=== PATIENT | female | born 1955 | race Caucasian/White ===

== ENCOUNTER → 2020-11-10 08:01 | Outpatient (BNVA) | payer BC, SELFPAY | PROVIDERS: Visit Provider Obstetrics & Gynecology | DX: Z76.89 Persons encountering health services in other specified circumstances (principal) ==

== ENCOUNTER 2021-01-04 10:41 | Outpatient (REF) | payer MEDICARE, SELFPAY ==
--- NOTE | ~2021-01-04 | MM_ITS ---
EXAMINATION: MM SCREENING DIGITAL BREAST TOMOSYNTHESIS, BILATERAL CLINICAL INFORMATION: Screening. Asymptomatic. The lifetime risk of breast cancer based on the Tyrer-Cuzick Model is 7%. COMPARISON: Mammography: 10/08/2020, 12/24/2018, 10/16/2017 TECHNIQUE: Digital breast tomosynthesis is performed in both the craniocaudal and mediolateral oblique views along with computer-aided detection (CAD). Synthesized 2D images are generated from the tomosynthesis. Additional left MLO view is provided. FINDINGS: There are scattered areas of fibroglandular density (ACR BI-RADS breast composition Category b). There are no significant masses, abnormal calcifications, or other abnormalities. Parenchymal pattern is similar to prior exams. There is no developing density. No significant changes. MM/MM tomosynthesis screening BI IMPRESSION: No mammographic evidence of malignancy. ASSESSMENT: BI-RADS 1: Negative RECOMMENDATION: Routine annual mammography screening. This patient's information was entered into a reminder system with a target due date for their next mammogram.
== END 2021-01-04 10:42 | disposition home or self-care (01) ==
LOC: HO.MAMMO 10:41
PROVIDERS: PCP Internal Medicine; Visit Provider Internal Medicine
DX: Z12.31 Encounter for screening mammogram for malignant neoplasm of breast (principal)
CPT/HCPCS: 77063; 77067

== ENCOUNTER 2021-01-18 10:39 | Outpatient (REF) | payer MEDICARE, SELFPAY ==
[2021-01-18 10:44] LABS: MANUAL DIFF FLAG NO
[2021-01-18 10:50] LABS: Basophils Absolute Auto 0.1 X10*3/uL (0.0-0.2); Basophils Percent Auto 0.8 % (0-2); Eosinophils Absolute Auto 0.3 X10*3/uL (0.0-0.4); Eosinophils Percent Auto 4.2 % (0-4); Hematocrit 43.5 % (37-47); Hemoglobin 14.1 g/dl (12.0-16.0); Imm Gran Abs Auto 0.01 X10*3/uL (0.00-0.03); Imm Gran Pct Auto 0.2 % (0.0-0.4); Lymphocytes Absolute Auto 2.2 X10*3/uL (1.2-4.9); Lymphocytes Percent Auto 33.1 % (20-40); Mean Corpuscular HGB Conc 32.4 g/dl (31.0-35.0); Mean Corpuscular Hemoglobin 29.8 pg (27.0-33.0); Mean Platelet Volume 11.2 fL (9.4-12.3); Monocytes Absolute Auto 0.5 X10*3/uL (0.1-1.2); Monocytes Percent Auto 7.7 % (2-11); Neutrophils Absolute Auto 3.6 X10*3/uL (2.0-8.3); Platelet Count 243 X10*3/uL (160-400); Red Blood Count 4.73 X10*6/uL (4.20-5.50); White Blood Count 6.6 X10*3/uL (4.8-10.8)
[2021-01-18 10:54] LABS: Glucose Urine UA NEG (NEG); Leukocyte Esterase Urine TRACE (NEG); Nitrite Urine NEG (NEG); PH 5.5 (5.0-8.0); Specific Gravity - Urine >= 1.030 (1.005-1.025); Urine Blood TRACE (NEG); Urine Ketones NEG (NEG); Urine Protein NEG (NEG-TRACE)
[2021-01-18 10:58] LABS: Appearance Urine CLOUDY; Color Urine YELLOW
[2021-01-18 11:02] LABS: Estimated Average Glucose 120 mg/dL; Hemoglobin A1C 143.9282 umol/L; Hemoglobin A1c % 5.8 %
[2021-01-18 11:07] LABS: Bacteria Urine 4+ /LPF; RBC Urine 0-2 /HPF (0); Squamous Epithelial Cell Urine 4+ /LPF
[2021-01-18 11:29] LABS: Alanine Aminotransferase 21 U/L (0-31); Alkaline Phosphatase 73 U/L (39-117); Anion Gap 13 (12-20); Aspartate Amino Transferase 15 U/L (5-31); Bilirubin Total 0.8 mg/dL (0.0-1.0); Blood Urea Nitrogen 19 mg/dL (9-16); Calcium 8.8 mg/dL (8.4-10.2); Carbon Dioxide 27 mmol/L (22-29); Chloride 106 mmol/L (96-108); Cholesterol 183 mg/dL; Estimated Glomerular Filt Rate 54; Glucose Fasting 109 mg/dL (60-99); HDL Cholesterol 42 mg/dL; LDL Cholesterol Calculated 111 mg/dl; Potassium 4.1 mmol/L (3.3-5.1); Sodium 142 mmol/L (135-145); Total Protein 6.6 g/dL (6.5-8.0); Triglycerides 154 mg/dL
[2021-01-18 11:50] LABS: TSH reflex Free T4 2.51 uIU/mL (0.32-4.0); Vitamin D 25-OH Total 40.1 ng/mL (>30)
[2021-01-18 12:43] LABS: Reflex LDLD? No
== END 2021-01-18 10:40 | disposition home or self-care (01) ==
LOC: HO.LNP 10:39
PROVIDERS: PCP Internal Medicine; Visit Provider Internal Medicine
DX: D72.820 Lymphocytosis (symptomatic) (principal); E03.9 Hypothyroidism, unspecified; E55.9 Vitamin D deficiency, unspecified; R73.03 Prediabetes; E78.00 Pure hypercholesterolemia, unspecified
CPT/HCPCS: 80053; 80061; 81001; 82306; 83036; 84443; 85025

== ENCOUNTER 2021-05-09 10:35 | Outpatient (REF) | payer MEDICARE, SELFPAY ==
[2021-05-09 10:50] LABS: Estimated Average Glucose 114 mg/dL; Hemoglobin A1c % 5.6 %
[2021-05-09 11:59] LABS: Alanine Aminotransferase 18 U/L (0-31); Alkaline Phosphatase 65 U/L (39-117); Aspartate Amino Transferase 14 U/L (5-31); Bilirubin Direct 0.2 mg/dL (0.0-0.5); Bilirubin Total 0.5 mg/dL (0.0-1.0); Cholesterol 128 mg/dL; Glucose Fasting 113 mg/dL (60-99); HDL Cholesterol 40 mg/dL; LDL Cholesterol Calculated 68 mg/dl; Total Protein 6.2 g/dL (6.5-8.0); Triglycerides 102 mg/dL
[2021-05-09 12:07] LABS: Reflex LDLD? No
== END 2021-05-09 10:36 | disposition home or self-care (01) ==
LOC: HO.LNP 10:35
PROVIDERS: Visit Provider Internal Medicine
DX: R73.03 Prediabetes (principal); E78.00 Pure hypercholesterolemia, unspecified
CPT/HCPCS: 80061; 80076; 82947; 83036

== ENCOUNTER 2021-05-17 12:27 | Outpatient (REF) | payer MEDICARE, SELFPAY ==
[2021-05-17 14:02] LABS: Glucose Urine UA NEG (NEG); Leukocyte Esterase Urine 3+ (NEG); Nitrite Urine NEG (NEG); PH 6.5 (5.0-8.0); Urine Blood 3+ (NEG); Urine Ketones NEG (NEG); Urine Protein NEG (NEG-TRACE)
[2021-05-17 14:07] LABS: Appearance Urine HAZY; Color Urine YELLOW
[2021-05-17 14:22] LABS: Bacteria Urine 2+ /LPF; RBC Urine TNTC /HPF (0); Squamous Epithelial Cell Urine 2+ /LPF; WBC Urine TNTC /HPF (0-4)
== END 2021-05-17 12:28 | disposition home or self-care (01) ==
LOC: HO.LNP 12:27
PROVIDERS: Visit Provider Internal Medicine
DX: E78.00 Pure hypercholesterolemia, unspecified (principal); N30.00 Acute cystitis without hematuria
CPT/HCPCS: 81001; 81003; 87086; 87088; 87186

== ENCOUNTER 2021-05-30 09:26 | Outpatient (REF) | payer MEDICARE, SELFPAY ==
--- NOTE | ~2021-05-30 | US_ITS ---
EXAMINATION: US THYROID CLINICAL INFORMATION: Nontoxic single nodule. COMPARISON: Ultrasound thyroid soft tissue neck 06/14/2020. TECHNIQUE: Linear transducer mcclain-scale and color Doppler examination with attention to the region of the thyroid. FINDINGS: SIZE: Measurements of the thyroid lobes and nodules are given in sagittal, anteroposterior and transverse dimensions respectively. Right Thyroid Lobe: 4.1 x 2.2 x 2.0 cm, volume 9.7 mL. Previously 4.4 x 2.4 x 2.2 cm, volume 12.3 mL. Parenchyma: The gland echotexture is homogeneous. Thyroid vascularity is normal. Left Thyroid Lobe: 4.6 x 1.5 x 1.8 cm, volume 6.3 mL. Previously 5.0 x 1.7 x 1.7 cm, volume 7.7 mL. Parenchyma: The gland echotexture is homogeneous. Thyroid vascularity is increased. Isthmus: 0.5 cm in maximum AP dimension. Previously 0.4 cm. Estimated total number of nodules greater than or equal to 1 cm: 1. Reconciliation Coordinator nodules are described as follows: 1. Location: Right upper. Size: 0.6 x 0.6 x 0.4 cm, volume 0.09 mL. Previously: Nodule characteristics: Composition: Solid (2). Echogenicity: Hypoechoic (2). Shape: Not taller than wide (0). Margins: Smooth (0). Echogenic Foci: None (0). ACR TI-RADS total points: 4 Previous: Not applicable. ACR TI-RADS category: 4 Previous: Not applicable. 2. Location: Right mid. Size: 0.5 x 0.5 x 0.4 cm, volume 0.06 mL. Previously: 0.6 x 0.5 x 0.6 cm, volume 0.09 mL. Nodule characteristics: Composition: Solid (2). Echogenicity: Hypoechoic (2). Shape: Not taller than wide (0). Margins: Smooth (0). Echogenic Foci: None (0). ACR TI-RADS total points: 4 Previous: Not applicable. ACR TI-RADS category: 4 Previous: Not applicable. Significant change in size (>/= 20% in 2 dimensions and minimal increase of 2 mm or 50% or greater increase in volume): Change in features: Change in ACR TI-RADS risk category: 3. Location: Left mid. Size: 1.3 x 1.0 x 1.0 cm, volume 0.70 mL. Previously: 1.3 x 0.9 x 0.9 cm, volume 0.53 mL. Nodule characteristics: Composition: Solid/almost completely solid (2). Echogenicity: Hyperechoic (1). Shape: Not taller than wide (0). Margins: Smooth (0). Echogenic Foci: None (0). ACR TI-RADS total points: 3 Previous: Not applicable. ACR TI-RADS category: 3 Previous: Not applicable. Significant change in size (>/= 20% in 2 dimensions and minimal increase of 2 mm or 50% or greater increase in volume): Change in features: Change in ACR TI-RADS risk category: 4. Location: Left lower. Size: 0.4 x 0.3 x 0.2 cm, volume 0.02 mL. Previously: Nodule characteristics: Composition: Solid (2). Echogenicity: Hypoechoic (2). Shape: Not taller than wide (0). Margins: Smooth (0). Echogenic Foci: None (0). ACR TI-RADS total points: 4 Previous: Not applicable. ACR TI-RADS category: 4 Previous: Not applicable. NODES: No lymphadenopathy is seen in the tissue surrounding the thyroid gland. US/US thyroid IMPRESSION: Newly appreciated nodules in the superior right lobe and inferior left lobe. ACR TI-RADS RECOMMENDATION REFERENCE: Ultrasound-guided fine-needle aspiration, followup ultrasound, no further follow up. * TR1 (0 point) and TR 2 (2 points): No FNA or follow up * TR3 (3 points): FNA if more than or equal to 2.5 cm in maximum dimension, followup ultrasound in 1, 3 and 5 years if 1.5 to 2.4 cm in maximum dimension. * TR4 (4-6 points): FNA if more than or equal to 1.5 cm in maximum dimension, followup ultrasound in 1, 2, 3 and 5 years if 1 to 1.4 cm in maximum dimension. * TR5 (more than or equal to 7 points): FNA if more than or equal to 1 cm in maximum dimension, followup ultrasound every year for 5 years if 0.5 to 0.9 cm in maximum dimension. * TR3, TR4 or TR5 nodules that are below the size threshold for follow up receive no follow up.
== END 2021-05-30 09:27 | disposition home or self-care (01) ==
LOC: HO.US 09:26
PROVIDERS: Visit Provider Internal Medicine
DX: E04.1 Nontoxic single thyroid nodule (principal)
CPT/HCPCS: 76536

== ENCOUNTER 2021-06-02 16:02 | Outpatient (REF) | payer MEDICARE, SELFPAY ==
[2021-06-02 16:54] LABS: Glucose Urine UA NEG (NEG); Leukocyte Esterase Urine NEG (NEG); Nitrite Urine NEG (NEG); Urine Blood NEG (NEG); Urine Ketones NEG (NEG); Urine Protein NEG (NEG-TRACE)
[2021-06-02 17:19] LABS: Appearance Urine CLEAR; Bacteria Urine 2+ /LPF; Color Urine YELLOW; RBC Urine 0 /HPF (0); Squamous Epithelial Cell Urine 3+ /LPF; WBC Urine 0 /HPF (0-4)
== END 2021-06-02 16:03 | disposition home or self-care (01) ==
LOC: HO.LNP 16:02
PROVIDERS: Visit Provider Internal Medicine
DX: N39.0 Urinary tract infection, site not specified (principal)
CPT/HCPCS: 81001; 87086

== ENCOUNTER 2021-10-25 13:25 | Outpatient (REF) | payer MEDICARE, SELFPAY ==
--- NOTE | ~2021-10-25 | XR_ITS ---
EXAMINATION: XR CHEST CLINICAL INFORMATION: Bronchitis COMPARISON: 01/17/2018 TECHNIQUE: 2 views of the chest were obtained. FINDINGS: The lungs are well expanded. There is no focal consolidation, edema, or effusion. Mild bronchial wall thickening. No pneumothorax. The cardiomediastinal silhouette is within normal limits. No acute osseous abnormality. Degenerative changes of the spine are noted. XR/XR chest 2V IMPRESSION: No consolidation. Bronchial wall thickening can be seen with a small airways process such as asthma or atypical/viral infection.
== END 2021-10-25 13:26 | disposition home or self-care (01) ==
LOC: HO.XRAY 13:25
PROVIDERS: PCP Internal Medicine; Visit Provider Internal Medicine
DX: J40 Bronchitis, not specified as acute or chronic (principal)
CPT/HCPCS: 71046

== ENCOUNTER 2021-11-28 13:49 | Outpatient (REF) | payer MEDICARE, SELFPAY ==
--- NOTE | ~2021-11-28 | XR_ITS ---
EXAMINATION: XR ANKLE, LEFT CLINICAL INFORMATION: Trauma, lateral pain COMPARISON: None TECHNIQUE: AP, lateral, and mortise views of the left ankle. FINDINGS: There is no fracture or dislocation. There is questionable tiny corticated ossicle adjacent to tip lateral malleolus. No acute fracture appreciated. The ankle mortise is symmetric. There is no joint narrowing or erosive change or osteochondral lesion. Subtalar joint is unremarkable. There is posterior and borderline plantar calcaneal spur. Base fifth metatarsal appears intact. XR/XR ankle LT min 3V IMPRESSION: No visible fracture or dislocation. Ankle mortise is symmetric.
== END 2021-11-28 13:50 | disposition home or self-care (01) ==
LOC: HO.XRAY 13:49
PROVIDERS: PCP Internal Medicine; Visit Provider Internal Medicine
DX: S99.912A Unspecified injury of left ankle, initial encounter (principal); X58.XXXA Exposure to other specified factors, initial encounter; Y93.9 Activity, unspecified; Y92.9 Unspecified place or not applicable; Y99.8 Other external cause status
CPT/HCPCS: 73610

== ENCOUNTER → 2021-12-14 11:06 | Outpatient (BNVA) | payer MEDICARE, SELFPAY | PROVIDERS: PCP Internal Medicine; Visit Provider Obstetrics & Gynecology ==

== ENCOUNTER 2022-01-05 08:57 | Outpatient (REF) | payer MEDICARE, SELFPAY ==
--- NOTE | ~2022-01-05 | MM_ITS ---
EXAMINATION: MM SCREENING DIGITAL BREAST TOMOSYNTHESIS, BILATERAL CLINICAL INFORMATION: Screening. Asymptomatic. The lifetime risk of breast cancer based on the Tyrer-Cuzick Model is 10%. COMPARISON: Mammography: 01/04/2021, 12/30/2019, 12/24/2018 TECHNIQUE: Digital breast tomosynthesis is performed in both the craniocaudal and mediolateral oblique views along with computer-aided detection (CAD). Synthesized 2D images are generated from the tomosynthesis. Additional left MLO view is provided. FINDINGS: There are scattered areas of fibroglandular density (ACR BI-RADS breast composition Category b). There are no significant masses, abnormal calcifications, or other abnormalities. There are scattered bilateral minor asymmetries stable from prior studies. There is no developing density or interval mass or architectural abnormality. No significant changes. MM/MM tomosynthesis screening BI IMPRESSION: No mammographic evidence of malignancy. ASSESSMENT: BI-RADS 2: Benign RECOMMENDATION: Routine annual mammography screening. This patient's information was entered into a reminder system with a target due date for their next mammogram.
== END 2022-01-05 08:58 | disposition home or self-care (01) ==
LOC: HO.MAMMO 08:57
PROVIDERS: PCP Internal Medicine; Visit Provider Internal Medicine
DX: Z12.31 Encounter for screening mammogram for malignant neoplasm of breast (principal)
CPT/HCPCS: 77063; 77067

== ENCOUNTER 2022-01-31 08:10 | Outpatient (REF) | payer MEDICARE, SELFPAY ==
--- NOTE | ~2022-01-31 | MM_ITS ---
EXAMINATION: BONE DENSITOMETRY CLINICAL INDICATION: Menopause. COMPARISON: Previous BD dated 01/27/2020 and baseline BD dated 05/20/2013. TECHNIQUE: Using a [employer] DXA System (software version: 13.1) manufactured by [employer], dual-energy x-ray absorptiometry was performed of the lumbar spine and left hip. The images are of good technical quality. Summary results are attached. FINDINGS: AP SPINE L1-L4 (excluding L3): The data of L1-L4 has been changed to exclude the L3 vertebral body, because degenerative changes at this level may cause overestimation of lumbar spine density. Current: BMD 1.681 g/cm2, Z-score 5.0, T-score 4.3, normal, 1.4% increase from previous, 1.3% decrease from baseline (<5% change is not significant). Prior: BMD 1.658 g/cm2. Baseline: BMD 1.704 g/cm2. LEFT FEMUR, NECK: Current: BMD 0.975 g/cm2, Z-score 0.6, T-score -0.5, normal. Prior: BMD 0.934 g/cm2. Baseline: BMD 1.033 g/cm2. LEFT FEMUR, TOTAL: Current: BMD 1.193 g/cm2, Z-score 2.2, T-score 1.5, normal, 3.2% increase from previous, 3.6% increase from baseline (<5% change is not significant). Prior: BMD 1.156 g/cm2. Baseline: BMD 1.151 g/cm2. IDENTIFIED RISK FACTORS: Menopause, history of fracture (adult). HISTORY OF FRACTURE: Coccyx. MEDICATIONS: Vitamin D. MM/XR DEXA axial skeleton IMPRESSION: 1. DIAGNOSIS: Normal bone density based on the lowest T-score value of -0.5 in the femoral neck applying World Health Organization criteria. 2. 10-YEAR FRACTURE RISK PREDICTION, FRAX: Major osteoporotic fracture (clinical spine, forearm, hip or shoulder) 11.6%. Hip fracture 0.6%. 3. Treatment Recommendations: NOF guidelines recommend consideration for treatment in postmenopausal women and men age 50 and older presenting with the following: -A hip or vertebral (clinical or morphometric) fracture. -T-score less than or equal to -2.5 at the femoral neck or spine after appropriate evaluation to exclude secondary causes. -Low bone mass at the hip or spine and a 10-year fracture probability by FRAX of greater than or equal to 3% for hip fracture or greater than or equal to 20% for major osteoporotic fracture based on the [place] adapted WHO algorithm. 4. Other Recommendations: All treatment decisions require clinical judgment and consideration of individual patient factors, including patient preferences, comorbidities, previous drug use, risk factors not captured in the FRAX model (e.g. frailty, falls, vitamin D deficiency, increased bone turnover, interval significant decline in bone density) and possible under or overestimation of fracture risk by FRAX. FUTURE SCAN RECOMMENDATION: People with diagnosed cases of osteoporosis or at high risk for fracture should have regular bone mineral density tests. For patients eligible for Medicare, routine testing is allowed once every 2 years. The testing frequency can be increased to one year for patients who have rapidly progressing disease, those who are receiving or discontinuing medical therapy to restore bone mass, or have additional risk factors.
== END 2022-01-31 08:11 | disposition home or self-care (01) ==
LOC: HO.MAMMO 08:10
PROVIDERS: PCP Internal Medicine; Visit Provider Obstetrics & Gynecology
DX: Z13.820 Encounter for screening for osteoporosis (principal); Z78.0 Asymptomatic menopausal state; Z79.899 Other long term (current) drug therapy
CPT/HCPCS: 77080

== ENCOUNTER 2022-02-07 11:17 | Outpatient (REF) | payer MEDICARE, SELFPAY ==
[2022-02-07 11:24] LABS: MANUAL DIFF FLAG NO
[2022-02-07 11:30] LABS: Appearance Urine HAZY; Color Urine YELLOW; Glucose Urine UA NEG (NEG); Leukocyte Esterase Urine NEG (NEG); Nitrite Urine NEG (NEG); PH 5.5 (5.0-8.0); Specific Gravity - Urine 1.025 (1.005-1.025); Urine Blood NEG (NEG); Urine Ketones NEG (NEG); Urine Protein NEG (NEG-TRACE)
[2022-02-07 11:33] LABS: Basophils Absolute Auto 0.1 X10*3/uL (0.0-0.2); Basophils Percent Auto 0.7 % (0-2); Eosinophils Absolute Auto 0.2 X10*3/uL (0.0-0.4); Eosinophils Percent Auto 2.7 % (0-4); Hematocrit 42.8 % (37.0-47.0); Hemoglobin 13.9 g/dl (12.0-16.0); Imm Gran Abs Auto 0.01 X10*3/uL (0.00-0.03); Imm Gran Pct Auto 0.1 % (0.0-0.4); Lymphocytes Absolute Auto 2.2 X10*3/uL (1.2-4.9); Lymphocytes Percent Auto 32.5 % (20-40); Mean Corpuscular HGB Conc 32.5 g/dl (31.0-35.0); Mean Corpuscular Hemoglobin 30.2 pg (27.0-33.0); Mean Platelet Volume 11.6 fL (9.4-12.3); Monocytes Absolute Auto 0.5 X10*3/uL (0.1-1.2); Monocytes Percent Auto 7.8 % (2-11); Neutrophils Absolute Auto 3.8 x10*3/uL (2.0-8.3); Neutrophils Percent Auto 56.2 % (45-73); Platelet Count 218 X10*3/uL (160-400); Red Cell Distribution Width 13.1 % (11.0-16.0); White Blood Count 6.7 X10*3/uL (4.8-10.8)
[2022-02-07 11:51] LABS: Estimated Average Glucose 117 mg/dL; Hemoglobin A1c % 5.7 %
[2022-02-07 12:18] LABS: Alanine Aminotransferase 22 U/L (0-31); Albumin Level 4.1 g/dL (3.5-5.0); Alkaline Phosphatase 67 U/L (39-117); Anion Gap 13 (12-20); Aspartate Amino Transferase 16 U/L (5-31); Bilirubin Total 0.6 mg/dL (0.0-1.0); Blood Urea Nitrogen 22 mg/dL (9-16); Calcium 9.4 mg/dL (8.4-10.2); Carbon Dioxide 26 mmol/L (22-29); Chloride 107 mmol/L (96-108); Cholesterol 163 mg/dL; Estimated Glomerular Filt Rate > 60; Glucose Random 114 mg/dL (60-115); HDL Cholesterol 41 mg/dL; LDL Cholesterol Calculated 98 mg/dl; Potassium 4.1 mmol/L (3.3-5.1); Sodium 142 mmol/L (135-145); Total Protein 6.5 g/dL (6.5-8.0); Triglycerides 120 mg/dL
[2022-02-07 12:22] LABS: TSH reflex Free T4 1.32 uIU/mL (0.32-4.0)
[2022-02-07 12:34] LABS: Creatinine Urine 178.38 mg/dL
== END 2022-02-07 11:18 | disposition home or self-care (01) ==
LOC: HO.LNP 11:17
PROVIDERS: Visit Provider Internal Medicine
DX: Z00.00 Encounter for general adult medical examination without abnormal findings (principal); E03.9 Hypothyroidism, unspecified; D72.820 Lymphocytosis (symptomatic); E55.9 Vitamin D deficiency, unspecified; R73.09 Other abnormal glucose; E04.1 Nontoxic single thyroid nodule; E78.00 Pure hypercholesterolemia, unspecified
CPT/HCPCS: 80053; 80061; 81003; 82043; 82306; 83036; 84443; 85025

== ENCOUNTER → 2022-02-21 11:41 | Outpatient (BNVA) | payer MEDICARE, SELFPAY | PROVIDERS: PCP Internal Medicine; Visit Provider Obstetrics & Gynecology | DX: M85.80 Other specified disorders of bone density and structure, unspecified site (principal) | CPT/HCPCS: Q3014 ==

== ENCOUNTER 2022-03-09 11:03 | Outpatient (REF) | payer MEDICARE, SELFPAY ==
--- NOTE | ~2022-03-09 | XR_ITS ---
EXAMINATION: XR foot RT min 3V CLINICAL INFORMATION: Foot pain COMPARISON: None TECHNIQUE: 3 views of the foot XR/XR foot RT min 3V FINDINGS/IMPRESSION: No fracture or dislocation. Mild degenerative changes of the foot with mild degenerative changes of the first metatarsophalangeal joint with degenerative spurring and plantar calcaneal spurring and Achilles tendon enthesopathy. No joint effusion. Soft tissues are unremarkable.
== END 2022-03-09 11:04 | disposition home or self-care (01) ==
LOC: HO.XRAY 11:03
PROVIDERS: PCP Internal Medicine; Visit Provider Internal Medicine
DX: M79.671 Pain in right foot (principal)
CPT/HCPCS: 73630

== ENCOUNTER 2022-07-11 09:25 | Outpatient (REF) | payer MEDICARE, SELFPAY ==
--- NOTE | ~2022-07-11 | US_ITS ---
EXAMINATION: US THYROID CLINICAL INFORMATION: Thyroid nodule. COMPARISON: US thyroid 05/30/2021 and 06/14/2020. TECHNIQUE: Linear transducer mcclain-scale and color Doppler examination with attention to the region of the thyroid. FINDINGS: SIZE: Measurements of the thyroid lobes and nodules are given in sagittal, anteroposterior and transverse dimensions respectively. Right Thyroid Lobe: 4.5 x 1.8 x 2.0 cm, volume 8.5 mL. Previously 4.1 x 2.2 x 2.0 cm, volume 9.7 mL. Parenchyma: The gland echotexture is heterogeneous. Thyroid vascularity is normal. Left Thyroid Lobe: 4.4 x 1.6 x 1.6 cm, volume 5.9 mL. Previously 4.6 x 1.5 x 1.8 cm, volume 6.3 mL. Parenchyma: The gland echotexture is heterogeneous. Thyroid vascularity is normal. Isthmus: 0.8 cm in maximum AP dimension. Previously 0.5 cm. Estimated total number of nodules greater than or equal to 1 cm: 1. Brushing Machine Operator nodules are described as follows: 1. Location: Right superior. Size: 0.9 x 0.5 x 0.8 cm, volume 0.2 mL. Previously: 0.6 x 0.6 x 0.4 cm, volume 0.09 mL. Nodule characteristics: Composition: Solid (2). Echogenicity: Isoechoic (1). Shape: Not taller than wide (0). Margins: Smooth (0). Echogenic Foci: None (0). ACR TI-RADS total points: 3 Previous: 4 ACR TI-RADS category: 3 Previous: 4 Significant change in size (>/= 20% in 2 dimensions and minimal increase of 2 mm or 50% or greater increase in volume): None. Change in features: None. Change in ACR TI-RADS risk category: Minimal. 2. Location: Right mid. Size: 0.6 x 0.5 x 0.6 cm, volume 0.1 mL. Previously: 0.5 x 0.5 x 0.4 cm, volume 0.06 mL. Nodule characteristics: Composition: Solid (2). Echogenicity: Hypoechoic (2). Shape: Not taller than wide (0). Margins: Smooth (0). Echogenic Foci: None (0). ACR TI-RADS total points: 4 Previous: 4 ACR TI-RADS category: 4 Previous: 4 Significant change in size (>/= 20% in 2 dimensions and minimal increase of 2 mm or 50% or greater increase in volume): None. Change in features: None. Change in ACR TI-RADS risk category: No change. 3. Location: Left mid. Size: 1.5 x 1.4 x 1.3 cm, volume 1.4 mL. Previously: 1.3 x 1.0 x 1.0 cm, volume 0.70 mL. Nodule characteristics: Composition: Solid (2). Echogenicity: Hyperechoic (1). Shape: Taller than wide (3). Margins: Smooth (0). Echogenic Foci: None (0). ACR TI-RADS total points: 6 Previous: 3 ACR TI-RADS category: 4 Previous: 3 Significant change in size (>/= 20% in 2 dimensions and minimal increase of 2 mm or 50% or greater increase in volume): None. Change in features: None. Change in ACR TI-RADS risk category: Increased. 4. Location: Left inferior. Size: 0.5 x 0.3 x 0.5 cm, volume 0.04 mL. Previously: 0.4 x 0.3 x 0.2 cm, volume 0.02 mL. Nodule characteristics: Composition: Solid (2). Echogenicity: Isoechoic (1). Shape: Not taller than wide (0). Margins: Smooth (0). Echogenic Foci: None (0). ACR TI-RADS total points: 3 Previous: 4 ACR TI-RADS category: 3 Previous: 4 Significant change in size (>/= 20% in 2 dimensions and minimal increase of 2 mm or 50% or greater increase in volume): None. Change in features: None. Change in ACR TI-RADS risk category: Minimal. 5. Location: Left inferior. Size: 0.4 x 0.3 x 0.3 cm, volume 0.02 mL. Previously: Not seen on the previous study. Nodule characteristics: Composition: Solid (2). Echogenicity: Isoechoic (1). Shape: Not taller than wide (0). Margins: Smooth (0). Echogenic Foci: None (0). ACR TI-RADS total points: 3 ACR TI-RADS category: 3 NODES: No lymphadenopathy is seen in the tissue surrounding the thyroid gland. US/US thyroid IMPRESSION: Bilateral heterogeneous enlarged thyroid gland, right greater than the left. There are multiple bilateral nodules stable in size. The left midpole nodule has slightly increased in TI-RADS category and measures 1.5 cm. It is at the threshold for fine-needle aspiration biopsy. ACR TI-RADS RECOMMENDATION REFERENCE: Ultrasound-guided fine-needle aspiration, followup ultrasound, no further follow up. * TR1 (0 point) and TR 2 (2 points): No FNA or follow up * TR3 (3 points): FNA if more than or equal to 2.5 cm in maximum dimension, followup ultrasound in 1, 3 and 5 years if 1.5 to 2.4 cm in maximum dimension. * TR4 (4-6 points): FNA if more than or equal to 1.5 cm in maximum dimension, followup ultrasound in 1, 2, 3 and 5 years if 1 to 1.4 cm in maximum dimension. * TR5 (more than or equal to 7 points): FNA if more than or equal to 1 cm in maximum dimension, followup ultrasound every year for 5 years if 0.5 to 0.9 cm in maximum dimension. * TR3, TR4 or TR5 nodules that are below the size threshold for follow up receive no follow up.
== END 2022-07-11 09:26 | disposition home or self-care (01) ==
LOC: HO.US 09:25
PROVIDERS: Visit Provider Internal Medicine
DX: E04.1 Nontoxic single thyroid nodule (principal)
CPT/HCPCS: 76536

== ENCOUNTER 2022-09-01 10:44 | Outpatient (REF) | payer MEDICARE, SELFPAY ==
[2022-09-01 11:32] LABS: Alanine Aminotransferase 20 U/L (0-31); Albumin Level 4.1 g/dL (3.5-5.0); Alkaline Phosphatase 69 U/L (39-117); Aspartate Amino Transferase 14 U/L (5-31); Bilirubin Direct 0.2 mg/dL (0.0-0.5); Bilirubin Total 0.5 mg/dL (0.0-1.0); Cholesterol 158 mg/dL; HDL Cholesterol 45 mg/dL; LDL Cholesterol Calculated 86 mg/dl; Total Protein 6.6 g/dL (6.5-8.0); Triglycerides 137 mg/dL
[2022-09-01 12:03] LABS: Reflex LDLD? No
== END 2022-09-01 10:45 | disposition home or self-care (01) ==
LOC: HO.LNP 10:44
PROVIDERS: Visit Provider Internal Medicine
DX: E78.00 Pure hypercholesterolemia, unspecified (principal)
CPT/HCPCS: 80061; 80076

== ENCOUNTER 2022-09-07 10:34 | Outpatient (REF) | payer MEDICARE, SELFPAY ==
--- NOTE | ~2022-09-07 | XR_ITS ---
EXAMINATION: XR lumbar spine 2-3V CLINICAL INFORMATION: Reason for Exam LUMBAR DISC DISEASE COMPARISON: Lumbar spine radiographs 03/02/2011 TECHNIQUE: 3 views of the lumbar spine FINDINGS: 5 nonrib-bearing lumbar-type vertebral bodies. Vertebral body heights are maintained. Alignment is maintained. Mild multilevel degenerative disc disease with loss of disc space height, facet arthropathy and disc osteophyte complexes. Paravertebral soft tissues are unremarkable. XR/XR lumbar spine 2-3V IMPRESSION: Mild spondylosis of the lumbar spine, as above detailed. No significant spondylolisthesis.
== END 2022-09-07 10:35 | disposition home or self-care (01) ==
LOC: HO.XRAY 10:34
PROVIDERS: PCP Internal Medicine; Visit Provider Internal Medicine
DX: M51.9 Unspecified thoracic, thoracolumbar and lumbosacral intervertebral disc disorder (principal)
CPT/HCPCS: 72100

== ENCOUNTER → 2022-10-02 11:43 | Outpatient (BNVA) | payer MEDICARE, SELFPAY | PROVIDERS: PCP Internal Medicine; Visit Provider Obstetrics & Gynecology | DX: N95.0 Postmenopausal bleeding (principal) | CPT/HCPCS: 99212 ==

== ENCOUNTER 2022-11-03 12:23 | Outpatient (REF) | payer MEDICARE, SELFPAY ==
--- NOTE | ~2022-11-03 | US_ITS ---
EXAMINATION: US PELVIS CLINICAL INFORMATION: Postmenopausal bleeding COMPARISON: None TECHNIQUE: Ultrasound of the pelvis is performed using both transabdominal and transvaginal transducers along with Doppler. Transvaginal imaging is performed due to inadequate visualization transabdominally. FINDINGS: UTERUS: The uterus is anteverted and measures 7.4 x 5.2 x 5.8 cm. The double wall endometrial is heterogeneous, thick and measures 1.0 cm. There is hyperechoic endometrial lesion, likely a polyp, seen measuring 0.5 x 0.6 x 0.5 cm. This could be a pedunculated fibroid as well. The uterus is smooth in contour and has normal myometrial echogenicity. There are several hypoechoic lesions in the uterus corresponding to fibroids. 1. A fibroid in upper posterior body of uterus measures 2.3 x 2.7 x 3.2 cm. 2. Lesion in the anterior body of uterus measures 0.4 x 0.5 x 0.6 cm. 3. Lesion in the central midline fundus measures 0.6 x 0.6 x 1.0 cm. 4. Exophytic lesion on top of the fundus measures 2.2 x 2.1 x 2.0 cm. 5. Lesion in the lower uterine body anteriorly measures 2.0 x 1.1 x 1.9 cm. There are several anechoic nabothian cysts in the cervix. ADNEXA: Both ovaries are visualized. There is normal color flow to the adnexa. There is no ovarian torsion. There is no pelvic ascites or fluid collection. Right ovary measures 2.4 x 2.1 x 1.7 cm and volume 4.5 mL. Left ovary is not visualized. 1. Multiple uterine fibroids as described above. 2. Thickened heterogeneous endometrium with a polyp versus pedunculated fibroid. 3. Several nabothian cysts in the cervix. 4. The right ovary is unremarkable. The left ovary is not seen. 5. There is no free fluid in the cul-de-sac. 6. There is no fluid in the cul-de-sac. US/US pelvic and transvaginal IMPRESSION: 1. Heterogeneous endometrium with likely polyp in the fundal region. Differential diagnoses may include a pedunculated fibroid. 2. Multiple uterine fibroids as described above. 3. Unremarkable right ovary. The left ovary is not seen. 4. Small nabothian cysts in the cervix.
== END 2022-11-03 12:24 | disposition home or self-care (01) ==
LOC: HO.US 12:23
PROVIDERS: Visit Provider Obstetrics & Gynecology
DX: N95.0 Postmenopausal bleeding (principal)
CPT/HCPCS: 76830; 76856

== ENCOUNTER → 2022-11-22 09:31 | Outpatient (BNVA) | payer MEDICARE, SELFPAY | PROVIDERS: PCP Internal Medicine; Visit Provider Obstetrics & Gynecology | DX: N95.0 Postmenopausal bleeding (principal); D25.9 Leiomyoma of uterus, unspecified | CPT/HCPCS: 99212 ==

== ENCOUNTER 2022-12-15 06:57 | Day surgery (SDC) | payer MEDICARE, SELFPAY ==
[2022-12-08 10:50] VITALS: BMI 34.3
--- NOTE | 2022-12-14 09:25 | P.CONAN_ITS ---
Documented by User: Madiha Mitchell NP 12/14/22 09:26 HPI - Anesthesia Eval Consult details Narrative: 67yo F for D&C Hysteroscopy, Possible polypectomy,possible myomectomy PMFSH Active Problems Active Problems: All Active Problems (Updated 12/08/22 @ 10:48 by Abby Mcmahan RN) Well woman exam (Acute) Osteoporosis screening (Acute) Osteopenia (Acute) Postmenopausal bleeding (Acute) Uterine myoma (Acute) Past Medical History Medical History (Updated 12/08/22 @ 10:48 by Abby Mcmahan RN) Degeneration of spine Deviated septum Elevated cholesterol GERD (gastroesophageal reflux disease) Hypothyroid Osteoarthritis PVC (premature ventricular contraction) Thyroid nodule Family History Family History Paternal Aunt Breast CA Surgical History Surgical History (Updated 12/08/22 @ 10:48 by Abby Mcmahan RN) H/O colonoscopy H/O shoulder surgery History of arthroscopy of both knees History of History of surgery Tubal ligation status Social History Social History Are you a primary clinical manager home care to a significant other at home: No Do you presently have visiting nurse or other home services: No Alcohol intake: current Alcohol intake frequency: holidays/special occasions only Patient Tobacco Use Status: Former Tobacco user Quit Date: age 20 Tobacco use type: Cigarette Years Smoked: 7 Use of substances other than those prescribed or required for medical reasons: No Have you been hit, kicked, punched, or otherwise hurt by someone within the past year? If so, by whom?: No Are you DNR?: No Advance Directives: Yes Advance Directives Information Provided: Yes (as above noted-to bring copy DOS) Advance Directives on File: Yes Advance Directives Date on File: 12/15/22 Recently lost weight without trying: No Eating poorly because of decreased appetite: No Nutrition Risks: No Nutritional Risk Poor oral hygiene: No Gender identity: Female Meds Allergies Allergy/AdvReac Type Severity Reaction Status Date / Time No Known Allergies Allergy Verified 10/02/22 11:53 Home Medications Medication Instructions Recorded Confirmed Last Taken Type atorvastatin 20 mg tablet 20 mg PO QAM 11/10/20 12/08/22 12/14/22 History betamethasone valerate 0.1 % 1 appl topical BID 11/10/20 12/08/22 Unknown History topical cream levothyroxine 100 mcg tablet 100 mcg PO QAM 11/10/20 12/08/22 12/15/22 History diclofenac sodium 75 mg 75 mg PO BID 10/02/22 12/08/22 10/18/22 History tablet,delayed release cholecalciferol (vitamin D3) 25 25 mcg PO DAILY 12/08/22 12/08/22 12/14/22 History mcg (1,000 unit) capsule (Vitamin D3) Exam Exam Date and Time: December 14, 2022 0925 Height,Weight and Vital Signs: Height 5 ft 4 in Weight 90.718 kg Assessment and Plan Assessment Anesthesia Assessment: Chart Reviewed Documented by User: Aquiles Moore MD 12/15/22 09:16 [facility] Past Medical History Medical History (Updated 12/08/22 @ 10:48 by Abby Mcmahan RN) Degeneration of spine Deviated septum Elevated cholesterol GERD (gastroesophageal reflux disease) Hypothyroid Osteoarthritis PVC (premature ventricular contraction) Thyroid nodule Family History Family History Paternal Aunt Breast CA Family history of problems with anesthesia: No Surgical History Surgical History (Updated 12/08/22 @ 10:48 by Abby Mcmahan RN) H/O colonoscopy H/O shoulder surgery History of arthroscopy of both knees History of History of surgery Tubal ligation status History of Problems with Anesthesia: No Social History Social History Are you a primary clinical manager home care to a significant other at home: No Do you presently have visiting nurse or other home services: No Alcohol intake: current Alcohol intake frequency: holidays/special occasions only Patient Tobacco Use Status: Former Tobacco user Quit Date: age 20 Tobacco use type: Cigarette Years Smoked: 7 Use of substances other than those prescribed or required for medical reasons: No Have you been hit, kicked, punched, or otherwise hurt by someone within the past year? If so, by whom?: No Are you DNR?: No Advance Directives: Yes Advance Directives Information Provided: Yes (as above noted-to bring copy DOS) Advance Directives on File: Yes Advance Directives Date on File: 12/15/22 Recently lost weight without trying: No Eating poorly because of decreased appetite: No Nutrition Risks: No Nutritional Risk Poor oral hygiene: No Gender identity: Female Meds Allergies Allergy/AdvReac Type Severity Reaction Status Date / Time No Known Allergies Allergy Verified 10/02/22 11:53 Home Medications Medication Instructions Recorded Confirmed Last Taken Type atorvastatin 20 mg tablet 20 mg PO QAM 11/10/20 12/08/22 12/14/22 History betamethasone valerate 0.1 % 1 appl topical BID 11/10/20 12/08/22 Unknown History topical cream levothyroxine 100 mcg tablet 100 mcg PO QAM 11/10/20 12/08/22 12/15/22 History diclofenac sodium 75 mg 75 mg PO BID 10/02/22 12/08/22 10/18/22 History tablet,delayed release cholecalciferol (vitamin D3) 25 25 mcg PO DAILY 12/08/22 12/08/22 12/14/22 History mcg (1,000 unit) capsule (Vitamin D3) Exam Airway Mallampati Class: I TM Dist: >3cm Neck ROM: Full Heart: ok Lungs: ok Assessment and Plan Final Anesthetic Review Family History of Problems with Anesthesia: No History of Problems with Anesthesia: No NPO: Yes ASA Class: II Final Preanesthetic Review: No Changes in Pt Med Stat, Meds/Allgs Chart Reviewed, Consent Obtained/Reviewed and Anes Risks/Benef Reviewed Patient Risk: Low Procedure Risk: Low Anesthetic Plan Anesthetic Plan: GA and Agree w/ Assess. and Plan Disposition: Standard PACU
[2022-12-15] VITALS (8 sets, daily range): BP systolic 129–167; BP diastolic 63–83; PULSE 50–62; RESP 12–18; TEMP 36.1–37.2; O2SAT 94–98
[2022-12-15] MEDS: Lactated Ringers 1,000 ML 100 ML IVCONT (07:22)
--- NOTE | 2022-12-15 07:39 | MHC.SHP ---
Pre-Procedural Eval Section A Date of Service: 12/15/22 The patient is an INPATIENT: No Changes since office visit: No Cold of Flu in the past 2 weeks, No New Medical Problems, No Changes in Medication and No Patient answered all questions The History & Physical has been completed within 30 days and I have reviewed it.: Yes Section B Chief Complaint: Postmenopausal bleeding Allergies: Allergies Allergy/AdvReac Type Severity Reaction Status Date / Time No Known Allergies Allergy Verified 10/02/22 11:53 Plan Diagnosis/Plan: Unchanged I have reviewed the history and physical and performed a pertinent physical examination on my patient. No changes have occurred unless specified. Time Spent With Patient Time: Total time managing care of this patient today ____ minutes.
--- NOTE | 2022-12-15 09:28 | PM.OP ---
Brief Operative Note Date of Service: 12/15/22 Pre-op diagnosis: Postmenopausal bleeding Post-op diagnosis: same (Same with 2 endometrial polyps) Procedure: Hysteroscopy D&C, Polypectomyx2 Surgeon: Lalo Mao MD Anesthesia: GLMA Was an Car Installations Supervisor used for this Procedure?: No Estimated blood loss (mL): 0 Pathology: other (Endometrial Scrapping. Polyps) Condition: stable Disposition: PACU
--- NOTE | 2022-12-15 09:29 | W.PM.OPN ---
Operative Note Operative Note Date of Service: 12/15/22 Narrative: Preop Diagnosis: Postmenopausal bleeding, Endometrial polyp by US Operation: Diagnostic Hysteroscopy, Dilataion & Curettage and polypectomyx2 Post Op Diagnosis: 2 Endometrial Polyps QBL: Minimal Anesthesia: GLMA Surgeon: Lalo Mao MD Production Controller: None Complication: None Pathology: Endometrial Scrapings, 2 Endometrial polyps Procedure: The patient was put in the dorsal lithotomy position, scrubbed, and draped in the usual manner. A sterile speculum was inserted in the patient's vagina. The anterior lip of the cervix was grasped with a single tooth tenaculum. The cervix was dilated up to 5 mm, then the scope was inserted in the patient's uterus. Inspection revealed 2 endometrial polyps The Myosure Reach device was used; it was introduced through the operative channel and 2 polypectomies done with no complications. The scope was then taken out from the uterine cavity, sharp curettings was carried on with minimal amount of tissues retrieved. At the end of the procedure, all instruments were taken out of the patient uterine and vaginal cavity. The single tooth tenaculum was removed and homeostasis was assured using pressure,. The patient tolerated the procedure well and was transferred to the PACU in a stable condition.
[2022-12-15] MEDS: oxyCODONE HCl Immed Release 5 MG TABLET PO (09:51)
[2022-12-15] MEDS: Acetaminophen 325 MG TABLET 650 MG PO (09:51)
[2022-12-15] MEDS: fentaNYL citrate/PF 100 MCG/2 ML VIAL 25 MCG IVPUSH ×2 (09:54→10:01)
== END 2022-12-15 10:54 | disposition home or self-care (01) ==
PROVIDERS: PCP Internal Medicine; Visit Provider Obstetrics & Gynecology
PROC: 0UDB8ZZ Extraction of Endometrium, Via Natural or Artificial Opening Endoscopic (ICD-10-PCS; CPT 58558; principal; 2022-12-15 09:10)
DX: N95.0 Postmenopausal bleeding (principal); D25.9 Leiomyoma of uterus, unspecified; N84.0 Polyp of corpus uteri; N88.8 Other specified noninflammatory disorders of cervix uteri; E03.9 Hypothyroidism, unspecified; Z79.899 Other long term (current) drug therapy; Z98.51 Tubal ligation status; Z87.891 Personal history of nicotine dependence
CPT/HCPCS: 58558; 88305; J1885; J2405; J3010

== ENCOUNTER → 2022-12-28 08:03 | Outpatient (BNVA) | payer MEDICARE, SELFPAY | PROVIDERS: PCP Internal Medicine; Visit Provider Obstetrics & Gynecology | DX: N95.0 Postmenopausal bleeding (principal) | CPT/HCPCS: 99212 ==

== ENCOUNTER 2023-01-11 09:24 | Outpatient (REF) | payer MEDICARE, SELFPAY ==
--- NOTE | ~2023-01-11 | MM_ITS ---
EXAMINATION: MM SCREENING DIGITAL BREAST TOMOSYNTHESIS, BILATERAL CLINICAL INFORMATION: Screening. Asymptomatic. The lifetime risk of breast cancer based on the Tyrer-Cuzick Model is 6%. COMPARISON: Mammography: 01/05/2022, 01/04/2021, 12/30/2019 TECHNIQUE: Digital breast tomosynthesis is performed in both the craniocaudal and mediolateral oblique views along with computer-aided detection (CAD). Synthesized 2D images are generated from the tomosynthesis. FINDINGS: There are scattered areas of fibroglandular density (ACR BI-RADS breast composition Category b). There are no significant masses, abnormal calcifications, or other abnormalities. Parenchymal pattern is similar to prior studies. There is no developing density or architectural abnormality. The axilla and skin contours are unremarkable. No significant changes. MM/MM tomosynthesis screening BI IMPRESSION: No mammographic evidence of malignancy. ASSESSMENT: BI-RADS 1: Negative RECOMMENDATION: Routine annual mammography screening. This patient's information was entered into a reminder system with a target due date for their next mammogram.
== END 2023-01-11 09:25 | disposition home or self-care (01) ==
LOC: HO.MAMMO 09:24
PROVIDERS: PCP Internal Medicine; Visit Provider Internal Medicine
DX: Z12.31 Encounter for screening mammogram for malignant neoplasm of breast (principal)
CPT/HCPCS: 77063; 77067

== ENCOUNTER 2023-02-19 10:40 | Outpatient (REF) | payer MEDICARE, SELFPAY ==
[2023-02-19 10:44] LABS: MANUAL DIFF FLAG NO
[2023-02-19 11:26] LABS: Appearance Urine Cloudy; Color Urine Yellow; Glucose Urine UA Negative (Negative); Leukocyte Esterase Urine Small (1+) (Negative); Nitrite Urine Negative (Negative); UMIC TRIGGER UACC YES; Urine Blood Negative (Negative); Urine Ketones Negative (Negative); Urine Protein Negative (Neg-Trace)
[2023-02-19 11:29] LABS: Bacteria Urine 1+ (None Seen); Hyaline Casts Urine 0-2 /LPF (0-2); UACC Culture Trigger YES
[2023-02-19 11:30] LABS: Basophils Percent Auto 0.6 % (0-2); Eosinophils Absolute Auto 0.3 X10*3/uL (0.0-0.4); Eosinophils Percent Auto 3.8 % (0-4); Hematocrit 43.7 % (37.0-47.0); Hemoglobin 14.4 g/dl (12.0-16.0); Imm Gran Abs Auto 0.02 X10*3/uL (0.00-0.03); Imm Gran Pct Auto 0.3 % (0.0-0.4); Lymphocytes Absolute Auto 1.9 X10*3/uL (1.2-4.9); Lymphocytes Percent Auto 27.3 % (20-40); Mean Corpuscular Hemoglobin 30.3 pg (27.0-33.0); Mean Corpuscular Volume 91.8 fL (80.0-98.0); Mean Platelet Volume 11.8 fL (9.4-12.3); Monocytes Absolute Auto 0.7 X10*3/uL (0.1-1.2); Monocytes Percent Auto 9.6 % (2-11); Neutrophils Percent Auto 58.4 % (45-73); Platelet Count 211 X10*3/uL (160-400); Red Blood Count 4.76 X10*6/uL (4.20-5.50); White Blood Count 6.9 X10*3/uL (4.8-10.8)
[2023-02-19 11:39] LABS: Estimated Average Glucose 117 mg/dL; Hemoglobin A1C 150.7109 umol/L; Hemoglobin A1c % 5.7 %
[2023-02-19 12:10] LABS: Alanine Aminotransferase 36 U/L (0-31); Albumin Level 3.9 g/dL (3.5-5.0); Alkaline Phosphatase 64 U/L (39-117); Anion Gap 10 (12-20); Aspartate Amino Transferase 20 U/L (5-31); Bilirubin Total 0.7 mg/dL (0.0-1.0); Blood Urea Nitrogen 17 mg/dL (9-16); Carbon Dioxide 29 mmol/L (22-29); Chloride 107 mmol/L (96-108); Cholesterol 161 mg/dL; Estimated Glomerular Filt Rate 59; Glucose Fasting 118 mg/dL (60-99); HDL Cholesterol 44 mg/dL; LDL Cholesterol Calculated 89 mg/dl; Potassium 4.2 mmol/L (3.3-5.1); Sodium 142 mmol/L (135-145); Total Protein 6.2 g/dL (6.5-8.0); Triglycerides 143 mg/dL
[2023-02-19 12:17] LABS: TSH reflex Free T4 2.56 uIU/mL (0.32-4.0); Vitamin D 25-OH Total 44.4 ng/mL (>30)
[2023-02-19 12:39] LABS: Creatinine Urine 204.31 mg/dL; Microalbum/Creatinine Ratio Ur 11.7 ug/mg cr
== END 2023-02-19 10:41 | disposition home or self-care (01) ==
LOC: HO.LNP 10:40
PROVIDERS: Visit Provider Internal Medicine
DX: Z00.00 Encounter for general adult medical examination without abnormal findings (principal); D72.820 Lymphocytosis (symptomatic); E03.9 Hypothyroidism, unspecified; E55.9 Vitamin D deficiency, unspecified; E78.00 Pure hypercholesterolemia, unspecified; I10 Essential (primary) hypertension; R73.03 Prediabetes
CPT/HCPCS: 80053; 80061; 81001; 82043; 82306; 83036; 84443; 85025; 87086; 87088; 87186

== ENCOUNTER 2023-03-20 11:41 | Outpatient (REF) | payer MEDICARE, SELFPAY ==
[2023-03-20 12:25] LABS: Appearance Urine Clear; Color Urine Yellow; Glucose Urine UA Negative (Negative); Leukocyte Esterase Urine Trace (Negative); Nitrite Urine Negative (Negative); Specific Gravity - Urine 1.015 (1.005-1.025); UMIC TRIGGER UACC YES; Urine Blood Negative (Negative); Urine Ketones Negative (Negative); Urine Protein Negative (Neg-Trace)
[2023-03-20 12:30] LABS: Bacteria Urine None Seen (None Seen); Hyaline Casts Urine 0-2 /LPF (0-2); WBC Urine 0-5 /HPF (0-5)
== END 2023-03-20 11:42 | disposition home or self-care (01) ==
LOC: HO.LNP 11:41
PROVIDERS: Visit Provider Internal Medicine
DX: R31.9 Hematuria, unspecified (principal)
CPT/HCPCS: 81001

== ENCOUNTER 2023-05-01 14:49 | Outpatient (REF) | payer MEDICARE, SELFPAY ==
[2023-05-01 15:12] LABS: Appearance Urine Clear; Color Urine Yellow; Glucose Urine UA Negative (Negative); Leukocyte Esterase Urine Negative (Negative); Nitrite Urine Negative (Negative); PH 5.5 (5.0-9.0); Urine Blood Negative (Negative); Urine Ketones Negative (Negative); Urine Protein Negative (Neg-Trace)
[2023-05-01 15:17] LABS: Bacteria Urine None Seen (None Seen); Hyaline Casts Urine 0-2 /LPF (0-2); WBC Urine 0-5 /HPF (0-5)
== END 2023-05-01 14:50 | disposition home or self-care (01) ==
LOC: HO.LNP 14:49
PROVIDERS: Visit Provider Internal Medicine
DX: R31.9 Hematuria, unspecified (principal)
CPT/HCPCS: 81001

== ENCOUNTER 2023-06-04 10:43 | Outpatient (REF) | payer MEDICARE, SELFPAY ==
--- NOTE | ~2023-06-04 | US_ITS ---
EXAMINATION: US PELVIS CLINICAL INFORMATION: Leiomyoma of uterus. COMPARISON: Portions of a previous study 11/03/22 TECHNIQUE: Ultrasound of the pelvis is performed using both transabdominal and transvaginal transducers along with Doppler. Transvaginal imaging is performed due to inadequate visualization transabdominally. FINDINGS: Uterus: The uterus is anteverted and measures 10.0 x 4.0 x 6.2 cm. The estimated cervical length is 3.4 cm. The double wall endometrial thickness is 1 mm. The uterus is lobular in contour. There are multiple rounded areas of altered echotexture within the myometrium. Care Mgr rounded areas of altered echotexture in the myometrium as follows; Lower uterine segment, right-2.0 cm. On 11/03/22 this measured 2.0 cm Posterior uterine body-3.6 cm. On 11/03/22 this measured 3.2 cm. Right side uterine fundus-3.3 cm. On 11/03/22 this measured 2.2 cm Anterior uterine body (echogenic with surrounding decreased echogenicity)-0.5 cm. On 11/03/22 this measured 0.6 cm Adnexa: Both ovaries are visualized. There is no abnormal color flow to the adnexa. There is no evidence of ovarian torsion. There is no pelvic ascites or fluid collection. Right ovary measures 2.0 x 1.8 x 1.8 cm. The estimated right ovarian volume is approximately 3 mL. On 11/03/22 the estimated right ovarian volume was 5 mL. There is a small echogenic focus within the right ovary without shadowing. This could reflect sequelae from previous cyst rupture. Left ovary measures 1.9 x 1.7 x 1.7 cm. US/US pelvic and transvaginal IMPRESSION: There are multiple rounded areas of altered echotexture some of which alter the contour of the uterus. The largest measures 3.6 cm. Statistically these are most consistent with fibroids. There is no longer any suspicious finding in the endometrium.
== END 2023-06-04 10:44 | disposition home or self-care (01) ==
LOC: HO.US 10:43
PROVIDERS: PCP Internal Medicine; Visit Provider Obstetrics & Gynecology
DX: D25.9 Leiomyoma of uterus, unspecified (principal)
CPT/HCPCS: 76830; 76856

== ENCOUNTER 2023-06-11 10:56 | Outpatient (REF) | payer MEDICARE, SELFPAY ==
[2023-06-11 11:52] LABS: Appearance Urine Clear; Color Urine Yellow; Glucose Urine UA Negative (Negative); Leukocyte Esterase Urine Negative (Negative); Nitrite Urine Negative (Negative); PH 5.5 (5.0-9.0); Specific Gravity - Urine 1.015 (1.005-1.025); Urine Blood Negative (Negative); Urine Ketones Negative (Negative); Urine Protein Negative (Neg-Trace)
[2023-06-11 12:06] LABS: Bacteria Urine None Seen (None Seen); Hyaline Casts Urine 0-2 /LPF (0-2); RBC Urine 0-2 /HPF (0-2); WBC Urine 0-5 /HPF (0-5)
== END 2023-06-11 10:57 | disposition home or self-care (01) ==
LOC: HO.LNP 10:56
PROVIDERS: Visit Provider Internal Medicine
DX: R31.9 Hematuria, unspecified (principal)
CPT/HCPCS: 81001

== ENCOUNTER 2023-06-18 10:37 | Outpatient (AMB) | payer MEDICARE, SELFPAY ==
--- NOTE | 2023-06-18 10:44 | MHC.OFFVIS ---
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 No complaints. Last Pap/HPV 08/06 was negative Last Mammogram was BI-RADS in 01/11 Last Colonoscopy was 4 years ago, the patient is due next year for another screening colonoscopy Last DEXA scan was in 02/07 Ultrasound done recently showed the following: Uterus: The uterus is anteverted and measures 10.0 x 4.0 x 6.2 cm. The estimated cervical length is 3.4 cm. The double wall endometrial thickness is 1 mm. The uterus is lobular in contour. There are multiple rounded areas of altered echotexture within the myometrium. Studio Camera Operator rounded areas of altered echotexture in the myometrium as follows; Lower uterine segment, right-2.0 cm. On 11/03/22 this measured 2.0 cm Posterior uterine body-3.6 cm. On 11/03/22 this measured 3.2 cm. Right side uterine fundus-3.3 cm. On 11/03/22 this measured 2.2 cm Anterior uterine body (echogenic with surrounding decreased echogenicity)-0.5 cm. On 11/03/22 this measured 0.6 cm Adnexa: Both ovaries are visualized. There is no abnormal color flow to the adnexa. There is no evidence of ovarian torsion. There is no pelvic ascites or fluid collection. Right ovary measures 2.0 x 1.8 x 1.8 cm. The estimated right ovarian volume is approximately 3 mL. On 11/03/22 the estimated right ovarian volume was 5 mL. There is a small echogenic focus within the right ovary without shadowing. This could reflect sequelae from previous cyst rupture. Left ovary measures 1.9 x 1.7 x 1.7 cm. [facility] Medical History Degeneration of spine Deviated septum Elevated cholesterol GERD (gastroesophageal reflux disease) Hypothyroid Osteoarthritis PVC (premature ventricular contraction) Thyroid nodule Surgical History H/O colonoscopy H/O shoulder surgery History of arthroscopy of both knees History of History of surgery Tubal ligation status Family History Paternal Aunt Breast CA Father Colon cancer Social History Are you a primary customer care voice consultant to a significant other at home: No Do you presently have visiting nurse or other home services: No Alcohol intake: current Alcohol intake frequency: holidays/special occasions only Patient Tobacco Use Status: Former Tobacco user Quit Date: age 20 Tobacco use type: Cigarette Years Smoked: 7 Advance Directives Date on File: 12/15/22 Gender identity: Female Female Reproductive History Menstrual Age of Menarche: 12 Total pregnancies: 2 Full term: 2 Number of Living Children: 2 Review of Systems Const All systems reviewed & are unremarkable except as noted in HPI and below Card Reports as per HPI Resp Reports as per HPI GI Reports as per HPI and Reports no additional complaints Reports as per HPI Physical Exam Const General: cooperative, healthy appearing and comfortable Chest Chest palpation & inspection: normal inspection of the chest and normal palpation of entire chest wall Breast/axilla inspection: normal inspection of the breasts and normal inspection of the axillae Breast/axilla palpation: normal palpation of the breasts, normal palpation of the axillae and no axillary lymphadenopathy Resp Effort & Inspection: normal respiratory effort Auscultation: clear to auscultation bilaterally Percussion: percussion normal Cardio Palpation: normal PMI Rate: regular rate Rhythm: regular rhythm Heart sounds: no murmurs and no rubs Peripheral pulses: Peripheral pulses 2+ throughout GI Inspection: Yes normal to inspection Palpation (GI): Soft to palpation, nontender, no guarding, not rigid and No hepatosplenomegaly present Percussion: Yes normal to percussion Auscultation: normal bowel sounds Rectal Exam - Female: deferred General: Yes bladder normal to palpation External Female Exam: No lesion Speculum Exam - Vagina: normal appearance of the vagina, normal palpation, normal vaginal discharge and not erythematous Speculum Exam - Cervix: normal appearance of the cervix and normal palpation Bimanual exam- vagina & uterus: normal bimanual exam, normal palpation, uterine size normal, bladder normal to palpation, consistency normal and normal palpation Bimanual Exam- Adnexa, other: normal adnexae, no masses and no tenderness Assessment & Plan Assessment & Plan (1) Well woman exam: Code(s): Z01.419 - Encounter for gynecological examination (general) (routine) without abnormal findings Plan: Co testing not indicated since the patient 's age is above 65 with no history of abnormal Pap smears last 25 years and has been adequately screened for 10 years prior to the age of 64. Counseled the patient about the recommended dietary allowance of 1200 mg of Calcium & 800 IU of vitamin D. Instructions given to patient schedule her next screening Mammogram in 01/12, the patient is up-to-date with her screening colonoscopy done. Will order DEXA scan next year . The patient was instructed to perform monthly self-breast exams and to schedule an annual exam in a year; all questions answered and the patient verbalized understanding. (2) Uterine myoma: Code(s): D25.9 - Leiomyoma of uterus, unspecified Plan: Discussed with the patient the findings on pelvic ultrasound & the risk of myosarcoma; discussed with the patient the options of treatment including expectant management versus hysterectomy; the pros and cons, risks benefits of each approach were discussed with the patient including the fact that in cases of myosarcoma, surgical treatment can lead to early diagnosis and positively affects the prognosis; after further discussion, the patient decided to proceed with expectant management. Will repeat pelvic ultrasound periodically. Instructions given to patient to call in case any of the following occurs: pressure symptoms, vaginal bleeding, pelvic pain; and to schedule 6 month repeat ultrasound and a office follow-up appointment for reassessment. All questions answered, the patient verbalized understanding and agreed with the plan . Orders: Orders US pelvic and transvaginal 6 Months D25.9 - Leiomyoma of uterus, unspecified Coding Level of Care Code Est Pt Prev Care >65y(00242) Diagnoses Well woman exam Z01.419 Uterine myoma D25.9
[2023-06-18 10:46] VITALS: BP 122/80; BMI 35.9
== END 2023-06-18 11:09 | disposition home or self-care (01) ==
PROVIDERS: PCP Internal Medicine; Visit Provider Obstetrics & Gynecology
DX: Z01.419 Encounter for gynecological examination (general) (routine) without abnormal findings (principal); D25.9 Leiomyoma of uterus, unspecified
CPT/HCPCS: 99213; 99397; G0101

== ENCOUNTER → 2023-06-18 10:37 | Outpatient (BNVA) | payer MEDICARE, SELFPAY | PROVIDERS: PCP Internal Medicine; Visit Provider Obstetrics & Gynecology | DX: Z01.419 Encounter for gynecological examination (general) (routine) without abnormal findings (principal); D25.9 Leiomyoma of uterus, unspecified | CPT/HCPCS: 99212 ==

== ENCOUNTER 2023-07-31 08:24 | Outpatient (REF) | payer MEDICARE, SELFPAY ==
--- NOTE | ~2023-07-31 | US_ITS ---
EXAMINATION: US THYROID CLINICAL INFORMATION: Thyroid nodule. COMPARISON: Thyroid ultrasound 07/11/2022 and 05/30/2021. TECHNIQUE: Linear transducer grayscale and color Doppler examination with attention to the region of the thyroid. FINDINGS: SIZE: Measurements of the thyroid lobes and nodules are given in sagittal, anteroposterior and transverse dimensions respectively. Right Thyroid Lobe: 4.4 x 2.3 x 1.8 cm, volume 9.5 mL. Previously 4.5 x 1.8 x 2.0 cm, volume 8.5 mL. Parenchyma: The gland echotexture is heterogeneous. Thyroid vascularity is increased. Left Thyroid Lobe: 4.9 x 1.6 x 1.7 cm, volume 7.1 mL. Previously 4.4 x 1.6 x 1.6 cm, volume 5.9 mL. Parenchyma: The gland echotexture is heterogeneous. Thyroid vascularity is increased. Isthmus: 0.4 cm in maximum AP dimension. Previously 0.8 cm. Estimated total number of nodules greater than or equal to 1 cm: 1. Head Of Physics nodules are described as follows: 1. Location: Right upper pole. Size: 0.7 x 0.5 x 0.8 cm, volume 0.14 mL. Previously: 0.9 x 0.5 x 0.8 cm, volume 0.17 mL. Nodule characteristics: Composition: Spongiform (0). ACR TI-RADS total points: 0. Previous: 3. ACR TI-RADS category: 1. Previous: 3. Significant change in size (>/= 20% in 2 dimensions and minimal increase of 2 mm or 50% or greater increase in volume): No. Change in features: No. Change in ACR TI-RADS risk category: No. 2. Location: Right midpole. Size: 0.8 x 0.5 x 0.6 cm, volume 0.14 mL. Previously: Not previously seen, new. Nodule characteristics: Composition: Spongiform (0). ACR TI-RADS total points: 0. ACR TI-RADS category: 1. 3. Location: Right mid pole. Size: 0.7 x 0.6 x 0.6 cm, volume 0.12 mL. Previously: 0.6 x 0.5 x 0.6 cm, volume 0.10 mL. Nodule characteristics: Composition: Spongiform (0). ACR TI-RADS total points: 0. Previous: 4. ACR TI-RADS category: 1. Previous: 4. Significant change in size (>/= 20% in 2 dimensions and minimal increase of 2 mm or 50% or greater increase in volume): No. Change in features: No. Change in ACR TI-RADS risk category: No. 4. Location: Left midpole. Size: 1.6 x 1.7 x 1.3 cm, volume 1.7 mL. Previously: 1.5 x 1.4 x 1.3 cm, volume 1.4 mL. Nodule characteristics: Composition: Solid/almost completely solid (2). Echogenicity: Hypoechoic (2). Shape: Taller than wide (3). Margins: Smooth (0). Echogenic Foci: None (0). ACR TI-RADS total points: 7. Previous: 6. ACR TI-RADS category: 5. Previous: 4. Significant change in size (>/= 20% in 2 dimensions and minimal increase of 2 mm or 50% or greater increase in volume): No. Change in features: No. Change in ACR TI-RADS risk category: Yes. 5. Location: Left lower pole. Size: 0.6 x 0.5 x 0.4 cm, volume 0.06 mL. Previously: 0.5 x 0.3 x 0.5 cm, volume 0.04 mL. Nodule characteristics: Composition: Spongiform (0). ACR TI-RADS total points: 0. Previous: 3. ACR TI-RADS category: 1. Previous: 3. Significant change in size (>/= 20% in 2 dimensions and minimal increase of 2 mm or 50% or greater increase in volume): No. Change in features: No. Change in ACR TI-RADS risk category: No. NODES: No lymphadenopathy is seen in the tissue surrounding the thyroid gland. US/US thyroid IMPRESSION: There is a single nodule that is over 1 cm in size and has increased in size from 1.5 to 1.7 cm. ACR TR Category has changed from 4 to 5 and percutaneous biopsy is recommended. ACR TI-RADS RECOMMENDATION REFERENCE: Ultrasound-guided fine-needle aspiration, followup ultrasound, no further followup. * TR1 (0 point) and TR2 (2 points): No FNA or followup * TR3 (3 points): FNA if more than or equal to 2.5 cm in maximum dimension, followup ultrasound in 1, 3 and 5 years if 1.5 to 2.4 cm in maximum dimension. * TR4 (4-6 points): FNA if more than or equal to 1.5 cm in maximum dimension, followup ultrasound in 1, 2, 3 and 5 years if 1 to 1.4 cm in maximum dimension. * TR5 (more than or equal to 7 points): FNA if more than or equal to 1 cm in maximum dimension, followup ultrasound every year for 5 years if 0.5 to 0.9 cm in maximum dimension. * TR3, TR4 or TR5 nodules that are below the size threshold for followup receive no followup.
== END 2023-07-31 08:25 | disposition home or self-care (01) ==
LOC: HO.US 08:24
PROVIDERS: PCP Internal Medicine; Visit Provider Internal Medicine
DX: E04.1 Nontoxic single thyroid nodule (principal)
CPT/HCPCS: 76536

== ENCOUNTER 2023-08-17 13:08 | Outpatient (REF) | payer MEDICARE, SELFPAY ==
--- NOTE | ~2023-08-17 | US_ITS ---
EXAMINATION: Ultrasound-guided thyroid fine-needle aspiration CLINICAL INFORMATION: Left thyroid nodule COMPARISON: Previous thyroid ultrasounds most recent 07/31/2023 TECHNIQUE: Procedure and risks and benefits including bleeding and infection were discussed with the patient and informed consent was obtained. The left neck was prepped and draped in the usual sterile fashion. The skin and soft tissues were anesthetized with 1% lidocaine plain. Using ultrasound guidance and a 25-gauge needle, 4 separate 25-gauge FNA aspirates from the nodule in the mid left lobe were obtained. 3 were placed in CytoLyt solution and one for Affirma testing. FINDINGS: There is a 1.3 x 1.6 x 1.5 cm nodule in the mid left lobe that was targeted for fine-needle aspiration. This has a hypoechoic periphery and hypoechoic center. The nodule is very vascular. US/US guided fine needle asp IMPRESSION: Left thyroid fine-needle aspiration.
[2023-08-17] MEDS: Lidocaine HCl 1 % MPF 5 ML VIAL SUBCUT (14:53)
== END 2023-08-17 13:09 | disposition home or self-care (01) ==
LOC: HO.US 13:08
PROVIDERS: PCP Internal Medicine; Visit Provider Internal Medicine
DX: E04.1 Nontoxic single thyroid nodule (principal)
CPT/HCPCS: 10005; 88173; 88305

== ENCOUNTER → 2023-08-17 13:14 | Outpatient (BNV) | payer MEDICARE, SELFPAY | PROVIDERS: PCP Internal Medicine; Visit Provider Radiology Diagnostic Radiology | DX: E04.1 Nontoxic single thyroid nodule (principal) | CPT/HCPCS: 10005 ==

== ENCOUNTER 2023-09-12 10:10 | Outpatient (REF) | payer MEDICARE, SELFPAY ==
--- NOTE | ~2023-09-12 | US_ITS ---
Ultrasound-guided thyroid nodule fine needle aspiration Indication: Left mid lobe thyroid nodule. Previous FNA nondiagnostic. Procedure: Informed consent was obtained from the patient prior to the procedure. During this process, the procedure and potential alternatives were explained, along with the intended outcome and benefits. The risks of the procedure, as well as the risks of not doing the procedure, were discussed. The patient was given the opportunity to ask questions regarding the procedure and appeared competent to make medical decisions. A signed consent form which documents this discussion was placed in the medical record. A timeout was performed in the room. The patient was placed in a supine position with the neck extended. The left side of the neck and chest was prepped and draped in routine sterile fashion. 1% lidocaine was used as anesthetic. Under real-time ultrasound guidance, a 25-gauge needle was placed into the nodule and aspiration was performed. A total of 4 aspirations were performed. The specimens were placed in CytoLyt and and the Affirma bottle. Postprocedure images showed no hematoma. A Band-Aid was applied to the access site. The patient tolerated the procedure well with no immediate complications. Permanent ultrasound images were archived to the procedure. US/US guided fine needle asp Impression: Left thyroid nodule fine-needle aspiration This procedure was performed by Calderon Campo PA-C, and supervised by Dr. Mayberry
[2023-09-12] MEDS: Lidocaine HCl 1 % MPF 5 ML VIAL SUBCUT (11:41)
== END 2023-09-12 10:11 | disposition home or self-care (01) ==
LOC: HO.US 10:10
PROVIDERS: PCP Internal Medicine; Visit Provider Internal Medicine
DX: E04.1 Nontoxic single thyroid nodule (principal)
CPT/HCPCS: 10005; 88173; 88305

== ENCOUNTER → 2023-09-12 10:30 | Outpatient (BNV) | payer MEDICARE, SELFPAY | PROVIDERS: PCP Internal Medicine; Visit Provider Radiology Vascular & Interventional Radiology | DX: E04.1 Nontoxic single thyroid nodule (principal) | CPT/HCPCS: 10005 ==

== ENCOUNTER 2023-09-20 11:12 | Outpatient (REF) | payer MEDICARE, SELFPAY ==
[2023-09-20 11:38] LABS: Estimated Average Glucose 117 mg/dL; Hemoglobin A1c % 5.7 % (<6.0)
[2023-09-20 11:44] LABS: Cholesterol 165 mg/dL (<200); HDL Cholesterol 40 mg/dL (>40); LDL Cholesterol Calculated 101 mg/dL (<100); Triglycerides 121 mg/dL (<150)
[2023-09-20 11:45] LABS: Alanine Aminotransferase 21 U/L (0-31); Albumin Level 3.9 g/dL (3.5-5.0); Alkaline Phosphatase 66 U/L (39-117); Aspartate Amino Transferase 16 U/L (5-31); Bilirubin Direct 0.2 mg/dL (0.0-0.5); Bilirubin Total 0.6 mg/dL (0.0-1.0); Glucose Fasting 108 mg/dL (60-99); Total Protein 6.5 g/dL (6.5-8.0)
[2023-09-20 11:56] LABS: Reflex LDLD? No
== END 2023-09-20 11:13 | disposition home or self-care (01) ==
LOC: HO.LNP 11:12
PROVIDERS: Visit Provider Internal Medicine
DX: R73.09 Other abnormal glucose (principal); E78.00 Pure hypercholesterolemia, unspecified
CPT/HCPCS: 80061; 80076; 82947; 83036

== ENCOUNTER 2023-10-23 11:12 | Outpatient (REF) | payer MEDICARE, SELFPAY ==
--- NOTE | ~2023-10-23 | US_ITS ---
EXAMINATION: US PELVIS CLINICAL INFORMATION: Uterine leiomyoma. COMPARISON: None available. TECHNIQUE: Ultrasound of the pelvis is performed using both transabdominal and transvaginal transducers along with Doppler. Transvaginal imaging is performed due to inadequate visualization transabdominally. FINDINGS: Uterus: The uterus is anteverted and measures 12.3 x 3.1 x 5.2 cm for a volume of 104 mL. The double wall endometrial thickness is 7 mm. Four (4) uterine fibroids are noted as follows: Measurements in parentheses are from the 06/04/2023 study: Lower uterine segment on the right 1.7 x 1.2 x 2.1 (1.8 x 1.1 x 2.0) Ventral surface mid body 2.8 x 2.5 x 2.7 (3.6 x 2.3 x 3.5) Right fundus 2.7 x 2.4 x 1.9 (2.6 x 2.6 x 3.3) Mid body dorsal: 0.9 x 0.6 x 1.1 (0.5 x 0.4 x 0.4) Nabothian cysts are present in the cervix. Adnexa: Both ovaries are visualized. There is normal color flow to the adnexa. There is no ovarian torsion. There is no pelvic ascites or fluid collection. Right ovary measures 1.7 x 1.7 x 1.9 cm for a volume of 2.9 mL. The right ovary contains multiple calcifications around its periphery. cm. Left ovary measures 1.8 x 2.0 x 1.2 cm for a volume of 2.3 mL and appears unremarkable. US/US pelvic and transvaginal IMPRESSION: Uterine fibroids as described above.
== END 2023-10-23 11:13 | disposition home or self-care (01) ==
LOC: HO.US 11:12
PROVIDERS: PCP Internal Medicine; Visit Provider Obstetrics & Gynecology
DX: D25.9 Leiomyoma of uterus, unspecified (principal)
CPT/HCPCS: 76830; 76856

== ENCOUNTER 2023-11-08 08:08 | Outpatient (AMB) | payer MEDICARE, SELFPAY ==
--- NOTE | 2023-11-08 08:12 | A.OFFVIS_ITS ---
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 No complaints, no pelvic pain pressure or vaginal bleeding. Pelvic ultrasound done in 11/10 showed the following: Uterus: The uterus is anteverted and measures 12.3 x 3.1 x 5.2 cm for a volume of 104 mL. The double wall endometrial thickness is 7 mm. Four (4) uterine fibroids are noted as follows: Measurements in parentheses are from the 06/04/2023 study: Lower uterine segment on the right 1.7 x 1.2 x 2.1 (1.8 x 1.1 x 2.0) Ventral surface mid body 2.8 x 2.5 x 2.7 (3.6 x 2.3 x 3.5) Right fundus 2.7 x 2.4 x 1.9 (2.6 x 2.6 x 3.3) Mid body dorsal: 0.9 x 0.6 x 1.1 (0.5 x 0.4 x 0.4) Nabothian cysts are present in the cervix. Adnexa: Both ovaries are visualized. There is normal color flow to the adnexa. There is no ovarian torsion. There is no pelvic ascites or fluid collection. Right ovary measures 1.7 x 1.7 x 1.9 cm for a volume of 2.9 mL. The right ovary contains multiple calcifications around its periphery. cm. Left ovary measures 1.8 x 2.0 x 1.2 cm for a volume of 2.3 mL and appears unremarkable. [facility] Medical History Hypothyroid GERD (gastroesophageal reflux disease) PVC (premature ventricular contraction) Elevated cholesterol Deviated septum Degeneration of spine Thyroid nodule Osteoarthritis Surgical History History of surgery H/O colonoscopy Tubal ligation status History of H/O shoulder surgery History of arthroscopy of both knees Family History Paternal Aunt Breast CA Father Colon cancer Social History Are you a primary foster care case manager to a significant other at home: No Do you presently have visiting nurse or other home services: No Alcohol intake: current Alcohol intake frequency: holidays/special occasions only Patient Tobacco Use Status: Former Tobacco user Quit Date: age 20 Tobacco use type: Cigarette Years Smoked: 7 Advance Directives Date on File: 12/15/22 Gender identity: Female Female Reproductive History Menstrual Age of Menarche: 12 control method: permanent sterilization Review of Systems Const All systems reviewed & are unremarkable except as noted in HPI and below Reports as per HPI and Reports no additional complaints GI Reports no additional complaints Reports no additional complaints Assessment & Plan Assessment & Plan (1) Uterine myoma: Code(s): D25.9 - Leiomyoma of uterus, unspecified Plan: Discussed with the patient the findings on pelvic ultrasound & the risk of myosarcoma; discussed with the patient the options of treatment including expectant management versus hysterectomy; the pros and cons, risks benefits of each approach were discussed with the patient including the fact that in cases of myosarcoma, surgical treatment can lead to early diagnosis and positively affects the prognosis; after further discussion, the patient decided to proceed with expectant management. Will repeat pelvic ultrasound in 8 month. Instructions given to patient to call in case any of the following occurs: pressure symptoms, abnormal uterine bleeding, pelvic pain; and to schedule 8 month ultrasound follow-up appointment. All questions answered, the patient verbalized understanding and agreed with the plan . Orders: Orders US pelvic and transvaginal 06/17/24 D25.9 - Leiomyoma of uterus, unspecified Coding Level of Care Code Est Pt Level 3 (03472) Diagnoses Uterine myoma D25.9
[2023-11-08 08:15] VITALS: BP 166/80; BMI 36.0
== END 2023-11-08 08:30 | disposition home or self-care (01) ==
LOC: HO.HWS 08:08
PROVIDERS: PCP Internal Medicine; Visit Provider Obstetrics & Gynecology
DX: D25.9 Leiomyoma of uterus, unspecified (principal)
CPT/HCPCS: 99213

== ENCOUNTER → 2023-11-08 08:08 | Outpatient (BNVA) | payer MEDICARE, SELFPAY | PROVIDERS: PCP Internal Medicine; Visit Provider Obstetrics & Gynecology | DX: D25.9 Leiomyoma of uterus, unspecified (principal) | CPT/HCPCS: 99212 ==

== ENCOUNTER 2024-01-17 09:18 | Outpatient (REF) | payer MEDICARE, SELFPAY | END 2024-01-17 09:19 | disposition home or self-care (01) | LOC: HO.MAMMO 09:18 | PROVIDERS: PCP Internal Medicine; Visit Provider Internal Medicine | DX: Z12.31 Encounter for screening mammogram for malignant neoplasm of breast (principal) | CPT/HCPCS: 77063; 77067 ==

== ENCOUNTER → 2024-01-17 09:45 | Outpatient (BNV) | payer MEDICARE, SELFPAY | PROVIDERS: PCP Internal Medicine; Visit Provider Radiology Diagnostic Radiology | DX: Z12.31 Encounter for screening mammogram for malignant neoplasm of breast (principal) | CPT/HCPCS: 77063; 77067 ==

== ENCOUNTER 2024-01-17 11:53 | Outpatient (REF) | payer MEDICARE, SELFPAY ==
[2024-01-17 13:16] LABS: Blood Urea Nitrogen 15 mg/dL (9-16); Estimated Glomerular Filt Rate 56
== END 2024-01-17 11:54 | disposition home or self-care (01) ==
LOC: HO.LNP 11:53
PROVIDERS: Visit Provider Internal Medicine
DX: Z01.812 Encounter for preprocedural laboratory examination (principal)
CPT/HCPCS: 82565; 84520

== ENCOUNTER 2024-02-22 11:38 | Outpatient (AMB) | payer MEDICARE, SELFPAY ==
--- NOTE | 2024-02-22 12:08 | MHC.OFFVIS ---
Intake Vital Signs 02/22/24 12:10 Height 5 ft 4 in Weight 202 lb BMI 34.7 BP 188/76 H Blood Pressure Location Lt brachial Position Sitting Pulse 56 Intake Visit Reasons: acute diverticulitis Intake Note: Patient new consult for acute Diverticulitis. Patient cc: acid reflex with burning sensation on her throat on and off, denies any other GI iussues. Manager Food Beverage Required: No Accompanied by: Self / Same As Patient Allergies No Known Allergies Allergy (Verified 02/22/24 12:07) HPI HPI Comments History of Present Illness Details This is a 68-year-old female with past medical history of PVC, asthma, who was referred to our office by her PCP for question of diverticulitis. History was obtained from the patient, who states that at the end of Dec developed LLQ cramping and pain assoc with painful defecation and decreased appetite. No fevers or chils. This has happened at least 2 times before in the past year but was never this severe so never had to get medical attention. PCP Rxed Augmentin x 10 days. SHe also had a CT scan 01/24 but resutls not available. Pt reports being told about diverticulosis. From documentation in the PCP note, last colonoscopy was in 2019 (Dr. Prasad) and repeat was recommended in 5 years. Fam hx: Father: CRC in his 60s. Pt also reports intermittent heartburn 3 days/week at an average, goes away with tums. No difficulty swallowing, no N,V, regurgitation. No fam hx of esophageal or stomach ca. PFSH Medical History Hypothyroid GERD (gastroesophageal reflux disease) PVC (premature ventricular contraction) Elevated cholesterol Deviated septum Degeneration of spine Thyroid nodule Osteoarthritis Surgical History History of surgery H/O colonoscopy Tubal ligation status History of H/O shoulder surgery History of arthroscopy of both knees Family History Paternal Aunt Breast CA Father Colon cancer Social History Are you a primary physician primary care sports medicine to a significant other at home: No Do you presently have visiting nurse or other home services: No Alcohol intake: current Alcohol intake frequency: holidays/special occasions only Patient Tobacco Use Status: Former Tobacco user Quit Date: age 20 Tobacco use type: Cigarette Years Smoked: 7 Advance Directives Date on File: 12/15/22 Gender identity: Female Female Reproductive History Menstrual Age of Menarche: 12 Review of Systems Const All systems reviewed & are unremarkable except as noted in HPI and below Physical Exam Vital Signs: Last Vital Signs Pulse 56 02/22/24 12:10 BP 188/76 H 02/22/24 12:10 BMI result Body Mass Index 34.7 NAD Nonicteric ABd nondistended No overt resp distress No NAYA Assessment & Plan Assessment & Plan (1) Diverticulitis: Code(s): K57.92 - Diverticulitis of intestine, part unspecified, without perforation or abscess without bleeding (2) Family history of colon cancer: Code(s): Z80.0 - Family history of malignant neoplasm of digestive organs (3) Personal history of colonic polyps: Code(s): Z86.010 - Personal history of colonic polyps (4) Chronic heartburn: Code(s): R12 - Heartburn Plan 1. Hx of diverticulitis: Needs a repeat colo for interval colo after diverticulitis. Was due anyway due to family history of colon cancer. Plan: -colonoscopy in the next few months -split PEG prep instructions reviewed with the patient and a handout provided 2. Intermittent heartburn: No red flags to warrant urgent upper endoscopy at this time. We will prescribe famotidine for 4 weeks to review symptoms. If still persistent despite this, can add an upper endoscopy to the colonoscopy. Plan: -start famotidine 20 mg at bedtime -if symptoms do not resolve after 4 weeks, patient to call office to add upper endoscopy to the colonoscopy being scheduled Follow-up after endoscopy Medications: New peg 3350-electrolytes 236-22.74-6.74 -5.86 gram (Golytely) as per split prep instructions, until fecal effluent is clear 240 mL PO Q10M 4,000 mL 0RF colonoscopy famotidine (Acid Dressmaker Helper (famotidine)) 20 mg PO BEDTIME 90 tabs 0RF Coding Level of Care Code New Pt Level 4 (76475) Diagnoses Diverticulitis K57.92 Family history of colon cancer Z80.0 Personal history of colonic polyps Z86.010 Chronic heartburn R12
[2024-02-22 12:10] VITALS: BP 188/76; PULSE 56; BMI 34.7
== END 2024-02-22 12:41 | disposition home or self-care (01) ==
PROVIDERS: PCP Internal Medicine; Visit Provider Internal Medicine
DX: K57.92 Diverticulitis of intestine, part unspecified, without perforation or abscess without bleeding (principal); Z80.0 Family history of malignant neoplasm of digestive organs; Z86.010 Personal history of colon polyps; R12 Heartburn
CPT/HCPCS: 99204

== ENCOUNTER → 2024-02-22 11:38 | Outpatient (BNVA) | payer MEDICARE, SELFPAY | PROVIDERS: PCP Internal Medicine; Visit Provider Internal Medicine | DX: K57.92 Diverticulitis of intestine, part unspecified, without perforation or abscess without bleeding (principal); R12 Heartburn; Z80.0 Family history of malignant neoplasm of digestive organs; Z86.010 Personal history of colon polyps | CPT/HCPCS: 99202 ==

== ENCOUNTER 2024-04-15 10:38 | Outpatient (REF) | payer MEDICARE, SELFPAY ==
[2024-04-15 10:43] LABS: MANUAL DIFF FLAG NO
[2024-04-15 11:17] LABS: Basophils Percent Auto 0.5 % (0-2); Eosinophils Absolute Auto 0.3 X10*3/uL (0.0-0.4); Eosinophils Percent Auto 4.1 % (0-4); Hematocrit 40.2 % (37.0-47.0); Imm Gran Abs Auto 0.02 X10*3/uL (0.00-0.03); Imm Gran Pct Auto 0.3 % (0.0-0.4); Lymphocytes Absolute Auto 1.9 X10*3/uL (1.2-4.9); Lymphocytes Percent Auto 31.5 % (20-40); Mean Corpuscular HGB Conc 32.3 g/dl (31.0-35.0); Mean Corpuscular Hemoglobin 29.9 pg (27.0-33.0); Mean Corpuscular Volume 92.4 fL (80.0-98.0); Mean Platelet Volume 11.7 fL (9.4-12.3); Monocytes Absolute Auto 0.5 X10*3/uL (0.1-1.2); Monocytes Percent Auto 7.5 % (2-11); Neutrophils Absolute Auto 3.4 x10*3/uL (2.0-8.3); Neutrophils Percent Auto 56.1 % (45-73); Platelet Count 214 X10*3/uL (160-400); Red Blood Count 4.35 X10*6/uL (4.20-5.50); Red Cell Distribution Width 13.5 % (11.0-16.0)
[2024-04-15 11:20] LABS: Appearance Urine Clear; Color Urine Yellow; Glucose Urine UA Negative (Negative); Leukocyte Esterase Urine Negative (Negative); Nitrite Urine Negative (Negative); PH 5.5 (5.0-9.0); Urine Blood Negative (Negative); Urine Ketones Negative (Negative); Urine Protein Negative (Neg-Trace)
[2024-04-15 11:23] LABS: Bacteria Urine None Seen (None Seen); Hyaline Casts Urine 0-2 /LPF (0-2); RBC Urine 0-2 /HPF (0-2); Squamous Epithelial Cell Urine 0-2 /HPF (0-2); WBC Urine 0-5 /HPF (0-5)
[2024-04-15 11:27] LABS: Estimated Average Glucose 120 mg/dL; Hemoglobin A1c % 5.8 % (<6.0)
[2024-04-15 11:34] LABS: Alanine Aminotransferase 20 U/L (0-31); Albumin Level 3.8 g/dL (3.5-5.0); Alkaline Phosphatase 76 U/L (39-117); Anion Gap 10 (12-20); Aspartate Amino Transferase 15 U/L (5-31); Bilirubin Total 0.4 mg/dL (0.0-1.0); Blood Urea Nitrogen 19 mg/dL (9-16); Carbon Dioxide 25 mmol/L (22-29); Chloride 112 mmol/L (96-108); Cholesterol 154 mg/dL (<200); Creatinine Urine 118.07 mg/dL; Estimated Glomerular Filt Rate > 60; Glucose Fasting 107 mg/dL (60-99); HDL Cholesterol 43 mg/dL (>40); LDL Cholesterol Calculated 88 mg/dL (<100); Potassium 4.1 mmol/L (3.3-5.1); Sodium 143 mmol/L (135-145); Total Protein 6.4 g/dL (6.5-8.0); Triglycerides 119 mg/dL (<150)
[2024-04-15 11:49] LABS: TSH reflex Free T4 0.71 uIU/mL (0.32-4.0)
== END 2024-04-15 10:39 | disposition home or self-care (01) ==
LOC: HO.LNP 10:38
PROVIDERS: Visit Provider Internal Medicine
DX: Z00.00 Encounter for general adult medical examination without abnormal findings (principal); D72.820 Lymphocytosis (symptomatic); E55.9 Vitamin D deficiency, unspecified; R73.09 Other abnormal glucose; E03.9 Hypothyroidism, unspecified; E78.00 Pure hypercholesterolemia, unspecified; I10 Essential (primary) hypertension
CPT/HCPCS: 80053; 80061; 81001; 82043; 82306; 82570; 83036; 84443; 85025

== ENCOUNTER 2024-06-17 12:55 | Outpatient (REF) | payer MEDICARE, SELFPAY ==
--- NOTE | ~2024-06-17 | US_ITS ---
EXAMINATION: US PELVIS CLINICAL INFORMATION: Leiomyoma of uterus, last menstrual period 12-13 years ago. COMPARISON: None available. TECHNIQUE: Ultrasound of the pelvis is performed using both transabdominal and transvaginal transducers along with Doppler. Transvaginal imaging is performed due to inadequate visualization transabdominally. FINDINGS: The uterus is anteverted and measures 12.1 x 4.8 x 5.1 cm, volume 154.9 mL. A 1.9 x 1.3 x 2.0 cm hypoechoic structure may possibly represent a fibroid versus bowel and is difficult to characterize with certainty as visualization is limited due to bowel gas. A 0.9 x 0.6 x 0.7 cm fibroid, previously 0.9 x 0.6 x 1.1 cm. A 3.1 x 2.5 x 3.3 cm fibroid, previously 2.8 x 2.5 x 2.7 cm. A 2.2 x 2.0 x 2.1 cm fibroid, previously 2.7 x 2.4 x 1.9 cm. Endometrium poorly visualized. Imaged segment of endometrium with thickness up to 5 mm. Nabothian cysts. No significant free fluid. Right ovary measures 2.6 x 1.9 x 1.6 cm, volume 4.1 mL. A 0.4 cm echogenic periphery of the right ovary, possibly calcification. Multiple echogenic foci within the right ovary characteristic of calcifications. Left ovary seen only on transabdominal ultrasound images, limiting evaluation, and measures 1.6 x 1.8 x 1.6 cm, volume 2.4 mL. A 1.9 x 1.2 x 1.5 cm left adnexal simple cyst may represent an exophytic left ovarian cyst versus extraovarian cyst. Visualization of the bilateral ovaries is limited. US/US pelvic and transvaginal IMPRESSION: 1. Fibroid uterus. 2. Endometrium poorly visualized. Imaged segment of endometrium with thickness up to 5 mm. 3. A 1.9 cm left adnexal simple cyst may represent an exophytic left ovarian cyst versus extraovarian cyst and was not appreciated on the prior exam. 4. A 0.4 cm echogenic periphery of the right ovary, possibly calcification. Multiple echogenic foci within the right ovary characteristic of calcifications.
== END 2024-06-17 12:56 | disposition home or self-care (01) ==
LOC: HO.US 12:55
PROVIDERS: PCP Internal Medicine; Visit Provider Obstetrics & Gynecology
DX: D25.9 Leiomyoma of uterus, unspecified (principal)
CPT/HCPCS: 76830; 76856

== ENCOUNTER 2024-07-01 11:26 | Outpatient (AMB) | payer MEDICARE, SELFPAY ==
[2024-07-01 11:44] VITALS: BP 128/70; BMI 35.0
--- NOTE | 2024-07-01 11:44 | A.OFFVIS_ITS ---
Vital Signs 07/01/24 11:44 Height 5 ft 4 in Weight 204 lb BMI 35.0 BP 128/70 Intake Visit Reasons: annual/Ultra sound follow up Sql Report Developer Required: No Allergies No Known Allergies Allergy (Verified 02/22/24 12:07) Medication List - Last Reconciled 07/01/24 by Ana María Branch LPN atorvastatin 40 mg PO DAILY cholecalciferol (vitamin D3) (Vitamin D3) 25 mcg PO DAILY clobetasol 0.05% 1 appl topical BEDTIME levothyroxine 100 mcg PO QAM peg 3350-electrolytes 236-22.74-6.74 -5.86 gram (Golytely) 240 mL PO Q10M Post menopausal: Yes Do you need a note to return to daycare/school/sports/work: No HPI Comments Details: Presenting for annual exam. No complaints. Last Pap/HPV was in 08/06 was negative Last Mammogram was BI-RADS 1 in 01/12 Last Colonoscopy was in 03/07, the patient is scheduled for another screening colonoscopy in few weeks Last DEXA scan was in 02/07 Last pelvic ultrasound done in 06/11 showed the following: The uterus is anteverted and measures 12.1 x 4.8 x 5.1 cm, volume 154.9 mL. A 1.9 x 1.3 x 2.0 cm hypoechoic structure may possibly represent a fibroid versus bowel and is difficult to characterize with certainty as visualization is limited due to bowel gas. A 0.9 x 0.6 x 0.7 cm fibroid, previously 0.9 x 0.6 x 1.1 cm. A 3.1 x 2.5 x 3.3 cm fibroid, previously 2.8 x 2.5 x 2.7 cm. A 2.2 x 2.0 x 2.1 cm fibroid, previously 2.7 x 2.4 x 1.9 cm. Endometrium poorly visualized. Imaged segment of endometrium with thickness up to 5 mm. Nabothian cysts. No significant free fluid. Right ovary measures 2.6 x 1.9 x 1.6 cm, volume 4.1 mL. A 0.4 cm echogenic periphery of the right ovary, possibly calcification. Multiple echogenic foci within the right ovary characteristic of calcifications. Left ovary seen only on transabdominal ultrasound images, limiting evaluation, and measures 1.6 x 1.8 x 1.6 cm, volume 2.4 mL. A 1.9 x 1.2 x 1.5 cm left adnexal simple cyst may represent an exophytic left ovarian cyst versus extraovarian cyst. Visualization of the bilateral ovaries is limited. [facility] Medical History (Updated 07/01/24 @ 11:57 by Lalo Mao MD) Hypothyroid GERD (gastroesophageal reflux disease) PVC (premature ventricular contraction) Elevated cholesterol Deviated septum Degeneration of spine Thyroid nodule Osteoarthritis Surgical History History of surgery H/O colonoscopy Tubal ligation status History of H/O shoulder surgery History of arthroscopy of both knees Family History Paternal Aunt Breast CA Father Colon cancer Social History Are you a primary furnace caretaker to a significant other at home: No Do you presently have visiting nurse or other home services: No Alcohol intake: current Alcohol intake frequency: holidays/special occasions only Patient Tobacco Use Status: Former Tobacco user Tobacco use type: Cigarette Years Smoked: 7 Advance Directives Date on File: 12/15/22 Gender identity: Female Female Reproductive History Menstrual Age of Menarche: 12 Menopause type: natural History of abnormal pap smear: No Date of Mammogram: 01/17/24 Review of Systems Const All systems reviewed & are unremarkable except as noted in HPI and below Card Reports as per HPI Resp Reports as per HPI GI Reports as per HPI and Reports no additional complaints Reports as per HPI Physical Exam Vital Signs: Last Vital Signs BP 128/70 07/01/24 11:44 BMI result Body Mass Index 35.0 Const General: cooperative, healthy appearing and comfortable Chest Chest palpation & inspection: normal inspection of the chest and normal palpation of entire chest wall Breast/axilla inspection: normal inspection of the breasts and normal inspection of the axillae Breast/axilla palpation: normal palpation of the breasts, normal palpation of the axillae and no axillary lymphadenopathy Resp Effort & Inspection: normal respiratory effort Auscultation: clear to auscultation bilaterally Percussion: percussion normal Cardio Palpation: normal PMI Rate: regular rate Rhythm: regular rhythm Heart sounds: no murmurs and no rubs Peripheral pulses: Peripheral pulses 2+ throughout GI Inspection: Yes normal to inspection Palpation (GI): Soft to palpation, nontender, no guarding, not rigid and No hepatosplenomegaly present Percussion: Yes normal to percussion Auscultation: normal bowel sounds Rectal Exam - Female: deferred General: Yes bladder normal to palpation External Female Exam: No lesion Speculum Exam - Vagina: normal appearance of the vagina, normal palpation, normal vaginal discharge and not erythematous Speculum Exam - Cervix: normal appearance of the cervix and normal palpation Bimanual exam- vagina & uterus: normal bimanual exam, normal palpation, uterine size normal, bladder normal to palpation, consistency normal and normal palpation Bimanual Exam- Adnexa, other: normal adnexae, no masses and no tenderness Assessment & Plan Assessment & Plan (1) Well woman exam: Code(s): Z01.419 - Encounter for gynecological examination (general) (routine) without abnormal findings Category: Medical Plan: Co testing not indicated since the patient 's age is above 65 with no history of abnormal Pap smears last 25 years. Counseled the patient about the recommended dietary allowance of 1200 mg of Calcium & 800 IU of vitamin D. Instructions given the patient to schedule next screening Mammogram in 01/13. Will order DEXA scan . The patient was instructed to perform monthly self-breast exams and to schedule a 2 week DEXA scan follow-up appointment and an annual exam in a year; All questions answered and the patient verbalized understanding. (2) Uterine myoma: Code(s): D25.9 - Leiomyoma of uterus, unspecified Category: Medical Plan: Discussed with the patient the findings on pelvic ultrasound & the risk of myosarcoma and calcification of the right ovary; discussed with the patient the differential diagnosis of calcification of the right ovary and the options of treatment for myomas including expectant management versus hysterectomy with BSO; the pros and cons, risks benefits of each approach were discussed with the patient including the fact that in cases of myosarcoma, surgical treatment can lead to early diagnosis and positively affects the prognosis; after further discussion, the patient decided to proceed with expectant management. Will repeat pelvic ultrasound periodically. Instructions given to patient to call in case any of the following occurs: pressure symptoms, abnormal uterine bleeding, pelvic pain; and to schedule a six-months pelvic ultrasound and a follow-up appointment . All questions answered, the patient verbalized understanding and agreed with the plan . (3) Thickened endometrium: Code(s): R93.89 - Abnormal findings on diagnostic imaging of other specified body structures Category: Medical Plan: Discussed with the patient endometrial thickness above 4 mm in menopause , the differential diagnosis of a thickened endometrium includes but not limited to endometrial polyp, hyperplasia or carcinoma. Explained to the patient that endometrial each thickness is less predictive of endometrial neoplasia in asymptomatic patients, i.e. those without postmenopausal uterine bleeding. The sensitivity and specificity for detecting endometrial carcinoma at an endometrial thickness of >= 5mm was 83 and 72 percent, respectively; this is lower than in patients with bleeding. Studies have shown that postmenopausal patients without uterine bleeding who had an endometrial thickness >11 mm had an endometrial carcinoma risk of 6.7 percent; this risk is similar to postmenopausal patients with bleeding and an endometrial thickness >5 mm. Recommended endometrial sampling to rule endometrial pathology via either office endometrial biopsy or diagnostic hysteroscopy/D&C with possible polypectomy/myomectomy. All pros and cons, risks and benefits of each approach were discussed with the patient, the patient decided to proceed with endometrial biopsy. Instructions given the patient to schedule an EMB appointment within 2 weeks. All questions answered, the patient verbalized Orders: Orders XR DEXA axial skeleton Today Z78.0 - Asymptomatic menopausal state US pelvic and transvaginal Today D25.9 - Leiomyoma of uterus, unspecified Coding Level of Care Code Est Pt Prev Care >65y(51284) Diagnoses Well woman exam Z01.419 Uterine myoma D25.9 Thickened endometrium R93.89
== END 2024-07-01 12:12 | disposition home or self-care (01) ==
LOC: HO.HWS 11:26
PROVIDERS: PCP Internal Medicine; Visit Provider Obstetrics & Gynecology
DX: Z01.419 Encounter for gynecological examination (general) (routine) without abnormal findings (principal); D25.9 Leiomyoma of uterus, unspecified; R93.89 Abnormal findings on diagnostic imaging of other specified body structures
CPT/HCPCS: 99397

== ENCOUNTER → 2024-07-01 11:26 | Outpatient (BNVA) | payer MEDICARE, SELFPAY | PROVIDERS: PCP Internal Medicine; Visit Provider Obstetrics & Gynecology ==

== ENCOUNTER 2024-07-17 07:19 | Day surgery (SDC) | payer MEDICARE, SELFPAY ==
--- NOTE | 2024-07-16 08:34 | P.CONAN_ITS ---
Documented by User: Madiha Mitchell NP 07/16/24 08:35 HPI - Anesthesia Eval Consult details Narrative: 69yo F for Colonoscopy PMFSH Active Problems Active Problems: All Active Problems Ovarian cyst (Acute) Thickened endometrium (Acute) History of back surgery (Acute) Diverticulosis of colon (Acute) Chronic heartburn (Acute) Personal history of colonic polyps (Acute) Family history of colon cancer (Acute) Diverticulitis (Acute) Well woman exam (Acute) Osteoporosis screening (Acute) Osteopenia (Acute) Postmenopausal bleeding (Acute) Uterine myoma (Acute) Past Medical History Medical History Hypothyroid GERD (gastroesophageal reflux disease) PVC (premature ventricular contraction) Elevated cholesterol Deviated septum Degeneration of spine Thyroid nodule Osteoarthritis Family History Family History Paternal Aunt Breast CA Father Colon cancer Family history of problems with anesthesia: No Surgical History Surgical History History of surgery H/O colonoscopy Tubal ligation status History of H/O shoulder surgery History of arthroscopy of both knees History of Problems with Anesthesia: No Social History Social History Are you a primary manager of care to a significant other at home: No Do you presently have visiting nurse or other home services: No Alcohol intake: current Alcohol intake frequency: a few times a month Patient Tobacco Use Status: Former Tobacco user Tobacco use type: Cigarette Years Smoked: 7 Have you been hit, kicked, punched, or otherwise hurt by someone within the past year? If so, by whom?: No Are you DNR?: No Advance Directives: No Advance Directives Information Provided: Yes Advance Directives Date on File: 12/15/22 Recently lost weight without trying: No Nutrition Risks: No Nutritional Risk Gender identity: Female Meds Allergies Allergy/AdvReac Type Severity Reaction Status Date / Time No Known Allergies Allergy Verified 02/22/24 12:07 Home Medications ?Medication ?Instructions ?Recorded ?Confirmed ?Last Taken ?Type levothyroxine 100 mcg tablet 100 mcg PO QAM 11/10/20 07/01/24 12/15/22 History cholecalciferol (vitamin D3) 25 25 mcg PO DAILY 12/08/22 07/01/24 12/14/22 History mcg (1,000 unit) capsule (Vitamin D3) atorvastatin 40 mg tablet 40 mg PO DAILY 11/08/23 07/01/24 Unknown History clobetasol 0.05 % topical cream 1 appl topical BEDTIME 07/01/24 07/01/24 Unknown History Exam Pertinent Lab Results Pertinent Lab Results: Laboratory Tests 04/15/24 07:00 WBC 6.0 Hgb 13.0 Hct 40.2 Plt Count 214 Sodium 143 Potassium 4.1 Chloride 112 H Carbon Dioxide 25 BUN 19 H Creatinine 0.76 Assessment and Plan Assessment Anesthesia Assessment: Chart Reviewed Final Anesthetic Review Family History of Problems with Anesthesia: No History of Problems with Anesthesia: No Documented by User: Aquiles Moore MD 07/17/24 08:30 [facility], [facility] Past Medical History Medical History Hypothyroid GERD (gastroesophageal reflux disease) PVC (premature ventricular contraction) Elevated cholesterol Deviated septum Degeneration of spine Thyroid nodule Osteoarthritis Functional capacity: uses cane/walker Family History Family History Paternal Aunt Breast CA Father Colon cancer Surgical History Surgical History History of surgery H/O colonoscopy Tubal ligation status History of H/O shoulder surgery History of arthroscopy of both knees Social History Social History Are you a primary manager of care to a significant other at home: No Do you presently have visiting nurse or other home services: No Alcohol intake: current Alcohol intake frequency: a few times a month Patient Tobacco Use Status: Former Tobacco user Tobacco use type: Cigarette Years Smoked: 7 Have you been hit, kicked, punched, or otherwise hurt by someone within the past year? If so, by whom?: No Are you DNR?: No Advance Directives: No Advance Directives Information Provided: Yes Advance Directives Date on File: 12/15/22 Recently lost weight without trying: No Nutrition Risks: No Nutritional Risk Gender identity: Female Meds Allergies Allergy/AdvReac Type Severity Reaction Status Date / Time No Known Allergies Allergy Verified 02/22/24 12:07 Home Medications ?Medication ?Instructions ?Recorded ?Confirmed ?Last Taken ?Type levothyroxine 100 mcg tablet 100 mcg PO QAM 11/10/20 07/01/24 12/15/22 History cholecalciferol (vitamin D3) 25 25 mcg PO DAILY 12/08/22 07/01/24 12/14/22 History mcg (1,000 unit) capsule (Vitamin D3) atorvastatin 40 mg tablet 40 mg PO DAILY 11/08/23 07/01/24 Unknown History clobetasol 0.05 % topical cream 1 appl topical BEDTIME 07/01/24 07/01/24 Unknown History Exam Airway Mallampati Class: II TM Dist: <=3cm Neck ROM: Full Loose/Missing/Broken Teeth: No Heart: ok Lungs: ok Assessment and Plan Assessment Anesthesia Assessment: Anesthesia Plan Discussed Final Anesthetic Review NPO: Yes ASA Class: II Final Preanesthetic Review: No Changes in Pt Med Stat, Meds/Allgs Chart Reviewed, Consent Obtained/Reviewed and Anes Risks/Benef Reviewed Patient Risk: Low Procedure Risk: Low Anesthetic Plan Anesthetic Plan: MAC: and Agree w/ Assess. and Plan Disposition: Standard PACU
[2024-07-17 07:39] VITALS: BMI 34.2
[2024-07-17 08:01] VITALS: BP 161/77; PULSE 56; RESP 18; TEMP 36.7; O2SAT 99; BMI 34.2
--- NOTE | 2024-07-17 08:52 | MHC.SHP ---
Pre-Procedural Eval Section A - 24 Hr Update-Section A only Date of Service: 07/17/24 Section B - Complete if H&P > 30 days Chief Complaint: Hx of diverticulitis, fam hx of CRC Details of Present Illness: Hypothyroid GERD (gastroesophageal reflux disease) PVC (premature ventricular contraction) Elevated cholesterol Deviated septum Degeneration of spine Thyroid nodule Osteoarthritis Surgical History History of surgery H/O colonoscopy Tubal ligation status History of H/O shoulder surgery History of arthroscopy of both knees Family History Paternal Aunt Breast CA Father Colon cancer Present Medications: see Short Stay Collaborative assessment Allergies: Allergies Allergy/AdvReac Type Severity Reaction Status Date / Time No Known Allergies Allergy Verified 02/22/24 12:07 Review of Systems Review of Systems Comment: Ten point ROS negative except above Exam Exam Comment: Gen appear: No acute distress HEENT: no icterus Chest: No overt resp distress Abd: soft, nontender, nondistended Psych: Stable affect, answering questions appropriately Neuro: A/Ox3 noted to move all extremities spontaneously Ext: no peripheral edema Plan I have reviewed the history and physical and performed a pertinent physical examination on my patient. No changes have occurred unless specified. Patient with persistent heartburn and occasional difficulty swallowing, and therefore an upper endoscopy is also being added to the colonoscopy. Time Spent With Patient Time: Total time managing care of this patient today ____ minutes.
--- NOTE | 2024-07-17 09:24 | P.OPN-COLO_ITS ---
Colonoscopy Operative Note Operative Note Date of Service: 07/17/24 Narrative: Procedure: Upper endoscopy and colonoscopy Indication: GERD, dysphagia, hx of diverticulitis, fam hx of CRC Endoscopist: Joan Vargas MD Anesthesia Provider: Anesthesia type: MAC Instrument: [id number] and [id number] EGD Procedure:?? The procedure, indications, preparation and potential complications were reviewed with the patient, who indicated understanding and gave written informed consent to proceed. The endoscope was introduced through the mouth, and advanced to the 2nd part of the duodenum. The mucosa was carefully examined on slow withdrawal of the endoscope. The patient tolerated the procedure well. There were no immediate complications.? EGD Findings:? * Esophagus:? Erosions and a single ulcer measuring 6 mm with pigment spot at the GE junction at 35 cm. There was a large hiatal hernia. * Stomach:? Erosions in the stomach body and antrum were noted. Retroflexion was performed in the cardia that showed Hill grade III hiatal hernia. Random cold forceps biopsies were taken from the stomach. * Duodenum:? Erythema in the duodenal bulb was noted. Cold forceps biopsies were taken from the duodenal bulb and 2nd portion of the duodenum to rule out celiac sprue. Colonoscopy Procedure:? The patient was then turned for the colonoscopy. A digital rectal exam was performed which was normal.? A distal attachment cap was affixed to the tip of the scope and the colonoscope was then inserted through the anus and advanced through the colon and advanced to the cecum at 70 cm and terminal ileum.? Appendiceal orifice and ileocecal valve were identified. Mucosa was carefully examined under high definition white light as the instrument was slowly withdrawn in a retrograde panoramic fashion. Retroflexion was performed in rectum. The procedure was not difficult. The quality of the prep was BBPS: 3+2+3 = adequate Withdrawal time 8 minutes Limitations: No limitations Findings: Mucosa: Normal colon mucosa. Cold forceps biopsies were taken to rule out microscopic colitis. Protruding lesions: * Large internal hemorrhoids without stigmata of recent bleeding. Excavated lesions: * Moderate to severe diverticulosis of the left colon. Impression: 1. Esophagitis with GEJ esophageal ulcer 2. Hiatal hernia 3. Gastritis (biopsy) 4. Duodenitis (biopsy) 5. Normal colon and terminal ileum mucosa 6. Diverticulosis 7. Internal hemorrhoids Recommendations:?? * Follow-up path results * Avoid NSAIDs * Start Omeprazole BID x 8 weeks and then once daily * Repeat EGD to ensure healing of the GEJ ulcer with possible dilation at that time * Consider barium esophagogram for further evaluation of hiatal hernia. * Repeat colonoscopy for colorectal cancer screening in 5 years due to fam hx.
[2024-07-17 10:00] VITALS: BP 135/68; PULSE 55; RESP 18; TEMP 36.2; O2SAT 98
[2024-07-17 10:15] VITALS: BP 148/83; PULSE 55; RESP 18; O2SAT 98
[2024-07-17 10:30] VITALS: BP 168/89; PULSE 55; RESP 18; TEMP 36.2; O2SAT 98
== END 2024-07-17 11:07 | disposition home or self-care (01) ==
PROVIDERS: PCP Internal Medicine; Visit Provider Internal Medicine
PROC: (CPT 45380; principal; 2024-07-17 09:10)
DX: Z12.11 Encounter for screening for malignant neoplasm of colon (principal); Z86.010 Personal history of colon polyps; Z80.0 Family history of malignant neoplasm of digestive organs; K57.30 Diverticulosis of large intestine without perforation or abscess without bleeding; K64.8 Other hemorrhoids; Z87.19 Personal history of other diseases of the digestive system; R13.10 Dysphagia, unspecified; K22.10 Ulcer of esophagus without bleeding; K21.9 Gastro-esophageal reflux disease without esophagitis; K29.60 Other gastritis without bleeding; K29.80 Duodenitis without bleeding; K44.9 Diaphragmatic hernia without obstruction or gangrene; E78.00 Pure hypercholesterolemia, unspecified; I49.3 Ventricular premature depolarization; M19.90 Unspecified osteoarthritis, unspecified site; J45.909 Unspecified asthma, uncomplicated; Z79.899 Other long term (current) drug therapy; Z87.891 Personal history of nicotine dependence
CPT/HCPCS: 45380; 43239; 88305; 88313; 88342; J2704

== ENCOUNTER → 2024-07-17 07:19 | Outpatient (BNV) | payer MEDICARE, SELFPAY | PROVIDERS: PCP Internal Medicine; Visit Provider Internal Medicine | DX: K21.00 Gastro-esophageal reflux disease with esophagitis, without bleeding (principal); K29.70 Gastritis, unspecified, without bleeding; K29.80 Duodenitis without bleeding; R13.10 Dysphagia, unspecified; K57.90 Diverticulosis of intestine, part unspecified, without perforation or abscess without bleeding; Z80.0 Family history of malignant neoplasm of digestive organs; K64.8 Other hemorrhoids | CPT/HCPCS: 43239; 45380 ==

== ENCOUNTER 2024-07-18 14:24 | Outpatient (REF) | payer MEDICARE, SELFPAY ==
--- NOTE | ~2024-07-18 | MM_ITS ---
EXAMINATION: BONE DENSITOMETRY CLINICAL INDICATION: Menopause. COMPARISON: Previous BD dated 01/31/2022 and baseline BD dated 05/20/2013. TECHNIQUE: Using a TORIA DXA System (software version: 13.1) manufactured by [employer], dual-energy x-ray absorptiometry was performed of the lumbar spine and left hip. The images are of good technical quality. Summary results are attached. FINDINGS: LEFT FEMUR, NECK: Current: BMD 0.957 g/cm2, Z-score 0.6, T-score -0.6, normal. Prior: BMD 0.975 g/cm2. Baseline: BMD 1.033 g/cm2. LEFT FEMUR, TOTAL: Current: BMD 1.181 g/cm2, Z-score 2.3, T-score 1.4, normal, 1.0% decrease from previous, 2.6% increase from baseline (<5% change is not significant). Prior: BMD 1.193 g/cm2. Baseline: BMD 1.151 g/cm2. AP SPINE L1-L4: Current: BMD 1.647 g/cm2, Z-score 4.7, T-score 3.9, normal, 4.9% decrease from previous, 5.2% decrease from baseline (<5% change is not significant). Prior: BMD 1.732 g/cm2. Baseline: BMD 1.738 g/cm2. IDENTIFIED RISK FACTORS: Menopause, history of fracture (adult), low calcium intake. HISTORY OF FRACTURE: Other fracture. MEDICATIONS: Vitamin D. MM/XR DEXA axial skeleton IMPRESSION: 1. DIAGNOSIS: Normal bone density based on the lowest T-score value of -0.6 in the femoral neck applying World Health Organization criteria. 2. 10-YEAR FRACTURE RISK PREDICTION, FRAX: According to the guidelines, FRAX calculation should only be performed on patients in the osteopenia bone density category. Therefore, FRAX was not performed on this patient. 3. Treatment Recommendations: NOF guidelines recommend consideration for treatment in postmenopausal women and men age 50 and older presenting with the following: -A hip or vertebral (clinical or morphometric) fracture. -T-score less than or equal to -2.5 at the femoral neck or spine after appropriate evaluation to exclude secondary causes. -Low bone mass at the hip or spine and a 10-year fracture probability by FRAX of greater than or equal to 3% for hip fracture or greater than or equal to 20% for major osteoporotic fracture based on the [place] adapted WHO algorithm. 4. Other Recommendations: All treatment decisions require clinical judgment and consideration of individual patient factors, including patient preferences, comorbidities, previous drug use, risk factors not captured in the FRAX model (e.g. frailty, falls, vitamin D deficiency, increased bone turnover, interval significant decline in bone density) and possible under or overestimation of fracture risk by FRAX. FUTURE SCAN RECOMMENDATION: People with diagnosed cases of osteoporosis or at high risk for fracture should have regular bone mineral density tests. For patients eligible for Medicare, routine testing is allowed once every 2 years. The testing frequency can be increased to one year for patients who have rapidly progressing disease, those who are receiving or discontinuing medical therapy to restore bone mass, or have additional risk factors. Electronically signed by: Rui Sultana MD 07/22/2024 11:21 AM EDT
[2024-07-21 10:39] LABS: CA-125 5 U/mL (<35)
== END 2024-07-18 14:25 | disposition home or self-care (01) ==
LOC: HO.MAMMO 14:24
PROVIDERS: PCP Internal Medicine; Visit Provider Obstetrics & Gynecology
DX: Z13.820 Encounter for screening for osteoporosis (principal); Z78.0 Asymptomatic menopausal state; N83.209 Unspecified ovarian cyst, unspecified side
CPT/HCPCS: 36415; 77080; 86304

== ENCOUNTER 2024-07-24 09:05 | Outpatient (REF) | payer MEDICARE, SELFPAY | END 2024-07-24 09:06 | disposition home or self-care (01) | LOC: HO.LAB 09:05 | PROVIDERS: PCP Internal Medicine; Visit Provider Obstetrics & Gynecology | DX: R93.89 Abnormal findings on diagnostic imaging of other specified body structures (principal); N95.0 Postmenopausal bleeding | CPT/HCPCS: 58100; 88305; 99212 ==

== ENCOUNTER 2024-07-24 09:05 | Outpatient (AMB) | payer MEDICARE, SELFPAY ==
--- NOTE | 2024-07-24 09:31 | A.OFFVIS_ITS ---
Vital Signs 07/24/24 09:35 Height 5 ft 4 in Weight 209 lb BMI 35.9 BP 132/80 Intake Visit Reasons: EMB/DEXA follow up Sheepskin Pickler Required: No Information Interpreted: non-clinical & clinical Production Grader: Production Grader Present (Justa LEIVA) Accompanied by: Self / Same As Patient Allergies No Known Allergies Allergy (Verified 07/24/24 09:38) Post menopausal: Yes HPI Comments Details: The patient is presenting for follow up regarding DEXA scan results. T score @ spine and femoral Neck respectively were=-+3.9 /-0.6 and 10 year FRAX risk was not calculated In addition the patient is presenting for endometrial biopsy for 5 mm endometrial stripe on pelvic ultrasound [facility] Medical History Hypothyroid GERD (gastroesophageal reflux disease) PVC (premature ventricular contraction) Elevated cholesterol Deviated septum Degeneration of spine Thyroid nodule Osteoarthritis Surgical History History of surgery H/O colonoscopy Tubal ligation status History of H/O shoulder surgery History of arthroscopy of both knees Family History Paternal Aunt Breast CA Father Colon cancer Social History Are you a primary resident care assistant to a significant other at home: No Do you presently have visiting nurse or other home services: No Alcohol intake: current Alcohol intake frequency: a few times a month Patient Tobacco Use Status: Former Tobacco user Tobacco use type: Cigarette Years Smoked: 7 Advance Directives Date on File: 12/15/22 Gender identity: Female Female Reproductive History Menstrual Age of Menarche: 12 Review of Systems Const All systems reviewed & are unremarkable except as noted in HPI and below Reports as per HPI and Reports no additional complaints GI Reports no additional complaints Reports no additional complaints Physical Exam Vital Signs: Last Vital Signs BP 132/80 07/24/24 09:35 BMI result Body Mass Index 35.9 Office Procedures Endometrial Biopsy Details: The patient was counseled regarding the indication and benefits of endometrial sampling to rule out endometrial pathology including not limited to endometrial hyperplasia or endometrial cancer and others; The alternatives (Either do nothing vs. hysteroscopy D&C) & the risks were discussed with the patient including but not limited: pain, uterine perforation, bleeding, infection, possible injury to bladder, bowel, ureter, possible need for blood transfusion with all its possible risks. The patient verbalized understanding all questions answered and signed consent. The patient was placed into the dorsal lithotomy position; a speculum was inserted in the vagina. Using aseptic technique for the procedure, the cervix was cleansed with Betadine. The anterior lip of the cervix was grasped with a single tooth tenaculum. The uterus was sounded to 7 cm with a 4 mm Pipelle was used. Tissues samples were obtained and placed in formalin, in a patient labeled container and sent to the pathology department. At the end of the procedure, there was minimal bleeding noted The patient tolerated the procedure well and was discharged in good condition with the following instructions: Nothing in the vagina until the bleeding stops. No sex until the bleeding stops, to call if any of the following occurs: fever (>100.4), flu-like symptoms, abdominal pain, heavy bleeding, four smelling vaginal discharge. The patient was instructed to schedule a Follow up appointment in 2 weeks to discuss pathology results of the biopsy and treatment options. This note was generated with a voice recognition program. Some errors may have been overlooked during the review of this note. Sometimes these errors may affect the content or meaning of a given sentence. [id number] Biopsy Assessment & Plan Assessment & Plan (1) Thickened endometrium: Code(s): R93.89 - Abnormal findings on diagnostic imaging of other specified body structures Category: Medical Plan: EMB done, see procedure note (2) Osteopenia: Code(s): M85.80 - Other specified disorders of bone density and structure, unspecified site Category: Medical Plan: Discussed with the patient the DEXA results and FRAX risk. FRAX risk and T score showed no evidence of osteoporosis. Discussed with the patient all the options for osteoporosis prevention including lifestyle modifications including Ca+D supplements 1200 mg po qd/800 MIU, Weight bearing exercises and proteine supplements. The patient verbalized understanding and agreed plan will repeat DEXA in 2 years. Orders: Orders AMB Endometrial Biopsy Today R93.89 - Abnormal findings on diagnostic imaging of other specified body structures Coding Level of Care Code Est Pt Level 3 (35971) Procedure Only Diagnoses Thickened endometrium R93.89 Osteopenia M85.80 CPT Codes Endometrial Biopsy - CPT: 13654-Rlyiptumxjx Biopsy ([id number])
[2024-07-24 09:35] VITALS: BP 132/80; BMI 35.9
== END 2024-07-24 10:01 | disposition home or self-care (01) ==
PROVIDERS: PCP Internal Medicine; Visit Provider Obstetrics & Gynecology
DX: M85.80 Other specified disorders of bone density and structure, unspecified site (principal); R93.89 Abnormal findings on diagnostic imaging of other specified body structures
CPT/HCPCS: 58100; 99213

== ENCOUNTER 2024-07-29 10:17 | Outpatient (AMB) | payer MEDICARE, SELFPAY ==
[2024-07-29 10:22] VITALS: BP 126/82; BMI 35.6
--- NOTE | 2024-07-29 10:22 | MHC.OFFVIS ---
Vital Signs 07/29/24 10:22 Height 5 ft 4 in Weight 207 lb 3.752 oz BMI 35.6 BP 126/82 Blood Pressure Location Lt brachial Position Sitting Intake Visit Reasons: EMB Result Mobile Battery Technician Required: No Information Interpreted: non-clinical & clinical Firmware Engineer: Firmware Engineer Present Accompanied by: Self / Same As Patient Allergies No Known Allergies Allergy (Verified 07/29/24 10:24) Is last menstrual period known: Yes Last menstrual period: 09/16/20 Post menopausal: No Patient : No Do you need a note to return to daycare/school/sports/work: Yes (for surgery on sunday) HPI Comments Details: The patient is presenting after endometrial biopsy. The patient has no complaints, minimal spotting/ vaginal bleeding, no feverishness chills or abdominal pain. The endometrial biopsy pathology report showed the following: Endometrium, biopsy: Predominantly mucus with scant benign atrophic strips of endometrium, and scant benign endocervical glandular epithelium; no atypia or carcinoma (see comment). Comment: The tissue does not explain a thickened endometrium, and may not be electronics parts sales representative of the endometrium [facility] Medical History Hypothyroid GERD (gastroesophageal reflux disease) PVC (premature ventricular contraction) Elevated cholesterol Deviated septum Degeneration of spine Thyroid nodule Osteoarthritis Surgical History History of surgery H/O colonoscopy Tubal ligation status History of H/O shoulder surgery History of arthroscopy of both knees Family History Paternal Aunt Breast CA Father Colon cancer Social History Are you a primary director of managed care to a significant other at home: No Do you presently have visiting nurse or other home services: No Alcohol intake: current Alcohol intake frequency: a few times a month Patient Tobacco Use Status: Former Tobacco user Tobacco use type: Cigarette Years Smoked: 7 Advance Directives Date on File: 12/15/22 Gender identity: Female Female Reproductive History Menstrual Age of Menarche: 12 Date of last menstrual period: 09/16/20 Total pregnancies: 2 Full term: 2 Review of Systems Card Reports as per HPI and Reports no additional complaints Resp Reports as per HPI and Reports no additional complaints GI Reports as per HPI and Reports no additional complaints Reports as per HPI Physical Exam Vital Signs: BMI result Body Mass Index 35.6 Const General: cooperative, healthy appearing and comfortable Resp Effort & Inspection: normal respiratory effort Auscultation: clear to auscultation bilaterally Percussion: percussion normal Cardio Palpation: normal PMI Rate: regular rate Rhythm: regular rhythm Heart sounds: no murmurs and no rubs Peripheral pulses: Peripheral pulses 2+ throughout GI Inspection: Yes normal to inspection Palpation (GI): Soft to palpation, nontender, no guarding, not rigid and No hepatosplenomegaly present Percussion: Yes normal to percussion Auscultation: normal bowel sounds Rectal Exam - Female: deferred Assessment & Plan Assessment & Plan (1) Postmenopausal bleeding: Code(s): N95.0 - Postmenopausal bleeding Category: Medical Plan: Discussed with the patient the results the pathology and the fact that it does not explain thickened endometrium and May not be electronics parts sales representative endometrial cavity, recommended hysteroscopy D&C possible polypectomy/myomectomy. Discussed with the patient the procedure , all benefits and risks including but not limited to inability to complete the procedure , insufficient endometrial tissue for a complete evaluation of the endometrial cavity , bleeding, infection, possible need for blood transfusion with all its risk ( HIV,syphilis, Hepatitis, anaphylaxis shock, others..), injury to bladder, rectum, possible need for laparoscopy/laparotomy or hysterectomy. The patient verbalized understanding and signed the consent. Instructions given the patient to stay NPO after midnight the day prior to the procedure and to take only the specific medication (s) discussed the morning of the surgical procedure and to schedule a 2 week postoperative appointment Coding Level of Care Code Est Pt Level 3 (00464) Diagnoses Postmenopausal bleeding N95.0
== END 2024-07-29 12:34 | disposition home or self-care (01) ==
PROVIDERS: PCP Internal Medicine; Visit Provider Obstetrics & Gynecology
DX: N95.0 Postmenopausal bleeding (principal)
CPT/HCPCS: 99213

== ENCOUNTER → 2024-07-29 10:17 | Outpatient (BNVA) | payer MEDICARE, SELFPAY | PROVIDERS: PCP Internal Medicine; Visit Provider Obstetrics & Gynecology | DX: N95.0 Postmenopausal bleeding (principal) | CPT/HCPCS: 99212 ==

== ENCOUNTER 2024-08-01 09:26 | Day surgery (SDC) | payer MEDICARE, SELFPAY ==
[2024-08-01 09:34] VITALS: BMI 33.8
[2024-08-01 09:40] VITALS: BP 184/90; PULSE 55; RESP 15; TEMP 36.5; O2SAT 99
--- NOTE | 2024-08-01 09:55 | P.CONAN_ITS ---
Documented by User: Madiha Mitchell NP 07/30/24 13:55 HPI - Anesthesia Eval Consult details Narrative: 69yo F for D&C Hysteroscopy,possible myomectomy,possible polypectomy s/p EGD/[place] 06/2024 with TIVA PMFSH Active Problems Active Problems: All Active Problems Esophagitis (Acute) Ovarian cyst (Acute) Thickened endometrium (Acute) History of back surgery (Acute) Diverticulosis of colon (Acute) Chronic heartburn (Acute) Personal history of colonic polyps (Acute) Family history of colon cancer (Acute) Diverticulitis (Acute) Uterine myoma (Acute) Postmenopausal bleeding (Acute) Osteopenia (Acute) Osteoporosis screening (Acute) Well woman exam (Acute) Past Medical History Medical History Hypothyroid GERD (gastroesophageal reflux disease) PVC (premature ventricular contraction) Elevated cholesterol Deviated septum Degeneration of spine Thyroid nodule Osteoarthritis Family History Family History Paternal Aunt Breast CA Father Colon cancer Family history of problems with anesthesia: No Surgical History Surgical History (Updated 08/01/24 @ 09:33 by Argelia Virgen RN) History of nasal surgery Hx of tonsillectomy History of surgery H/O colonoscopy Tubal ligation status History of H/O shoulder surgery History of arthroscopy of both knees History of Problems with Anesthesia: No Social History Social History Are you a primary school child care attendant to a significant other at home: No Do you presently have visiting nurse or other home services: No Alcohol intake: current Alcohol intake frequency: holidays/special occasions only Patient Tobacco Use Status: Former Tobacco user Tobacco use type: Cigarette Years Smoked: 7 Use of substances other than those prescribed or required for medical reasons: No Are you DNR?: No Advance Directives: No Advance Directives Information Provided: Yes Advance Directives Date on File: 12/15/22 Gender identity: Female Meds Allergies Allergy/AdvReac Type Severity Reaction Status Date / Time No Known Allergies Allergy Verified 07/29/24 10:24 Home Medications ?Medication ?Instructions ?Recorded ?Confirmed ?Last Taken ?Type levothyroxine 100 mcg tablet 100 mcg PO QAM 11/10/20 08/01/24 12/15/22 History cholecalciferol (vitamin D3) 25 25 mcg PO DAILY 12/08/22 08/01/24 12/14/22 History mcg (1,000 unit) capsule (Vitamin D3) atorvastatin 40 mg tablet 40 mg PO DAILY 11/08/23 08/01/24 Unknown History clobetasol 0.05 % topical cream 1 appl topical BEDTIME 07/01/24 08/01/24 Unknown History Exam Pertinent Lab Results Pertinent Lab Results: Laboratory Tests 04/15/24 07:00 WBC 6.0 Hgb 13.0 Hct 40.2 Plt Count 214 Sodium 143 Potassium 4.1 Chloride 112 H Carbon Dioxide 25 BUN 19 H Creatinine 0.76 Assessment and Plan Assessment Anesthesia Assessment: Chart Reviewed Final Anesthetic Review Family History of Problems with Anesthesia: No History of Problems with Anesthesia: No Documented by User: Argelia Coleman DO 08/01/24 09:59 [facility] Past Medical History Medical History Hypothyroid GERD (gastroesophageal reflux disease) PVC (premature ventricular contraction) Elevated cholesterol Deviated septum Degeneration of spine Thyroid nodule Osteoarthritis Family History Family History Paternal Aunt Breast CA Father Colon cancer Family history of problems with anesthesia: No Surgical History Surgical History (Updated 08/01/24 @ 09:33 by Argelia Virgen RN) History of nasal surgery Hx of tonsillectomy History of surgery H/O colonoscopy Tubal ligation status History of H/O shoulder surgery History of arthroscopy of both knees History of Problems with Anesthesia: No Social History Social History Are you a primary school child care attendant to a significant other at home: No Do you presently have visiting nurse or other home services: No Alcohol intake: current Alcohol intake frequency: holidays/special occasions only Patient Tobacco Use Status: Former Tobacco user Tobacco use type: Cigarette Years Smoked: 7 Use of substances other than those prescribed or required for medical reasons: No Are you DNR?: No Advance Directives: No Advance Directives Information Provided: Yes Advance Directives Date on File: 12/15/22 Gender identity: Female Meds Allergies Allergy/AdvReac Type Severity Reaction Status Date / Time No Known Allergies Allergy Verified 07/29/24 10:24 Home Medications ?Medication ?Instructions ?Recorded ?Confirmed ?Last Taken ?Type levothyroxine 100 mcg tablet 100 mcg PO QAM 11/10/20 08/01/24 12/15/22 History cholecalciferol (vitamin D3) 25 25 mcg PO DAILY 12/08/22 08/01/24 12/14/22 History mcg (1,000 unit) capsule (Vitamin D3) atorvastatin 40 mg tablet 40 mg PO DAILY 11/08/23 08/01/24 Unknown History clobetasol 0.05 % topical cream 1 appl topical BEDTIME 07/01/24 08/01/24 Unknown History Exam Exam Date and Time: 08/01/24 0955 Height,Weight and Vital Signs: Height 5 ft 4 in Weight 89.358 kg Pertinent Lab Results Pertinent Lab Results: Laboratory Tests 04/15/24 07:00 WBC 6.0 Hgb 13.0 Hct 40.2 Plt Count 214 Sodium 143 Potassium 4.1 Chloride 112 H Carbon Dioxide 25 BUN 19 H Creatinine 0.76 Airway Mallampati Class: II TM Dist: >3cm Neck ROM: Full Loose/Missing/Broken Teeth: No (patient denies any loose or broken teeth) Heart: S1S2 Lungs: CTAB Assessment and Plan Assessment Anesthesia Assessment: Anesthesia Plan Discussed and Chart Reviewed Final Anesthetic Review Family History of Problems with Anesthesia: No History of Problems with Anesthesia: No NPO: Yes ASA Class: II Final Preanesthetic Review: No Changes in Pt Med Stat, Meds/Allgs Chart Reviewed, Consent Obtained/Reviewed and Anes Risks/Benef Reviewed Patient Risk: Low Procedure Risk: Low Anesthetic Plan Anesthetic Plan: GA and Agree w/ Assess. and Plan Disposition: Standard PACU
--- NOTE | 2024-08-01 09:55 | MHC.SHP ---
Pre-Procedural Eval Section A - 24 Hr Update-Section A only Date of Service: 08/01/24 The patient is an INPATIENT: No Changes since office visit: No Cold of Flu in the past 2 weeks, No New Medical Problems, No Changes in Medication and No Patient answered all questions The patient has been examined within 24 hours of the surgical procedure. The History & Physical has been completed within 30 days and I have reviewed it.: Yes Section B - Complete if H&P > 30 days Chief Complaint: Postmenopausal bleeding Allergies: Allergies Allergy/AdvReac Type Severity Reaction Status Date / Time No Known Allergies Allergy Verified 07/29/24 10:24 Plan Diagnosis/Plan: Unchanged I have reviewed the history and physical and performed a pertinent physical examination on my patient. No changes have occurred unless specified. Time Spent With Patient Time: Total time managing care of this patient today ____ minutes.
[2024-08-01] MEDS: Lactated Ringers 1,000 ML 100 ML IVCONT (10:01)
--- NOTE | 2024-08-01 10:50 | PM.OP ---
Brief Operative Note Date of Service: 08/01/24 Pre-op diagnosis: Postmenopausal bleeding, thickened endometrium by ultrasound Post-op diagnosis: same (Normal endometrial cavity) Procedure: Hysteroscopy D&C Surgeon: Lalo Mao MD Anesthesia: GLMA Was an Oil Processing Technician used for this Procedure?: No Estimated blood loss (mL): 0 Pathology: other (Endometrial Scrapping.) Condition: stable Disposition: PACU
--- NOTE | 2024-08-01 10:51 | W.PM.OPN ---
Operative Note Operative Note Date of Service: 08/01/24 Narrative: Preop Diagnosis: Post Menopausal bleeding, thickened endometrium by ultrasound Operation: Diagnostic Hysteroscopy, Dilataion & Curettage Post Op Diagnosis: Normal endometrial cavity QBL: Minimal Anesthesia: GLMA Surgeon: Lalo Mao MD Operations Research Analyst: None Complication: None Pathology: Endometrial Scrapings Procedure: The patient was put in the dorsal lithotomy position, scrubbed, and draped in the usual manner. A sterile speculum was inserted in the patient's vagina. The anterior lip of the cervix was grasped with a single tooth tenaculum. The cervix was dilated up to 5 mm, then the scope was inserted in the patient's uterus. Inspection revealed Normal endometrial cavity. The Myosure Reach device was used; the scope was removed from the endometrial cavity , sharp curettings was carried on with minimal to moderate amount of tissues retrieved. At the end of the procedure, all instruments were taken out of the patient uterine and vaginal cavity. The single tooth tenaculum was removed and homeostasis was assured using pressure,. The patient tolerated the procedure well and was transferred to the PACU in a stable condition.
[2024-08-01 10:56] VITALS: BP 112/79; PULSE 46; RESP 16; TEMP 36.5; O2SAT 99
[2024-08-01 11:00] VITALS: BP 145/78; PULSE 46; RESP 16; O2SAT 99
[2024-08-01 11:05] VITALS: BP 156/77; PULSE 45; RESP 16; O2SAT 99
[2024-08-01] MEDS: Acetaminophen 325 MG TABLET 650 MG PO (11:09)
[2024-08-01 11:20] VITALS: BP 159/78; PULSE 45; RESP 16; O2SAT 99
[2024-08-01 11:35] VITALS: BP 152/75; PULSE 47; RESP 16; TEMP 36.3; O2SAT 99
== END 2024-08-01 12:30 | disposition home or self-care (01) ==
PROVIDERS: PCP Internal Medicine; Visit Provider Obstetrics & Gynecology
PROC: 0UDB8ZZ Extraction of Endometrium, Via Natural or Artificial Opening Endoscopic (ICD-10-PCS; CPT 58558; principal; 2024-08-01 10:30)
DX: N95.0 Postmenopausal bleeding (principal); E78.00 Pure hypercholesterolemia, unspecified; I49.3 Ventricular premature depolarization; M19.90 Unspecified osteoarthritis, unspecified site; Z98.890 Other specified postprocedural states; Z87.891 Personal history of nicotine dependence
CPT/HCPCS: 58558; 88305; J1885; J2250; J2405; J2704; J3010

== ENCOUNTER → 2024-08-01 09:26 | Outpatient (BNV) | payer MEDICARE, SELFPAY | PROVIDERS: PCP Internal Medicine; Visit Provider Obstetrics & Gynecology | DX: N95.0 Postmenopausal bleeding (principal) | CPT/HCPCS: 58558 ==

== ENCOUNTER 2024-08-04 11:34 | Outpatient (AMB) | payer MEDICARE, SELFPAY ==
--- NOTE | 2024-08-04 11:38 | MHC.OFFVIS ---
Vital Signs 08/04/24 11:41 Height 5 ft 4 in Weight 200 lb BMI 34.3 BP 144/76 H Blood Pressure Location Lt brachial Position Sitting Pulse 60 Intake Visit Reasons: s/p colon Intake Note: Patient follow up for Colonoscopy results Patient cc: some abdominal cramps, denies any other GI issues. Naprapath Required: No Accompanied by: Self / Same As Patient Allergies No Known Allergies Allergy (Verified 08/04/24 11:37) HPI Comments Details: This is a 68-year-old female with past medical history of PVC, asthma, who was referred to our office by her PCP for question of diverticulitis. History was obtained from the patient, who states that at the end of Dec developed LLQ cramping and pain assoc with painful defecation and decreased appetite. No fevers or chils. This has happened at least 2 times before in the past year but was never this severe so never had to get medical attention. PCP Rxed Augmentin x 10 days. SHe also had a CT scan 01/24 but resutls not available. Pt reports being told about diverticulosis. From documentation in the PCP note, last colonoscopy was in 2019 (Dr. Prasad) and repeat was recommended in 5 years. Fam hx: Father: CRC in his 60s. Pt also reports intermittent heartburn 3 days/week at an average, goes away with tums. No difficulty swallowing, no N,V, regurgitation. No fam hx of esophageal or stomach ca. 07/17/24: 1. Esophagitis with GEJ esophageal ulcer 2. Hiatal hernia 3. Gastritis (biopsy) 4. Duodenitis (biopsy) 5. Normal colon and terminal ileum mucosa 6. Diverticulosis 7. Internal hemorrhoids Path: A. Duodenum, biopsy: Duodenal mucosa within normal limits. B. Stomach, random, biopsy: Antral-type and oxyntic mucosa with mild chronic inactive inflammation; no Helicobacter organisms seen 08/04/24: Results of EGD and colo reviewed with the pt. Pt has been on omeprazole BID since the procedure. No polyps but due to fam hx of CRC, has 5y interval. [facility] Medical History Hypothyroid GERD (gastroesophageal reflux disease) PVC (premature ventricular contraction) Elevated cholesterol Deviated septum Degeneration of spine Thyroid nodule Osteoarthritis Surgical History History of nasal surgery Hx of tonsillectomy History of surgery H/O colonoscopy Tubal ligation status History of H/O shoulder surgery History of arthroscopy of both knees Family History Paternal Aunt Breast CA Father Colon cancer Social History Are you a primary health care consultant to a significant other at home: No Do you presently have visiting nurse or other home services: No Alcohol intake: current Alcohol intake frequency: holidays/special occasions only Patient Tobacco Use Status: Former Tobacco user Tobacco use type: Cigarette Years Smoked: 7 Advance Directives Date on File: 12/15/22 Gender identity: Female Female Reproductive History Menstrual Age of Menarche: 12 Review of Systems Const All systems reviewed & are unremarkable except as noted in HPI and below Physical Exam Vital Signs: Last Vital Signs Pulse 60 08/04/24 11:41 BP 144/76 H 08/04/24 11:41 BMI result Body Mass Index 34.3 No apparent distress Nonicteric Abdomen soft, nondistended Alert and oriented x3, normal gait Assessment & Plan Assessment & Plan (1) Esophagitis: Code(s): K20.90 - Esophagitis, unspecified without bleeding Category: Medical (2) Chronic heartburn: Code(s): R12 - Heartburn Category: Medical (3) Family history of colon cancer: Code(s): Z80.0 - Family history of malignant neoplasm of digestive organs Category: Medical Plan Has endoscopic evidence of esophagitis with a hiatal hernia. Reviewed could be risk factor for persistent GERD and therefore will obtain a barium swallow for further evaluation. She will also be booked for interval EGD to ensure healing of esophagitis and r/o underlying shah's. Next colo due in 2028 due to fam hx. Follow up after EGD (booked for Nov 2024) Orders: Orders FL barium swallow 08/04/24 K20.90 - Esophagitis, unspecified without bleeding Coding Level of Care Code Est Pt Level 4 (10081) Diagnoses Esophagitis K20.90 Chronic heartburn R12 Family history of colon cancer Z80.0
[2024-08-04 11:41] VITALS: BP 144/76; PULSE 60; BMI 34.3
== END 2024-08-04 12:53 | disposition home or self-care (01) ==
PROVIDERS: PCP Internal Medicine; Visit Provider Internal Medicine
DX: K20.90 Esophagitis, unspecified without bleeding (principal); R12 Heartburn; Z80.0 Family history of malignant neoplasm of digestive organs
CPT/HCPCS: 99214

== ENCOUNTER → 2024-08-04 11:34 | Outpatient (BNVA) | payer MEDICARE, SELFPAY | PROVIDERS: PCP Internal Medicine; Visit Provider Internal Medicine | DX: K20.90 Esophagitis, unspecified without bleeding (principal); R12 Heartburn; Z80.0 Family history of malignant neoplasm of digestive organs | CPT/HCPCS: 99212 ==

== ENCOUNTER 2024-08-20 11:10 | Outpatient (AMB) | payer MEDICARE, SELFPAY ==
--- NOTE | 2024-08-20 11:24 | A.OFFVIS_ITS ---
Vital Signs 08/20/24 11:25 Height 5 ft 4 in Weight 198 lb 6.656 oz BMI 34.1 Intake Visit Reasons: post op Allergies No Known Allergies Allergy (Verified 08/04/24 11:37) HPI Comments Details: The patient is presenting post hysteroscopy D&C no complaints minimal vaginal bleeding no feverishness chills or abdominal pain. The pathology showed the following: Endometrium, curettage: Few superficial strips of atrophic endometrium and tubal metaplasia; negative for atypia, hyperplasia or malignancy PFSH Medical History Hypothyroid GERD (gastroesophageal reflux disease) PVC (premature ventricular contraction) Elevated cholesterol Deviated septum Degeneration of spine Thyroid nodule Osteoarthritis Surgical History History of nasal surgery Hx of tonsillectomy History of surgery H/O colonoscopy Tubal ligation status History of H/O shoulder surgery History of arthroscopy of both knees Family History Paternal Aunt Breast CA Father Colon cancer Social History Are you a primary career technical education instructor to a significant other at home: No Do you presently have visiting nurse or other home services: No Alcohol intake: current Alcohol intake frequency: holidays/special occasions only Patient Tobacco Use Status: Former Tobacco user Tobacco use type: Cigarette Years Smoked: 7 Advance Directives Date on File: 12/15/22 Gender identity: Female Female Reproductive History Menstrual Age of Menarche: 12 Review of Systems Const All systems reviewed & are unremarkable except as noted in HPI and below Reports as per HPI and Reports no additional complaints GI Reports no additional complaints Reports no additional complaints Assessment & Plan Assessment & Plan (1) Postmenopausal bleeding: Code(s): N95.0 - Postmenopausal bleeding Category: Medical Plan: Discussed with the patient the intraoperative finding and the results of the pathology of the D and C. Discussed with the patient the sensitivity, specificity, positive and negative predictive value, of endometrial biopsy in detecting endometrial pathology including but not limited to endometrial hyperplasia, cancer and other pathology; instructed the patient to call in case vaginal bleeding bleeding recurs, the next step will be to proceed with further evaluation to rule out endometrial pathology. All questions answered and the patient verbalized understanding and agreed with the plan. Coding Level of Care Code Est Pt Level 3 (81449) Diagnoses Postmenopausal bleeding N95.0
[2024-08-20 11:25] VITALS: BMI 34.1
== END 2024-08-20 11:39 | disposition home or self-care (01) ==
LOC: HO.HWS 11:10
PROVIDERS: PCP Internal Medicine; Visit Provider Obstetrics & Gynecology
DX: N95.0 Postmenopausal bleeding (principal)
CPT/HCPCS: 99213

== ENCOUNTER → 2024-08-20 11:10 | Outpatient (BNVA) | payer MEDICARE, SELFPAY | PROVIDERS: PCP Internal Medicine; Visit Provider Obstetrics & Gynecology | DX: N95.0 Postmenopausal bleeding (principal) | CPT/HCPCS: 99212 ==

== ENCOUNTER 2024-09-23 07:49 | Outpatient (REF) | payer MEDICARE, SELFPAY | END 2024-09-23 07:50 | disposition home or self-care (01) | LOC: HO.US 07:49 | PROVIDERS: PCP Internal Medicine; Visit Provider Internal Medicine | DX: E04.1 Nontoxic single thyroid nodule (principal) | CPT/HCPCS: 76536 ==

== ENCOUNTER → 2024-09-23 08:05 | Outpatient (BNV) | payer MEDICARE, SELFPAY | PROVIDERS: PCP Internal Medicine; Visit Provider Radiology Diagnostic Radiology | DX: E04.1 Nontoxic single thyroid nodule (principal) | CPT/HCPCS: 76536 ==

== ENCOUNTER 2024-10-07 08:40 | Outpatient (REF) | payer MEDICARE, SELFPAY ==
--- NOTE | ~2024-10-07 | FL_ITS ---
EXAMINATION: XR FLUOROSCOPY UPPER GI WITH AIR CLINICAL INFORMATION: Dysphagia COMPARISON: None TECHNIQUE: Fluoroscopic air contrast upper GI examination was performed utilizing standard techniques with thin and thick barium and effervescent granules. Numerous spot images were obtained. FINDINGS: Lateral cine images of the oropharynx and hypopharynx demonstrate normal swallow mechanism with normal epiglottic inversion and soft palate elevation. No tracheal penetration, glottic or subglottic aspiration identified. No nasopharyngeal reflux present. Hypopharyngeal structures appear normal without evidence of mass or diverticulum. There was no significant cricopharyngeal achalasia. There is mild posterior compression of the cervical esophagus due to an anterior bridging osteophyte at C6-C7. Dual and single contrast images of the esophagus demonstrate a normal caliber and contour. There is a mild granular appearance of the esophageal mucosa, suggestive of esophagitis. No masses or ulcerations are seen. Esophageal peristalsis is moderately disorganized. A small type I hiatal hernia is present. A nonobstructing Schatzki's ring is present. No significant gastroesophageal reflux was seen during the course of the examination and on reflux views. Dual contrast and single contrast images of the stomach demonstrated a normal contour. The gastric rugal folds have a thickened appearance, suggestive of gastritis. There are multiple tiny foci of contrast pooling in the body of the stomach that may represent small mucosal ulcerations. Contrast freely passed into the gastric antrum and duodenal bulb without delay. Single and air-contrast images of the duodenal bulb demonstrate no abnormality. The duodenal sweep has a normal appearance, course, and mucosal fold appearance. The imaged proximal jejunum has a normal fold pattern and caliber. FLUOROSCOPY TIME: 4 minutes 28 seconds Number of Spot Images: 8 Number of Cine: 16 DOSE AREA PRODUCT: 2899 uGy-m2 (microgray-meter squared) FL/FL barium swallow with air IMPRESSION: 1. Mild posterior compression of the cervical esophagus due to an anterior bridging osteophyte at C6-C7. 2. Mild granular appearance of the esophageal mucosa, suggestive of esophagitis. 3. Moderately disorganized esophageal peristalsis. 4. Small type I hiatal hernia. 5. Nonobstructing Schatzki's ring. 6. Thickened appearance of the gastric rugal folds. In addition there are multiple tiny foci of contrast pooling in the body of the stomach. These findings are suggestive of erosive gastritis. Recommend correlation with EGD. This procedure was performed by Calderon Campo PA-C, and supervised by Dr. Oconnor Electronically signed by: Chava Oconnor MD 10/08/2024 02:43 PM [facility]
== END 2024-10-07 08:41 | disposition home or self-care (01) ==
LOC: HO.XRAY 08:40
PROVIDERS: PCP Internal Medicine; Visit Provider Internal Medicine
DX: K20.90 Esophagitis, unspecified without bleeding (principal)
CPT/HCPCS: 74221

== ENCOUNTER → 2024-10-07 08:41 | Outpatient (BNV) | payer MEDICARE, SELFPAY | PROVIDERS: PCP Internal Medicine; Visit Provider Physician Assistant Surgical | DX: K22.2 Esophageal obstruction (principal); R13.10 Dysphagia, unspecified; K22.4 Dyskinesia of esophagus | CPT/HCPCS: 74221; 74246 ==

== ENCOUNTER 2024-10-23 12:21 | Outpatient (REF) | payer MEDICARE, SELFPAY ==
[2024-10-23 13:08] LABS: Alanine Aminotransferase 27 U/L (0-31); Alkaline Phosphatase 74 U/L (39-117); Aspartate Amino Transferase 22 U/L (5-31); Bilirubin Direct 0.2 mg/dL (0.0-0.5); Bilirubin Total 0.5 mg/dL (0.0-1.0); Cholesterol 150 mg/dL (<200); HDL Cholesterol 43 mg/dL (>40); LDL Cholesterol Calculated 90 mg/dL (<100); Total Protein 6.5 g/dL (6.5-8.0); Triglycerides 88 mg/dL (<150)
[2024-10-23 13:24] LABS: TSH reflex Free T4 0.83 uIU/mL (0.32-4.0)
--- OUTSIDE RECORDS SUMMARY | 2024-10-29 02:07 | XMS_ITS | Data Portability ---
Author Organization [facility] Office Address [address] [place] [address] Care Team Providers Care Realty Specialist Name Role Phone NICOLASA MOY Primary Care Provider Assessment Encounter Date Assessment Date Assessment LastModified by Organization Details LastModified Time 09/15/2022 09/15/2022 Independent interpretation of the x-rays from 07/12/22 and the MRI of the right knee from 09/12/22 and the clinical examination of the knees bilaterally shows some mild to moderate OA in the knees both sides - most evident on the right knee in the patellofemoral joint view on the MRI. The final report of the MRI scan is not available as it has not been read. We? ve discussed the many forms of conservative care for the treatment of the pain and the disability of knee arthritis. Prescription or over the counter NSAIDs have been discussed. These are offered to patients to be taken as directed only in those patients who can tolerate the medications and have no contraindication. Because she has not really tried an anti-inflammatory medication I recommended diclofenac as an anti-inflammatory . Next, we have discussed injection in the knee and the many types of injection techniques. We have discussed cortisone, hyaluronic or gel injections, plasma rich protein ( PRP) and even stem cell. These can be made available here in the office. Pros and the cons discussed and if these are helpful they can even be repeated. She has not had injections of the knees for some 10 years. I recommended bilateral corticosteroid injections today. After discussion of the risks including, but not limited to infection, localized soreness and swelling, reaction to medications, the patient presented for their bilateral knee cortisone injection. I confirmed that the patient does not have history of prior adverse reactions, active infections, or relevant allergies. There was no erythema, or warmth, and the skin was clear. The skin was sterilized with alcohol & Betadine. 2cc of Kenalog with 5 cc .25% marcaine plain was injected using the superior lateral approach. The injection was completed without complication and a Band-Aid was applied. The patient tolerated the procedure well and was instructed to avoid strenuous activity for the next 24-48 hours and use ice, NSAIDs or Tylenol for pain as needed. The patient will call immediately with any signs of infection or allergic reaction. Moderation of activities and even the use of bracing for the knee was discussed. For more extensive pain and disability possibly cane, crutch or walker. Physical therapy was discussed and can be prescribed in the more disabled patients. Because of some remarkable weakness and because of the patellofemoral irritation I recommended physical therapy for quadricep strengthening using short arc quad exercises to see if we can improve her function through quadricep strengthening. She will revisit on an as-needed basis. All questions answered. lena Not available 09/15/2022 14:56:31 Plan of Treatment Reminders Order Date Submit Date Provider Last Modified By Organization Details Last Modified Time Details Appointments None recorded. Lab None recorded. Referral physical therapist referral - Knee arthritis - patellofemo ral PT 2021 8 Not available 06:53:29 Procedures None recorded. Surgeries None recorded. Imaging None recorded. Medication Orders diclofenac sodium 75 mg tablet,ivy yed release 2021 [facility]acy #[id number], [address], [place], [address], 14:59:57 Patient TargetsNo targets recorded. Patient InstructionsNo instructions recorded. Reason for Referral Physical Therapist Referral for Bilateral osteoarthritis of knees Knee arthritis - patellofemoral PT Referring Physician: Kunal Gross, Orthopedic Surgery, Encounter Date: 09/15/2022 Procedures Surgical History Date Name Laterality Status Provider Name and Address Organization Details Recorded Time 9 Other completed Dannielle Freeman [facility] 09/15/2022 14:30:23 2 Orthopaedic Surgery completed [facility] 09/15/2022 14:30:14 2 Orthopaedic Surgery completed [facility] 09/15/2022 14:30:38 Other completed [facility] 09/15/2022 14:30:47 Other completed [facility] 09/15/2022 14:30:58 Imaging Results None recorded. Procedure Notes None recorded. Medical Equipment None Reported. Allergies No known drug allergies Medications Name Sig Start Date Stop Date Status Note LastModified by Organization Details LastModified Time atorvastatin 40 mg tablet Take 1 tablet every day by oral route. active Not Available Not Available No t Available diclofenac sodium 75 mg tablet,delay ed release Take 1 tablet twice a day by oral route. 2021 active Not Available Not Available Not Avai lable levothyroxin e 09/15 completed Not Available Not Available Not Available calcium active Not Available Not Avail able Not Available prednisone active Not Available Not Av ailable Not Available Vitamin D active Not Available Not Sherrell ilable Not Available levothyroxin e 100 mcg capsule Take 1 capsule every day by oral route. active Not Available Not Available No t Available Vitals Date Recorded Body weight Body mass index (BMI) Body height Provider Name and Address Organization Details Last Updated DateTime 09/15/2022 20717.84 g 35 kg/m2 162.56 cm [facility] 09/15/2022 14:26:11 Social History Question Answer Notes LastModified by Organizat ion Details LastModified Time Tobacco Smoking Status Former Smoker [facility] 09/15/2022 14:28:02 What Is Your Level Of Alcohol Consumption? Occasional Information not available 09/15/2022 What Is Your Level Of Caffeine Consumption? Moderate Information not available 09/15/2022 Do You Or Have You Ever Used E-cigarettes Or Vape? Never Used Electronic Cigarettes Information not available 09/15/2022 What Is Your Occupation? Retired Information not available 09/15/2022 Do You Or Have You Ever Used Smokeless Tobacco? Never Used Smokeless Tobacco Information not available 09/15/2022 How Much Tobacco Do You Smoke? No Information not available 09/15/2022 What Types Of Sporting Activities Do You Participate In? None Information not available 09/15/2022 How Many Years Have You Smoked Tobacco? 7 Information not available 09/15/2022 Sex: Unknown Functional Status Question Answer Note LastModified by Organization D etails LastModified Time What is your exercise level? None Information not available 09/15/2022 Mental Status None recorded. Family History Relationship Description Onset Age of this Age Resolved Age Notes LastModified by Organization Details LastModified Time Father No current problems or disability [email or web address] Not available 09/15 14:29:49 Mother No current problems or disability [email or web address] Not available 09/15 14:29:49 Medical History Condition Response Heart Problems Osteoarthritis / Rheumatoid arthritis / Other Y Thyroid Disorder Y Gynecological HistoryNo gynecological history recorded. Obstetrics History GPAL:G 0 P 0 0 0 0 Past Encounters Encounter ID Performer Location Encounter Start Date Encounter Closed Date Diagnosis/Indication Diagnosis SNOMED-CT Code Diagnosis ICD10 Code [id number] KUNAL WAYNE MD [place] [facility] [address] [place] [phone] 09/15/2022 13:37:19 09/15/2022 15:02:19 Bilateral osteoarthritis of knees 0839087232 45008 M17.0 Health Concerns Section Related Observation LastModified by Organization Detai ls LastModified Time None Recorded Concern Status LastModified by Organization Details LastModified Time None Recorded Advance Directives Directive None Recorded Payers Encounter Date Sequence Insurance Name Policy Number Policy Bland Covered Member ID Bland Member ID Guarantor Name 09/15/2022 1 [place] (MEDICARE REPLACEMENT PPO) [id number] Rosina Stern [id number] Rosina Stern Notes Date Note Type Note Provider Name and Address Organization Details Recorded Time 09/15/2022 text/html Bilateral knee p ain . The patient reports bilateral knee pain for many years. She reports she is had knee arthroscopies on both knees. The most recent was in 2019 on the left knee. She has had anti-inflammatories in the past. She reports has had injections in the knees some 10 years ago that did not give her really much benefit. She presents now being really quite frustrated with pain in the knees both sides. She reports any type of incline or decline is very painful. She has not had any type of physical therapy. She has been told in [place] that she has reasonably good looking knees. She is very frustrated with the knees both sides. She is presently taking no medications for the knees. She has had no recent injections in the knees. She has had no therapy for the knees. KUNAL WAYNE MD [address] [place] [address], [phone], [facility] 09/15/2022 15:00:01 OBGyn Episode No OBEpisode recorded.
== END 2024-10-23 12:22 | disposition home or self-care (01) ==
LOC: HO.LNP 12:21
PROVIDERS: Visit Provider Internal Medicine
DX: E78.00 Pure hypercholesterolemia, unspecified (principal); E03.9 Hypothyroidism, unspecified
CPT/HCPCS: 80061; 80076; 84443

== ENCOUNTER 2024-11-20 10:39 | Outpatient (REF) | payer MEDICARE, SELFPAY ==
--- NOTE | ~2024-11-20 | US_ITS ---
CLINICAL HISTORY: D25.9 - Leiomyoma of uterus, unspecified US pelvis transabdominal and transvaginal Comparison: None Findings: Transabdominal scanning performed for overall anatomy. Transvaginal scanning performed for additional detail. Anteverted uterus is 9.8 cm length. Normal myometrium. Endometrium 2.0 mm thickness. There are multiple subserosal and myometrial uterine leiomyomata, largest measuring 2.6 x 2.6 x 3.1 cm. Right ovary 1.6 x 1.6 x 1.6 cm. Left ovary 1.3 x 1.5 x 1.7 cm. Normal color Doppler of both ovaries. No free fluid. IMPRESSION: 1. Uterine leiomyomata This document has been electronically signed by: Antonio Poole MD on 11/22/2024 08:05:24
--- OUTSIDE RECORDS SUMMARY | 2024-11-20 11:09 | XMS_ITS ---
Author Organization Slim Hammond MD Address [address] [place] [phone] Care Team Providers Care Line Out Man Name Role Phone Slim Hammond Primary Care Provider ALLERGIES Allergen (clinical drug ingredient) Drug/Non Drug Allergy documented on EMR Reaction Allergy Type Onset Date Status azithromycin z pack (uncoded) diarrhea Allergy Active REASON FOR VISIT 6 month/ must see BA swallow results MEDICATIONS Medication SIG (Take, Route, Frequency, Duration) Notes Start Date End Date Status Atorvastatin Calcium 40 MG TAKE 1 TABLET BY MOUTH EVERY DAY Active Levothyroxine Sodium 100 MCG TAKE 1 TABLET BY MOUTH IN THE MORNING ON AN EMPTY STOMACH ONCE A DAY FOR 90 DAYS Active Omeprazole 20 MG 1 capsule 1/2 to 1 h our before morning meal Orally Once a day for 30 day(s) Active Albuterol Sulfate HFA 108 (90 Base) MCG/ACT 1 puff as needed Inhalation every 4 hrs for 30 days 10/07/2021 Active Clobetasol Propionate 0.05 % 1 application Externally Twice a day for 30 days 02/04/2024 Active Vitamin D 1000 UNIT 1 tablet Orally Once a day Active Ondansetron 4 MG 1 tablet on the tong ue and allow to dissolve Orally Once a day for 30 day(s) Not-Taking Calcium 500 MG 1 tablet with meals Orally Twice a day for 30 day(s) Not-Taking ProAir HFA 108 (90 Base) MCG/ACT 2 puffs as needed Inhalation every 6 hrs for 30 days 04/23/2018 Not-Taking VITAL SIGNS BMI 35.36 kg/m2 10/31/2024 Blood pressure systolic 112 mm Hg 10/31/20 24 Blood pressure diastolic 70 mm Hg 024 Height 64 in 10/31/2024 Weight 206 lbs 10/31/2024 weight is up 8 pounds since 06-03-24 Encounters Encounter Location Date Provider Diagnosis Slim Hammond MD [address] [place] [address] Drive [address] [place], [place] [phone] 10/31/2024 Slim Hammond Acquired hypothyroid ism E03.9 ; Pure hypercholesterolemia E78.00 and Abnormal upper gastrointestinal barium series R93.3 ASSESSMENTS Encounter Date Diagnosis Assessment Notes Treatment Notes Treatment Clinical Notes 10/31/2024 Acquired hypothyroid ism (ICD-10 - E03.9) has good tsh, will continue current regiment 10/31/2024 Pure hypercholestero lemia (ICD-10 - E78.00) well controlled on statins. will continue current regiment 10/31/2024 Abnormal upper gastrointestinal barium series (ICD-10 - R93.3) went over the results of the tests is going to have endoscopy next PLAN OF TREATMENT Medication Medication Name Sig Start Date Stop Date Notes Atorvastatin Calcium 40 MG TAKE 1 TABLET BY MOUTH EVERY DAY Levothyroxine Sodium 100 MCG TAKE 1 TABL ET BY MOUTH IN THE MORNING ON AN EMPTY STOMACH ONCE A DAY FOR 90 DAYS Treatment Notes Assessment Notes Acquired hypothyroidism has good tsh, wi ll continue current regiment Pure hypercholesterolemia well controlle d on statins. will continue current regiment Abnormal upper gastrointestinal barium s eries went over the results of the tests is going to have endoscopy next Next Appt Details Provider Name:Slim salter, 04/27/2025 08:00:00 AM, [address] [place] [address], [address], [place], [place], [phone], Provider Name:Slim salter, 05/04/2025 02:30:00 PM, [address], [address], [place], [place], [phone], Progress Notes * Examination Category Sub-Category Detail Notes General Examination GENERAL APPEARANCE: alert, w ell hydrated, in no distress HEAD: normocephalic HEART: regular rate and rhy thm , no murmurs, rubs, gallops LUNGS: no wheezes, rales, r honchi , good air movement , clear to auscultation bilaterally SKIN: good turgor
--- OUTSIDE RECORDS SUMMARY | 2024-11-20 11:09 | XMS_ITS ---
Author Organization Slim Hammond MD Address [address] [place] [phone] Care Team Providers Care Secondary Market Manager Name Role Phone Slim Hammond Primary Care Provider [phone] RESULTS Component Value Reference Range Notes Liver Panel Reviewed date:10/23/2024 03:12:27 PM Interpretation: Performing Lab:[facility], [address] [place] [phone] Notes/Report: Bilirubin Total 0.5 0.0-1.0 mg/dL Bilirubin Direct 0.2 0.0-0.5 mg/dL Aspartate Amino Transferase 22 5-31 U/L Alanine Aminotransferase 27 0-31 U/L Total Protein 6.5 6.5-8.0 g/dL Albumin Level 4.0 3.5-5.0 g/dL Alkaline Phosphatase 74 39-117 U/L Lipid Panel Reviewed date:10/23/2024 03:13:32 PM Interpretation: Performing Lab:[facility], [address] [place] [phone] Notes/Report: Triglycerides 88 <150 mg/dL Desirable Triglyceride: less than 150 mg/dL Borderline High Triglyceride 150-199 mg/dL High Triglyceride: 200-499 mg/dL Very High Triglyceride: greater than or equal to 5OO mg/dL Cholesterol 150 <200 mg/dL Desirable Cholesterol: less than 200 mg/dL Borderline High Cholesterol: 200-239 mg/dL High Cholesterol: greater than 239 mg/dL LDL Cholesterol Calculated 90 <100 mg/dL Desirable LDL: less than 100 mg/dL Near Optimal/Above Optimal LDL: 110-129 mg/dL Borderline High LDL: 130-159 mg/dL High LDL: 160-189 mg/dL Very High LDL: greater than or equal to 190 mg/dL HDL Cholesterol 43 >40 mg/dL Desirable HDL: greater than 40 mg/dL Note: This HDL assay may give artificially low results in patients with liver disease. TSH reflex Free T4 Reviewed date:10/23/2024 03:29:08 PM Interpretation: Performing Lab:[facility], [address] [place] [phone] Notes/Report: TSH reflex Free T4 0.83 0.32-4.0 uIU/mL REASON FOR VISIT fasting lipids, liver and TSH Encounters Encounter Location Date Provider Diagnosis Slim Hammond MD [address] [place] [address] Drive [address] [place], [place] [phone] 10/23/2024 Slim Hammond Pure hypercholestero lemia E78.00 and Acquired hypothyroidism E03.9 ASSESSMENTS Encounter Date Diagnosis Assessment Notes Treatment Notes Treatment Clinical Notes 10/23/2024 Pure hypercholestero lemia (ICD-10 - E78.00) 10/23/2024 Acquired hypothyroid ism (ICD-10 - E03.9) PLAN OF TREATMENT Next Appt Details Provider Name:Slim salter, 04/27/2025 08:00:00 AM, [address] [place] [address], [address], [place], [place], [phone], Provider Name:Slim salter, 05/04/2025 02:30:00 PM, [address] [place] [address], [address], [place], [place], [phone],
--- OUTSIDE RECORDS SUMMARY | 2024-11-20 11:09 | XMS_ITS ---
Author Organization Slim Hammond MD Address [address] [place] [phone] Care Team Providers Care Scullion Chief Name Role Phone Slim Hammond Primary Care Provider [phone] REASON FOR VISIT ? thyroid US Encounters Encounter Location Date Provider Diagnosis Slim Hammond MD [address] [place] [phone] 08/29/2024 Slim Hammond Thyroid nodule E04.1 ASSESSMENTS Encounter Date Diagnosis Assessment Notes Treatment Notes Treatment Clinical Notes 08/29/2024 Thyroid nodule (ICD-10 - E04.1) order faxed to [facility] CS dept PLAN OF TREATMENT Treatment Notes Assessment Notes Thyroid nodule order faxed to [facility] C S dept Pending Test Test Name Order Date US thyroid 08/29/2024 Next Appt Details Provider Name:Slim salter, 04/27/2025 08:00:00 AM, [address], [address], [place], [place], [phone], Provider Name:Slim salter, 05/04/2025 02:30:00 PM, [address] [place] [address], [address], [place], [place], [phone],
--- OUTSIDE RECORDS SUMMARY | 2024-11-20 11:10 | XMS_ITS | Patient Health Record ---
Author Organization Slim Hammond MD Address [address] [place], [place] [id number] Care Team Providers Care Echocardiograph Tech Name Role Phone Slim Hammond Primary Care Provider [phone] ALLERGIES Allergen (clinical drug ingredient) Drug/Non Drug Allergy documented on EMR Reaction Allergy Type Onset Date Status azithromycin z pack (uncoded) diarrhea Allergy Active RESULTS Component Value Reference Range Notes Edmar Bar Reviewed date:01/17/2024 12:31:50 PM Interpretation: Performing Lab:[facility], [address] [place] [phone] Notes/Report: Edmar Bar See Note Specimen held untested for 24 hours; Call to request Chemistry testing. MM tomosynthesis screening B I Reviewed date:02/04/2024 05:26:48 PM Interpretation: Performing Lab: Notes/Report: [address] [place] [address] Mammography Report Signed Patient: Rosina Stern MR#: [id number] : 1955 Acct:[id number] Age/Sex: 68 / F ADM Date: 01/17/24 Loc: HO.MAMMO Attending Dr: Slim Hammond MD Ordering Physician: Slim Hammond MD Results: 1Ne gative Date of Service: 01/17/24 Follow Up: 1 Year From [facility] Mammogram Procedure(s): MM tomosynthesis screening BI Accession Number(s): [id number] cc: Slim Hammond MD EXAMINATION: MM SCREENING DIGITAL BREAST TOMOSYNTHESIS, BILATERAL CLINICAL INFORMATION: Screening. Asymptomatic. COMPARISON: Mammography: This study is compared with prior exams dating back to 2019. TECHNIQUE: Digital breast tomosynthesis is performed in both the craniocaudal and mediolateral oblique views along with computer-aided detection (CAD). Synthesized 2D images are generated from the tomosynthesis. FINDINGS: There are scattered areas of fibroglandular density (ACR BI-RADS breast composition Category b). There are no significant masses, abnormal calcifications, or other abnormalities. MM/MM tomosynthesis screening BI IMPRESSION: No mammographic evidence of malignancy. ASSESSMENT: BI-RADS BI-RADS 1 - Negative RECOMMENDATION: Routine annual mammography screening. 1 year F/U This examination should not preclude the clinical evaluation of a suspicious palpable abnormality. This patient's information was entered into a reminder system with a target due date for their next mammogram. Dictated By: Eliza Subramanian MD Signed By: <Electronically signed by Eliza Subramanian MD in OV> 02/03/24 1739 DD/ 0935 TD/TT: Lye Boiler: Blood Urea Nitrogen Reviewed date:01/17/2024 05:11:46 PM Interpretation: Performing Lab:[facility], [address] [place] [phone] Notes/Report: Blood Urea Nitrogen 15 9-16 mg/dL Creatinine Reviewed date:01/17/2024 05:04:59 PM Interpretation: Performing Lab:[facility], [address] [place] [phone] Notes/Report: Creatinine 0.99 0.5-1.4 mg/dL Estimated Glomerular Filt Rate 56 NOTE: For -Malaysian individuals, multiply the result by 1.210. Chronic Kidney Disease: Estimated GFR < 60 mL/min/1.73m2 Severe Kidney Disease: Estimated GFR < 15 mL/min/1.73m2 Edmar Bar Reviewed date:04/15/2024 12:22:44 PM Interpretation: Performing Lab:[facility], [address] [place] [phone] Notes/Report: Edmar Bar See Note Specimen held untested for 24 hours; Call to request Chemistry testing. Complete Blood Count Auto Di ff Reviewed date:04/15/2024 12:34:44 PM Interpretation: Performing Lab:[facility], [address] [place] [phone] Notes/Report: White Blood Count 6.0 4.8-10.8 X10*3/uL Red Blood Count 4.35 4.20-5.50 X10*6/uL Hemoglobin 13.0 12.0-16.0 g/dl Hematocrit 40.2 37.0-47.0 % Mean Corpuscular Volume 92.4 80.0-98.0 fL Mean Corpuscular Hemoglobin 29.9 27.0-33.0 pg Mean Corpuscular HGB Conc 32.3 31.0-35.0 g/dl Red Cell Distribution Width 13.5 11.0-16.0 % Platelet Count 214 160-400 X10*3/uL Mean Platelet Volume 11.7 9.4-12.3 fL Neutrophils Percent Auto 56.1 45-73 % Imm Gran Pct Auto 0.3 0.0-0.4 % Lymphocytes Percent Auto 31.5 20-40 % Monocytes Percent Auto 7.5 2-11 % Eosinophils Percent Auto 4.1 0-4 % Basophils Percent Auto 0.5 0-2 % NRBC Pct Auto 0.0 0.0-0.2 /100WBC Neutrophils Absolute Auto 3.4 2.0-8.3 x10*3/u L Imm Gran Abs Auto 0.02 0.00-0.03 X10*3/uL Lymphocytes Absolute Auto 1.9 1.2-4.9 X10*3/u L Monocytes Absolute Auto 0.5 0.1-1.2 X10*3/uL Eosinophils Absolute Auto 0.3 0.0-0.4 X10*3/u L Basophils Absolute Auto 0.0 0.0-0.2 X10*3/uL NRBC Abs Auto 0.000 0.0-0.012 X10*3/uL Comprehensive [place]. Panel Fa st Reviewed date:04/15/2024 04:11:17 PM Interpretation: Performing Lab:[facility], [address] [place] [phone] Notes/Report: Sodium 143 135-145 mmol/L Potassium 4.1 3.3-5.1 mmol/L Chloride 112 96-108 mmol/L Carbon Dioxide 25 22-29 mmol/L Anion Gap 10 12-20 Blood Urea Nitrogen 19 9-16 mg/dL Creatinine 0.76 0.5-1.4 mg/dL Estimated Glomerular Filt Rate > 60 NOTE: For -Malaysian individuals, multiply the result by 1.210. Chronic Kidney Disease: Estimated GFR < 60 mL/min/1.73m2 Severe Kidney Disease: Estimated GFR < 15 mL/min/1.73m2 Glucose Fasting 107 60-99 mg/dL A fasting glucose from 100-125 mg/dl is considered impaired (pre-diabetes). Calcium 9.0 8.4-10.2 mg/dL Bilirubin Total 0.4 0.0-1.0 mg/dL Aspartate Amino Transferase 15 5-31 U/L Alanine Aminotransferase 20 0-31 U/L Total Protein 6.4 6.5-8.0 g/dL Albumin Level 3.8 3.5-5.0 g/dL Alkaline Phosphatase 76 39-117 U/L Lipid Panel Reviewed date:04/15/2024 12:22:15 PM Interpretation: Performing Lab:[facility], [address] [place] [phone] Notes/Report: Triglycerides 119 <150 mg/dL Desirable Triglyceride: less than 150 mg/dL Borderline High Triglyceride 150-199 mg/dL High Triglyceride: 200-499 mg/dL Very High Triglyceride: greater than or equal to 5OO mg/dL Cholesterol 154 <200 mg/dL Desirable Cholesterol: less than 200 mg/dL Borderline High Cholesterol: 200-239 mg/dL High Cholesterol: greater than 239 mg/dL LDL Cholesterol Calculated 88 <100 mg/dL Desirable LDL: less than 100 mg/dL Near Optimal/Above Optimal LDL: 110-129 mg/dL Borderline High LDL: 130-159 mg/dL High LDL: 160-189 mg/dL Very High LDL: greater than or equal to 190 mg/dL HDL Cholesterol 43 >40 mg/dL Desirable HDL: greater than 40 mg/dL Note: This HDL assay may give artificially low results in patients with liver disease. Vitamin D 25-OH Total Reviewed date:04/15/2024 12:23:49 PM Interpretation: Performing Lab:[facility], [address] [place] [phone] Notes/Report: Vitamin D 25-OH Total 52.0 >30 ng/mL Health Based Reference Values* < 20 ng/mL Deficient 20-30 ng/mL Insufficient > 30 ng/mL Sufficient *Stephanie OSUNA. N Engl J Med. 2007;357:266-280 Care must be taken in interpreting Vitamin D results from different laboratories and methodologies. Published data demonstrated that results from patients undergoing hemodialysis may show a negative bias when tested with various automated 25-OH vitamin D assays when compared to LC-MS/MS. When testing samples from patients whose predominant form of Vitamin D is Vitamin D2, such as patients receiving Vitamin D2 supplementation, results that are subtherapeutic should be confirmed with another method such as LC-MS/MS. TSH reflex Free T4 Reviewed date:04/15/2024 12:22:59 PM Interpretation: Performing Lab:[facility], [address] [place] [phone] Notes/Report: TSH reflex Free T4 0.71 0.32-4.0 uIU/mL Microalbumin, Random Reviewed date:04/15/2024 12:23:08 PM Interpretation: Performing Lab:[facility], [address] [place] [phone] Notes/Report: Creatinine Urine 118.07 Microalbumin Urine 6.0 Microalbum/Creatinine Ratio Ur 5.0 <30 ug/mg cr Albumin/Creatinine Ratio Reference Ranges: Normal: < 30 ug/mg creatinine Microalbuminuria: 30 - 300 ug/mg creatinine Clinical Albuminuria: > 300 ug/mg creatinine Hemoglobin A1c Reviewed date:04/15/2024 12:21:43 PM Interpretation: Performing Lab:[facility], [address] [place] [phone] Notes/Report: Hemoglobin A1c % 5.8 <6.0 % Hemoglobin A1C Reference Range Adults: 4.8 - 6.0 % Non diabetic: < 6.0 % Goal: < 7.0 % Additional Action Suggested: > 8.0 % Note: Hemoglobin A1c results are invalid for patients with abnormal amounts of HbF. Blood transfusions may impact the HbA1c concentration in the patient sample. Estimated Average Glucose 120 eAG = Estimated average glucose which is %A1C expressed as average glucose, using the formula of the [id number] Average Glucose study (ADAG), Diabetes Care, Vol.31,#8, 2007 UA ClnCatch+Micro w/rflx Cul t Reviewed date:04/15/2024 12:24:08 PM Interpretation: Performing Lab:[facility], [address] [place] [phone] Notes/Report: Urine, Clean Catch Color Urine Yellow Appearance Urine Clear PH 5.5 5.0-9.0 Glucose Urine UA Negative Negative mg/dL Urine Blood Negative Negative Specific Armstrong - Urine 1.020 1.005-1.025 Urine Protein Negative Neg-Trace mg/dL Urine Ketones Negative Negative mg/dL Nitrite Urine Negative Negative Leukocyte Esterase Urine Negative Negative RBC Urine 0-2 0-2 /HPF WBC Urine 0-5 0-5 /HPF Squamous Epithelial Cell Urine 0-2 0-2 /HPF Bacteria Urine None Seen None Seen Hyaline Casts Urine 0-2 0-2 /LPF US pelvic and transvaginal Reviewed date:07/01/2024 12:36:02 PM Interpretation: Performing Lab: Notes/Report: [address] [address] Ultrasound Report Signed Patient: Rosina Stern MR#: [id number] : 1955 Acct:[id number] Age/Sex: 69 / F ADM Date: 06/17/24 Loc: HO.US Attending Dr: Lalo Mao MD Ordering Physician: Lalo Mao MD Date of Service: 06/17/24 Procedure(s): US pelvic and transvaginal Accession Number(s): [id number] cc: Slim Hammond MD; Lalo Mao MD EXAMINATION: US PELVIS CLINICAL INFORMATION: Leiomyoma of uterus, last menstrual period 12-13 years ago. COMPARISON: None available. TECHNIQUE: Ultrasound of the pelvis is performed using both transabdominal and transvaginal transducers along with Doppler. Transvaginal imaging is performed due to inadequate visualization transabdominally. FINDINGS: The uterus is anteverted and measures 12.1 x 4.8 x 5.1 cm, volume 154.9 mL. A 1.9 x 1.3 x 2.0 cm hypoechoic structure may possibly represent a fibroid versus bowel and is difficult to characterize with certainty as visualization is limited due to bowel gas. A 0.9 x 0.6 x 0.7 cm fibroid, previously 0.9 x 0.6 x 1.1 cm. A 3.1 x 2.5 x 3.3 cm fibroid, previously 2.8 x 2.5 x 2.7 cm. A 2.2 x 2.0 x 2.1 cm fibroid, previously 2.7 x 2.4 x 1.9 cm. Endometrium poorly visualized. Imaged segment of endometrium with thickness up to 5 mm. Nabothian cysts. No significant free fluid. Right ovary measures 2.6 x 1.9 x 1.6 cm, volume 4.1 mL. A 0.4 cm echogenic periphery of the right ovary, possibly calcification. Multiple echogenic foci within the right ovary characteristic of calcifications. Left ovary seen only on transabdominal ultrasound images, limiting evaluation, and measures 1.6 x 1.8 x 1.6 cm, volume 2.4 mL. A 1.9 x 1.2 x 1.5 cm left adnexal simple cyst may represent an exophytic left ovarian cyst versus extraovarian cyst. Visualization of the bilateral ovaries is limited. US/US pelvic and transvaginal IMPRESSION: 1. Fibroid uterus. 2. Endometrium poorly visualized. Imaged segment of endometrium with thickness up to 5 mm. 3. A 1.9 cm left adnexal simple cyst may represent an exophytic left ovarian cyst versus extraovarian cyst and was not appreciated on the prior exam. 4. A 0.4 cm echogenic periphery of the right ovary, possibly calcification. Multiple echogenic foci within the right ovary characteristic of calcifications. Dictated By: Eileen Pickett MD Signed By: <Electronically signed by Eileen Pickett MD in OV> 07/01/24 0654 DD/ 1335 TD/TT: Lye Boiler: Pathology Reviewed date:07/22/2024 02:15:18 PM Interpretation: Performing Lab:[facility], [address] [place] [phone] Notes/Report: CA-125 Reviewed date:07/22/2024 01:06:04 PM Interpretation: Performing Lab:[facility], [address] [place] [phone] Notes/Report: CA-125 5 <35 U/mL This test was performed using the Siemens Chemiluminescent method. Values obtained from different assay methods cannot be used interchangeably. CA 125 levels, regardless of value, should not be interpreted as absolute evidence of the presence or absence of disease. THIS TEST WAS PERFORMED AT: [facility] [address] [place] [phone] MARYANN MARINO MD XR DEXA axial skeleton Reviewed date:07/22/2024 05:10:14 PM Interpretation: Performing Lab: Notes/Report: [facility] [address] [place] [address] Mammography Report Signed Patient: Rosina Stern MR#: [id number] : 1955 Acct:[id number] Age/Sex: 69 / F ADM Date: 07/18/24 Loc: HO.MAMMO Attending Dr: Lalo Mao MD Ordering Physician: Lalo Mao MD Results: Date of Service: 07/18/24 Follow Up: Procedure(s): XR DEXA axial skeleton Accession Number(s): [id number] cc: Slim Hammond MD; Lalo Mao MD EXAMINATION: BONE DENSITOMETRY CLINICAL INDICATION: Menopause. COMPARISON: Previous BD dated 01/31/2022 and baseline BD dated 05/20/2013. TECHNIQUE: Using a LiveQoS DXA System (software version: 13.1) manufactured by [employer] [place], dual-energy x-ray absorptiometry was performed of the lumbar spine and left hip. The images are of good technical quality. Summary results are attached. FINDINGS: LEFT FEMUR, NECK: Current: BMD 0.957 g/cm2, Z-score 0.6, T-score -0.6, normal. Prior: BMD 0.975 g/cm2. Baseline: BMD 1.033 g/cm2. LEFT FEMUR, TOTAL: Current: BMD 1.181 g/cm2, Z-score 2.3, T-score 1.4, normal, 1.0% decrease from previous, 2.6% increase from baseline (<5% change is not significant). Prior: BMD 1.193 g/cm2. Baseline: BMD 1.151 g/cm2. AP SPINE L1-L4: Current: BMD 1.647 g/cm2, Z-score 4.7, T-score 3.9, normal, 4.9% decrease from previous, 5.2% decrease from baseline (<5% change is not significant). Prior: BMD 1.732 g/cm2. Baseline: BMD 1.738 g/cm2. IDENTIFIED RISK FACTORS: Menopause, history of fracture (adult), low calcium intake. HISTORY OF FRACTURE: Other fracture. MEDICATIONS: Vitamin D. MM/XR DEXA axial skeleton IMPRESSION: 1. DIAGNOSIS: Normal bone density based on the lowest T-score value of -0.6 in the femoral neck applying World Health Organization criteria. 2. 10-YEAR FRACTURE RISK PREDICTION, FRAX: According to the guidelines, FRAX calculation should only be performed on patients in the osteopenia bone density category. Therefore, FRAX was not performed on this patient. 3. Treatment Recommendations: NOF guidelines recommend consideration for treatment in postmenopausal women and men age 50 and older presenting with the following: -A hip or vertebral (clinical or morphometric) fracture. -T-score less than or equal to -2.5 at the femoral neck or spine after appropriate evaluation to exclude secondary causes. -Low bone mass at the hip or spine and a 10-year fracture probability by FRAX of greater than or equal to 3% for hip fracture or greater than or equal to 20% for major osteoporotic fracture based on the [place] adapted WHO algorithm. 4. Other Recommendations: All treatment decisions require clinical judgment and consideration of individual patient factors, including patient preferences, comorbidities, previous drug use, risk factors not captured in the FRAX model (e.g. frailty, falls, vitamin D deficiency, increased bone turnover, interval significant decline in bone density) and possible under or overestimation of fracture risk by FRAX. FUTURE SCAN RECOMMENDATION: People with diagnosed cases of osteoporosis or at high risk for fracture should have regular bone mineral density tests. For patients eligible for Medicare, routine testing is allowed once every 2 years. The testing frequency can be increased to one year for patients who have rapidly progressing disease, those who are receiving or discontinuing medical therapy to restore bone mass, or have additional risk factors. Electronically signed by: Riu Sultnaa MD 07/22/2024 11:21 AM EDT Dictated By: Rui Sultana MD Signed By: <Electronically signed by Rui Sultana MD in OV> 07/22/24 1121 DD/ 1430 TD/TT: 07/18/24 1450 Lye Boiler: EL Pathology Reviewed date:07/27/2024 12:32:34 PM Interpretation: Performing Lab:[facility], [address] [place] [phone] Notes/Report: Pathology Reviewed date:08/04/2024 05:01:33 PM Interpretation: Performing Lab:[facility], [address] [place] [phone] Notes/Report: US thyroid Reviewed date:11/07/2024 04:49:37 PM Interpretation: Performing Lab: Notes/Report: [address] [place] [address] Ultrasound Report Signed Patient: Rosina Stern MR#: [id number] : 1955 Acct:[id number] Age/Sex: 69 / F ADM Date: 09/23/24 Loc: .US Attending Dr: Slim Hammond MD Ordering Physician: Slim Hammond MD Date of Service: 09/23/24 Procedure(s): US thyroid Accession Number(s): [id number] cc: Slim Hammond MD EXAMINATION: US THYROID CLINICAL INFORMATION: Thyroid nodule. COMPARISON: Ultrasound-guided thyroid biopsy 09/12/2023. Thyroid ultrasound 07/31/2023 and 07/11/2022. TECHNIQUE: Linear transducer grayscale and color Doppler examination with attention to the region of the thyroid. FINDINGS: Submitted for interpretation on November 05, 2024. SIZE: Measurements of the thyroid lobes and nodules are given in sagittal, anteroposterior and transverse dimensions respectively. Right Thyroid Lobe: 4.8 x 1.8 x 1.7 cm, volume 7.4 mL. Previously 4.4 x 2.3 x 1.8 cm, volume 9.5 mL. Parenchyma: The gland echotexture is heterogeneous. Thyroid vascularity is increased. Left Thyroid Lobe: 4.6 x 1.7 x 1.7 cm, volume 6.8 mL. Previously 4.9 x 1.6 x 1.7 cm, volume 7.1 mL. Parenchyma: The gland echotexture is heterogeneous. Thyroid vascularity is increased. Isthmus: 0.5 cm in maximum AP dimension. Previously 0.4 cm. Estimated total number of nodules greater than or equal to 1 cm: 1. Machine Operators nodules are described as follows: 1. Location: Right upper pole. Size: 0.8 x 0.5 x 0.7 cm, volume 0.13 mL. Previously: 0.7 x 0.5 x 0.8 cm, volume 0.14 mL. Nodule characteristics: Composition: Spongiform (0). ACR TI-RADS total points: 0 Previous: 0 ACR TI-RADS category: 1 Previous: 1 Significant change in size (>/= 20% in 2 dimensions and minimal increase of 2 mm or 50% or greater increase in volume): Change in features: Change in ACR TI-RADS risk category: 2. Location: Right mid pole. Size: 0.7 x 0.6 x 0.6 cm, volume 0.14 mL. Previously: 0.7 x 0.6 x 0.6 cm, volume 0.12 mL. Nodule characteristics: Composition: Spongiform (0). ACR TI-RADS total points: 0 Previous: 0 ACR TI-RADS category: 1 Previous: 1 Significant change in size (>/= 20% in 2 dimensions and minimal increase of 2 mm or 50% or greater increase in volume): Change in features: Change in ACR TI-RADS risk category: 3. Location: Left lower pole. Size: 0.6 x 0.4 x 0.5 cm, volume 0.06 mL. Previously: 0.6 x 0.5 x 0.4 cm, volume 0.06 mL. Nodule characteristics: Composition: Spongiform (0). ACR TI-RADS total points: 0 Previous: 0 ACR TI-RADS category: 1 Previous: 1 Significant change in size (>/= 20% in 2 dimensions and minimal increase of 2 mm or 50% or greater increase in volume): Change in features: Change in ACR TI-RADS risk category: 4. Location: Left mid pole. Size: 1.7 x 1.6 x 1.2 cm, volume 1.7 mL. Previously: 1.6 x 1.7 x 1.3 cm, volume 1.7 mL. Nodule characteristics: Composition: Solid/almost completely solid (2). Echogenicity: Hypoechoic (2). Shape: Taller than wide (3). Margins: Smooth (0). Echogenic Foci: None (0). ACR TI-RADS total points: 7 Previous: 7 ACR TI-RADS category: 5 Previous: 5 Significant change in size (>/= 20% in 2 dimensions and minimal increase of 2 mm or 50% or greater increase in volume): Change in features: Change in ACR TI-RADS risk category: NODES: No lymphadenopathy is seen in the tissue surrounding the thyroid gland. US/US thyroid IMPRESSION: 1.7 cm dominant nodule left thyroid lobe, stable since prior exam. ACR TI-RADS RECOMMENDATION REFERENCE: Ultrasound-guided fine-needle aspiration, follow up ultrasound, no further followup. * TR1 (0 point) and TR2 (2 points): No FNA or followup * TR3 (3 points): FNA if more than or equal to 2.5 cm in maximum dimension, follow up ultrasound in 1, 3 and 5 years if 1.5 to 2.4 cm in maximum dimension. * TR4 (4-6 points): FNA if more than or equal to 1.5 cm in maximum dimension, follow up ultrasound in 1, 2, 3 and 5 years if 1 to 1.4 cm in maximum dimension. * TR5 (more than or equal to 7 points): FNA if more than or equal to 1 cm in maximum dimension, follow up ultrasound every year for 5 years if 0.5 to 0.9 cm in maximum dimension. * TR3, TR4 or TR5 nodules that are below the size threshold for follow up receive no followup. Electronically signed by: Italo Galeano MD 11/05/2024 09:10 AM EST Dictated By: Italo Owens MD Signed By: <Electronically signed by Italo Aponte MD in OV> 11/05/24 0910 DD/ 4 TD/TT: 09/23/24 0830 Lye Boiler: FL barium swallow with air Reviewed date:10/31/2024 02:43:29 PM Interpretation:see back 10-31-2024 Performing Lab: Notes/Report: [address] [address] Fluoroscopy Report Signed Patient: Rosina Stern MR#: [id number] : 1955 Acct:[id number] Age/Sex: 69 / F ADM Date: 10/07/24 Loc: HO.XRAY Attending Dr: Joan Vargas MD Ordering Physician: Joan Vargas MD Date of Service: 10/07/24 Procedure(s): FL barium swallow with air Accession Number(s): [id number] cc: Slim Hammond MD; Joan Vargas MD EXAMINATION: XR FLUOROSCOPY UPPER GI WITH AIR CLINICAL INFORMATION: Dysphagia COMPARISON: None TECHNIQUE: Fluoroscopic air contrast upper GI examination was performed utilizing standard techniques with thin and thick barium and effervescent granules. Numerous spot images were obtained. FINDINGS: Lateral cine images of the oropharynx and hypopharynx demonstrate normal swallow mechanism with normal epiglottic inversion and soft palate elevation. No tracheal penetration, glottic or subglottic aspiration identified. No nasopharyngeal reflux present. Hypopharyngeal structures appear normal without evidence of mass or diverticulum. There was no significant cricopharyngeal achalasia. There is mild posterior compression of the cervical esophagus due to an anterior bridging osteophyte at C6-C7. Dual and single contrast images of the esophagus demonstrate a normal caliber and contour. There is a mild granular appearance of the esophageal mucosa, suggestive of esophagitis. No masses or ulcerations are seen. Esophageal peristalsis is moderately disorganized. A small type I hiatal hernia is present. A nonobstructing Schatzki's ring is present. No significant gastroesophageal reflux was seen during the course of the examination and on reflux views. Dual contrast and single contrast images of the stomach demonstrated a normal contour. The gastric rugal folds have a thickened appearance, suggestive of gastritis. There are multiple tiny foci of contrast pooling in the body of the stomach that may represent small mucosal ulcerations. Contrast freely passed into the gastric antrum and duodenal bulb without delay. Single and air-contrast images of the duodenal bulb demonstrate no abnormality. The duodenal sweep has a normal appearance, course, and mucosal fold appearance. The imaged proximal jejunum has a normal fold pattern and caliber. FLUOROSCOPY TIME: 4 minutes 28 seconds Number of Spot Images: 8 Number of Cine: 16 DOSE AREA PRODUCT: 2899 uGy-m2 (microgray-meter squared) FL/FL barium swallow with air IMPRESSION: 1. Mild posterior compression of the cervical esophagus due to an anterior bridging osteophyte at C6-C7. 2. Mild granular appearance of the esophageal mucosa, suggestive of esophagitis. 3. Moderately disorganized esophageal peristalsis. 4. Small type I hiatal hernia. 5. Nonobstructing Schatzki's ring. 6. Thickened appearance of the gastric rugal folds. In addition there are multiple tiny foci of contrast pooling in the body of the stomach. These findings are suggestive of erosive gastritis. Recommend correlation with EGD. This procedure was performed by Calderon Campo PA-C, and supervised by Dr. Oconnor Electronically signed by: Chava Oconnor MD 10/08/2024 02:[address] [facility] Dictated By: Calderon Campo Signed By: <Electronically signed by Calderon Campo in OV> 10/08/24 1443 <Electronically signed by Chava Oconnor MD in OV> 10/08/24 1446 DD/ 0841 TD/TT: 10/07/24 0914 Lye Boiler: Edmar Bar Reviewed date:10/23/2024 12:51:02 PM Interpretation: Performing Lab:[address] [phone] Notes/Report: Edmar Bar See Note Specimen held untested for 24 hours; Call to request Chemistry testing. Liver Panel Reviewed date:10/23/2024 03:12:27 PM Interpretation: Performing Lab:[address] [id number] Notes/Report: Bilirubin Total 0.5 0.0-1.0 mg/dL Bilirubin Direct 0.2 0.0-0.5 mg/dL Aspartate Amino Transferase 22 5-31 U/L Alanine Aminotransferase 27 0-31 U/L Total Protein 6.5 6.5-8.0 g/dL Albumin Level 4.0 3.5-5.0 g/dL Alkaline Phosphatase 74 39-117 U/L Lipid Panel Reviewed date:10/23/2024 03:13:32 PM Interpretation: Performing Lab:[facility], [address] [place] [phone] Notes/Report: Triglycerides 88 <150 mg/dL Desirable Triglyceride: [...] T4 Reviewed date:10/23/2024 03:29:08 PM Interpretation: Performing Lab:[facility], [address] [place] [phone] Notes/Report: TSH reflex Free T4 0.83 0.32-4.0 uIU/mL REASON FOR REFERRAL Reason Acute diverticulitis Diagnosis 1 Acute diverticulitis (K57.92) Referral Organization Slim Hammodn MD Referring Provider First Name Slim Referring Provider Last Name Manish Referring Provider Speciality Internal M edicine Referred Provider HILTON VELASCO Referred Provider Specialty Gastroentero logy General Notes Atser Edmonds 01:34:29 PM EST > send her path and colonoscopy report , Aster Edmonds 01/24/2024 09:43:41 AM EST > info faxed , Aster Edmonds 01/31/2024 11:44:49 AM EDT > info mailed to patient Referral Priority Routine Referral Appointment Date 02/18/2024 MEDICATIONS Medication SIG (Take, Route, Frequency, Duration) Notes Start Date End Date Status Vitamin D 1000 UNIT 1 tablet Orally Once a day Active Ondansetron 4 MG 1 tablet on the tong ue and allow to dissolve Orally Once a day for 30 day(s) Not-Taking Atorvastatin Calcium 40 MG TAKE 1 TABLET BY MOUTH EVERY DAY Active Calcium 500 MG 1 tablet with meals Orally Twice a day for 30 day(s) Not-Taking Levothyroxine Sodium 100 MCG TAKE 1 TABLET BY MOUTH IN THE MORNING ON AN EMPTY STOMACH ONCE A DAY FOR 90 DAYS Active ProAir HFA 108 (90 Base) MCG/ACT 2 puffs as needed Inhalation every 6 hrs for 30 days 04/23/2018 Not-Taking Omeprazole 20 MG 1 capsule 1/2 to 1 h our before morning meal Orally Once a day for 30 day(s) Active Albuterol Sulfate HFA 108 (90 Base) MCG/ACT 1 puff as needed Inhalation every 4 hrs for 30 days 10/07/2021 Active Clobetasol Propionate 0.05 % 1 application Externally Twice a day for 30 days 02/04/2024 Active IMMUNIZATIONS Vaccine Route Administration Date Status Comme nts Flu Vaccine IM Intramuscular 07/17/2011 Administered Flu Vaccine IM Intramuscular 07/15/2012 Administered Flu Vaccine IM Intramuscular 10/21/2013 Administered TDaP IM Intramuscular 06/09/2014 Administered Flu Vaccine IM Intramuscular 11/02/2014 Administered PPSV23 (Pnemovax) IM Intramuscular 03/11/2015 Administered Fluarix Quadrivalent IM Intramuscular 09/13/2015 Administe red Fluarix Quadrivalent IM Intramuscular 07/31/2016 Administe red Shingles IM Intramuscular 08/10/2016 Administered Fluarix Quadrivalent IM Intramuscular 08/21/2017 Administe red Fluarix Quadrivalent IM Intramuscular 10/01/2018 Administe red Prevnar 13 IM Intramuscular 11/18/2018 Administered Fluarix Quadrivalent IM Intramuscular 08/29/2019 Administe red Influenza High Dose IM Intramuscular 07/23/2020 Administer ed SARS-COV-2 Moderna Unknown 01/07/2021 Administered SARS-COV-2 Moderna Unknown 01/31/2021 Administered PPSV23 (Pnemovax) IM Intramuscular 05/26/2021 Administered SARS-COV-2 Pfizer Unknown 08/22/2021 Administered Influenza High Dose IM Intramuscular 11/28/2021 Administer ed SARS-COV-2 Pfizer Unknown 02/24/2022 Administered Influenza High Dose IM Intramuscular 09/01/2022 Administer ed Influenza High Dose IM Intramuscular 08/10/2023 Administer ed Influenza High Dose IM Intramuscular 07/31/2024 Administer ed Tetanus Unknown 06/09/2014 Pending SOCIAL HISTORY Tobacco Use: Social History Observation Description Date Details (start date - stop date) Former Smoker NA - NA Sex Assigned At : Social History Observation Description Sex Assigned At Unknown Tobacco Use/Smoking Question Answer Notes Patient is a former smoker How long has it been since y ou last smoked? > 10 years Additional Findings: Tobacco Non-User Fo rmer smoker, currently using no form of tobacco Alcohol Screen Question Answer Notes Did you have a drink contain ing alcohol in the past year? Yes How often did you have a dri nk containing alcohol in the past year? Monthly or less (1 point) How many drinks did you have on a typical day when you were drinking in the past year? 1 or 2 drinks (0 point) How often did you have 6 or more drinks on one occasion in the past year? Never (0 point) Points 1 Interpretation Negative PROBLEMS Problem Type ICD Code Onset Dates Problem Status W/U Status Risk SNOMED Code Notes Problem Acute diverticulitis (K57.92) Active confirmed 933571736 Problem Thyroid nodule (E04.1) Active confirmed 740855317 Problem Lymphocytosis (D72.820) Active confirmed 48231853 Problem Carpal tunnel syndro me (G56.00) Active confirmed Carpal tunnel syndrome (73529553) Problem Tubular adenoma (D36.9) Active confirmed 774518771 Problem Vitamin D deficiency (E55.9) Active confirmed 93985982 Problem Lumbar disc disease (M51.9) Active confirmed 207543263 Problem Essential hypertensi on (I10) Active confirmed Essential hypertension (01040817) Problem Acquired hypothyroid ism (E03.9) Active confirmed 705743813 Problem Prediabetes (R73.09) Active confirmed 9 642197 Problem Non morbid obesity d ue to 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) Active confirmed 887387367 Problem Menopause (Z78.0) Active confirmed 2899 23651 Problem Degeneration of cervical intervertebral disc (M50.30) Active confirmed 10923392 Problem Pure hypercholesterolemia (E78.00) Active confirmed 902061729 Problem Acute low back pain without sciatica, unspecified back pain laterality (M54.5) Active confirmed 797729570 Problem Bilateral carpal wagner karen syndrome (G56.03) Active confirmed Bilateral carpal tunnel syndrome (2930397079248 9101) Problem BMI 34.0-34.9,adult (Z68.34) Active confirmed 777676385 Problem BMI 35.0-35.9,adult (Z68.35) Active confirmed 999474172 Problem Arthritis of knee (M17.10) Active confirmed 336009458 Problem Meningioma (D32.9) Active confirmed 109 055150 Problem Mild intermittent asthmatic bronchitis with acute exacerbation (J45.21) Active confirmed 552309835 Problem Other and unspecifie d disc disorder of thoracic region (M51.9) Active confirmed 84366718 Problem Other premature beat s (I49.49) Active confirmed 54972829 Problem Osteoarthritis of lumbar spine, unspecified spinal osteoarthritis complication status (M47.816) Active confirmed 225206934 Problem History of thyroid nodule (Z86.39) Active confirmed 180907381 Problem Acute diverticulitis of intestine (K57.92) Active confirmed 292475506 VITAL SIGNS Blood pressure diastolic 70 mm Hg 10/31/2024 melodie ght is up 8 pounds since 06-03-24 Height 64 in 10/31/2024 weight is up 8 pounds since 06-03-24 Blood pressure systolic 112 mm Hg 10/31/2024 weig ht is up 8 pounds since 06-03-24 Weight 206 lbs 10/31/2024 weight is up 8 pounds since 06-03-24 BMI 35.36 kg/m2 10/31/2024 weight is up 8 pounds since 06-03-24 PROCEDURES Procedure Date Ordered Date Performed Result Body Sit e Colonoscopy, Screening 07/17/2024 07/17/2024 repeat 5 y Encounters Encounter Location Date Provider Diagnosis Slim Hammond MD [address] [place], [place] [id number] 05/01/2024 Slim Hammond Vitamin D deficiency E55.9 ; Annual physical exam Z00.00 ; Boil L02.92 ; Acute low back pain without sciatica, unspecified back pain laterality M54.5 ; Pure hypercholesterolemia E78.00 ; Acquired hypothyroidism E03.9 ; Essential hypertension I10 ; Prediabetes R73.09 ; Depression screening Z13.31 ; Lumbar pain M54.50 and Encounter for general adult medical examination with abnormal findings Z00.01 Slim Hammond MD [address] [place] [id number] 10/31/2024 Slim Hammond Acquired hypothyroid ism E03.9 ; Pure hypercholesterolemia E78.00 and Abnormal upper gastrointestinal barium series R93.3 Slim Hammond MD [address] [place] [id number] 01/15/2024 Slim Hammond Acute diverticulitis K57.92 Slim Hammond MD [address] [place] [id number] 04/15/2024 Slim Hammond Annual physical exam Z00.00 ; Lymphocytosis D72.820 ; Vitamin D deficiency E55.9 ; Prediabetes R73.09 ; Acquired hypothyroidism E03.9 ; Pure hypercholesterolemia E78.00 and Essential hypertension I10 Slim Hammond MD [address] [place] [id number] 01/17/2024 Slim Hammond Encounter for preprocedural laboratory examination Z01.812 Slim Hammond MD [address] [place] [id number] 10/23/2024 Slim Hammond Pure hypercholestero lemia E78.00 and Acquired hypothyroidism E03.9 Slim Hammond MD [address] [place] [id number] 07/31/2024 Slim Hammond Encounter for immuni zation Z23 Slim Hammond MD [address] [place] [id number] 01/22/2024 Slim Hammond Acute diverticulitis K57.92 Slim Hammond MD [address] [place] [id number] 02/04/2024 Slim Hammond Chronic eczema L30.9 and Acute diverticulitis K57.92 Slim Hammond MD [address] [place] [id number] 06/03/2024 Slim Hammond Acute diverticulitis of intestine K57.92 and Acute left-sided low back pain without sciatica M54.50 Slim Hammond MD [address] [place] [id number] 06/02/2024 Slim Hammond MD [address] [place], [place] [id number] 06/03/2024 Slim Hammond MD [address] [place] [id number] 08/29/2024 Slim Hammond Thyroid nodule E04.1 ASSESSMENTS Encounter Date Diagnosis Assessment Notes Treatment Notes Treatment Clinical Notes 05/01/2024 Vitamin D deficiency (ICD-10 - E55.9) doing great, will continue current regiment 05/01/2024 Annual physical exam (ICD-10 - Z00.00) labs reviewed and discussed with patient 10/31/2024 Acquired hypothyroid ism (ICD-10 - E03.9) has good tsh, will continue current regiment 10/31/2024 Pure hypercholestero lemia (ICD-10 - E78.00) well controlled on statins. will continue current regiment 01/15/2024 Acute diverticulitis (ICD-10 - K57.92) order faxed to [facility], pending diagnostic testing, patoient verbalized understanding of medication and directions new order faxed to [facility] with contrast only per [facility] 04/15/2024 Lymphocytosis (ICD-1 0 - D72.820) 04/15/2024 Annual physical exam (ICD-10 - Z00.00) 01/17/2024 Encounter for preprocedural laboratory examination (ICD-10 - Z01.812) 10/23/2024 Acquired hypothyroid ism (ICD-10 - E03.9) 10/23/2024 Pure hypercholestero lemia (ICD-10 - E78.00) 07/31/2024 Encounter for immunization (ICD-10 - Z23) 01/22/2024 Acute diverticulitis (ICD-10 - K57.92) patient verbalized understanding of medication and directions for use, need colonoscopy in few months. send to [facility] gastro 02/04/2024 Acute diverticulitis (ICD-10 - K57.92) doing better to see gi next week 02/04/2024 Chronic eczema (ICD- 10 - L30.9) patient verbalized understandiong of medication and directions for use 06/03/2024 Acute diverticulitis of intestine (ICD-10 - K57.92) need the copy of the ct done in er/ have discussed the pro and cons of using antibiotics and i feel that her abdomen is tender enough that she should take them. Patient verbalized understanding of medication and directions for use 06/03/2024 Acute left-sided low back pain without sciatica (ICD-10 - M54.50) is in the si joint and does not appear to be related to her diverticulitis, will conitnue to monitor 05/01/2024 Boil (ICD-10 - L02.92) 10/31/2024 Abnormal upper gastrointestinal barium series (ICD-10 - R93.3) went over the results of the tests is going to have endoscopy next 04/15/2024 Vitamin D deficiency (ICD-10 - E55.9) 08/29/2024 Thyroid nodule (ICD- 10 - E04.1) order faxed to [facility] CS dept 05/01/2024 Acute low back pain without sciatica, unspecified back pain laterality (ICD-10 - M54.5) is doing much better, will continue to monitor 04/15/2024 Prediabetes (ICD-10 - R73.09) 05/01/2024 Pure hypercholestero lemia (ICD-10 - E78.00) stable, will contnue current regiment 04/15/2024 Acquired hypothyroid ism (ICD-10 - E03.9) 05/01/2024 Acquired hypothyroid ism (ICD-10 - E03.9) will recheck in 6 mo, will continue current regiment 04/15/2024 Pure hypercholestero lemia (ICD-10 - E78.00) 05/01/2024 Essential hypertensi on (ICD-10 - I10) stable, will continue current regiment 04/15/2024 Essential hypertensi on (ICD-10 - I10) 05/01/2024 Prediabetes (ICD-10 - R73.09) stable, no need for medication at ths time 05/01/2024 Depression screening (ICD-10 - Z13.31) negative screen 05/01/2024 Lumbar pain (ICD-10 - M54.50) 05/01/2024 Encounter for genera l adult medical examination with abnormal findings (ICD-10 - Z00.01) PLAN OF TREATMENT Pending Test Test Name Order Date Electrocardiogram (EKG) 08/10/2016 Electrocardiogram (EKG) 08/23/2017 SENSE NERVE CONDUCTION TEST 02/20/2022 MRI LUMBAR SPINE NO CONTRAST 03/20/2023 XR CHEST 2 VIEW PA & LAT 10/25/2021 MAMMOGRAM DIGITAL UNILATERAL AALIYAH LT 01/2013 MAMMOGRAM DIGITAL SCREEN RIGHT UNI 04/21 US THYROID BIOPSY FNA GUIDE 08/02/2023 XR HIP RIGHT 4 OR MORE VIEWS 09/30/2021 Urinalysis 05/17/2021 CT abdomen pelvis w con 01/15/2024 CT chest wo con 06/06/2021 US biopsy thyroid 08/28/2023 US thyroid 05/09/2022 US thyroid 08/29/2024 US thyroid 08/18/2022 Future Test Test Name Order Date US THYROID 06/17/2021 Next Appt Details Provider Name:Slim Shepard ier, 04/27/2025 08:00:00 AM, [address] [place] [address], [address], [phone], Provider Name:Slim Shepard ier, 05/04/2025 02:30:00 PM, [address] [place] [address], Suite [facility], [place], [place], [phone], Insurance Providers Payer Name Payer Address Payer Phone Subscriber Number Group Number Insured Name Patient Relationship to Insured Coverage Start Date Coverage End Date [employer] [address] [place], [place] [id number] LeenaLakeishaa Self - patient is the insured [employer] [address] [place] [address] [id number] Rosina Stern Self - patient is the insured MEDICAL (GENERAL) HISTORY Medical History History ICD Code frequent pvc colonoscopy 2008; colonoscop y 01/26/15 repeat 5 yrs (Dr. Prasad); had colonoscopy 02/26/[address] Prasad - repeat 5 yearsColonoscopy 07/17/24 repeat 5y Inclusion cyst
== END 2024-11-20 10:40 | disposition home or self-care (01) ==
LOC: HO.US 10:39
PROVIDERS: PCP Internal Medicine; Visit Provider Obstetrics & Gynecology
DX: N83.209 Unspecified ovarian cyst, unspecified side (principal); D25.9 Leiomyoma of uterus, unspecified
CPT/HCPCS: 76830; 76856

== ENCOUNTER → 2024-11-20 10:43 | Outpatient (BNV) | payer MEDICARE, SELFPAY | PROVIDERS: PCP Internal Medicine; Visit Provider Specialist | DX: D25.9 Leiomyoma of uterus, unspecified (principal) | CPT/HCPCS: 76830; 76856 ==

== ENCOUNTER 2025-01-29 09:12 | Outpatient (REF) | payer MEDICARE, SELFPAY ==
--- OUTSIDE RECORDS SUMMARY | 2025-01-29 10:40 | XMS_ITS | Data Portability ---
Author Organization [place] - [facility] [place], [facility] Address [address] [place] [address] Care Team Providers Care Assistant Track Coach Name Role Phone NICOLASA MOY Primary Care [...] as it has not been read. We? v e discussed the many forms of conservative care [...] Knee arthritis - patellofemo ral PT 2021 [id number] Not available 06:53:29 Procedures None recorded. Surgeries None recorded. Imaging None recorded. Medication Orders diclofenac sodium 75 mg tablet,ivy yed release 2021 [facility][id number], [address] [place], [address], 14:59:57 Patient TargetsNo targets recorded. Patient InstructionsNo instructions recorded. Reason for Referral Physical Therapist Referral for Bilateral osteoarthritis of knees Knee arthritis - patellofemoral PT Referring Physician: Kunal Gross, Orthopedic Surgery, Encounter Date: 09/15/2022 Procedures Surgical History Date Name Laterality Status Provider Name and Address Organization Details Recorded Time 9 Other completed Dannielle Freeman [place] - [facility] [place] 09/15/2022 14:30:23 2 Orthopaedic Surgery completed [facility] [place] 09/15/2022 14:30:14 2 Orthopaedic Surgery completed [facility] [place] 09/15/2022 14:30:38 Other completed [facility] [place] 09/15/2022 14:30:47 Other completed [facility] [place] 09/15/2022 14:30:58 Imaging Results None recorded. Procedure [...] Address Organization Details Last Updated DateTime 09/15/2022 61505.84 g 35 kg/m2 162.56 cm [facility] [place] 09/15/2022 14:26:11 Social History Question Answer Notes LastModified by Organizat ion Details LastModified Time Tobacco Smoking Status Former Smoker [facility] [place] 09/15/2022 14:28:02 What Is Your Level Of [...] available 09/15 14:29:49 Medical History Condition Response Osteoarthritis / Rheumatoid arthritis / Other Y Heart Problems Thyroid Disorder Y Gynecological HistoryNo gynecological history recorded. Obstetrics History GPAL:G 0 P 0 0 0 0 Past Encounters Encounter ID Performer Location Encounter Start Date Encounter Closed Date Diagnosis/Indication Diagnosis SNOMED-CT Code Diagnosis ICD10 Code Diagnosis Note [id number] KUNAL WAYNE MD [facility] Office [address] [place] [phone] 09/15/2022 13:37:19 09/15/2022 15:02:19 Bilateral osteoarthritis of knees [id number] 54416 M17.0 Health Concerns Section Related Observation LastModified by Organization Detai ls LastModified Time None Recorded Concern Status LastModified by Organization Details LastModified Time None Recorded Advance Directives Directive None Recorded Payers Encounter Date Sequence Insurance Name Policy Number Policy Bland Covered Member ID Bland Member ID Guarantor Name 09/15/2022 1 [place] (MEDICARE REPLACEMENT PPO) [id number] Rosina Stern [id number] Rosina Stern Notes Date Note Type [...] physical therapy. She has been told in [facility] that she has reasonably good looking knees. She is very frustrated with the knees both sides. She is presently taking no medications for the knees. She has had no recent injections in the knees. She has had no therapy for the knees. KUNAL WAYNE MD [address] [place] [address], [phone], [facility] [place] 09/15/2022 15:00:01 OBGyn Episode No OBEpisode recorded.
--- OUTSIDE RECORDS SUMMARY | 2025-01-29 10:40 | XMS_ITS ---
Author Organization Slim Hammond MD Address [address] [place] [phone] Care Team Providers Care Election Supervisor Name Role Phone Slim Hammond Primary Care Provider Allergies Allergen (clinical drug ingredient) Drug/Non Drug Allergy documented on EMR Reaction Allergy Type Onset Date Status azithromycin z pack (uncoded) diarrhea Allergy Active REASON FOR VISIT 6 month/ must see BA swallow results Medications Medication SIG (Take, Route, Frequency, Duration) Notes [...] 6 hrs for 30 days 04/23/2018 Not-Taking Vital Signs Blood pressure systolic 112 mm Hg 10/31/20 24 Blood pressure diastolic 70 mm Hg 024 Height 64 in 10/31/2024 Weight 206 lbs 10/31/2024 BMI 35.36 kg/m2 10/31/2024 weight is up 8 pounds since 06-03-24 Encounters Encounter Location Date Provider Diagnosis Slim Hammond MD [address] [place] [address] Drive [address] [place], [place] [phone] 10/31/2024 Slim Hammond Acquired hypothyroid ism E03.9 ; Pure hypercholesterolemia E78.00 and Abnormal upper gastrointestinal barium series R93.3 Assessments Encounter Date Diagnosis (ICD Code) Assessment Notes Treatment Notes Treatment Clinical Notes Section Notes 10/31/2024 Acquired hypothyroid ism (ICD-10 - E03.9) has good tsh, will continue current regiment 10/31/2024 Pure hypercholesterolemia (ICD-10 - E78.00) well controlled on statins. will continue current regiment 10/31/2024 Abnormal upper gastrointestinal barium series (ICD-10 - R93.3) went over the results of the tests is going to have endoscopy next Plan Of Treatment Medication Medication Name Sig Start Date Stop [...] Details Provider Name:Slim salter, 04/27/2025 08:00:00 AM, [address] [place] [address], [address], [place], [place], [phone], Provider Name:Slim salter, 05/04/2025 02:30:00 PM, [address], [address], [place], [place], [phone], Progress Notes * Lakeisha PAZaDOB:1955 (69 yo F)Acc No.[id number]:10/31/2024 Patient:?Shanon Paz Provider:?Slim Hammond MD :1955???Age:69 Y???Sex:Female D ate:10/31/2024 Address:[address] [place], [place] [phone] Subjective: * Chief Complaints: * ???6 month/ must see DAWSON tenorio results * HPI: ???Symptom(s):? anali is a 69 yo female here for 6 month follow up of the us done 6 weeks ago still with no reading. * ROS:?General/Constitutional:?Denies?Chills.?Denies?Fatigue.?Admits?Fever.?ENT:?Patient denies?decreased sense of smell , any loss of taste , sore throat.?Denies?Sore throat.?Respiratory:?Denies?Cough.?Denies?Shortness of breath at rest.?Gastrointestinal:?Denies?Diarrhea.?Denies?Nausea.?Musculoskeletal:?Patient denies?muscle aches.?Peripheral Vascular:?Patient denies?red and blue toes.? * Medical History:? * Surgical History:? * Hospitalization/Major Diagno stic Procedure:? * Medications:?TakingOmeprazol e 20 MG Capsule Delayed Release 1 capsule 1/2 to 1 hour before morning meal Orally Once a dayAlbuterol Sulfate HFA 108 (90 Base) MCG/ACT Aerosol Solution 1 puff as needed Inhalation every 4 hrsClobetasol Propionate 0.05 % Cream 1 application Externally Twice a dayVitamin D 1000 UNIT Tablet 1 tablet Orally Once a dayAtorvastatin Calcium 40 MG Tablet TAKE 1 TABLET BY MOUTH EVERY DAY Levothyroxine Sodium 100 MCG Tablet TAKE 1 TABLET BY MOUTH IN THE MORNING ON AN EMPTY STOMACH ONCE A DAY FOR 90 DAYS Taking Omeprazole 20 MG Capsule Delayed Release 1 capsule 1/2 to 1 hour before morning meal Orally Once a dayTaking Albuterol Sulfate HFA 108 (90 Base) MCG/ACT Aerosol Solution 1 puff as needed Inhalation every 4 hrsTaking Clobetasol Propionate 0.05 % Cream 1 application Externally Twice a dayTaking Vitamin D 1000 UNIT Tablet 1 tablet Orally Once a dayTaking Atorvastatin Calcium 40 MG Tablet TAKE 1 TABLET BY MOUTH EVERY DAY Taking Levothyroxine Sodium 100 MCG Tablet TAKE 1 TABLET BY MOUTH IN THE MORNING ON AN EMPTY STOMACH ONCE A DAY FOR 90 DAYS Not-Taking/PRNOndansetron 4 MG Tablet Disintegrating 1 tablet on the tongue and allow to dissolve Orally Once a dayCalcium 500 MG Tablet 1 tablet with meals Orally Twice a dayProAir HFA 108 (90 Base) MCG/ACT Aerosol Solution 2 puffs as needed Inhalation every 6 hrsNot-Taking/PRN Ondansetron 4 MG Tablet Disintegrating 1 tablet on the tongue and allow to dissolve Orally Once a dayNot-Taking/PRN Calcium 500 MG Tablet 1 tablet with meals Orally Twice a dayNot-Taking/PRN ProAir HFA 108 (90 Base) MCG/ACT Aerosol Solution 2 puffs as needed Inhalation every 6 hrsDiscontinuedAmoxicillin-Pot Clavulanate 875-125 MG Tablet 1 tablet Orally every 12 hrsMedication List reviewed and reconciled with the patientDiscontinued Amoxicillin-Pot Clavulanate 875-125 MG Tablet 1 tablet Orally every 12 hrsMedication List reviewed and reconciled with the patient * Allergies:?z pack: diarrheay es[Allergies Verified] Objective: * Vitals:?Ht: 64, Wt:206, BMI: 35.36, BP:112/70 weight is up 8 pounds since 06-03-24. * ???Past Orders: ???Lab:Liver Panel (Order Da te - 10/23/2024) (Collection Date - 10/23/2024) ? Value Reference Range ?Bilirubin Total 0.5 0.0- 1.0 - mg/dL ?Bilirubin Direct 0.2 0.0 -0.5 - mg/dL ?Aspartate Amino Transferase 22 5-31 - U/L ?Alanine Aminotransferase 27 0-31 - U/L ?Total Protein 6.5 6.5-8. 0 - g/dL ?Albumin Level 4.0 3.5-5. 0 - g/dL ?Alkaline Phosphatase 74 39-117 - U/L ???Lab:Lipid Panel (Order Da te - 10/23/2024) (Collection Date - 10/23/2024) ? Value Reference Range ?Triglycerides 88 <150 - mg/dL ?Cholesterol 150 <200 - m g/dL ?LDL Cholesterol Calculated 90 <100 - mg/dL ?HDL Cholesterol 43 >40 - mg/dL ???Lab:TSH reflex Free T4 (O rder Date - 10/23/2024) (Collection Date - 10/23/2024) ? Value Reference Range ?TSH reflex Free T4 0.83 0 .32-4.0 - uIU/mL * Examination: ???General Examination: ?GENERAL APPEARANCE:?alert, well hydrated, in no distress.?HEAD:?normocephalic.?SKIN:?good turgor.?HEART:?regular rate and rhythm , no murmurs, rubs, gallops.?LUNGS:?no wheezes, rales, rhonchi , good air movement , clear to auscultation bilaterally.? Assessment: * Assessment: 1.?Acquired hypothyroidism - E03.9?2.?Pure hypercholesterolemia - E78.00?3.?Abnormal upper gastrointestinal barium series - R93.3? Plan: * Treatment: 2.?Pure hypercholesterolemia ? Continue Atorvastatin Calcium Tablet, 40 MG, TAKE 1 TABLET BY MOUTH EVERY DAY.?? Notes: well controlled on statins. will continue current regiment?? 3.?Abnormal upper gastrointe stinal barium series? Notes: went over the results of the tests is going to have endoscopy next?? * Procedure Codes:? * * Sign off status: Completed true * Provider:?Slim Hammond MD Date:?1 01/01/2024 Generated for Rigo hayward/Ayala/eTransmitting on:?01/29/2025 10:40 AM EDT History and Physical Notes * HPI (History of Present Illness) Category Sub-Category Detail Notes Category Not es Symptom(s) anali is a 69 yo female here for 6 month follow up of the us done 6 weeks ago still with no reading Examination Category Sub-Category Detail Notes Category Not es General Examination GENERAL APPEARANCE: alert, w ell hydrated, in no distress HEAD: normocephalic HEART: regular rate and rhy thm , no murmurs, rubs, gallops LUNGS: no wheezes, rales, r honchi , good air movement , clear to auscultation bilaterally SKIN: good turgor
--- OUTSIDE RECORDS SUMMARY | 2025-01-29 10:41 | XMS_ITS ---
Author Organization Slim Hammond MD Address [address] [place] [phone] Care Team Providers Care Preanalytics Team Lead Name Role Phone Slim Hammond Primary Care Provider REASON FOR VISIT recall on med Medications Medication SIG (Take, Route, Fr equency, Duration) Notes Start Date End Date Status Synthroid 100 MCG 1 tablet in the morn ing on an empty stomach Orally Once a day for 90 days 12/11/2024 Active Encounters Encounter Location Date Provider Diagnosis Slim Hammond MD [address] [place] [phone] 12/11/2024 Slim Hammond Plan Of Treatment Medication Medication Name Sig Start Date Stop Date Notes Synthroid 100 MCG 1 tablet in the morn ing on an empty stomach Orally Once a day for 90 days 12/11/2024 Next Appt Details Provider Name:Slim salter, 04/27/2025 08:00:00 AM, [address], [address] [place] [address], [phone], Provider Name:Slim Monico Devyn salter, 05/04/2025 02:30:00 PM, [address], [address], [place], [place], [phone], Progress Notes * Isadora PAZB:1955 (69 yo F)Acc No.[id number]:12/11/2024 Patient:?Shanon PAZ :1955???Age:69 Y???Sex:Female Address:[address] [place] [phone] * Refills? Start Synthroid Tablet, 100 MCG, Orally, 90 Tablet, 1 tablet in the morning on an empty stomach, Once a day, 90 days, Refills=3 * true * Date:? Generated for Rigo hayward/Ayala/Shannonsmitting on:?01/29/2025 10:40 AM EDT
--- OUTSIDE RECORDS SUMMARY | 2025-01-29 10:41 | XMS_ITS ---
Author Organization Slim Hammond MD Address [address] [place] [phone] Care Team Providers Care Supervisor Adult Education Name Role Phone Slim Hammond Primary Care Provider [phone] Results Component Value Reference Range Notes Liver Panel Reviewed date:10/23/2024 03:12:27 PM Interpretation: Performing Lab:[facility], [address] [place] [phone] Notes/Report: Bilirubin Total 0.5 0.0-1.0 mg/dL Bilirubin Direct 0.2 0.0-0.5 mg/dL Aspartate Amino Transferase 22 5-31 U/L Alanine Aminotransferase 27 0-31 U/L Total Protein 6.5 6.5-8.0 g/dL Albumin Level 4.0 3.5-5.0 g/dL Alkaline Phosphatase 74 39-117 U/L Lipid Panel Reviewed date:10/23/2024 03:13:32 PM Interpretation: Performing Lab:[facility], [address] [place] [phone] Notes/Report: Triglycerides 88 <150 mg/dL Desirable Triglyceride: [...] T4 Reviewed date:10/23/2024 03:29:08 PM Interpretation: Performing Lab:[facility], [address] [place] [phone] Notes/Report: TSH reflex Free T4 0.83 0.32-4.0 uIU/mL REASON FOR VISIT fasting lipids, liver and TSH Encounters Encounter Location Date Provider Diagnosis Slim Hammond MD [address] [place] [address] Drive [address] [employer], [place] [phone] 10/23/2024 Slim Hammond Pure hypercholestero lemia E78.00 and Acquired hypothyroidism E03.9 Assessments Encounter Date Diagnosis (ICD Code) Assessment Notes Treatment Notes Treatment Clinical Notes Section Notes 10/23/2024 Pure hypercholesterolemia (ICD-10 - E78.00) 10/23/2024 Acquired hypothyroid ism (ICD-10 - E03.9) Plan Of Treatment Next Appt Details Provider Name:Slim salter, 04/27/2025 08:00:00 AM, [address] [place] [address], [address], [employer], [place], [phone], Provider Name:Slim salter, 05/04/2025 02:30:00 PM, [address] [place] [address], [address], [employer], [place], [phone], Progress Notes * Tatum PAZ:1955 (69 yo F)Acc No.[id number]:10/23/2024 Progress Note Patient:Shaonn SILVER Provider:?Slim Hammond MD :1955???Age:69 Y???Sex:Female D ate:10/23/2024 Address:[address] [place], [place] [phone] Subjective: * Chief Complaints: * ???1. fasting lipids, liver and TSH. * Medical History:? Objective: * Vitals:? Assessment: * Assessment: 1.?Pure hypercholesterolemia - E78.00 (Primary)???2.?Acquired hypothyroidism - E03.9??? Plan: * Treatment: 2.?Acquired hypothyroidism?LAB: TSH reflex Free T4 (Collection Date & Time - 10/23/2024 07:30 AM) * Procedure Codes:?36761 VENIP UNCT, ROUTINE* * * The named appointment provid er may or may not be the originator of this progress note, and it is not deemed complete until electronically signed by the appointment provider. Sign off status: Pending * Provider:?Slim Hammond MD Date:?1 12/24/2023 Generated for Rigo hayward/Ayala/Brandiitting on:?01/29/2025 10:40 AM EDT
--- OUTSIDE RECORDS SUMMARY | 2025-01-29 10:41 | XMS_ITS | Clinical Summary ---
Author Organization [facility] ity Address [address] [place] [phone] Care Team Providers Care Transit Planning Manager Name Role Phone Unavailable Primary Care Provider Unavailabl e Social History Tobacco Use Types Packs/Day Years Used Date Smoking Tobacco: Never Assessed Comments Unknown Sex and Gender Information Value Date Recorded Sex Assigned at Not on file Legal Sex Female 11:47 AM EST Gender Identity Not on file Sexual Orientation Not on file Plan of Treatment Health Maintenance Due Date Last Done Comments Breast Cancer Screening 1955 DTaP,Tdap,and Td Vaccines (1 - Tdap) 1973 Pneumococcal Vaccine: 50+ Ye ars (1 of 1 - PCV) 2004 Zoster Vaccines (1 of 2) 2004 COVID-19 Vaccine ( - 2023-2 5 season) 2024 Influenza Vaccine (#1) 2024 RSV Immunization Patients 60 + Years Old (1 - 1-dose 75+ series) 2029 HIB Vaccines Aged Out No longer eligi ble based on patient's age to complete this topic HPV Vaccines Aged Out No longer eligi ble based on patient's age to complete this topic Hepatitis A Vaccines Aged Out No long er eligible based on patient's age to complete this topic Hepatitis B Vaccines Aged Out No long er eligible based on patient's age to complete this topic IPV Vaccines Aged Out No longer eligi ble based on patient's age to complete this topic MMR Vaccines Aged Out No longer eligi ble based on patient's age to complete this topic Meningococcal ACWY Vaccine Aged Out N o longer eligible based on patient's age to complete this topic Meningococcal B Vacine Aged Out No lo nger eligible based on patient's age to complete this topic RSV Immunization Patients Un santosh 20 months Aged Out No longer eligible b ased on patient's age to complete this topic Varicella Vaccines Aged Out No longer eligible based on patient's age to complete this topic
== END 2025-01-29 09:13 | disposition home or self-care (01) ==
LOC: HO.MAMMO 09:12
PROVIDERS: PCP Internal Medicine; Visit Provider Internal Medicine
DX: Z12.31 Encounter for screening mammogram for malignant neoplasm of breast (principal)
CPT/HCPCS: 77063; 77067

== ENCOUNTER → 2025-01-29 09:30 | Outpatient (BNV) | payer MEDICARE, SELFPAY | PROVIDERS: PCP Internal Medicine; Visit Provider Internal Medicine | DX: Z12.31 Encounter for screening mammogram for malignant neoplasm of breast (principal) | CPT/HCPCS: 77063; 77067 ==

== ENCOUNTER 2025-03-03 09:12 | Outpatient (AMB) | payer MEDICARE, SELFPAY ==
--- NOTE | 2025-03-03 09:16 | A.OFFVIS_ITS ---
Intake Visit Reasons: 6 months US follow up/[id number] Clin Application Specialist: Clin Application Specialist Present (Evelyn) Accompanied by: Self / Same As Patient Allergies No Known Allergies Allergy (Verified 03/03/25 09:17) HPI Comments Details: Presenting for follow-up ultrasound regarding myoma with no complaints, no pelvic pressure or pain or vaginal bleeding. Pelvic ultrasound done in 12/13 showed the following: Transabdominal scanning performed for overall anatomy. Transvaginal scanning performed for additional detail. Anteverted uterus is 9.8 cm length. Normal myometrium. Endometrium 2.0 mm thickness. There are multiple subserosal and myometrial uterine leiomyomata, largest measuring 2.6 x 2.6 x 3.1 cm. Right ovary 1.6 x 1.6 x 1.6 cm. Left ovary 1.3 x 1.5 x 1.7 cm. Normal color Doppler of both ovaries. No free fluid. Pelvic ultrasound done in 06/11 showed 3 myomas measuring the following: A 0.9 x 0.6 x 0.7 cm fibroid, previously 0.9 x 0.6 x 1.1 cm. A 3.1 x 2.5 x 3.3 cm fibroid, previously 2.8 x 2.5 x 2.7 cm. A 2.2 x 2.0 x 2.1 cm fibroid, previously 2.7 x 2.4 x 1.9 cm PFSH Medical History Hypothyroid GERD (gastroesophageal reflux disease) PVC (premature ventricular contraction) Elevated cholesterol Deviated septum Degeneration of spine Thyroid nodule Osteoarthritis Surgical History History of nasal surgery Hx of tonsillectomy History of surgery H/O colonoscopy Tubal ligation status History of H/O shoulder surgery History of arthroscopy of both knees Family History Paternal Aunt Breast CA Father Colon cancer Social History Are you a primary anesthesiologist and critical care to a significant other at home: No Do you presently have visiting nurse or other home services: No Alcohol intake: current Alcohol intake frequency: holidays/special occasions only Patient Tobacco Use Status: Former Tobacco user Tobacco use type: Cigarette Years Smoked: 7 Advance Directives Date on File: 12/15/22 Gender identity: Female Female Reproductive History Menstrual Age of Menarche: 12 Review of Systems Const All systems reviewed & are unremarkable except as noted in HPI and below Reports as per HPI and Reports no additional complaints GI Reports no additional complaints Reports no additional complaints Assessment & Plan Assessment & Plan (1) Uterine myoma: Code(s): D25.9 - Leiomyoma of uterus, unspecified Category: Medical Plan: Discussed with the patient the findings on pelvic ultrasound & the risk of myosarcoma; in addition reviewed with the patient that malignancy and pre malignancy cannot be ruled out without hysterectomy for pathological evaluation ; furthermore, explained to the patient the limitation of pelvic ultrasound and endometrial biopsy in the setting. Discussed with the patient the options of treatment including expectant management versus hysterectomy; the pros and cons, risks benefits of each approach were discussed with the patient including the fact that in cases of myosarcoma, surgical treatment can lead to early diagnosis and positively affects the prognosis; after further discussion, the patient decided to proceed with expectant management. Will repeat pelvic ultrasound periodically. Instructions given to patient to call in case any of the following occurs: pressure symptoms, abnormal uterine bleeding, pelvic pain; and to schedule a 12 months pelvic ultrasound (order placed) and a follow-up appointment . All questions answered, the patient verbalized understanding and agreed with the plan . Orders: Orders US pelvic and transvaginal 12 Months D25.9 - Leiomyoma of uterus, unspecified Coding Level of Care Code Est Pt Level 3 (34197) Diagnoses Uterine myoma D25.9
--- OUTSIDE RECORDS SUMMARY | 2025-03-03 09:57 | XMS_ITS | Data Portability ---
Author Organization [place] - [facility], [facility] Address [address] [place] [address] Care Team Providers Care Veterinary Technology Instructor Name Role Phone NICOLASA MOY Primary Care [...] Knee arthritis - patellofemo ral PT 2021 [id number] Not available 06:53:29 Procedures None recorded. Surgeries None recorded. Imaging None recorded. Medication Orders diclofenac sodium 75 mg tablet,ivy yed release [address] [id number], [address] [facility], [place], [address], 14:59:57 Patient TargetsNo targets recorded. Patient InstructionsNo instructions recorded. Reason for Referral Physical Therapist Referral for Bilateral osteoarthritis of knees Knee arthritis - patellofemoral PT Referring Physician: Kunal Gross, Orthopedic Surgery, Encounter Date: 09/15/2022 Procedures Surgical History Date Name Laterality Status Provider Name and Address Organization Details Recorded Time 9 Other completed Dannielle Freeman [place] - [facility] 09/15/2022 14:30:23 2 Orthopaedic Surgery completed [facility] 09/15/2022 14:30:14 2 Orthopaedic Surgery completed Danniellemark Freeman [facility] 09/15/2022 14:30:38 Other completed [facility] 09/15/2022 14:30:47 Other completed [facility] 09/15/2022 14:30:58 Imaging Results None recorded. Procedure [...] Address Organization Details Last Updated DateTime 09/15/2022 95221.84 g 35 kg/m2 162.56 cm Danniellemark Freeman [facility] 09/15/2022 14:26:11 Social History Question Answer Notes LastModified by Organizat ion Details LastModified Time Tobacco Smoking Status Former Smoker [facility] 09/15/2022 14:28:02 What Is Your Level Of [...] SNOMED-CT Code Diagnosis ICD10 Code Diagnosis Note [id number] KUNAL WAYNE MD [address] [phone] 09/15/2022 13:37:19 09/15/2022 15:02:19 Bilateral osteoarthritis of knees [id number] 95080 M17.0 Health Concerns Section Related Observation LastModified by Organization Detai ls LastModified Time None Recorded Concern Status LastModified by Organization Details LastModified Time None Recorded Advance Directives Directive None Recorded Payers Encounter Date Sequence Insurance Name Policy Number Policy Bland Covered Member ID Bland Member ID Guarantor Name 09/15/2022 1 [place] (MEDICARE REPLACEMENT PPO) [id number] Rosina Stern [id number] Rosina Stern Notes Date Note Type [...] physical therapy. She has been told in [place] that she has reasonably good looking knees. She is very frustrated with the knees both sides. She is presently taking no medications for the knees. She has had no recent injections in the knees. She has had no therapy for the knees. KUNAL WAYNE MD [address] [place] [address], [phone], [facility] 09/15/2022 15:00:01 OBGyn Episode No OBEpisode recorded.
--- OUTSIDE RECORDS SUMMARY | 2025-03-03 09:57 | XMS_ITS ---
Author Organization Slim Hammond MD Address [address] [place] [phone] Care Team Providers Care Plant Safety Engineer Name Role Phone Slim Hammond Primary Care Provider [phone] Allergies Allergen (clinical drug ingredient) Drug/Non Drug [...] Location Date Provider Diagnosis Slim Hammond MD [address] [place] [address] Drive [address] [place], [place] [phone] 10/31/2024 Slim Hammond Acquired hypothyroid ism E03.9 [...] Details Provider Name:Slim salter, 04/27/2025 08:00:00 AM, [address] [place] [address], [address], [place], [place], [phone], Provider Name:Slim salter, 05/04/2025 02:30:00 PM, [address], [address], [place], [place], [phone], Progress Notes * Lakeisha PAZaDOB:1955 (69 yo F)Acc No.[id number]:10/31/2024 Patient:?Shanon Paz Provider:?Slim Hammond MD :1955???Age:69 Y???Sex:Female D ate:10/31/2024 Address:[address] [place], [place] [phone] Subjective: * Chief Complaints: * ???6 month/ [...] MD Date:?1 01/01/2024 Generated for Rigo hayward/Ayala/eTransmitting on:?03/03/2025 09:57 AM EDT History and Physical Notes * [...]
--- OUTSIDE RECORDS SUMMARY | 2025-03-03 09:58 | XMS_ITS | Clinical Summary ---
Author Organization [facility] ity Address [address] [place] [phone] Care Team Providers Care Survey Research Manager Name Role Phone Unavailable Primary Care [...] - 2023-2 5 season) 2024 Influenza Vaccine (Season Ended) 2025 RSV Immunization Adult Patie nts (1 - 1-dose 75+ series) 2029 HIB [...] age to complete this topic Meningococcal B Vaccine Aged Out No l onger eligible based on patient's age to complete this topic RSV Immunization Patients Un santosh 20 months Aged Out No longer eligible b ased on patient's age to complete this topic Varicella Vaccines Aged Out No longer eligible based on patient's age to complete this topic
== END 2025-03-03 09:47 | disposition home or self-care (01) ==
LOC: HO.HWS 09:12
PROVIDERS: PCP Internal Medicine; Visit Provider Obstetrics & Gynecology
DX: D25.9 Leiomyoma of uterus, unspecified (principal)
CPT/HCPCS: 99213

== ENCOUNTER → 2025-03-03 09:12 | Outpatient (BNVA) | payer MEDICARE, SELFPAY | PROVIDERS: PCP Internal Medicine; Visit Provider Obstetrics & Gynecology | DX: D25.9 Leiomyoma of uterus, unspecified (principal) | CPT/HCPCS: 99212 ==

== ENCOUNTER 2025-05-14 08:59 | Day surgery (SDC) | payer MEDICARE, SELFPAY ==
--- OUTSIDE RECORDS SUMMARY | 2025-04-08 11:35 | XMS_ITS | Patient Health Record ---
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 Name Role Phone Slim Hammond Primary Care Provider [phone] Allergies Allergen (clinical drug ingredient) Drug/Non Drug Allergy documented on EMR Reaction Allergy Type Onset Date Status azithromycin z pack (uncoded) diarrhea Allergy Active Results Component Value Reference Range Notes Complete Blood Count Auto Di ff Reviewed date:04/15/2024 12:34:44 PM Interpretation: Performing Lab:[facility], [address] [place] [phone] Notes/Report: White Blood Count 6.0 4.8-10.8 X10*3/uL [...] 0.0-0.2 /100WBC Neutrophils Absolute Auto 3.4 2.0-8.3 x10*3/uL Imm Gran Abs Auto 0.02 0.00-0.03 X10*3/uL Lymphocytes Absolute Auto 1.9 1.2-4.9 X10*3/uL Monocytes Absolute Auto 0.5 0.1-1.2 X10*3/uL Eosinophils Absolute Auto 0.3 0.0-0.4 X10*3/uL Basophils Absolute Auto 0.0 0.0-0.2 X10*3/uL NRBC Abs Auto 0.000 0.0-0.012 X10*3/uL Comprehensive [place]. Panel Fa st Reviewed date:04/15/2024 04:11:17 PM Interpretation: Performing Lab:[facility], [address] [place] [phone] Notes/Report: Sodium 143 135-145 mmol/L Potassium 4.1 3.3-5.1 mmol/L Chloride 112 96-108 mmol/L Carbon Dioxide 25 22-29 mmol/L Anion Gap 10 12-20 Blood Urea Nitrogen 19 9-16 mg/dL Creatinine 0.76 0.5-1.4 mg/dL Estimated Glomerular Filt Rate > 60 NOTE: For -Ugand[place] individuals, multiply the result by 1.210. Chronic [...] Panel Reviewed date:04/15/2024 12:22:15 PM Interpretation: Performing Lab:[facility], [address] [place] [phone] Notes/Report: Triglycerides 119 <150 mg/dL Desirable Triglyceride: [...] Total Reviewed date:04/15/2024 12:23:49 PM Interpretation: Performing Lab:[facility], [address] [place] [phone] Notes/Report: Vitamin D 25-OH Total 52.0 >30 [...] T4 Reviewed date:04/15/2024 12:22:59 PM Interpretation: Performing Lab:[facility], [address] [place] [phone] Notes/Report: TSH reflex Free T4 0.71 0.32-4.0 uIU/mL Microalbumin, Random Reviewed date:04/15/2024 12:23:08 PM Interpretation: Performing Lab:[facility], [address] [place] [phone] Notes/Report: Creatinine Urine 118.07 Microalbumin Urine 6.0 Microalbum/Creatinine Ratio Ur 5.0 <30 ug/mg cr Albumin/Creatinine Ratio Reference Ranges: Normal: < 30 ug/mg creatinine Microalbuminuria: 30 - 300 ug/mg creatinine Clinical Albuminuria: > 300 ug/mg creatinine Hemoglobin A1c Reviewed date:04/15/2024 12:21:43 PM Interpretation: Performing Lab:[facility], [address] [place] [phone] Notes/Report: Hemoglobin A1c % 5.8 <6.0 % [...] average glucose, using the formula of the [id number]-[id number] Average Glucose study (ADAG), Diabetes Care, Vol.31,#8, Jun. 2007 UA ClnCatch+Micro w/rflx Cul t Reviewed date:04/15/2024 12:24:08 PM Interpretation: Performing Lab:[facility], [address] [place] [phone] Notes/Report: Urine, Clean Catch Color Urine Yellow Appearance Urine Clear PH 5.5 5.0-9.0 Glucose Urine UA Negative Negative mg/dL Urine Blood Negative Negative Specific [place] - Urine 1.020 1.005-1.025 Urine Protein Negative Neg-Trace mg/dL Urine Ketones Negative Negative mg/dL Nitrite Urine Negative Negative Leukocyte Esterase Urine Negative Negative RBC Urine 0-2 0-2 /HPF WBC Urine 0-5 0-5 /HPF Squamous Epithelial Cell Urine 0-2 0-2 /HPF Bacteria Urine None Seen None Seen Hyaline Casts Urine 0-2 0-2 /LPF Liver Panel Reviewed date:10/23/2024 03:12:27 PM Interpretation: Performing Lab:[facility], [address] [place] [phone] Notes/Report: Bilirubin Total 0.5 0.0-1.0 mg/dL Bilirubin Direct 0.2 0.0-0.5 mg/dL Aspartate Amino Transferase 22 5-31 U/L Alanine Aminotransferase 27 0-31 U/L Total Protein 6.5 6.5-8.0 g/dL Albumin Level 4.0 3.5-5.0 g/dL Alkaline Phosphatase 74 39-117 U/L Lipid Panel Reviewed date:10/23/2024 03:13:32 PM Interpretation: Performing Lab:[facility], [address] [place] [phone] Notes/Report: Triglycerides 88 <150 mg/dL Desirable Triglyceride: [...] T4 Reviewed date:10/23/2024 03:29:08 PM Interpretation: Performing Lab:[address] [phone] Notes/Report: TSH reflex Free T4 0.83 0.32-4.0 uIU/mL Hold Gold Reviewed date:04/15/2024 12:22:44 PM Interpretation: Performing Lab:[facility], [address] [place] [phone] Notes/Report: Hold Gold See Note Specimen held untested for 24 hours; Call to request Chemistry testing. US pelvic and transvaginal Reviewed date:07/01/2024 12:36:02 PM Interpretation: Performing Lab: Notes/Report: [facility] [address] [place] [id number] Ultrasound Report Signed Patient: Rosina Stern MR#: [id number] : 1955 Acct:[id number] Age/Sex: 69 / F ADM Date: 06/17/24 Loc: HO.US Attending Dr: Lalo Mao MD Ordering Physician: Lalo Mao MD Date of Service: 06/17/24 Procedure(s): US pelvic and transvaginal Accession Number(s): [id number] cc: Slim Hammond MD; Lalo Mao MD [...] in OV> 07/01/24 0654 DD/ 1335 TD/TT: Soap Slabber: [place] [address] Ultrasound Report Signed Patient: Lakeisha Stern MR#: [id number] : 1955 Acct:[id number] Age/Sex: 69 / F ADM Date: 06/17/24 Loc: HO.US Attending Dr: Lalo Mao MD Ordering Physician: Lalo Mao MD Date of Service: 06/17/24 Procedure(s): US pel bin and transvaginal Accession Number(s): [id number] cc: Slim Hammond MD; Lalo Mao MD EXAMINATION: US PELVIS CLINICAL INFORMATION: Leiomyoma of uterus, last menstrual period 12-13 years ago. COMPARISON: None available. TECHNIQUE: Ultrasound of the pe lvis is performed using both transabdominal and transvaginal transdu cers along with Doppler. Transvaginal imaging is performed due to inadequate visualization transabdominally. FINDINGS: The uterus is anteve rted and measures 12.1 x 4.8 x 5.1 cm, volume 154.9 mL. A 1.9 x 1.3 x 2.0 cm hypoechoic structure may possibly represent a fibroid versus bowel and is difficult to characterize with certainty as visualization is joyce ited due to bowel gas. A 0.9 x [...] periphery of the right ovary, possibly calcification. Multi ple echogenic foci within the right ovary characteristic of calcifications. Left ovary seen only on transabdominal ultrasound images, limiting evaluation, and gisele ures 1.6 x 1.8 x 1.6 cm, volume 2.4 mL. A 1.9 x 1.2 x 1.5 cm left adnexal simple cyst may represent an exophytic left ovari an cyst versus extraovarian cyst. Visualization of the bilateral ovaries is limited. U S/US pelvic and transvaginal IMPRESSION: 1. Fibroid uterus. 2. Endometrium poorl y visualized. Imaged segment of endometrium with thickness up to 5 mm. 3. A 1.9 cm left adn exal simple cyst may represent an exophytic left ovarian cyst versus extraovarian cyst and was not appreciated on the prior exam. 4. A 0.4 cm echogeni c periphery of the right ovary, possibly calcification. Multi ple echogenic foci within the right ovary characteristic of calcifications. Dictated By: Eileen Pickett MD Signed By: <Electronically signed by Eileen Pickett MD in OV> 07/01/24 0654 DD/ 1335 TD/TT: Soap Slabber: Pathology Reviewed date:07/22/2024 02:15:18 PM Interpretation: Performing Lab:[facility], [address] [place] [phone] Notes/Report: ---- Name: Rosina Stern Age/Sex: 69/F : 1955 Unit#: [id number] Attend Dr: Joan Vargas MD Re07/17/24 Status : [facility] Location: [facility] Disch: ---- SPEC : [id number] RECD : 07/17/24-1044 STATUS: JONELLE GRIMALDO NUM: [id number] DAGMAR: 07/17/[address] [facility] [address]: Joan Vargas MD ENTERED: 07/17/24 56 SP TYPE: Surgical OTHR DR: Slim Hammond MD ORDERED: HE Stain/6, Gross Micro L4/2, IHC, Special st. 2/2, H. pylori, AB/PAS/2 Diagnosis A. Duodenum, biopsy: Duodenal mucosa within normal limits. B. Stomach, random, biopsy: Antral-type and oxyntic mucosa with mild chronic inactive inflammation; no Helicobacter organisms seen. Clinical History Pre-Op Dx: H/O diverticulosis, dysphagia Post-Op Dx: Gastriti s, duodenitis, GE junction ulcer Microscopic Description A, B. Microscopic sections examined. No metaplastic changes are seen, supported by AB/PAS stains (A and B); no Helicobacter organisms are seen, supported by H. pylori immunostain (B). Material Received A. Duodenum bx's B. Random gastric bx's Gross Description Received in 2 parts. Part A: Received in formalin labeled ?duodenum biopsies? are 4 pieces of spangler tissue measuring from 0.1-0 .3 cm, all submitted in cassette labeled A. Part B: Received in formalin labeled ?random gastric biopsies? are 3 pieces of spangler tissue measuring from 0.1-0 .2 cm, all submitted in cassette labeled B. FM Special studies orde red and performed: Immunostain for H. pylori on B; AB/PAS stains on A and B Copies To: Slim Hammond MD [facility] [address] [phone] CONTINUED ON NEXT PAGE ---- Name: Rosina Stern Age/Sex: 69/F : 1955 Unit#: [id number] Attend Dr: Joan Vargas MD Re07/17/24 Status : [facility] Location: [facility] Disch: ---- SPEC : [id number] RECD : 07/17/24 STATUS: JONELLE GRIMALDO NUM: [id number] DAGMAR: 07/17/[address] [facility] [address]: Joan Vargas MD ENTERED: 07/17/24- 56 SP TYPE: Surgical OTHR DR: Slim Hammond MD ORDERED: HE Stain/6, Gross Micro L4/2, IHC, Special st. 2/2, H. pylori, AB/PAS/2 Copies To: (Continued) Joan Vargas MD [facility] [address] [place] [phone] [email or web address] ---- Signed (signature on file) Branden Ramos MD 07/22/24 1339 ---- END OF REPORT CA-125 Reviewed date:07/22/2024 01:06:04 PM Interpretation: Performing Lab:[facility], [address] [place] [phone] Notes/Report: CA-125 5 <35 U/mL This test was performed using the Siemens Chemiluminescent method. Values obtained from different assay methods cannot be used interchangeably. CA 125 levels, regardless of value, should not be interpreted as absolute evidence of the presence or absence of disease. THIS TEST WAS PERFORMED AT: [facility] [address] [place] [phone] MARYANN MARINO MD XR DEXA axial skeleton Reviewed date:07/22/2024 05:10:14 PM Interpretation: Performing Lab: Notes/Report: [facility] [address] [place] [address] Mammography Report Signed Patient: Rosina Stern MR#: [id number] : 1955 Acct:[id number] Age/Sex: 69 / F ADM Date: 07/18/24 Loc: MINDY Attending Dr: Lalo Mao MD Ordering Physician: Lalo Mao MD Results: Date of Service: 07/18/24 Follow Up: Procedure(s): XR DEXA axial skeleton Accession Number(s): [id number] cc: Slim Hammond MD; Lalo Mao MD EXAMINATION: BONE DENSITOMETRY CLINICAL INDICATION: Menopause. COMPARISON: Previous BD dated 01/31/2022 and baseline BD dated 05/20/2013. TECHNIQUE: Using a [employer] DXA System (software version: 13.1) manufactured by [employer], dual-energy x-ray absorptiometry was performed of the [...] have additional risk factors. Electronically signed by: Rui Sultana MD 07/22/2024 11:21 AM EDT Dictated By: Rui Sultana MD Signed By: <Electronically signed by Rui Sultana MD in OV> 07/22/24 1121 DD/ 1430 TD/TT: 07/18/24 1450 Soap Slabber: EL [place] [facility] [address] [place] [address] Mammography Report Signed Patient: Lakeisha Stern MR#: [id number] : 1955 Acct:[id number] Age/Sex: 69 / F ADM Date: 07/18/24 Loc: MINDY Attending Dr: Lalo Mao MD Ordering Physician: Lalo Mao MD Results: Date of Service: 07/18/24 Follow Up: Procedure(s): XR DEX A axial skeleton Accession Number(s): [id number] cc: Slim Hammond MD; Lalo Mao MD EXAMINATION: BONE DENSITOMETRY CLINICAL INDICATION: Menopause. COMPARISON: Previous BD dated 01/31/2022 and baseline BD dated 05/20/2013. TECHNIQUE: Using a [employer] DXA System (software version: 13.1) manufactured b [employer], dual-energy x-ray absorptiometry was performed of the lumbar spine and left hip. The images are of good technical quality. Summary results are attached. FINDINGS: LEFT FEMUR, NECK: Current: BMD 0.957 g/cm2, Z-score 0.6, T-score -0.6, normal. Prior: BMD 0.975 g/cm2. Baseline: BMD 1.033 g/cm2. LEFT FEMUR, TOTAL: Current: BMD 1.181 g/cm2, Z-score 2.3, T-score 1.4, normal, 1.0% decrease from previo us, 2.6% increase from baseline (<5% change is not significant). Prior: BMD 1.193 g/cm2. Baseline: BMD 1.151 g/cm2. AP SPINE L1-L4: Current: BMD 1.647 g/cm2, Z-score 4.7, T-score 3.9, normal, 4.9% decrease from previo us, 5.2% decrease from baseline (<5% change is not significant). Prior: BMD 1.732 g/cm2. Baseline: BMD 1.738 g/cm2. IDENTIFIED RISK FACTORS: Menopause, history o f fracture (adult), low calcium intake. HISTORY OF FRACTURE: Other fracture. MEDICATIONS: Vitamin D. M M/XR DEXA axial skeleton IMPRESSION: 1. DIAGNOSIS: Normal bone density based on the lowest T-score value of -0.6 in the femoral neck applying World Health Organization criteria. 2. 10-YEAR FRACTURE RISK PREDICTION, FRAX: According to the guidelines, FRAX calculation mary uld only be performed on patients in the osteopenia bone density categor y. Therefore, FRAX was not performed on this patient. 3. Treatment Recommendations: NOF guidelines recommend consideration for treatment in postmenopausal women and men age 50 and older presenting with the following: -A hip or vertebral (clinical or morphometric) fracture. -T-score less than o r equal to -2.5 at the femoral neck or spine after appropriate evaluati on to exclude secondary causes. -Low bone mass at th e hip or spine and a 10-year fracture probability by FRAX of greater t stern or equal to 3% for hip fracture or greater than or equal to 20% for major osteoporotic fracture based on the [place] adapted WHO algorithm. 4. Other Recommendations: All treatment decisions require clinical judgment and consideration of individual patient factors, including patient preferences, comorbidities, previous drug use, risk factors not captured in the FRAX model (e.g. frailty, falls, vitamin D deficiency, increased bone turno aaliyah, interval significant decline in bone density) and possible under o r overestimation of fracture risk by FRAX. FUTURE SCAN RECOMMENDATION: People with diagnose d cases of osteoporosis or at high risk for fracture should have regular bone mineral density tests. For patients eligible for Medicar e, routine testing is allowed once every 2 years. The testing frequenc y can be increased to one year for patients who have rapidly progres sing disease, those who are receiving or discontinuing medica l therapy to restore bone mass, or have additional risk factors. Electronically marta d by: Rui Sultana MD 07/22/2024 11:21 AM EDT Dictated By: Rui Sultana MD Signed By: <Electronically signed by Rui Sultana MD in OV> 07/22/24 1121 DD/ 1430 TD/TT: 07/18/24 1450 Soap Slabber: EL Pathology Reviewed date:07/27/2024 12:32:34 PM Interpretation: Performing Lab:[facility], [address] [place] [phone] Notes/Report: ---- Name: Rosina Stern Age/Sex: 69/F : 1955 Unit#: [id number] Attend Dr: Lalo Mao MD Re07/24/24 Status : DEP REF Location: .LAB Disch: ---- SPEC : [id number] RECD : 07/24/24 STATUS: JONELLE GRIMALDO NUM: [id number] DAGMAR: 07/24/[address] [facility] [address]: Lalo Mao MD ENTERED: 07/24/24 53 SP TYPE: Surgical OTHR DR: Slim Hammond MD ORDERED: HE Stain/2, Gross Micro L4 Diagnosis Endometrium, biopsy: Predominantly mucus with scant benign atrophic strips of endometrium, and sca nt benign endocervical glandular epithelium; no atypia or carcinoma (see comment). Comment: The tissue does not explain a thickened endometrium, and may not be medicare sales representative of th e endometrium. Clinical History PMB, thickened endometrium Microscopic Description Microscopic sections reviewed. Material Received Endometrial biopsy Gross Description Received in formalin labeled ?EMB? is a 2.0 x 2.0 x 0.5 cm aggregate of cloudy spangler-pink mucus with scant blo od and delicate shards of spangler-pink tissue, submitted in toto in a cassette labeled A. CEDS Copies To: Slim Hammond MD [facility] 10 [facility] [address] [place] [address] Lalo Mao MD [facility] Women's Services [address] [facility] [address] [place] [address] CONTINUED ON NEXT PAGE ---- Name: BrandiRosina Age/Sex: 69/F : 1955 Unit#: [id number] Attend Dr: Lalo Mao MD Re07/24/24 Status : DEP REF Location: .LAB Disch: ---- SPEC : [id number] RECD : 07/24/24 STATUS: JONELLE GRIMALDO NUM: [id number] DAGMAR: 07/24/[address] [facility] [address]: Lalo Mao MD ENTERED: 07/24/24- 53 SP TYPE: Surgical OTHR DR: Slim Hammodn MD ORDERED: VIVIEN Thakkar/2, Gross Micro L4 ---- Signed (signature on file) Swathi Etta 07/25/24 1412 ---- END OF REPORT Pathology Reviewed date:08/04/2024 05:01:33 PM Interpretation: Performing Lab:[facility], [address] [place] [phone] Notes/Report: ---- Name: Rosina Stern Age/Sex: 69/F : 1955 Unit#: [id number] Attend Dr: Lalo Mao MD Re08/01/24 Status : [facility] Location: [facility] Disch: ---- SPEC : [id number] RECD : 08/01/24 STATUS: JONELLE GRIMALDO NUM: [id number] DAGMAR: 08/01/24-[address] [facility] [address]: Lalo Mao MD ENTERED: 08/01/24 34 SP TYPE: Surgical OTHR DR: Slim Hammond MD ORDERED: HE Stain/2, Gross Micro L4 Diagnosis Endometrium, curetta ge: Few superficial strips of atrophic endometrium and tubal metaplasia; negative for atypia, hyperplasia or malignancy. Clinical History Pre-Op Dx: Postmenopausal bleeding Post-Op Dx: Normal endometrial cavity Microscopic Description Microscopic sections reviewed. Material Received [facility] Gross Description Received in formalin labeled ?EMC? on blood-stained Telfa is a 3.0 x 2.0 x 0.5 cm aggregate of predominantly muc us and blood and minute shards and threads of pink-maroon tissue, submitted in toto in cassettes A1-A3. CEDS Copies To: Slim Hammond MD [facility] 10 [facility] [address] [place], [place] [phone] Lalo Mao MD [facility] Women's Services 15 [facility] [address] [place] [address] ---- Signed (signature on file) Indy Harvey MD 08/04/24 1645 ---- END OF REPORT US thyroid Reviewed date:11/07/2024 04:49:37 PM Interpretation: Performing Lab: Notes/Report: [address] [address] Ultrasound Report Signed Patient: Rosina Stern MR#: [id number] : 1955 Acct:[id number] Age/Sex: 69 / F ADM Date: 09/23/24 Loc: .US Attending Dr: Slim Hammond MD Ordering Physician: Slim Hammond MD Date of Service: 09/23/24 Procedure(s): US thyroid Accession Number(s): [id number] cc: Slim Hammond MD EXAMINATION: US THYROID [...] than or equal to 1 cm: 1. Fishing Vessel Captain nodules are described as follows: 1. Location: [...] by: Italo Galeano MD 11/05/2024 09:10 AM [facility] Dictated By: Italo Owens MD Signed By: <Electronically signed by Italo Aponte MD in OV> 11/05/2410 DD/ 4 TD/TT: 09/23/24829 Soap Slabber: [address] [address] Ultrasound Report Signed Patient: Lakeisha Stern MR#: [id number] : 1955 Acct:[id number] Age/Sex: 69 / F ADM Date: 09/23/24 Loc: HO.US Attending Dr: Slim Hammond MD Ordering Physician: Slim Hammond MD Date of Service: 09/23/24 Procedure(s): US thyroid Accession Number(s): [id number] cc: Slim Hammond MD EXAMINATION: US THYROID CLINICAL INFORMATION: Thyroid nodule. COMPARISON: Ultrasound-guided thyroid biopsy 09/12/2023. Thyroid ultrasound 07/31/2023 and 07/11/2022. TECHNIQUE: Linear transducer grayscale and color Doppler examination with attention to the reg ion of the thyroid. FINDINGS: Submitted for interpretation on November 05, 2024. SIZE: Measurements o f the thyroid lobes and nodules are given in sagittal, anteroposterior and transverse dimensions respectively. Right Thyroid Lobe: 4.8 x 1.8 x 1.7 cm, volume 7.4 mL. Previously 4.4 x 2.3 x 1.8 cm, volume 9.5 mL. Parenchyma: The glan d echotexture is heterogeneous. Thyroid vascularity is increased. Left Thyroid Lobe: 4 .6 x 1.7 x 1.7 cm, volume 6.8 mL. Previously 4.9 x 1.6 x 1.7 cm, volume 7.1 mL. Parenchyma: The glan d echotexture is heterogeneous. Thyroid vascularity is increased. Isthmus: 0.5 cm in maximum AP dimension. Previously 0.4 cm. Estimated total numb er of nodules greater than or equal to 1 cm: 1. Fishing Vessel Captain nodul es are described as follows: 1. Location: Right u pper pole. Size: 0.8 x 0.5 x 0. 7 cm, volume 0.13 mL. Previously: 0.7 x 0. 5 x 0.8 cm, volume 0.14 mL. Nodule characteristics: Composition: Spongif orm (0). ACR TI-RADS total points: 0 Previous: 0 ACR TI-RADS category : 1 Previous: 1 Significant change i n size (>/= 20% in 2 dimensions and minimal increase of 2 mm or 50% or greater increase in volume): Change in features: Change in ACR TI-RAD S risk category: 2. Location: Right m id pole. Size: 0.7 x 0.6 x 0. 6 cm, volume 0.14 mL. Previously: 0.7 x 0. 6 x 0.6 cm, volume 0.12 mL. Nodule characteristics: Composition: Spongif orm (0). ACR TI-RADS total points: 0 Previous: 0 ACR TI-RADS category : 1 Previous: 1 Significant change i n size (>/= 20% in 2 dimensions and minimal increase of 2 mm or 50% or greater increase in volume): Change in features: Change in ACR TI-RAD S risk category: 3. Location: Left lo wer pole. Size: 0.6 x 0.4 x 0. 5 cm, volume 0.06 mL. Previously: 0.6 x 0. 5 x 0.4 cm, volume 0.06 mL. Nodule characteristics: Composition: Spongif orm (0). ACR TI-RADS total points: 0 Previous: 0 ACR TI-RADS category : 1 Previous: 1 Significant change i n size (>/= 20% in 2 dimensions and minimal increase of 2 mm or 50% or greater increase in volume): Change in features: Change in ACR TI-RAD S risk category: 4. Location: Left mi d pole. Size: 1.7 x 1.6 x 1. 2 cm, volume 1.7 mL. Previously: 1.6 x 1. 7 x 1.3 cm, volume 1.7 mL. Nodule characteristics: Composition: Solid/almost completely solid (2). Echogenicity: Hypoec hoic (2). Shape: Taller than w chantale (3). Margins: Smooth (0). Echogenic Foci: None (0). ACR TI-RADS total points: 7 Previous: 7 ACR TI-RADS category : 5 Previous: 5 Significant change i n size (>/= 20% in 2 dimensions and minimal increase of 2 mm or 50% or greater increase in volume): Change in features: Change in ACR TI-RAD S risk category: NODES: No lymphadenopathy is seen in the tissue surrounding the thyroid gland. U S/US thyroid IMPRESSION: 1.7 cm dominant nodu le left thyroid lobe, stable since prior exam. ACR TI-RADS RECOMMENDATION REFERENCE: Ultrasound-guided fine-needle aspiration, follow up ultrasound, no further followup. * TR1 (0 point) and TR2 (2 points): No FNA or followup * TR3 (3 points): FN A if more than or equal to 2.5 [...] or equal to 1 cm in maximum dimens ion, follow up ultrasound every year for 5 years if 0.5 to 0.9 cm in max imum dimension. * TR3, TR4 or TR5 nodules that are below the size threshold for follow up receive no followup. Electronically marta d by: Italo Galeano MD 11/05/2024 09:10 AM [facility] Dictated By: Italo Collado MD Signed By: <Electronically signed by Italo Aponte MD in OV> 11/05/24 0910 DD/ 0805 TD/TT: 09/23/24 0830 Soap Slabber: FL barium swallow with air Reviewed date:10/31/2024 02:43:29 PM Interpretation:see back 10-31-2024 Performing Lab: Notes/Report: [address] [address] Fluoroscopy Report Signed Patient: Rosina Stern MR#: [id number] : 1955 Acct:[id number] Age/Sex: 69 / F ADM Date: 10/07/24 Loc: BARBER Attending Dr: Joan Vargas MD Ordering Physician: Joan Vargas MD Date of Service: 10/07/24 Procedure(s): FL barium swallow with air Accession Number(s): [id number] cc: Slim Hammond MD; Joan Vargas MD [...] by: Chava Oconnor MD 10/08/2024 02:43 PM EST Dictated By: Calderon Campo Signed By: <Electronically signed by Calderon Campo in OV> 10/08/24 1443 <Electronically signed by Chava Oconnor MD in OV> 10/08/24 1446 DD/ 0 TD/TT: 10/07/24 0914 Soap Slabber: [place] [address] Fluoroscopy Report Signed Patient: Lakeisha Stern MR#: [id number] : 1955 Acct:[id number] Age/Sex: 69 / F ADM Date: 10/07/24 Loc: HO.XRAY Attending Dr: Joan Vargas MD Ordering Physician: Joan Vargas MD Date of Service: 10/07/24 Procedure(s): FL bar ium swallow with air Accession Number(s): [id number] cc: Slim Hammond MD; Joan Vargas MD EXAMINATION: XR FLUOROSCOPY UPPER GI WITH AIR CLINICAL INFORMATION: Dysphagia COMPARISON: None TECHNIQUE: Fluoroscopic air contrast upper GI examination was performed utilizing standard techniques with thin and thick barium and effervescent granules. Numerous s pot images were obtained. FINDINGS: Lateral cine images of the oropharynx and hypopharynx demonstrate normal swallow mecha nism with normal epiglottic inversion and soft palate elevation. No tracheal penetration, glottic or subglottic aspiration identifie d. No nasopharyngeal reflux present. Hypopharyngeal structures appear no rmal without evidence of mass or diverticulum. There was no signifi cant cricopharyngeal achalasia. There is mild posterior compressio n of the cervical esophagus due to an anterior bridging osteophyte at C6-C7. Dual and single cont rast images of the esophagus demonstrate a normal caliber and contour. There is a mild granular appearance of the esophageal mucosa, suggestive of esophagitis. No masses or ulcerations are seen. Esophageal peristalsis is moderately disorganized. A small type I hiata l hernia is present. A nonobstructing Schatzki's ring is present. No significant gastroesophageal reflux was seen during the course of the examination and on reflux views. Dual contrast and si ngle contrast images of the stomach demonstrated a normal contour. The gastric rugal folds have a thickened appearance, suggestive of gastri tis. There are multiple tiny foci of contrast pooling in the body of the stomach that may represent small mucosal ulcerations. Contras t freely passed into the gastric antrum and duodenal bulb withou t delay. Single and air-contr ast images of the duodenal bulb demonstrate no abnormality. The duodenal sweep has a normal appearance, course, and mucosal fold appeara nce. The imaged proximal jejunum has a normal fold pattern and caliber. FLUOROSCOPY TIME: 4 minutes 28 seconds Number of Spot Images: 8 Number of Cine: 16 DOSE AREA PRODUCT: 2899 uGy-m2 (microgray-meter squared) F L/FL barium swallow with air IMPRESSION: 1. Mild posterior compression of the cervical esophagus due to an anterior bridging osteophyte at C6-C7. 2. Mild granular appearance of the esophageal mucosa, suggestive of esophagitis. 3. Moderately disorganized esophageal peristalsis. 4. Small type I hiat al hernia. 5. Nonobstructing Schatzki's ring. 6. Thickened appeara nce of the gastric rugal folds. In addition there are multiple tiny fo ci of contrast pooling in the body of the stomach. These findings are suggestive of erosive gastritis. Recommend correlation with EGD. This procedure was performed by Calderon Campo PA-C, and supervised by Dr. Oconnor Electronically marta d by: Chava Oconnor MD 10/08/2024 02:43 PM EST Dictated By: Ediosn Campo Signed By: <Electronically signed by Calderon Campo in OV> 10/08/24 1443 <Electronically sign ed by Chava Oconnor MD in OV> 10/08/24 1446 DD/ 0841 TD/TT: 10/07/24 0914 Soap Slabber: Edmar Bar Reviewed date:10/23/2024 12:51:02 PM Interpretation: Performing Lab:[facility], [address] [place] [phone] Notes/Report: Hold Gold See Note Specimen held untested for 24 hours; Call to request Chemistry testing. US pelvic and transvaginal Reviewed date:11/23/2024 06:29:37 PM Interpretation: Performing Lab: Notes/Report: [address] [address] Ultrasound Report Signed Patient: Rosina Stern MR#: [id number] : 1955 Acct:[id number] Age/Sex: 69 / F ADM Date: 11/20/24 Loc: HO.US Attending Dr: Lalo Mao MD Ordering Physician: Lalo Mao MD Date of Service: 11/20/24 Procedure(s): US pelvic and transvaginal Accession Number(s): [id number] cc: Slim Hammond MD; Lalo Mao MD CLINICAL HISTORY: D25.9 - Leiomyoma of uterus, unspecified US pelvis transabdominal and transvaginal Comparison: None Findings: Transabdominal scanning performed for overall anatomy. Transvaginal scanning performed for additional detail. Anteverted uterus is 9.8 cm length. Normal myometrium. Endometrium 2.0 mm thickness. There are multiple subserosal and myometrial uterine leiomyomata, largest measuring 2.6 x 2.6 x 3.1 cm. Right ovary 1.6 x 1.6 x 1.6 cm. Left ovary 1.3 x 1.5 x 1.7 cm. Normal color Doppler of both ovaries. No free fluid. IMPRESSION: 1. Uterine leiomyomata This document has been electronically signed by: Antonio Poole MD on 11/22/2024 08:05:24 Dictated By: Antonio Poole MD Signed By: <Electronically signed by Antonio Poole MD in OV> 11/22/24805 DD/ 4 TD/TT: 11/22/24804 Soap Slabber: [address] [address] Ultrasound Report Signed Patient: Lakeisha Stern MR#: [id number] : 1955 Acct:[id number] Age/Sex: 69 / F ADM Date: 11/20/24 Loc: HO.US Attending Dr: Lalo Mao MD Ordering Physician: Lalo Mao MD Date of Service: 11/20/24 Procedure(s): US pel bin and transvaginal Accession Number(s): [id number] cc: Slim Hammond MD; Lalo Mao MD CLINICAL HISTORY: D2 5.9 - Leiomyoma of uterus, unspecified US pelvis transabdom inal and transvaginal Comparison: None Findings: Transabdominal scann ing performed for overall anatomy. Transvaginal scanning performed f or additional detail. Anteverted uterus is 9.8 cm length. Normal myometrium. Endometrium 2.0 mm thickness. There are multiple subserosal and myometrial uterine leiomyomata, largest measuring 2.6 x 2.6 x 3.1 cm. Right ovary 1.6 x 1. 6 x 1.6 cm. Left ovary 1.3 x 1.5 x 1.7 cm. Normal color Doppler of both ovaries. No free fluid. IMPRESSION: 1. Uterine leiomyomata This document has be en electronically signed by: Antonio Poole MD on 11/22/2024 08:05:24 Dictated By: Adams Poole MD Signed By: <Electronically signed by Antonio Poole MD in OV> 11/22/24 08 DD/ 08 TD/TT: 11/22/24 08 Soap Slabber: MM tomosynthesis screening B I Reviewed date:02/09/2025 05:25:03 PM Interpretation: Performing Lab: Notes/Report: [facility] [address] [place] [address] Mammography Report Signed Patient: Rosina Stern MR#: [id number] : 1955 Acct:[id number] Age/Sex: 69 / F ADM Date: 01/29/25 Loc: HO.MAMMO Attending Dr: Slim Hammond MD Ordering Physician: Slim Hammond MD Results: 2Be nign Findings Date of Service: 01/29/25 Follow Up: 1 Year From Orig inal Mammogram Procedure(s): MM tomosynthesis screening BI Accession Number(s): [id number] cc: Slim Hammond MD EXAMINATION: MM SCREENING DIGITAL BREAST TOMOSYNTHESIS, BILATERAL CLINICAL INFORMATION: Screening. Asymptomatic. COMPARISON: Mammography: Comparison is made with available priors TECHNIQUE: Digital breast mammography with tomosynthesis is performed in both the craniocaudal and mediolateral oblique views along with computer-aided detection (CAD). FINDINGS: There are scattered areas of fibroglandular density (ACR BI-RADS breast composition Category b). Bilateral scattered asymmetries are stable. There are no significant masses, abnormal calcifications, or other abnormalities. MM/MM tomosynthesis screening BI IMPRESSION: No mammographic evidence of malignancy. ASSESSMENT: BI-RADS BI-RADS 2 - Benign Findings RECOMMENDATION: Routine annual mammography screening. 1 year F/U This examination should not preclude the clinical evaluation of a suspicious palpable abnormality. This patient's information was entered into a reminder system with a target due date for their next mammogram. Electronically signed by: Laureen Ha DO 02/06/2025 03:43 PM EDT Dictated By: Laureen Ha DO Signed By: <Electronically signed by Laureen Ha DO in OV> 02/06/25 1543 DD/ 3 TD/TT: 01/29/25 0944 Soap Slabber: [place] [address] [place] [id number] Mammography Report Signed Patient: Lakeisha Stern MR#: [id number] : 1955 Acct:[id number] Age/Sex: 69 / F ADM Date: 01/29/25 Loc: HO.MAMMO Attending Dr: Slim Hammond MD Ordering Physician: Slim Hammond MD Results: 2Be nign Findings Date of Service: 01/29/25 Follow Up: 1 Year From Orig ina Mammogram Procedure(s): MM tomosynthesis screening BI Accession Number(s): [id number] cc: Slim Hammond MD EXAMINATION: MM SCREENING DIGITAL BREAST TOMOSYNTHESIS, BILATERAL CLINICAL INFORMATION: Screening. Asymptomatic. COMPARISON: Mammography: Compari son is made with available priors TECHNIQUE: Digital breast mammography with tomosynthesis is performed in both the craniocaudal and mediolateral oblique views along with computer-aided detection (CAD). FINDINGS: There are scattered areas of fibroglandular density (ACR BI-RADS breast composition Category b). Bilateral scattered asymmetries are stable. There are no signifi cant masses, abnormal calcifications, or other abnormalities. M M/MM tomosynthesis screening BI IMPRESSION: No mammographic evid ence of malignancy. ASSESSMENT: BI-RADS BI-RADS 2 - Benign Findings RECOMMENDATION: Routine annual mammography screening. 1 year F/U This examination mary uld not preclude the clinical evaluation of a suspicious palpable abnormality. This patient's information was entered into a reminder system with a target due date for their next mammogram. Electronically marta d by: Laureen Ha DO 02/06/2025 03:43 PM EDT RP Dictated By: Laureen Ha DO Signed By: <Electronically signed by Laureen Ha DO in OV> 02/06/25 1543 DD/ 0914 TD/TT: 01/29/25 0944 Soap Slabber: Reason For Referral No Information Medications Medication SIG (Take, Route, Frequency, Duration) Notes Start Date End Date Status Vitamin D 1000 UNIT 1 tablet Orally Once a day Active Atorvastatin Calcium 40 MG TAKE 1 TABLET BY MOUTH EVERY DAY for 90 Active Ondansetron 4 MG 1 tablet on [...] 6 hrs for 30 days 04/23/2018 Not-Taking Synthroid 100 MCG 1 tablet in the morn ing on an empty stomach Orally Once a day for 90 days 12/11/2024 Active Clobetasol Propionate 0.05 % 1 APPLICATION EXTERNALLY TWICE A DAY 30 DAYS for 30 Active Omeprazole 20 MG 1 capsule 1/2 to 1 h our before morning meal Orally Once a day for 30 day(s) Active Albuterol Sulfate HFA 108 (90 Base) MCG/ACT 1 puff as needed Inhalation every 4 hrs for 30 days 10/07/2021 Active Immunizations Vaccine Route Administration Date Status Comme nts [...] 07/31/2024 Administer ed Tetanus Unknown 06/09/2014 Pending Social History Tobacco Use: Social History Observation Description Date Details (start date - stop date) Former Smoker NA - NA Tobacco Use/Smoking Question Answer Notes Patient is [...] Never (0 point) Points 1 Interpretation Negative Problems Problem Type SNOMED Code ICD Code Onset Dates Problem Status W/U Status Risk Notes Problem 499627614 Acute diverticul itis (K57.92) Active confirmed Problem 446757592 Thyroid nodule (E04.1) Active confirm ed Problem 99125185 Lymphocytosis (D72.820) Active confirmed Problem Carpal tunnel syndrome (12466830) Carpal tunnel syndrome (G56.00) Active confirmed Problem 978465539 Tubular adenoma (D36.9) Active confirmed Problem 84063853 Vitamin D defici ency (E55.9) Active confirmed Problem 489881249 Lumbar disc dise ase (M51.9) Active confirmed Problem Essential hypertension (83846073) Essential hypertension (I10) Active confirmed Problem 291540223 Acquired hypothyroidism (E03.9) Active confirmed Problem 6511335 Prediabetes (R73.09) Active confirmed Problem 051534903 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) Active confirmed Problem 188948515 Menopause (Z78.0) Active confirmed Problem 11515318 Degeneration of cervical intervertebral disc (M50.30) Active confirmed Problem 691173985 Pure hypercholesterolemia (E78.00) Active confirmed Problem 590699469 Acute low back p ain without sciatica, unspecified back pain laterality (M54.5) Active confirmed Problem Bilateral carpal tunnel syndrome (37324659932576 101) Bilateral carpal tunnel syndrome (G56.03) Active confirmed Problem 280784257 BMI 34.0-34.9,ad ult (Z68.34) Active confirmed Problem 586931872 BMI 35.0-35.9,ad ult (Z68.35) Active confirmed Problem 513342201 Arthritis of kne e (M17.10) Active confirmed Problem 316244419 Meningioma (D32.9) Active confirmed Problem 582652670 Mild intermitten t asthmatic bronchitis with acute exacerbation (J45.21) Active confirmed Problem 47086199 Other and unspec 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.9) Active confirmed Problem 97012485 Other premature beats (I49.49) Active confirmed Problem 941025399 Osteoarthritis o f lumbar spine, unspecified spinal osteoarthritis complication status (M47.816) Active confirmed Problem 765170688 History of thyro id nodule (Z86.39) Active confirmed Problem 243567217 Acute diverticul itis of intestine (K57.92) Active confirmed Vital Signs Blood pressure diastolic 70 mm Hg 10/31/2024 melodie ght is up 8 pounds since 06-03-24 Height 64 in 10/31/2024 weight is up 8 pounds since 06-03-24 Blood pressure systolic 112 mm Hg 10/31/2024 weig ht is up 8 pounds since 06-03-24 Weight 206 lbs 10/31/2024 weight is up 8 pounds since 06-03-24 BMI 35.36 kg/m2 10/31/2024 weight is up 8 pounds since 06-03-24 Procedures Procedure Date Ordered Date Performed Result Body Sit e Colonoscopy, Screening 07/17/2024 07/17/2024 repeat 5 y Encounters Encounter Location Date Provider Diagnosis Slim Hammond MD [address] [place] [id number] 04/15/2024 Slim Hammond Annual physical exam Z00.00 ; Lymphocytosis D72.820 ; Vitamin D deficiency E55.9 ; Prediabetes R73.09 ; Acquired hypothyroidism E03.9 ; Pure hypercholesterolemia E78.00 and Essential hypertension I10 Slim Hammond MD [address] [place] [address] [id number] 07/31/2024 Slim Hammond Encounter for immuni zation Z23 Slim Hammond MD [address] [place] [id number] 10/23/2024 Slim Hammond Pure hypercholestero lemia E78.00 and Acquired hypothyroidism E03.9 Slim Hammond MD [address] [place] [address] [id number] 05/01/2024 Slim Hammond Vitamin D deficiency E55.9 [...] Slim Hammond MD [address] [place] [address] [id number] 06/03/2024 Slim Hammond Acute diverticulitis of intestine K57.92 and Acute left-sided low back pain without sciatica M54.50 Slim Hammond MD [address] [place] [address] [id number] 10/31/2024 Slim Hammond Acquired hypothyroid ism E03.9 ; Pure hypercholesterolemia E78.00 and Abnormal upper gastrointestinal barium series R93.3 Slim Hammond MD [address] [place] [address] [id number] 06/02/2024 Slim Hammond MD [address] [place] [address] [id number] 06/03/2024 Slim Hammond MD [address] [place] [address] [id number] 08/29/2024 Slim Hammond Thyroid nodule E04.1 Slim Hammond MD [address] [place] [address] [id number] 12/11/2024 Slim Hammond Assessments Encounter Date Diagnosis (ICD Code) Assessment Notes Treatment Notes Treatment Clinical Notes Section Notes 04/15/2024 Annual physical exam (ICD-10 - Z00.00) 04/15/2024 Lymphocytosis (ICD-1 0 - D72.820) 07/31/2024 Encounter for immunization (ICD-10 - Z23) 10/23/2024 Pure hypercholesterolemia (ICD-10 - E78.00) 10/23/2024 Acquired hypothyroid ism (ICD-10 - E03.9) 05/01/2024 Vitamin D deficiency (ICD-10 - E55.9) doing great, will continue current regiment 05/01/2024 Annual physical exam (ICD-10 - Z00.00) labs reviewed and discussed with patient 06/03/2024 Acute diverticulitis of intestine (ICD-10 - [...] to her diverticulitis, will conitnue to monitor 10/31/2024 Acquired hypothyroid ism (ICD-10 - E03.9) has good tsh, will continue current regiment 10/31/2024 Pure hypercholesterolemia (ICD-10 - E78.00) well controlled on statins. will continue current regiment 04/15/2024 Vitamin D deficiency (ICD-10 - E55.9) 05/01/2024 Boil (ICD-10 - L02.92) 10/31/2024 Abnormal upper gastrointestinal barium series (ICD-10 - R93.3) went over the results of the tests is going to have endoscopy next 08/29/2024 Thyroid nodule (ICD- 10 - E04.1) order faxed to [facility] CS dept 04/15/2024 Prediabetes (ICD-10 - R73.09) 05/01/2024 Acute low back pain without sciatica, unspecified back pain laterality (ICD-10 - M54.5) is doing much better, will continue to monitor 04/15/2024 Acquired hypothyroid ism (ICD-10 - E03.9) 05/01/2024 Pure hypercholesterolemia (ICD-10 - E78.00) stable, will contnue current regiment 04/15/2024 Pure hypercholesterolemia (ICD-10 - E78.00) 05/01/2024 Acquired hypothyroid ism (ICD-10 - E03.9) will recheck in 6 mo, will continue current regiment 04/15/2024 Essential hypertensi on (ICD-10 - I10) 05/01/2024 Essential hypertensi on (ICD-10 - I10) stable, will continue current regiment 05/01/2024 Prediabetes (ICD-10 - R73.09) stable, no need for medication at ths time 05/01/2024 Depression screening (ICD-10 - Z13.31) negative screen 05/01/2024 Lumbar pain (ICD-10 - M54.50) 05/01/2024 Encounter for genera l adult medical examination with abnormal findings (ICD-10 - Z00.01) Plan Of Treatment Pending Test Test Name Order Date Electrocardiogram [...] 06/06/2021 US biopsy thyroid 08/28/2023 US thyroid 08/29/2024 US thyroid 05/09/2022 US thyroid 08/18/2022 Future Test Test Name Order Date US THYROID 06/17/2021 Next Appt Details Provider Name:Slim salter, 04/27/2025 08:00:00 AM, [address] [place] [address], [address], [place], [id number], Provider Name:Slim salter, 05/04/2025 02:30:00 PM, [address] [place] [address], [address], [place], [place], [id number], Insurance Providers Payer Name Payer Address Payer Phone Subscriber Number Group Number Insured Name Patient Relationship to Insured Coverage Start Date Coverage End Date [employer] [address] [place], [place] [phone] [id number] BrandiRosina jurado Self - patient is the insured [employer] [address] [place] [address] [id number] Rosina Stern Self - patient is the insured Medical (General) History Medical History History ICD Code frequent pvc colonoscopy 2008; colonoscop y 01/26/15 repeat 5 yrs (Dr. Prasad); had colonoscopy 02/26/[address] Prasad - repeat 5 yearsColonoscopy 07/17/24 repeat 5y Inclusion cyst
--- OUTSIDE RECORDS SUMMARY | 2025-04-08 11:35 | XMS_ITS | Data Portability ---
Author Organization [place] - [facility], [facility] Address [address] [place] [address] Care Team Providers Care Vertica Architect Name Role Phone NICOLASA MOY Primary Care Provider [phone] Assessment Encounter Date Assessment Date Assessment LastModified [...] Knee arthritis - patellofemo ral PT 2021 [email or web address] [id number] Not available 06:53:29 Procedures None recorded. Surgeries None recorded. Imaging None recorded. Medication Orders diclofenac sodium 75 mg tablet,ivy yed release 2021 [id number], [address] [place], [address], 14:59:57 Patient TargetsNo targets recorded. Patient InstructionsNo instructions recorded. Reason for Referral Physical Therapist Referral for Bilateral osteoarthritis of knees Knee arthritis - patellofemoral PT Referring Physician: Kunal Gross, Orthopedic Surgery, Encounter Date: 09/15/2022 Procedures Surgical History Date Name Laterality Status Provider Name and Address Organization Details Recorded Time 9 Other completed Dannielle Freeman [place] - [facility] 09/15/2022 14:30:23 2 Orthopaedic Surgery completed Danniellemark Freeman [facility] [place] 09/15/2022 14:30:14 2 Orthopaedic Surgery completed Danniellemark Freeman [facility] [place] 09/15/2022 14:30:38 Other completed [facility] [place] 09/15/2022 14:30:47 Other completed [facility] [place] 09/15/2022 14:30:58 Imaging Results None recorded. Procedure [...] Address Organization Details Last Updated DateTime 09/15/2022 24925.84 g 35 kg/m2 162.56 cm Danniellemark Freeman [facility] [place] 09/15/2022 14:26:11 Social History Question Answer Notes LastModified by [employer] ion Details LastModified Time Tobacco Smoking Status Former Smoker [facility] [place] 09/15/2022 14:28:02 What Is Your Level Of Caffeine Consumption? Moderate Information not available 09/15/2022 How Much Tobacco Do You Smoke? No Information not available 09/15/2022 What Types Of Sporting Activities Do You Participate In? None Information not available 09/15/2022 How Many Years Have You Smoked Tobacco? 7 Information not available 09/15/2022 Sex: Unknown Functional Status Question Answer Note LastModified by Organizat ion Details LastModified Time What is your level of alcohol consumption? Occasional Information not available 09/15/2022 Do you or have you ever used smokeless tobacco? Never used smokeless tobacco Information not available 09/15/2022 What is your occupation? Retired Information not available 09/15/2022 Do you or have you ever used e-cigarettes or vape? Never used electronic cigarettes Information not available 09/15/2022 What is your exercise level? None Information [...] SNOMED-CT Code Diagnosis ICD10 Code Diagnosis Note [id number] KUNAL WAYNE MD [facility] Office [address] [place] [phone] 09/15/2022 13:37:19 09/15/2022 15:02:19 Bilateral osteoarthritis of knees [id number] 33628 M17.0 Health Concerns Section Related Observation LastModified by Organization Detai ls LastModified Time None Recorded Concern Status LastModified by Organization Details LastModified Time None Recorded Advance Directives Directive None Recorded Payers Insurance Date Sequence Insurance Name Policy Number Policy Bland Covered Member ID Bland Member ID Guarantor Name 09/08/2022 1 [place] [employer] Rosina Stern [id number] Rosina Stern 09/08/2022 1 [place] [id number] Rosina Chapin [id number] Rosina Stern 09/21/2022 1 [place] (MEDICARE [place]ACEMENT PPO) [id number] Rosina Stern [id number] Rosina Stern Notes Date Note Type [...] physical therapy. She has been told in [place] that she has reasonably good looking knees. She is very frustrated with the knees both sides. She is presently taking no medications for the knees. She has had no recent injections in the knees. She has had no therapy for the knees. KUNAL WAYNE MD [address] [place] [address], [phone], [facility] 09/15/2022 15:00:01 OBGyn Episode No OBEpisode recorded.
--- OUTSIDE RECORDS SUMMARY | 2025-04-08 11:36 | XMS_ITS ---
Author Organization Slim Hammond MD Address [address] [place] [phone] Care Team Providers Care Customer Success Specialist Name Role Phone Slim Hammond Primary Care Provider REASON FOR VISIT recall on med Medications Medication SIG (Take, Route, Fr equency, Duration) Notes Start Date End Date Status Synthroid 100 MCG 1 tablet in the morn ing on an empty stomach Orally Once a day for 90 days 12/11/2024 Active Encounters Encounter Location Date Provider Diagnosis Slim Hammond MD [address] [place] [phone] 12/11/2024 Slim Hammond Plan Of Treatment Medication Medication Name Sig Start Date Stop Date Notes Synthroid 100 MCG 1 tablet in the morn ing on an empty stomach Orally Once a day for 90 days 12/11/2024 Next Appt Details Provider Name:Slim salter, 04/27/2025 08:00:00 AM, [address], [address] [place] [address], [phone], Provider Name:Slim Monico Devyn salter, 05/04/2025 02:30:00 PM, [address], [address], [place], [place], [phone], Progress Notes * Isadora PAZB:1955 (69 yo F)Acc No.[id number]:12/11/2024 Patient:?Shanon PAZ :1955???Age:69 Y???Sex:Female Address:[address] [place] [phone] * Refills? Start Synthroid Tablet, 100 MCG, Orally, 90 Tablet, 1 tablet in the morning on an empty stomach, Once a day, 90 days, Refills=3 * true * Date:? Generated for Rigo hayward/Ayala/Shannonsmitting on:?04/08/2025 11:35 AM EDT
--- OUTSIDE RECORDS SUMMARY | 2025-04-08 11:36 | XMS_ITS ---
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 Role Phone Slim Hammond Primary Care Provider [phone] Results Component Value Reference Range Notes Liver Panel Reviewed date:10/23/2024 03:12:27 PM Interpretation: Performing Lab:[facility], [address] [place] [phone] Notes/Report: Bilirubin Total 0.5 0.0-1.0 mg/dL Bilirubin Direct 0.2 0.0-0.5 mg/dL Aspartate Amino Transferase 22 5-31 U/L Alanine Aminotransferase 27 0-31 U/L Total Protein 6.5 6.5-8.0 g/dL Albumin Level 4.0 3.5-5.0 g/dL Alkaline Phosphatase 74 39-117 U/L Lipid Panel Reviewed date:10/23/2024 03:13:32 PM Interpretation: Performing Lab:[facility], [address] [place] [phone] Notes/Report: Triglycerides 88 <150 mg/dL Desirable Triglyceride: [...] T4 Reviewed date:10/23/2024 03:29:08 PM Interpretation: Performing Lab:[facility], [address] [place] [phone] Notes/Report: TSH reflex Free T4 0.83 0.32-4.0 uIU/mL REASON FOR VISIT fasting lipids, liver and TSH Encounters Encounter Location Date Provider Diagnosis Slim Hammond MD [address] [place] [address] Drive [address] [place], [place] [phone] 10/23/2024 Slim Hammond Pure hypercholestero lemia E78.00 and Acquired hypothyroidism E03.9 Assessments Encounter Date Diagnosis (ICD Code) Assessment Notes Treatment Notes Treatment Clinical Notes Section Notes 10/23/2024 Pure hypercholesterolemia (ICD-10 - E78.00) 10/23/2024 Acquired hypothyroid ism (ICD-10 - E03.9) Plan Of Treatment Next Appt Details Provider Name:Slim salter, 04/27/2025 08:00:00 AM, [address] [place] [address], [address], [place], [place], [phone], Provider Name:Slim salter, 05/04/2025 02:30:00 PM, [address] [place] [address], [address], [place], [place], [phone], Progress Notes * Tatum PAZ:1955 (70 yo F)Acc No.[id number]:10/23/2024 Progress Note Patient:Shanon SILVER Provider:?Slim Hammond MD :1955???Age:69 Y???Sex:Female D ate:10/23/2024 Address:[address] [place], [place] [phone] Subjective: * Chief Complaints: * ???1. fasting lipids, liver and TSH. * Medical History:? Objective: * Vitals:? Assessment: * Assessment: 1.?Pure hypercholesterolemia - E78.00 (Primary)???2.?Acquired hypothyroidism - E03.9??? Plan: * Treatment: 2.?Acquired hypothyroidism?LAB: TSH reflex Free T4 (Collection Date & Time - 10/23/2024 07:30 AM) * Procedure Codes:?76579 VENIP UNCT, ROUTINE* * * The named appointment provid er may or may not be the originator of this progress note, and it is not deemed complete until electronically signed by the appointment provider. Sign off status: Pending * Provider:?Slim Hammond MD Date:?1 12/24/2023 Generated for Rigo hayward/Ayala/Brandiitting on:?04/08/2025 11:35 AM EDT
--- OUTSIDE RECORDS SUMMARY | 2025-04-08 11:36 | XMS_ITS | Clinical Summary ---
Author Organization [facility] ity Address [address] [place] [phone] Care Team Providers Care Manager Digital Name Role Phone Unavailable Primary Care Provider [...]
--- OUTSIDE RECORDS SUMMARY | 2025-04-08 11:36 | XMS_ITS ---
Author Organization Slim Hammond MD Address [address] [place] [phone] Care Team Providers Care Health Care / Medical Job Titles Name Role Phone Slim Hammond Primary Care [...] Location Date Provider Diagnosis Slim Hammond MD [address] [place] [address] Drive [address] [place], [place] [phone] 10/31/2024 Slim Hammond Acquired hypothyroid ism E03.9 [...] Details Provider Name:Slim salter, 04/27/2025 08:00:00 AM, [address] [place] [address], [address], [place], [place], [phone], Provider Name:Slim salter, 05/04/2025 02:30:00 PM, [address], [address], [place], [place], [phone], Progress Notes * Laekisha PAZaDOB:1955 (69 yo F)Acc No.[id number]:10/31/2024 Patient:?Shanon Paz Provider:?Slim Hammond MD :1955???Age:69 Y???Sex:Female D ate:10/31/2024 Address:[address] [place], [place] [phone] Subjective: * Chief Complaints: * ???6 month/ [...] MD Date:?1 01/01/2024 Generated for Rigo hayward/Ayala/eTransmitting on:?04/08/2025 11:35 AM EDT History and Physical Notes * [...]
[2025-05-12 14:05] VITALS: BMI 34.3
--- NOTE | 2025-05-13 09:50 | HO.ANESPROP2 ---
HPI - Anesthesia Eval Consult details Narrative: 70yo F for Upper Endoscopy PMFSH Active Problems Active Problems: All Active Problems Esophagitis (Acute) Ovarian cyst (Acute) Thickened endometrium (Acute) History of back surgery (Acute) Diverticulosis of colon (Acute) Chronic heartburn (Acute) Personal history of colonic polyps (Acute) Family history of colon cancer (Acute) Diverticulitis (Acute) Uterine myoma (Acute) Postmenopausal bleeding (Acute) Osteopenia (Acute) Osteoporosis screening (Acute) Well woman exam (Acute) Past Medical History Medical History Hypothyroid GERD (gastroesophageal reflux disease) PVC (premature ventricular contraction) Elevated cholesterol Deviated septum Degeneration of spine Thyroid nodule Osteoarthritis Family History Family History Paternal Aunt Breast CA Father Colon cancer Family history of problems with anesthesia: No Surgical History Surgical History Hx of dilation and curettage History of esophagogastroduodenoscopy (EGD) History of nasal surgery Hx of tonsillectomy History of surgery H/O colonoscopy Tubal ligation status History of H/O shoulder surgery History of arthroscopy of both knees History of Problems with Anesthesia: No Social History Social History Are you a primary child caregiver private home to a significant other at home: No Do you presently have visiting nurse or other home services: No Alcohol intake: current Alcohol intake frequency: holidays/special occasions only Patient Tobacco Use Status: Former Tobacco user Tobacco use type: Cigarette Years Smoked: 7 Advance Directives Date on File: 12/15/22 Gender identity: Female Meds Allergies Allergy/AdvReac Type Severity Reaction Status Date / Time No Known Allergies Allergy Verified 03/03/25 09:17 Home Medications ?Medication ?Instructions ?Recorded ?Confirmed ?Last Taken ?Type levothyroxine 100 mcg tablet 100 mcg PO QAM 11/10/20 05/12/25 12/15/22 History cholecalciferol (vitamin D3) 25 25 mcg PO DAILY 12/08/22 05/12/25 12/14/22 History mcg (1,000 unit) capsule (Vitamin D3) atorvastatin 40 mg tablet 40 mg PO DAILY 11/08/23 05/12/25 Unknown History clobetasol 0.05 % topical cream 1 appl topical BEDTIME 07/01/24 05/12/25 Unknown History Exam Height,Weight and Vital Signs: Height 5 ft 4 in Weight 90.718 kg Assessment and Plan Assessment Anesthesia Assessment: Chart Reviewed Final Anesthetic Review Family History of Problems with Anesthesia: No History of Problems with Anesthesia: No
[2025-05-14 09:07] VITALS: BMI 34.5
[2025-05-14 09:15] VITALS: BP 172/89; PULSE 61; RESP 16; TEMP 36.5; O2SAT 98
[2025-05-14] MEDS: Lactated Ringers 1,000 ML 100 ML IVCONT (09:29)
--- NOTE | 2025-05-14 09:41 | MHC.SHP ---
Pre-Procedural Eval Section A - 24 Hr Update-Section A only Date of Service: 05/14/25 Section B - Complete if H&P > 30 days Chief Complaint: Esophagitis, unspecified without bleeding Details of Present Illness: Hypothyroid GERD (gastroesophageal reflux disease) PVC (premature ventricular contraction) Elevated cholesterol Deviated septum Degeneration of spine Thyroid nodule Osteoarthritis Surgical History History of nasal surgery Hx of tonsillectomy History of surgery H/O colonoscopy Tubal ligation status History of H/O shoulder surgery History of arthroscopy of both knees Allergies: Allergies Allergy/AdvReac Type Severity Reaction Status Date / Time No Known Allergies Allergy Verified 03/03/25 09:17 Review of Systems Review of Systems Comment: Ten point ROS negative Exam Exam Comment: Gen appear: No acute distress HEENT: no icterus Chest: No overt resp distress Abd: soft, nontender, nondistended Psych: Stable affect, answering questions appropriately Neuro: A/Ox3 noted to move all extremities spontaneously Ext: no peripheral edema Plan Diagnosis/Plan: Unchanged I have reviewed the history and physical and performed a pertinent physical examination on my patient. No changes have occurred unless specified. Time Spent With Patient Time: Total time managing care of this patient today ____ minutes.
[2025-05-14 09:52] VITALS: PULSE 48
--- NOTE | 2025-05-14 10:01 | HO.ANESPROP2 ---
[facility] Active Problems Active Problems: All Active Problems (Updated 07/29/24 @ 11:28 by Lalo Mao MD) Esophagitis (Acute) Ovarian cyst (Acute) Thickened endometrium (Acute) History of back surgery (Acute) Diverticulosis of colon (Acute) Chronic heartburn (Acute) Personal history of colonic polyps (Acute) Family history of colon cancer (Acute) Diverticulitis (Acute) Uterine myoma (Acute) Postmenopausal bleeding (Acute) Osteopenia (Acute) Osteoporosis screening (Acute) Well woman exam (Acute) Past Medical History Medical History Hypothyroid GERD (gastroesophageal reflux disease) PVC (premature ventricular contraction) Elevated cholesterol Deviated septum Degeneration of spine Thyroid nodule Osteoarthritis Functional capacity: independent ambulation Patient : No Family History Family History Paternal Aunt Breast CA Father Colon cancer Family history of problems with anesthesia: No Surgical History Surgical History Hx of dilation and curettage History of esophagogastroduodenoscopy (EGD) History of nasal surgery Hx of tonsillectomy History of surgery H/O colonoscopy Tubal ligation status History of H/O shoulder surgery History of arthroscopy of both knees History of Problems with Anesthesia: No Social History Social History Are you a primary director critical care to a significant other at home: No Do you presently have visiting nurse or other home services: No Alcohol intake: current Alcohol intake frequency: holidays/special occasions only Patient Tobacco Use Status: Former Tobacco user Tobacco use type: Cigarette Years Smoked: 7 Use of substances other than those prescribed or required for medical reasons: No Are you DNR?: No Advance Directives: No Advance Directives Information Provided: Yes Advance Directives Date on File: 12/15/22 : No Poor oral hygiene: No Gender identity: Female Meds Allergies Allergy/AdvReac Type Severity Reaction Status Date / Time No Known Allergies Allergy Verified 03/03/25 09:17 Active Medications: Current Medications Lactated Ringer's (Lr) 1,000 mls @ 100 mls/hr IVCONT .Q10H OLIVIA Last Admin: 05/14/25 09:29 Dose: 100 mls/hr Home Medications ?Medication ?Instructions ?Recorded ?Confirmed ?Last Taken ?Type levothyroxine 100 mcg tablet 100 mcg PO QAM 11/10/20 05/12/25 12/15/22 History cholecalciferol (vitamin D3) 25 25 mcg PO DAILY 12/08/22 05/12/25 12/14/22 History mcg (1,000 unit) capsule (Vitamin D3) atorvastatin 40 mg tablet 40 mg PO DAILY 11/08/23 05/12/25 Unknown History clobetasol 0.05 % topical cream 1 appl topical BEDTIME 07/01/24 05/12/25 Unknown History Exam Height,Weight and Vital Signs: Height 5 ft 4 in Weight 91.3 kg Last Vital Signs Temp 97.7 F 05/14/25 09:15 Pulse 48 L 05/14/25 09:52 Resp 16 05/14/25 09:15 BP 172/89 H 05/14/25 09:15 Pulse Ox 98 05/14/25 09:15 O2 Del Method Room Air 05/14/25 09:15 Airway Mallampati Class: II TM Dist: >3cm Neck ROM: Full Heart: RRR Lungs: CTA Assessment and Plan Assessment Anesthesia Assessment: Anesthesia Plan Discussed Final Anesthetic Review Family History of Problems with Anesthesia: No History of Problems with Anesthesia: No NPO: Yes ASA Class: II Final Preanesthetic Review: Meds/Allgs Chart Reviewed, Consent Obtained/Reviewed and Anes Risks/Benef Reviewed Patient Risk: Low Procedure Risk: Low Anesthetic Plan Anesthetic Plan: MAC: Disposition: Standard PACU
--- NOTE | 2025-05-14 10:26 | P.OP_ITS ---
Operative Note Operative Note Date of Service: 05/14/25 Narrative: Procedure: Esophagogastroduodenoscopy Endoscopist: Joan Vargas MD Indication: Esophagitis Anesthesia Provider: Dr Naz Cosby Anesthesia Type: MAC ?? EGD Procedure:?? The procedure, indications, preparation and potential complications were reviewed with the patient, who indicated understanding and gave written informed consent to proceed. A physical exam was performed. The endoscope was introduced through the mouth, and advanced to the second part of duodenum. The mucosa was carefully examined on slow withdrawal of the endoscope. The patient tolerated the procedure well. There were no immediate complications.? ? EGD Findings:? * Esophagus:? Normal mucosa noted in the entire esophagus. The Z line was at 37 cm displaced upwards by hiatal hernia with the diaphragmatic pinch at 39 cm. Middle and lower esophagus forceps biopsies were obtained to rule out eosinophilic esophagitis. * Stomach:? Normal mucosa was noted in the stomach. Retroflexion was performed in the cardia with Hill grade II hiatal hernia. * Duodenum:? Normal mucosa was noted in the whole of the examined duodenum. ? EGD Impressions:? * Normal esophagus (biopsy) * Hiatal hernia * Normal stomach * Normal duodenum ?? Recommendations:?? * Follow biopsy results. Our office will call or send a letter with results within 7-10 days. * Decrease omeprazole to once daily * Avoid NSAIDs Above has been reviewed with the patient.
[2025-05-14 10:33] VITALS: BP 133/63; PULSE 52; RESP 16; TEMP 37; O2SAT 96
[2025-05-14 10:48] VITALS: BP 133/63; PULSE 59; RESP 18; TEMP 36.8; O2SAT 99
--- NOTE | 2025-05-14 10:55 | HO.POSTANES ---
Post Anesthesia Evaluation Post Anesthesia Evaluation Date of Service: 05/14/25 Vital Signs: Vital Signs Temp Pulse Resp BP Pulse Ox O2 Del Method 05/14/25 10:33 98.6 F 52 16 133/63 96 Room Air 05/14/25 09:52 48 L 05/14/25 09:15 97.7 F 61 16 172/89 H 98 Room Air Anesthesia: Monitored Mental Status: Awake Pain Control: Satisfactory Nausea/Vomiting: None Hydration: Adequate Anesthesia-Related Issues: No Anes. Related Issues
== END 2025-05-14 11:45 | disposition home or self-care (01) ==
PROVIDERS: PCP Internal Medicine; Visit Provider Internal Medicine
PROC: 0DJ08ZZ Inspection of Upper Intestinal Tract, Via Natural or Artificial Opening Endoscopic (ICD-10-PCS; CPT 43235; principal; 2025-05-14 10:50)
DX: K20.90 Esophagitis, unspecified without bleeding (principal); K22.9 Disease of esophagus, unspecified; K44.9 Diaphragmatic hernia without obstruction or gangrene; K21.9 Gastro-esophageal reflux disease without esophagitis; E03.9 Hypothyroidism, unspecified; E78.00 Pure hypercholesterolemia, unspecified; Z87.891 Personal history of nicotine dependence; Z80.0 Family history of malignant neoplasm of digestive organs
CPT/HCPCS: 43239; 88305; J2003; J2704

== ENCOUNTER → 2025-05-14 08:59 | Outpatient (BNV) | payer MEDICARE, SELFPAY | PROVIDERS: PCP Internal Medicine; Visit Provider Internal Medicine | DX: K20.90 Esophagitis, unspecified without bleeding (principal); K44.9 Diaphragmatic hernia without obstruction or gangrene | CPT/HCPCS: 43239 ==

== ENCOUNTER 2025-05-15 10:38 | Outpatient (REF) | payer MEDICARE, SELFPAY ==
[2025-05-15 10:44] LABS: MANUAL DIFF FLAG NO
[2025-05-15 10:52] LABS: Basophils Percent Auto 0.6 % (0-2); Eosinophils Absolute Auto 0.3 X10*3/uL (0.0-0.4); Eosinophils Percent Auto 4.8 % (0-4); Hematocrit 41.4 % (37.0-47.0); Hemoglobin 13.8 g/dl (12.0-16.0); Imm Gran Abs Auto 0.02 X10*3/uL (0.00-0.03); Imm Gran Pct Auto 0.3 % (0.0-0.4); Lymphocytes Absolute Auto 1.9 X10*3/uL (1.2-4.9); Mean Corpuscular HGB Conc 33.3 g/dl (31.0-35.0); Mean Corpuscular Hemoglobin 30.8 pg (27.0-33.0); Mean Corpuscular Volume 92.4 fL (80.0-98.0); Mean Platelet Volume 11.5 fL (9.4-12.3); Monocytes Absolute Auto 0.6 X10*3/uL (0.1-1.2); Monocytes Percent Auto 8.6 % (2-11); Neutrophils Absolute Auto 4.1 x10*3/uL (2.0-8.3); Neutrophils Percent Auto 58.7 % (45-73); Platelet Count 194 X10*3/uL (160-400); Red Blood Count 4.48 X10*6/uL (4.20-5.50); Red Cell Distribution Width 13.8 % (11.0-16.0); White Blood Count 6.9 X10*3/uL (4.8-10.8)
[2025-05-15 10:53] LABS: Appearance Urine Clear; Color Urine Yellow; Glucose Urine UA Negative (Negative); Leukocyte Esterase Urine Negative (Negative); Nitrite Urine Negative (Negative); Specific Gravity - Urine 1.015 (1.005-1.025); Urine Blood Negative (Negative); Urine Ketones Negative (Negative); Urine Protein Negative (Neg-Trace)
[2025-05-15 10:56] LABS: Bacteria Urine None Seen (None Seen); Hyaline Casts Urine 0-2 /LPF (0-2); RBC Urine 0-2 /HPF (0-2); Squamous Epithelial Cell Urine 0-2 /HPF (0-2); WBC Urine 0-5 /HPF (0-5)
[2025-05-15 11:19] LABS: Alanine Aminotransferase 26 U/L (0-31); Albumin Level 3.8 g/dL (3.5-5.0); Alkaline Phosphatase 70 U/L (39-117); Anion Gap 12 (12-20); Aspartate Amino Transferase 17 U/L (5-31); Bilirubin Total 0.7 mg/dL (0.0-1.0); Blood Urea Nitrogen 15 mg/dL (9-16); Calcium 8.7 mg/dL (8.4-10.2); Carbon Dioxide 27 mmol/L (22-29); Chloride 108 mmol/L (96-108); Cholesterol 167 mg/dL (<200); Estimated Glomerular Filt Rate 58; Glucose Fasting 109 mg/dL (60-99); HDL Cholesterol 44 mg/dL (>40); LDL Cholesterol Calculated 98 mg/dL (<100); Sodium 143 mmol/L (135-145); Triglycerides 128 mg/dL (<150)
[2025-05-15 11:21] LABS: Estimated Average Glucose 123 mg/dL; Hemoglobin A1c % 5.9 % (<6.0)
[2025-05-15 11:29] LABS: TSH reflex Free T4 2.95 uIU/mL (0.32-4.0); Vitamin D 25-OH Total 50.6 ng/mL (>30)
--- OUTSIDE RECORDS SUMMARY | 2025-05-15 11:33 | XMS_ITS | Data Portability ---
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 We ve discussed the many forms of conservative [...] Knee arthritis - patellofemo ral PT 2021 [id number] Not available 06:53:29 Procedures None recorded. Surgeries None recorded. Imaging None recorded. Medication Orders diclofenac sodium 75 mg tablet,ivy yed release 2021 [id number], [address] [place], [address], 14:59:57 Patient TargetsNo targets recorded. Patient InstructionsNo instructions recorded. Reason for Referral Physical Therapist Referral for Bilateral osteoarthritis of knees Knee arthritis - patellofemoral PT Referring Physician: Kunal Gross, Orthopedic Surgery, Encounter Date: 09/15/2022 Procedures Surgical History Date Name Laterality Status Provider Name and Address Organization Details Recorded Time 9 Other completed Dannielle Freeman [place] [facility] 09/15/2022 14:30:23 2 Orthopaedic Surgery completed [facility] 09/15/2022 14:30:14 2 Orthopaedic Surgery completed Danniellemark Freeman [facility] 09/15/2022 14:30:38 Other completed [facility] 09/15/2022 14:30:47 Other [facility] 09/15/2022 14:30:58 Imaging Results None recorded. Procedure [...] Address Organization Details Last Updated DateTime 09/15/2022 06090.84 g 35 kg/m2 162.56 cm Danniellemark Freeman [facility] 09/15/2022 14:26:11 Social History Question Answer Notes LastModified by Organizat ion Details LastModified Time Tobacco Smoking Status Former Smoker [facility] 09/15/2022 14:28:02 What Is Your Level Of [...] SNOMED-CT Code Diagnosis ICD10 Code Diagnosis Note [id number] KUNAL WAYNE MD [facility] [address] [place] [phone] 09/15/2022 13:37:19 09/15/2022 15:02:19 Bilateral osteoarthritis of knees [id number] 50215 M17.0 Health Concerns Section Related Observation LastModified by Organization Detai ls LastModified Time None Recorded Concern Status LastModified by Organization Details LastModified Time None Recorded Advance Directives Directive None Recorded Payers Insurance Date Sequence Insurance Name Policy Number Policy Bland Covered Member ID Bland Member ID Guarantor Name 09/08/2022 1 [place] [employer] Rosina Stern [id number] Rosina Stern 09/08/2022 1 [place] [id number] Rosina Chapin [id number] Rosina Stern 09/21/2022 1 [place] (MEDICARE [place]EMENT PPO) [id number] Rosina Stern [id number] Rosina Stern Notes Date Note Type [...] physical therapy. She has been told in [place] that she has reasonably good looking knees. She is very frustrated with the knees both sides. She is presently taking no medications for the knees. She has had no recent injections in the knees. She has had no therapy for the knees. KUNAL WAYNE MD [address] [place] [address], [phone], [facility] - [facility] 09/15/2022 15:00:01 OBGyn Episode No OBEpisode recorded.
[2025-05-15 11:52] LABS: Creatinine Urine 97.55 mg/dL; Microalbumin Urine < 5.0 mg/L
== END 2025-05-15 10:39 | disposition home or self-care (01) ==
LOC: HO.LNP 10:38
PROVIDERS: Visit Provider Internal Medicine
DX: Z00.00 Encounter for general adult medical examination without abnormal findings (principal); D72.820 Lymphocytosis (symptomatic); E03.9 Hypothyroidism, unspecified; E55.9 Vitamin D deficiency, unspecified; R73.09 Other abnormal glucose
CPT/HCPCS: 80053; 80061; 81001; 82043; 82306; 82570; 83036; 84443; 85025

== ENCOUNTER 2025-07-22 10:21 | Outpatient (AMB) | payer MEDICARE, SELFPAY ==
--- NOTE | 2025-07-22 10:29 | MHC.OFFVIS ---
Vital Signs 07/22/25 10:31 Height 5 ft 4 in Weight 198 lb 6.656 oz BMI 34.1 BP 171/77 H Blood Pressure Location Lt brachial Position Sitting Pulse 55 Intake Visit Reasons: egd 05/14 Intake Note: Rosina aggarwalents in the office as a follow up EGD. CC: States she is on a 10 day z-pack. She had a diverticulitis flare up so was given an antibiotic. Community Health Coordinator Required: No Allergies No Known Allergies Allergy (Verified 07/22/25 10:31) HPI Comments Details: This is a 68-year-old female with past medical history of PVC, asthma, who was referred to our office by her PCP for question of diverticulitis. History was obtained from the patient, who states that at the end of Dec developed LLQ cramping and pain assoc with painful defecation and decreased appetite. No fevers or chils. This has happened at least 2 times before in the past year but was never this severe so never had to get medical attention. PCP Rxed Augmentin x 10 days. SHe also had a CT scan 01/24 but resutls not available. Pt reports being told about diverticulosis. From documentation in the PCP note, last colonoscopy was in 2019 (Dr. Prasad) and repeat was recommended in 5 years. Fam hx: Father: CRC in his 60s. Pt also reports intermittent heartburn 3 days/week at an average, goes away with tums. No difficulty swallowing, no N,V, regurgitation. No fam hx of esophageal or stomach ca. 07/17/24: 1. Esophagitis with GEJ esophageal ulcer 2. Hiatal hernia 3. Gastritis (biopsy) 4. Duodenitis (biopsy) 5. Normal colon and terminal ileum mucosa 6. Diverticulosis 7. Internal hemorrhoids Path: A. Duodenum, biopsy: Duodenal mucosa within normal limits. B. Stomach, random, biopsy: Antral-type and oxyntic mucosa with mild chronic inactive inflammation; no Helicobacter organisms seen 08/04/24: Results of EGD and colo reviewed with the pt. Pt has been on omeprazole BID since the procedure. No polyps but due to fam hx of CRC, has 5y interval. 05/14/25: EGD Normal esophagus (normal path on mid and lower bx) Hiatal hernia Normal stomach Normal duodenum 07/22/25: Here for follow up. Reports had L sided diverticulitis 2 weeks ago. Had l sided pain and cramping with diarrhea. After the sx were unchanged for a week went to PCP who prescribed augmentin x 10 days. Sx went away within 2 days of taking augmentin. Has had at least 2 diverticulitis flare ups this year. In terms of reflux, this is well controlled. No sx on omeprazole 20 daily. Reviewed that will likely need this daily since has had hx of erosive esophagitis. [facility] Medical History Hypothyroid GERD (gastroesophageal reflux disease) PVC (premature ventricular contraction) Elevated cholesterol Deviated septum Degeneration of spine Thyroid nodule Osteoarthritis Surgical History Hx of dilation and curettage History of esophagogastroduodenoscopy (EGD) History of nasal surgery Hx of tonsillectomy History of surgery H/O colonoscopy Tubal ligation status History of H/O shoulder surgery History of arthroscopy of both knees Family History Paternal Aunt Breast CA Father Colon cancer Social History Are you a primary child care leader to a significant other at home: No Do you presently have visiting nurse or other home services: No Alcohol intake: current Alcohol intake frequency: holidays/special occasions only Patient Tobacco Use Status: Former Tobacco user Tobacco use type: Cigarette Years Smoked: 7 Advance Directives Date on File: 12/15/22 Gender identity: Female Female Reproductive History Menstrual Age of Menarche: 12 Review of Systems Const All systems reviewed & are unremarkable except as noted in HPI and below Physical Exam Exam Exam: No apparent distress Nonicteric Abdomen soft, nondistended Alert and oriented x3, normal gait Vital Signs: BMI result Body Mass Index 34.1 Assessment & Plan Assessment & Plan (1) Esophagitis: Code(s): K20.90 - Esophagitis, unspecified without bleeding Category: Medical (2) Chronic heartburn: Code(s): R12 - Heartburn Category: Medical (3) Family history of colon cancer: Code(s): Z80.0 - Family history of malignant neoplasm of digestive organs Category: Medical (4) Diverticulosis of colon: Code(s): K57.30 - Diverticulosis of large intestine without perforation or abscess without bleeding Category: Medical Plan 1. GERD with esophagitis. Had endoscopic evidence of esophagitis with a hiatal hernia in 2023. This has healed up. Good response to PPI therapy. Of note osteopenia listed in problem list but recent DEXA with normal BMD. Plan: - COnt omeprazole 20 daily 2. Fam hx of CRC Next colo due in 2028 due to fam hx. 3. Diverticulosis Had uncomplicated diverticulitis a few weeks ago. Had Abx rxed by PCP. Plan: - Pt advised to call our/pcp office if has recurrent episode and sx last > 3 days for oral Abx - No indication for surg referral at this time Follow up 1 year Coding Level of Care Code Est Pt Level 4 (21077) Diagnoses Esophagitis K20.90 Chronic heartburn R12 Family history of colon cancer Z80.0 Diverticulosis of colon K57.30
[2025-07-22 10:31] VITALS: BP 171/77; PULSE 55; BMI 34.1
--- OUTSIDE RECORDS SUMMARY | 2025-07-22 12:10 | XMS_ITS | Clinical Summary ---
Author Organization [facility] ity Address [id number] [place] [phone] Care Team Providers Care Information Technology Analyst Name Role Phone Unavailable Primary Care Provider [...] Vaccine ( - 2023-2 5 season) 2024 Depression Screening 11/19/2024 Influenza Vaccine (#1) 2025 RSV Immunization Adult Patie nts (1 [...]
== END 2025-07-22 10:47 | disposition home or self-care (01) ==
LOC: HO.HGI 10:22
PROVIDERS: PCP Internal Medicine; Visit Provider Internal Medicine
DX: K20.90 Esophagitis, unspecified without bleeding (principal); R12 Heartburn; Z80.0 Family history of malignant neoplasm of digestive organs; K57.30 Diverticulosis of large intestine without perforation or abscess without bleeding
CPT/HCPCS: 99214

== ENCOUNTER → 2025-07-22 10:21 | Outpatient (BNVA) | payer MEDICARE, SELFPAY | PROVIDERS: PCP Internal Medicine; Visit Provider Internal Medicine | DX: K57.30 Diverticulosis of large intestine without perforation or abscess without bleeding (principal); K20.90 Esophagitis, unspecified without bleeding; R12 Heartburn; Z80.0 Family history of malignant neoplasm of digestive organs | CPT/HCPCS: 99212 ==

== ENCOUNTER 2025-07-30 15:53 | Inpatient (IN) | payer MEDICARE, SELFPAY ==
--- OUTSIDE RECORDS SUMMARY | 2025-06-01 10:42 | XMS_ITS ---
Author Organization Slim Hammond MD Address [address] [place] [phone] Care Team Providers Care Purchasing Officer Name Role Phone Slim Hammond Primary Care Provider REASON FOR VISIT MRI Brain w and w/o contrast due Encounters Encounter Location Date Provider Diagnosis Slim Hammond MD [address] [place] [phone] 06/01/2025 Slim Hammond Meningioma D32.9 Assessments Encounter [...] 08:00:00 AM, [address], [address], [place], [phone], Provider Name:Slim Shepard ier, 11/23/2025 09:00:00 AM, [address], [address], [place], [phone], Provider Name:Slim Shepard ier, 05/13/2026 07:45:00 AM, [address], [address], [place], [phone], Provider Name:Slim Shepard ier, 05/20/2026 09:30:00 AM, [address], [address], [place], [phone], Progress Notes * Lakeisha PAZaDOB:1955 (70 yo F)Acc No.[id number]:06/01/2025 Patient: Shanon PURI :1955 A ge:70 Y S ex:Female Address:[address] [place] [phone] Subjective: * Chief Complaints: * M RI [...] * true * Date: Generated for Printi ng/Fawolfgangg/eTransmitting on: 0 07/30/2025 10:11 PM EDT
--- OUTSIDE RECORDS SUMMARY | 2025-06-02 05:49 | XMS_ITS ---
Author Organization Slim Hammond MD Address [address] [place] [address] [phone] Care Team Providers Care Bioinformatics Technician Name Role Phone Slim Hammond Primary Care Provider Encounters Encounter Location Date Provider Diagnosis Slim Hammond MD 10 [facility] [address] [place] [address] [phone] 06/02/2025 Slim Hammond Plan Of Treatment Next Appt Details Provider Name:Slim salter, 11/17/2025 08:00:00 AM, [address] [place] [address], [address], [phone], Provider Name:Slim salter, 11/23/2025 09:00:00 AM, [address] [place] [address], [address], [phone], Provider Name:Slim salter, 05/13/2026 07:45:00 AM, [address] [place] [address], [address], [phone], Provider Name:Slim P Devyn kaylar, 05/20/2026 09:30:00 AM, [address], [address], [place], [phone], Progress Notes * Isadora PAZB:1955 (70 yo F)Acc No.[id number]:06/02/2025 Patient: Denzel Shanon MACHADO :1955 A ge:70 Y S ex:Female Address:[address] [place] [phone] * true * Date: Generated for Rigo hayward/Ayala/Brandiitting on: 0 07/30/2025 10:11 PM EDT
--- OUTSIDE RECORDS SUMMARY | 2025-07-14 06:45 | XMS_ITS ---
Author Organization Slim Hammond MD Address [address] [place] [address] [phone] Care Team Providers Care Support Technician Name Role Phone Slim Hammond Primary Care Provider REASON FOR VISIT ? diverticulitis Encounters Encounter Location Date Provider Diagnosis Slim Hammond MD [address] [facility] [place] [phone] 07/14/2025 Slim Hammond Plan Of Treatment Next Appt Details Provider Name:Slim Shepard ier, 11/17/2025 08:00:00 AM, [address] [place] [address], [address] [place] [address], [phone], Provider Name:Slim Shepard iegorge, 11/23/2025 09:00:00 AM, [address] [place] [address], [address], [phone], Provider Name:Slim salter, 05/13/2026 07:45:00 AM, [address] [place] [address], [address], [phone], Provider Name:Slim Shepard gaetano, 05/20/2026 09:30:00 AM, [address], [address], [place], [phone], Progress Notes * Lakeisha PAZaDOB:1955 (70 yo F)Acc No.[id number]:07/14/2025 Patient: Denzel CARTER Shanon :1955 A ge:70 Y S ex:Female Address:[address] [place] [phone] * true * Date: Generated for Rigo hayward/Ayala/Brandiitting on: 0 07/30/2025 10:11 PM EDT
--- OUTSIDE RECORDS SUMMARY | 2025-07-14 11:30 | XMS_ITS ---
Author Organization Slim Hammond MD Address [address] [place] [address] [phone] Care Team Providers Care Management Sme Name Role Phone Slim Hammond Primary Care [...] Status W/U Status Risk Notes Problem Diverticulitis (14312099) Diverticulitis (K57.92) Active confirmed Vital Signs Blood pressure systolic 144 mm Hg 07/14/20 25 Blood pressure diastolic 80 mm Hg 025 Height 64 in 07/14/2025 Weight 202 lbs 07/14/2025 BMI 34.67 kg/m2 07/14/2025 weight is down 2 pounds [facility] 05-19-25 Encounters Encounter Location Date Provider Diagnosis Slim Hammond MD [address] [place] [phone] 07/14/2025 Slim Hammond Diverticulitis K57.9 2 Assessments Encounter Date Diagnosis (ICD Code) Assessment Notes Treatment Notes Treatment Clinical Notes Section Notes 07/14/2025 Diverticulitis (ICD-10 - K57.92) Plan Of Treatment Medication Medication Name Sig Start Date Stop Date Notes Amoxicillin-Pot Clavulanate 875-125 MG 1 tablet Orally every 12 hrs for 10 days 07/14/2025 Next Appt Details Provider Name:Slim salter, 11/17/2025 08:00:00 AM, [address] [place] [address], [address], [phone], Provider Name:Slim salter, 11/23/2025 09:00:00 AM, [address] [place] [address], [address], [phone], Provider Name:Slim salter, 05/13/2026 07:45:00 AM, [address] [place] [address], [address], [phone], Provider Name:Slim Shepard ier, 05/20/2026 09:30:00 AM, [address] [facility] [address], [address], [place], [place], [phone], Progress Notes * Lakeisha PAZaDOB:1955 (70 yo F)Acc No.[id number]:07/14/2025 Progress Notes Patient: Shanon PURI Provider: Sunni Hammond MD :1955 A ge:70 Y S ex:Female Date:07/14/2025 Address:[address] [place], [place] [phone] Subjective: * Chief Complaints: * ? diverticulitis [...] MD Date: 0 07/14/2025 Generated for Rigo hayward/Ayala/Brandiitting on: 0 07/30/2025 10:11 PM EDT History and Physical Notes * HPI [...]
--- NOTE | ~2025-07-30 | CT_ITS ---
CLINICAL HISTORY: lower abd pain, cramping hx of diverticulitis CT abdomen and pelvis with contrast Comparison: None provided Findings: LIMITED CHEST: Lung bases are clear. LIVER: Small hypoattenuating lesions, too small to characterize however may represent cysts. BILIARY: No gallbladder wall thickening, radiopaque stone, or ductal dilatation. PANCREAS: No mass or ductal dilatation. SPLEEN: No splenomegaly. KIDNEYS: No hydronephrosis or radiopaque stone. Small hypoattenuating lesions, too small to characterize however may represent cysts. ADRENALS: No nodule. VASCULAR: No aneurysm. RETROPERITONEUM: No lymphadenopathy or mass. BOWEL/MESENTERY: Small hiatal hernia. Sigmoid diverticulosis with significant adjacent inflammatory stranding. There is a 1.7 cm fluid collection adjacent to the sigmoid colon without rim enhancement. There are small pockets of extraluminal gas, representing contained micro perforation. ABDOMINAL WALL: No mass or significant abnormality. URINARY BLADDER: No focal wall thickening. PELVIC NODES: No pelvic lymphadenopathy. PELVIC ORGANS: Uterine fibroids. BONES: No acute fracture. OTHER: Negative. IMPRESSION: Acute sigmoid diverticulitis with small contained micro perforation. Small adjacent fluid collection. Developing abscess is not excluded. This document has been electronically signed by: Mary Agarwal MD on 07/31/2025 01:30:02
--- OUTSIDE RECORDS SUMMARY | 2025-07-30 04:30 | XMS_ITS ---
Author Organization Slim Hammond MD Address [address] [place] [phone] Care Team Providers Care Ware Carrier Name Role Phone Slim Hammond Primary Care Provider [phone] REASON FOR VISIT HDF Encounters Encounter Location Date Provider Diagnosis Slim Hammond MD 10 [facility] [address] [place] [phone] 07/30/2025 Slim Hammond Plan Of Treatment Next Appt Details Provider Name:Slim Shepard iegorge, 11/17/2025 08:00:00 AM, [address] [place] [address], [address], [phone], Provider Name:Slim salter, 11/23/2025 09:00:00 AM, [address] [place] [address], [address], [phone], Provider Name:Slim salter, 05/13/2026 07:45:00 AM, [address] [place] [address], [address], [phone], Provider Name:Slim Shepard ier, 05/20/2026 09:30:00 AM, [address], [address], [place], [phone], Progress Notes * Lakeisha PAZaDOB:1955 (70 yo F)Acc No.[id number]:07/30/2025 Progress Note Patient: Shanon PURI Provider: Sunni Hammond MD :1955 A ge:70 Y S ex:Female Date:07/30/2025 Address:[address] [place], [place] [phone] Subjective: * Chief Complaints: * 1 . [...] 0 07/30/2025 Generated for Rigo hayward/Ayala/Brandiitting on: 07/30/2025 10:11 PM EDT
[2025-07-30 16:12] VITALS: BP 193/89; PULSE 68; RESP 16; TEMP 36.1; O2SAT 98; BMI 39.2
--- NOTE | 2025-07-30 16:15 | ED_ITS ---
HPI - Abdominal Pain General Chief Complaint: Abdominal Pain Stated Complaint: lower extremity pain, cramping Time Seen by Provider: 07/30/25 21:54 Source: patient and old records reviewed Mode of arrival: ambulatory Limitations: no limitations History of Present Illness ED Provider: JULIA LANGSTON narrative: 70 yo female with PMH of HLD, GERD, hypothyroidism, diverticulitis who follows with Dr. Vargas - she was just on a 10 day course of augmentin starting 07/14 but she notes her symptoms returned and she has been having more pain the last few days with nausea and chills. She has no bloody stools or fevers. She was advised by her GI doctor to come to the ED MD elicited complaint: abdominal pain Pertinent past history: diverticulitis Onset (ago): day(s) (few) Pain Consistency: constant Location: LLQ Severity: moderate Quality: aching and fullness Radiation: none Migration to: no migration Exacerbating factors: eating and movement Relieving factors: nothing Context: history of similar episodes Associated symptoms: nausea and chills Related Data Home Medications ?Medication ?Instructions ?Recorded ?Confirmed levothyroxine 100 mcg tablet 100 mcg PO QAM 11/10/20 0 05/12/25 cholecalciferol (vitamin D3) 25 25 mcg PO DAILY 05/12/25 mcg (1,000 unit) capsule (Vitamin D3) atorvastatin 40 mg tablet 40 mg PO DAILY 11/08/2304/20 clobetasol 0.05 % topical cream 1 appl topical BEDTIME 07/01/24 05/12/25 albuterol sulfate 90 mcg/actuation 1 puff inhalation Q 4H PRN 07/22/25 aerosol inhaler Previous Rx's ?Medication ?Instructions ?Recorded omeprazole 20 mg capsule,delayed 20 mg PO BID #180 cap s 05/25/25 release Allergies Allergy/AdvReac Type Severity Reaction Status Date / Time No Known Allergies Allergy Verified 07/30/25 16:14 Review of Systems Review of Systems Constitutional : No Weight loss, No Fever, No Chills ENT/Mouth : No sore throat, No Rhinorrhea Eyes: No Swelling, No Redness Cardiovascular : No Chest Pain, No SOB, No Edema Respiratory : No Cough, No Sputum, No Wheezing Gastrointestinal : Positive Nausea, no Vomiting, no Diarrhea, positive abdominal Pain, No Hematochezia, No Melena Genitourinary : No Dysuria, No Urinary Frequency, No Hematuria, No Urgency Musculoskeletal : No joint pain, No Myalgias, No Joint Swelling Skin : No Skin Lesions, No rash Neuro : No Weakness, No Numbness, No Dizziness, No Headache All other systems reviewed and are negative. [facility] Past Medical History Attestation statement: The following information was validated with the patient. Source: old records reviewed Medical History Hypothyroid GERD (gastroesophageal reflux disease) PVC (premature ventricular contraction) Elevated cholesterol Deviated septum Degeneration of spine Thyroid nodule Osteoarthritis Surgical History Hx of dilation and curettage History of esophagogastroduodenoscopy (EGD) History of nasal surgery Hx of tonsillectomy History of surgery H/O colonoscopy Tubal ligation status History of H/O shoulder surgery History of arthroscopy of both knees Family History Family History Paternal Aunt Breast CA Father Colon cancer Social History Social History Are you a primary director of career services to a significant other at home: No Do you presently have visiting nurse or other home services: No Alcohol intake: current Alcohol intake frequency: holidays/special occasions only Patient Tobacco Use Status: Former Tobacco user Tobacco use type: Cigarette Years Smoked: 7 Smoked in Last 30 Days: No Use of substances other than those prescribed or required for medical reasons: No Advance Directives: Yes Advance Directives on File: Yes Advance Directives Date on File: 12/15/22 Gender identity: Female Physical Exam ED Vital Signs: Vital Signs - 24 hr 07/30/25 16:12 07/31/25 01:12 Temperature 97 F 98.4 F Pulse Rate 68 68 Respiratory Rate 16 16 Blood Pressure 193/89 H 146/68 H Pulse Oximetry 98 98 Oxygen Delivery Method Room Air Room Air BMI result Body Mass Index 39.2 Appearance: Alert. Oriented X3. No acute distress. Eyes: Pupils equal, round and reactive to light. ENT: Pharynx normal. Neck: Normal inspection. Neck supple. CVS: Normal heart rate and rhythm. Pulses normal. Respiratory: No respiratory distress. Breath sounds normal. Abdomen: Soft and moderate lower abdominal ttp but no rebound or guarding Skin: Skin warm and dry. Normal skin color. Normal skin turgor. Extremities: No lower extremity edema. No calf ttp Neuro: Oriented X 3. No motor deficit. No sensory deficit. Course Course Course Narrative: This is a Rapid Medical Examination (RME) performed by Mayra Avila PA-C in triage. Full HPI, ROS, assessment and treatment plan per primary provider in the Main ED. Hx: 70 yo F here for eval of abdominal cramping and nausea without vomiting. hx diverticulitis Plan: labs, UA Reevaluation(s) Reevaluation #1: signed out to Ja SUTHERLAND pending working 1230am Reevaluation #2: I Abby Peres PA-C have accepted care of the patient and signed out pending imaging and final disposition CT abdomen and pelvis:Findings: LIMITED CHEST: Lung bases are clear. LIVER: Small hypoattenuating lesions, too small to characterize however may represent cysts. BILIARY: No gallbladder wall thickening, radiopaque stone, or ductal dilatation. PANCREAS: No mass or ductal dilatation. SPLEEN: No splenomegaly. KIDNEYS: No hydronephrosis or radiopaque stone. Small hypoattenuating lesions, too small to characterize however may represent cysts. ADRENALS: No nodule. VASCULAR: No aneurysm. RETROPERITONEUM: No lymphadenopathy or mass. BOWEL/MESENTERY: Small hiatal hernia. Sigmoid diverticulosis with significant adjacent inflammatory stranding. There is a 1.7 cm fluid collection adjacent to the sigmoid colon without rim enhancement. There are small pockets of extraluminal gas, representing contained micro perforation. ABDOMINAL WALL: No mass or significant abnormality. URINARY BLADDER: No focal wall thickening. PELVIC NODES: No pelvic lymphadenopathy. PELVIC ORGANS: Uterine fibroids. BONES: No acute fracture. OTHER: Negative. IMPRESSION: Acute sigmoid diverticulitis with small contained micro perforation. Small adjacent fluid collection. Developing abscess is not excluded. We will be reaching out to surgery, it appears the patient requires admission. The patient received ceftriaxone, I am adding Zosyn Reevaluation #3: The patient became itchy while she was receiving the vancomycin, she had approximately 15 minutes left of the infusion, there was no rash, there was no angioedema, there was no difficulty swallowing or breathing, we will give 25 mg of IV Benadryl...... Nursing has reaching out to Dr. Bronson to let him know Time: 04:47 Consultations Consultation #1: Per Dr. Bronson.... The patient will be admitted to his service, no further recommendation Time: 01:34 Medical Decision Making Medical Decision Making [facility] Narrative: 70 yo female with PMH of HLD, GERD, hypothyroidism, diverticulitis here with c/o recurrent bout of lower abdominal pain, nausea, and chills who just completed 10 day course of augmentin 07/25 or 07/26. She will need labs, IV ceftriaxone to start as well as CT scan of abdomen for complicated diverticulitis Differential Diagnosis Differential Diagnoses: The differential diagnosis associated with the presentation includes diverticular disease, constipation, renal colic Admission/Observation Consideration of admission/observation: Escalation of care including admission/observation considered Lab Data [facility] Lab Attestation statement: I reviewed the patient's lab results. 07/30/25 16:22 07/30/25 16:22 Labs: Lab Results 07/30/25 07/30/25 07/30/25 Range/Units 01:27 16:22 22:18 WBC 12.0 H (4.8-10.8) X10*3/uL RBC 4.55 (4.20-5.50) X10*6/uL Hgb 14.0 (12.0-16.0) g/dl Hct 41.8 (37.0-47.0) % MCV 91.9 (80.0-98.0) fL MCH 30.8 (27.0-33.0) pg MCHC 33.5 (31.0-35.0) g/dl RDW 13.2 (11.0-16.0) % Plt Count 210 (160-400) X10*3/uL MPV 11.2 (9.4-12.3) fL Immature Gran % (Auto) 0.3 (0.0-0.4) % Neut % (Auto) 72.8 (45-73) % Lymph % (Auto) 17.6 L (20-40) % [place]house % (Auto) 7.9 (2-11) % Eos % (Auto) 0.9 (0-4) % Baso % (Auto) 0.5 (0-2) % Lymph # (Auto) 2.1 (1.2-4.9) X10*3/uL [place] # (Auto) 1.0 (0.1-1.2) X10*3/uL Eos # (Auto) 0.1 (0.0-0.4) X10*3/uL Baso # (Auto) 0.1 (0.0-0.2) X10*3/uL Abs Immat Gran (auto) 0.03 (0.00-0.03) X10*3/uL Absolute Neuts (auto) 8.7 H (2.0-8.3) x10*3/uL Absolute Nucleated RBC 0.000 (0.0-0.012) X10*3/uL Nucleated RBC % (auto) 0.0 (0.0-0.2) /100WBC Sodium 142 (135-145) mmol/L Potassium 3.6 (3.3-5.1) mmol/L Chloride 108 (96-108) mmol/L Carbon Dioxide 29 (22-29) mmol/L Anion Gap 9 L (12-20) BUN 20 H (9-16) mg/dL Creatinine 0.93 (0.5-1.4) mg/dL Estim Creat Clear Calc 72.1 Estimated GFR 59 Random Glucose 150 H (60-115) mg/dL Lactic Acid 1.1 (0.5-2.0) mmol/L Calcium 8.9 (8.4-10.2) mg/dL Magnesium 1.9 (1.6-2.6) mg/dL Total Bilirubin 0.6 (0.0-1.0) mg/dL AST 18 (5-31) U/L ALT 22 (0-31) U/L Alkaline Phosphatase 79 (39-117) U/L Total Protein 6.6 (6.5-8.0) g/dL Albumin 4.1 (3.5-5.0) g/dL Lipase 38 (8-78) U/L Urine Color Yellow Urine Appearance Clear Urine pH 5.5 (5.0-9.0) Ur Specific [place]wood >= 1.030 H (1.005-1.025) Urine Protein Negative (Neg-Trace) mg/dL Urine Glucose (UA) Negative (Negative) mg/dL Urine Ketones Negative (Negative) mg/dL Urine Blood Negative (Negative) Urine Nitrite Negative (Negative) Ur Leukocyte Esterase Negative (Negative) Independent Interpretation I performed an independent interpretation of an: CT Scan Radiology Impression Discussion of test interpretation with radiology: I have reviewed the radiologist's reading. External Record Review External record reviewed: Outpatient record Prescription Management I considered prescription management with: Antibiotic and Other Medications Administered Discontinued Medications Generic Name Dose Route Start Last Admin Trade Name Freq PRN Reason Stop Dose Admin Ceftriaxone Sodium 1 gm 07/30/25 21:56 07/30/25 23:16 Ceftriaxone Sodium 1 Gm Vial IVPUSH 07/30/25 21:57 1 gm ONCE ONE Administration Piperacillin Sod/Tazobactam 50 mls @ 100 mls/hr 07/31/25 01:34 07/31/25 03:07 Sod 3.375 gm/ Sodium Chloride IV 07/31/25 02:03 Infused ONCE ONE Infusion Vancomycin HCl 1,500 mg/ 500 mls @ 333.333 mls/hr 07/31/25 01:43 07/31/25 04:29 Sodium Chloride IV 07/31/25 03:12 Infused ONCE ONE Infusion Iohexol 85 ml 07/31/25 01:00 07/31/25 01:01 Iohexol 350 Mg/Ml 100 Ml Infus..Btl IV 07/31/25 01:01 85 ml ONCE ONE Administration Morphine Sulfate 4 mg 07/30/25 21:55 07/30/25 23:16 Morphine Sulfate 4 Mg/Ml Cartridge IVPUSH 07/30/25 21:56 4 mg ONCE ONE Administration Protocol Ondansetron HCl 4 mg 07/30/25 21:55 07/30/25 23:16 Ondansetron Hcl 4 Mg/2 Ml Vial IVPUSH 07/30/25 21:56 4 mg ONCE ONE Administration Discharge Plan Discharge Clinical Impression: Abdominal pain, Perforation of sigmoid colon due to diverticulitis Patient Disposition: Admitted As Inpatient
[2025-07-30 16:34] LABS: MANUAL DIFF FLAG NO
[2025-07-30 16:37] LABS: Hematocrit 41.8 % (37.0-47.0); Hemoglobin 14.0 g/dl (12.0-16.0); Imm Gran Abs Auto 0.03 X10*3/uL (0.00-0.03); Imm Gran Pct Auto 0.3 % (0.0-0.4); Lymphocytes Absolute Auto 2.1 X10*3/uL (1.2-4.9); Mean Corpuscular HGB Conc 33.5 g/dl (31.0-35.0); Mean Corpuscular Hemoglobin 30.8 pg (27.0-33.0); Mean Corpuscular Volume 91.9 fL (80.0-98.0); NRBC Abs Auto 0.000 X10*3/uL (0.0-0.012); NRBC Pct Auto 0.0 /100WBC (0.0-0.2); Platelet Count 210 X10*3/uL (160-400); Red Blood Count 4.55 X10*6/uL (4.20-5.50); White Blood Count 12.0 X10*3/uL (4.8-10.8)
[2025-07-30 16:50] LABS: Alanine Aminotransferase 22 U/L (0-31); Albumin Level 4.1 g/dL (3.5-5.0); Alkaline Phosphatase 79 U/L (39-117); Anion Gap 9 (12-20); Aspartate Amino Transferase 18 U/L (5-31); Blood Urea Nitrogen 20 mg/dL (9-16); Calcium 8.9 mg/dL (8.4-10.2); Carbon Dioxide 29 mmol/L (22-29); Chloride 108 mmol/L (96-108); Creatinine Clr Calc Pharmacy 72.1; Estimated Glomerular Filt Rate 59; Lipase 38 U/L (8-78); Magnesium 1.9 mg/dL (1.6-2.6); Potassium 3.6 mmol/L (3.3-5.1); Sodium 142 mmol/L (135-145); Total Protein 6.6 g/dL (6.5-8.0)
--- OUTSIDE RECORDS SUMMARY | 2025-07-30 22:11 | XMS_ITS | Patient Health Record ---
Author Organization Slim Hammond MD Address [address] [place], [place] [id number] Care Team Providers Care Clinical Project Assistant Name Role Phone Slim Hammond Primary Care Provider Allergies Allergen (clinical drug ingredient) Drug/Non Drug Allergy documented on EMR Reaction Allergy Type Onset Date Status azithromycin z pack (uncoded) diarrhea Allergy Active Results Component Value Reference Range Notes Liver Panel Reviewed date:10/23/2024 03:12:27 PM Interpretation: Performing Lab:[facility], [address] [place] [phone] Notes/Report: Bilirubin Total 0.5 0.0-1.0 mg/dL Bilirubin Direct 0.2 0.0-0.5 mg/dL Aspartate Amino Transferase 22 5-31 U/L Alanine Aminotransferase 27 0-31 U/L Total Protein 6.5 6.5-8.0 g/dL Albumin Level 4.0 3.5-5.0 g/dL Alkaline Phosphatase 74 39-117 U/L Lipid Panel Reviewed date:10/23/2024 03:13:32 PM Interpretation: Performing Lab:[facility], [address] [place] [phone] Notes/Report: Triglycerides 88 <150 mg/dL Desirable Triglyceride: [...] T4 Reviewed date:10/23/2024 03:29:08 PM Interpretation: Performing Lab:[facility], [address] [place] [phone] Notes/Report: TSH reflex Free T4 0.83 0.32-4.0 uIU/mL Complete Blood Count Auto Di ff Reviewed date:05/15/2025 04:04:20 PM Interpretation: Performing Lab:[facility], [address] [place] [phone] Notes/Report: White Blood Count 6.9 4.8-10.8 X10*3/uL Red Blood Count 4.48 4.20-5.50 X10*6/uL Hemoglobin 13.8 12.0-16.0 g/dl Hematocrit 41.4 37.0-47.0 % Mean Corpuscular Volume 92.4 80.0-98.0 fL Mean Corpuscular Hemoglobin 30.8 27.0-33.0 pg Mean Corpuscular HGB Conc 33.3 31.0-35.0 g/dl Red Cell Distribution Width 13.8 11.0-16.0 % Platelet Count 194 160-400 X10*3/uL Mean Platelet Volume 11.5 9.4-12.3 fL Neutrophils Percent Auto 58.7 45-73 % Imm Gran Pct Auto 0.3 0.0-0.4 % Lymphocytes Percent Auto 27.0 20-40 % Monocytes Percent Auto 8.6 2-11 % Eosinophils Percent Auto 4.8 0-4 % Basophils Percent Auto 0.6 0-2 % NRBC Pct Auto 0.0 0.0-0.2 /100WBC Neutrophils Absolute Auto 4.1 2.0-8.3 x10*3/uL Imm Gran Abs Auto 0.02 0.00-0.03 X10*3/uL Lymphocytes Absolute Auto 1.9 1.2-4.9 X10*3/uL Monocytes Absolute Auto 0.6 0.1-1.2 X10*3/uL Eosinophils Absolute Auto 0.3 0.0-0.4 X10*3/uL Basophils Absolute Auto 0.0 0.0-0.2 X10*3/uL NRBC Abs Auto 0.000 0.0-0.012 X10*3/uL Comprehensive [place]. Panel Fa st Reviewed date:05/15/2025 04:07:36 PM Interpretation: Performing Lab:[facility], [address] [place] [phone] Notes/Report: Sodium 143 135-145 mmol/L Potassium 4.0 3.3-5.1 mmol/L Chloride 108 96-108 mmol/L Carbon Dioxide 27 22-29 mmol/L Anion Gap 12 12-20 Blood Urea Nitrogen 15 9-16 mg/dL Creatinine 0.95 0.5-1.4 mg/dL Estimated Glomerular Filt Rate 58 Chronic Kidney Disease: Estimated GFR < 60 mL/min/1.73m2 Severe Kidney Disease: Estimated GFR < 15 mL/min/1.73m2 Glucose Fasting 109 60-99 mg/dL A fasting glucose from 100-125 mg/dl is considered impaired (pre-diabetes). Calcium 8.7 8.4-10.2 mg/dL Bilirubin Total 0.7 0.0-1.0 mg/dL Aspartate Amino Transferase 17 5-31 U/L Alanine Aminotransferase 26 0-31 U/L Total Protein 6.0 6.5-8.0 g/dL Albumin Level 3.8 3.5-5.0 g/dL Alkaline Phosphatase 70 39-117 U/L Lipid Panel Reviewed date:05/15/2025 12:46:36 PM Interpretation: Performing Lab:[facility], [address] [place] [phone] Notes/Report: Triglycerides 128 <150 mg/dL Desirable Triglyceride: less than 150 mg/dL Borderline High Triglyceride 150-199 mg/dL High Triglyceride: 200-499 mg/dL Very High Triglyceride: greater than or equal to 5OO mg/dL Cholesterol 167 <200 mg/dL Desirable Cholesterol: less than 200 mg/dL Borderline High Cholesterol: 200-239 mg/dL High Cholesterol: greater than 239 mg/dL LDL Cholesterol Calculated 98 <100 mg/dL Desirable LDL: less than 100 mg/dL Near Optimal/Above Optimal LDL: 110-129 mg/dL Borderline High LDL: 130-159 mg/dL High LDL: 160-189 mg/dL Very High LDL: greater than or equal to 190 mg/dL HDL Cholesterol 44 >40 mg/dL Desirable HDL: greater than 40 mg/dL Note: This HDL assay may give artificially low results in patients with liver disease. Vitamin D 25-OH Total Reviewed date:05/15/2025 12:40:19 PM Interpretation: Performing Lab:[facility], [address] [place] [phone] Notes/Report: Vitamin D 25-OH Total 50.6 >30 ng/mL Health Based Reference Values* < 20 ng/mL Deficient 20-30 ng/mL Insufficient > 30 ng/mL Sufficient *Stephanie OSUNA. N Engl J Med. 2007;357:266-280 There is no well-established upper level of normal vitamin D levels. Some laboratories use 50 ng/mL as an upper limit of normal. However, toxicity is patient-dependent and may occur at any level. Careful correlation with the patient's presentation is necessary and, if there is concern for vitamin D toxicity, treatment should be considered irrespective of the serum level. Care must be taken in interpreting Vitamin [...] as LC-MS/MS. TSH reflex Free T4 Reviewed date:05/15/2025 12:34:31 PM Interpretation: Performing Lab:[facility], [address] [place] [phone] Notes/Report: TSH reflex Free T4 2.95 0.32-4.0 uIU/mL Microalbumin, Random Reviewed date:05/15/2025 12:48:47 PM Interpretation: Performing Lab:[facility], [address] [place] [phone] Notes/Report: Creatinine Urine 97.55 Microalbumin Urine < 5.0 Microalbum/Creatinine Ratio Ur TNP <30 ug/mg cr Unable to calculate albumin/creatinine ratio due to low microalbumin or creatinine result. Hemoglobin A1c Reviewed date:05/15/2025 12:34:22 PM Interpretation: Performing Lab:[facility], [address] [place] [phone] Notes/Report: Hemoglobin A1c % 5.9 <6.0 % Hemoglobin A1C Reference Range Adults: 4.8 - 6.0 % Non diabetic: < 6.0 % Goal: < 7.0 % Additional Action Suggested: > 8.0 % Note: Hemoglobin A1c results are invalid for patients with abnormal amounts of HbF. Blood transfusions may impact the HbA1c concentration in the patient sample. Estimated Average Glucose 123 eAG = Estimated average glucose which is %A1C expressed as average glucose, using the formula of the J2Q-Qejnaee Average Glucose study (ADAG), Diabetes Care, Vol.31,#8, Jun. 2007 UA ClnCatch+Micro w/rflx Cul t Reviewed date:05/15/2025 12:59:47 PM Interpretation: Performing Lab:[facility], [address] [place] [phone] Notes/Report: Urine, Clean Catch Color Urine Yellow Appearance Urine Clear PH 6.0 5.0-9.0 Glucose Urine UA Negative Negative mg/dL Urine Blood Negative Negative Specific [place] - Urine 1.015 1.005-1.025 Urine Protein Negative Neg-Trace mg/dL Urine Ketones Negative Negative mg/dL Nitrite Urine Negative Negative Leukocyte Esterase Urine Negative Negative RBC Urine 0-2 0-2 /HPF WBC Urine 0-5 0-5 /HPF Squamous Epithelial Cell Urine 0-2 0-2 /HPF Bacteria Urine None Seen None Seen Hyaline Casts Urine 0-2 0-2 /LPF Pathology Reviewed date:08/04/2024 05:01:33 PM Interpretation: Performing Lab:[facility], [address], [place] [address] Notes/Report: ------ Name: Rosina Stern Age/Sex: 69/F : 1955 Unit#: [id number] Attend Dr: Lalo Mao MD Re08/01/24 Status : [facility] Location: [facility] Disch: ------ SPEC : [id number] RECD : 08/01/240 STATUS: JONELLE GRIMALDO NUM: [id number] DAGMAR: 08/01/24-[address]: Lalo Mao MD ENTERED: 08/01/24-11 34 SP TYPE: Surgical OTHR DR: Slim Hammond MD ORDERED: HE Stain/2, Gross Micro L4 Diagnosis Endometrium, curetta ge: Few superficial strips of atrophic endometrium and tubal metaplasia; negative for atypia, hyperplasia or malignancy. Clinical History Pre-Op Dx: Postmenop ausal bleeding Post-Op Dx: Normal endometrial cavity Microscopic Description Microscopic sections reviewed. Material Received [facility] Gross Description Received in formalin labeled ?EMC? on blood-stained Telfa is a 3.0 x 2.0 x 0.5 cm aggregate of predominantly muc us and blood and minute shards and threads of pink-maroon tissue, submitted in toto in cassettes A1-A3. CEDS Copies To: Slim Hammond MD [facility] [address] [place] [address] Lalo Mao MD [facility] [address] [place] [address] ------ Signed (signature on file) Indy Harvey MD 08/04/24 1645 ------ END OF REPORT US thyroid Reviewed date:11/07/2024 04:49:37 PM Interpretation: Performing Lab: Notes/Report: [address] [address] Ultrasound Report Signed Patient: Rosina Stern MR#: [id number] : 1955 Acct:[id number] Age/Sex: 69 / F ADM Date: 09/23/24 Loc: HO.US Attending Dr: Slim Hammond MD Ordering Physician: Slim Hammond MD Date of Service: 09/23/24 Procedure(s): US thyroid Accession Number(s): [id number] cc: Slim Hammond MD EXAMINATION: US THYROID [...] than or equal to 1 cm: 1. Sales Support Representative nodules are described as follows: 1. Location: [...] signed by Italo Aponte MD in OV> 11/05/24909 DD/ 08 TD/TT: 09/23/24 08 Asset Manager: [place] [address] Ultrasound Report Signed Patient: Lakeisha Stern MR#: [id number] : 1955 Acct:[id number] Age/Sex: 69 / F ADM Date: 09/23/24 Loc: HO.US Attending Dr: Slim Hammond MD Ordering Physician: Slim Hammond MD Date of Service: 09/23/24 Procedure(s): US thyroid Accession Number(s): [id number] cc: Slim Hammond MD EXAMINATION: US THYROID CLINICAL INFORMATION: Thyroid nodule. COMPARISON: Ultrasound-guided th yroid biopsy 09/12/2023. Thyroid ultrasound 07/31/2023 and 07/11/2022. TECHNIQUE: Linear transducer grayscale and color Doppler examination with attention to the reg ion of the thyroid. FINDINGS: Submitted for interpretation on November 05, 2024. SIZE: Measurements o f the thyroid lobes and nodules are given in sagittal, anteropost erior and transverse dimensions respectively. Right Thyroid Lobe: [...] vascularity is increased. Isthmus: 0.5 cm in m aximum AP dimension. Previously 0.4 cm. Estimated total numb er of nodules greater than or equal to 1 cm: 1. Sales Support Representative nodul es are described as follows: 1. Location: Right u pper pole. Size: 0.8 x 0.5 x 0. 7 cm, volume 0.13 mL. Previously: 0.7 x 0. 5 x 0.8 cm, volume 0.14 mL. Nodule characteristics: Composition: Spongif orm (0). ACR TI-RADS total po ints: 0 Previous: 0 ACR TI-RADS category : [...] Composition: Spongif orm (0). ACR TI-RADS total po ints: 0 Previous: 0 ACR TI-RADS category : [...] Composition: Spongif orm (0). ACR TI-RADS total po ints: 0 Previous: 0 ACR TI-RADS category : [...] cm, volume 1.7 mL. Nodule characteristics: Composition: Solid/a lmost completely solid (2). Echogenicity: Hypoec hoic (2). Shape: Taller than w chantale (3). Margins: Smooth (0). Echogenic Foci: None (0). ACR TI-RADS total po ints: 7 Previous: 7 ACR TI-RADS category : 5 Previous: 5 Significant change i n size (>/= 20% in 2 dimensions and minimal increase of 2 mm or 50% or greater increase in volume): Change in features: Change in ACR TI-RAD S risk category: NODES: No lymphadeno megan is seen in the tissue surrounding the thyroid gland. U S/US thyroid IMPRESSION: 1.7 cm dominant nodu le left thyroid lobe, stable since prior exam. ACR TI-RADS RECOMMEN DATION REFERENCE: Ultrasound-guided fine-needle aspiration, follow up ultrasound, [...] imum dimension. * TR3, TR4 or TR5 no dules that are below the size threshold for follow up receive no followup. Electronically marta d by: Italo Galeano MD 11/05/2024 09:10 AM EST Dictated By: Italo Collado MD Signed By: <Electron ically signed by Italo Aponte MD in OV> 11/05/24909 DD/ 4 TD/TT: 09/23/24829 Asset Manager: [place] barium swallow with air Reviewed date:10/31/2024 02:43:29 PM Interpretation:see back 10-31-2024 Performing Lab: Notes/Report: [address] [place] [address] Fluoroscopy Report Signed Patient: Rosina Stern MR#: [id number] : 1955 Acct:[id number] Age/Sex: 69 / F ADM Date: 10/07/24 Loc: HO.XRAY Attending Dr: Joan Vargas MD Ordering Physician: Joan Vargas MD Date of Service: 10/07/24 Procedure(s): FL barium swallow with air Accession Number(s): [id number] cc: Slim Hammond MD; Joan Vargas MD [...] by: Chava Oconnor MD 10/08/2024 02:43 PM [facility] Dictated By: Calderon Campo Signed By: <Electronically signed by Calderon Campo in OV> 10/08/24 1443 <Electronically signed by Chava Oconnor MD in OV> 10/08/24 1446 DD/ 0841 TD/TT: 10/07/24 0914 Asset Manager: [place] [address] Fluoroscopy Report Signed Patient: Lakeisha Stern MR#: [id number] : 1955 Acct:[id number] Age/Sex: 69 / F ADM Date: 10/07/24 Loc: HO.XRAY Attending Dr: Joan Vargas MD Ordering Physician: Joan Vargas MD Date of Service: 10/07/24 Procedure(s): FL bar ium swallow with air Accession Number(s): [id number] cc: Slim Hammond MD; Joan Vargas MD EXAMINATION: XR FLUOROSCOPY UPPER GI WITH AIR CLINICAL INFORMATION: Dysphagia COMPARISON: None TECHNIQUE: Fluoroscopic air con trast upper GI examination was performed utilizing standard [...] the duodenal bulb demonstrate no abnormality. The duo denal sweep has a normal appearance, course, and [...] esophageal mucosa, suggestive of esophagitis. 3. Moderately disorg anized esophageal peristalsis. 4. Small type I hiat [...] by: Chava Oconnor MD 10/08/2024 02:43 PM [facility] Dictated By: Edison Campo Signed By: <Marlene rizvi signed by Calderon Campo in OV> 10/08/24 1443 <Electronically sign ed by Chava Oconnor MD in OV> 10/08/24 1446 DD/ 0841 TD/TT: 10/07/24 0914 Asset Manager: Edmar Bar Reviewed date:10/23/2024 12:51:02 PM Interpretation: Performing Lab:[facility], [address] [place] [phone] Notes/Report: Edmar Bar See Note Specimen held untested for 24 hours; Call to request Chemistry testing. US pelvic and transvaginal Reviewed date:11/23/2024 06:29:37 PM Interpretation: Performing Lab: Notes/Report: [address] [address] Ultrasound Report Signed Patient: Rosina Stern MR#: [id number] : 1955 Acct:[id number] Age/Sex: 69 / F ADM Date: 11/20/24 Loc: HO.US Attending Dr: Lalo Mao MD Ordering Physician: Lalo Mao MD Date of Service: 11/20/24 Procedure(s): US pelvic and transvaginal Accession Number(s): [id number] cc: Slim Hammond MD; Lalo Mao MD [...] in OV> 11/22/24805 DD/ 4 TD/TT: 11/22/24804 Asset Manager: [address] [place] [address] Ultrasound Report Signed Patient: Lakeisha Stern MR#: [id number] : 1955 Acct:[id number] Age/Sex: 69 / F ADM Date: 11/20/24 Loc: HO.US Attending Dr: Lalo Mao MD Ordering Physician: Lalo Mao MD Date of Service: 11/20/24 Procedure(s): US pel bin and transvaginal Accession Number(s): [id number] cc: Slim Hammond MD; Lalo Mao MD [...] Dictated By: Adams Poole MD Signed By: <Electron [email or web address] signed by Antonio Poole MD in OV> 11/22/24805 DD/ 4 TD/TT: 11/22/24804 Asset Manager: SAUL tomosynthesis screening B I Reviewed date:02/09/2025 05:25:03 PM Interpretation: Performing Lab: Notes/Report: [facility] [address] [place] [address] Mammography Report Signed Patient: Rosina Stern MR#: [id number] : 1955 Acct:[id number] Age/Sex: 69 / F ADM Date: 01/29/25 Loc: MAMMO Attending Dr: Slim Hammond MD Ordering Physician: Slim Hammond MD Results: 2Be nign Findings Date of Service: 01/29/25 Follow Up: 1 Year From Orig inal Mammogram Procedure(s): MM tomosynthesis screening BI Accession Number(s): [id number] cc: Slim Hammond MD EXAMINATION: MM SCREENING [...] 02/06/25 1543 DD/ 0914 TD/TT: 01/29/25 0944 Asset Manager: [facility] [facility] [address] [place] [address] Dr. Conn, JOSEP [address] Mammography Report Signed Patient: Lakeisha Stern MR#: [id number] : 1955 Acct:[id number] Age/Sex: 69 / F ADM Date: 01/29/25 Loc: HO.MAMMO Attending Dr: Slim Hammond MD Ordering Physician: Slim Hammond MD Results: 2Be nign Findings Date of Service: Follow Up: 1 Year From Orig ina Mammogram Procedure(s): MM tomosynthesis screening BI Accession Number(s): [id number] cc: Slim Hammond MD EXAMINATION: MM SCREENING DIGITAL BREAST TOMOSYNTHESIS, BILATERAL CLINICAL INFORMATION: Screening. Asymptomatic. COMPARISON: Mammography: Compari son is made with available priors TECHNIQUE: Digital breast mammo graphy with tomosynthesis is performed in both the [...] 2 - Benign Findings RECOMMENDATION: Routine annual mammo graphy screening. 1 year F/U This examination mary uld not preclude the clinical evaluation of a suspicious palpable abnormality. This patient's infor mation was entered into a reminder system with a target due date for their next mammogram. Electronically marta d by: Laureen Ha DO 02/06/2025 03:43 PM EDT Dictated By: Laureen Ha DO Signed By: <Marlene rizvi signed by Laureen Ha DO in OV> 02/06/25 1543 DD/ 0914 TD/TT: 01/29/25 0944 Asset Manager: Pathology Reviewed date:05/15/2025 03:55:30 PM Interpretation: Performing Lab:[facility], [address] [place] [phone] Notes/Report: ------ Name: Rosina Stern Age/Sex: 70/F : 1955 [facility]#: [id number] Unit#: [id number] Attend Dr: Joan Vargas MD Re05/14/25 Status : [facility] Location: [facility] Disch: ------ SPEC : [id number] RECD : 05/14/25-1141 STATUS: [facility] NUM: [id number] DAGMAR: 05/14/25-[address] [facility] [address]: Joan Vargas MD ENTERED: 05/14/25 56 SP TYPE: Surgical OTHR DR: Slim Hammond MD ORDERED: HE Stain/6, Gross Micro L4/2 Diagnosis A. Esophagus, lower, biopsy: Squamous epithelium within normal limits; no inflammation seen. B. Esophagus, middle , biopsy: Squamous epithelium within normal limits; no inflammation seen. Clinical History Pre-Op Dx: Esophagit is, unspecified without bleeding Post-Op Dx: Hiatal hernia Microscopic Description A, B. Microscopic se ctions reviewed. Material Received A. Lower esophagus bx's B. Middle esophagus bx's Gross Description Received in two parts. Part A: Received in formalin labeled lower esophagus bx's? are three mcclain-white irregular and rectangular tiss ue fragments ranging from 0.2-0.3 cm, submitted in toto in a cassette labeled A. Part B: Received in formalin labeled ?middle esophagus bx (sic)? are four mcclain-white rectangular tissue fragments ranging from 0.25-0.3 cm, submitted in toto in a cassette labeled B. Cassettes IHC S/NG Disclaimer NOTE: Unless otherwi se stated, all tissue is formalin-fixed and paraffin-embedded. Some or all of the immunohistochemical tests reported herein may have been developed and their performance characteristics determined by [facility]. They have not been cleared or appr sujit by the U.S. Food and Drug Administration (FDA). However, the FDA has determined that such clearance or approval is not necessary. This laboratory is certified under the Clinical Laboratory Improvement Amendments of 1988 (CLIA) as qualified CONTINUED ON NEXT PAGE ------ Name: Rosina Stern Age/Sex: 70/F : 1955 Unit#: [id number] Attend Dr: Joan Vargas MD Re05/14/25 Status : [facility] Location: [facility] Disch: ------ SPEC : [id number] RECD : 05/14/251141 STATUS: JONELLE GRIMALDO NUM: [id number] DAGMAR: 05/14/25-[address] [facility] [address]: Joan Vargas MD ENTERED: 05/14/25- 56 SP TYPE: Surgical OTHR DR: Slim Hammond MD ORDERED: HE Stain/6, Gross Micro L4/2 IHC S/NG Disclaimer (Continued) to perform high comp lexity clinical laboratory testing. Copies To: Slim Hammond MD [facility] [address] [id number] Joan Vargas MD [facility] [address] [place], [place] [id number] [email or web address] ------ Signed (signature on file) Branden Ramos MD 05/15/25 1454 ------ END OF REPORT Edmar Bar Reviewed date:05/15/2025 12:34:52 PM Interpretation: Performing Lab:[facility], [address] [place] [phone] Notes/Report: Edmar Bar See Note Specimen held untested for 24 hours; Call to request Chemistry testing. Comprehensive Met. Panel (No t yet reviewed by provider) Interpretation: Performing Lab:[facility], [address] [place] [phone] Notes/Report: Sodium 142 135-145 mmol/L Potassium 3.6 3.3-5.1 mmol/L Chloride 108 96-108 mmol/L Carbon Dioxide 29 22-29 mmol/L Anion Gap 9 12-20 Blood Urea Nitrogen 20 9-16 mg/dL Creatinine 0.93 0.5-1.4 mg/dL Creatinine Clr Calc Pharmacy 72.1 Provided height and weight: 170.18 cm, 113.398 kg. eGFR (calculated from the MDRD study equation) and eCrCl (calculated from the Cockcroft-Gault equation) are based on different parameters and may not yield comparable results. If eCrCl result is absurd, please check patient's height/weight. Estimated Glomerular Filt Rate 59 Chronic Kidney Disease: Estimated GFR < 60 mL/min/1.73m2 Severe Kidney Disease: Estimated GFR < 15 mL/min/1.73m2 Glucose Random 150 60-115 mg/dL Calcium 8.9 8.4-10.2 mg/dL Bilirubin Total 0.6 0.0-1.0 mg/dL Aspartate Amino Transferase 18 5-31 U/L Alanine Aminotransferase 22 0-31 U/L Total Protein 6.6 6.5-8.0 g/dL Albumin Level 4.1 3.5-5.0 g/dL Alkaline Phosphatase 79 39-117 U/L Magnesium (Not yet reviewed by provider) Interpretation: Performing Lab:[address] [address] Notes/Report: Magnesium 1.9 1.6-2.6 mg/dL Lipase (Not yet reviewed by provider) Interpretation: Performing Lab:[address] [address] Notes/Report: Lipase 38 8-78 U/L Complete Blood Count Auto Di ff Reviewed date:07/30/2025 04:40:59 PM Interpretation: Performing Lab:[address] [address] Notes/Report: White Blood Count 12.0 4.8-10.8 X10*3/uL Red Blood Count 4.55 4.20-5.50 X10*6/uL Hemoglobin 14.0 12.0-16.0 g/dl Hematocrit 41.8 37.0-47.0 % Mean Corpuscular Volume 91.9 80.0-98.0 fL Mean Corpuscular Hemoglobin 30.8 27.0-33.0 pg Mean Corpuscular HGB Conc 33.5 31.0-35.0 g/dl Red Cell Distribution Width 13.2 11.0-16.0 % Platelet Count 210 160-400 X10*3/uL Mean Platelet Volume 11.2 9.4-12.3 fL Neutrophils Percent Auto 72.8 45-73 % Imm Gran Pct Auto 0.3 0.0-0.4 % Lymphocytes Percent Auto 17.6 20-40 % Monocytes Percent Auto 7.9 2-11 % Eosinophils Percent Auto 0.9 0-4 % Basophils Percent Auto 0.5 0-2 % NRBC Pct Auto 0.0 0.0-0.2 /100WBC Neutrophils Absolute Auto 8.7 2.0-8.3 x10*3/uL Imm Gran Abs Auto 0.03 0.00-0.03 X10*3/uL Lymphocytes Absolute Auto 2.1 1.2-4.9 X10*3/uL Monocytes Absolute Auto 1.0 0.1-1.2 X10*3/uL Eosinophils Absolute Auto 0.1 0.0-0.4 X10*3/uL Basophils Absolute Auto 0.1 0.0-0.2 X10*3/uL NRBC Abs Auto 0.000 0.0-0.012 X10*3/uL Reason For Referral No Information Medications Medication SIG (Take, Route, Frequency, Duration) Notes Start Date End Date Status Omeprazole 20 MG 1 capsule 1/2 to [...] ONCE A DAY FOR 90 DAYS Active Atorvastatin Calcium 40 MG TAKE 1 [...] 12 hrs for 10 days 07/14/2025 Active Immunizations Vaccine Route Administration Date Status [...] Problem Status W/U Status Risk Notes Problem 470391000 Acute diverticul itis (K57.92) Active confirmed Problem 199069911 Thyroid nodule (E04.1) Active confirm ed Problem 04728540 Lymphocytosis (D72.820) Active confirmed Problem Carpal tunnel syndrome (90020250) Carpal tunnel syndrome (G56.00) Active confirmed Problem 151561961 Tubular adenoma (D36.9) Active confirmed Problem 24688583 Vitamin D defici ency (E55.9) Active confirmed Problem Diverticulitis (10003117) Diverticulitis (K57.92) Active confirmed Problem 404770953 Lumbar disc dise ase (M51.9) Active confirmed Problem Essential hypertension (15971760) Essential hypertension (I10) Active confirmed Problem 439414019 Acquired hypothyroidism (E03.9) Active confirmed Problem 6940422 Prediabetes (R73.09) Active confirmed Problem 683784396 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) Active confirmed Problem 731571123 Menopause (Z78.0) Active confirmed Problem 80337079 Degeneration of cervical intervertebral disc (M50.30) Active confirmed Problem 409074608 Pure hypercholesterolemia (E78.00) Active confirmed Problem 352686889 Acute low back p ain without sciatica, unspecified back pain laterality (M54.5) Active confirmed Problem Bilateral carpal tunnel syndrome (523267549823446 01) Bilateral carpal tunnel syndrome (G56.03) Active confirmed Problem 248125173 BMI 34.0-34.9,ad ult (Z68.34) Active confirmed Problem 018656252 BMI 35.0-35.9,ad ult (Z68.35) Active confirmed Problem 636935793 Arthritis of kne e (M17.10) Active confirmed Problem 250126248 Meningioma (D32.9) Active confirmed Problem 271979045 Mild intermitten t asthmatic bronchitis with acute exacerbation (J45.21) Active confirmed Problem 24307366 Other and unspec 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.9) Active confirmed Problem 61893095 Other premature beats (I49.49) Active confirmed Problem 642741691 Osteoarthritis o f lumbar spine, unspecified spinal osteoarthritis complication status (M47.816) Active confirmed Problem 898652586 History of thyro id nodule (Z86.39) Active confirmed Problem 123037160 Acute diverticul itis of intestine (K57.92) Active confirmed Vital Signs Blood pressure diastolic 80 mm Hg 07/14/2025 melodie ght is down 2 pounds since 05-19-25 Height 64 in 07/14/2025 weight is down 2 pounds since 05-19-25 Blood pressure systolic 144 mm Hg 07/14/2025 laurita ht is down 2 pounds since 05-19-25 Weight 202 lbs 07/14/2025 weight is down 2 pounds since 05-19-25 BMI 34.67 kg/m2 07/14/2025 weight is down 2 pounds since 05-19-25 Encounters Encounter Location Date Provider Diagnosis Slim Hammond MD [address] [place] [address] [id number] 07/31/2024 Slim Hammond Encounter for immuni zation Z23 Slim Hammond MD [address] [place] [address] [id number] 10/23/2024 Slim Hammond Pure hypercholestero lemia E78.00 and Acquired hypothyroidism E03.9 Slim Hammond MD [address] [place] [address] [id number] 05/15/2025 Slim Hammond Blood tests for rout ine general physical examination Z00.00 ; Lymphocytosis D72.820 ; Acquired hypothyroidism E03.9 ; Vitamin D deficiency E55.9 and Prediabetes R73.09 Slim Hammond MD [address] [place] [address] [id number] 10/31/2024 Slim Hammond Acquired hypothyroid ism E03.9 ; Pure hypercholesterolemia E78.00 and Abnormal upper gastrointestinal barium series R93.3 Slim Hammond MD [address] [place] [address] [id number] 04/27/2025 Slim Hammond Mild intermittent asthmatic bronchitis with acute exacerbation J45.21 Slim Hammond MD [address] [place] [address] [id number] 05/19/2025 Slim Hammond Prediabetes R73.09 ; Annual physical exam Z00.00 ; Meningioma D32.9 ; Pure hypercholesterolemia E78.00 ; Essential hypertension I10 ; Thyroid nodule E04.1 and Depression screening Z13.31 Slim Hammond MD [address] [place] [address] [id number] 07/14/2025 Slim Hammond Diverticulitis K57.9 2 Slim Hammond MD [address] [place] [address] [id number] 08/29/2024 Slim Hammond Thyroid nodule E04.1 Slim Hammond MD [address] [place] [address] [id number] 12/11/2024 Slim Hammond MD [address] [place] [address] [id number] 06/01/2025 Slim Hammond Meningioma D32.9 Slim Hammond MD [address] [place] [address] [id number] 06/02/2025 Slim Hammond MD [address] [place] [address] [id number] 07/14/2025 Slim Hammond Assessments Encounter Date Diagnosis (ICD Code) Assessment Notes Treatment Notes Treatment Clinical Notes Section Notes 07/31/2024 Encounter for immunization (ICD-10 - Z23) 10/23/2024 Pure hypercholesterolemia (ICD-10 - E78.00) 10/23/2024 Acquired hypothyroid ism (ICD-10 - E03.9) 05/15/[address] ine general physical examination (ICD-10 - Z00.00) 10/31/2024 Acquired hypothyroid ism (ICD-10 - E03.9) has good tsh, will continue current regiment 10/31/2024 Pure hypercholesterolemia (ICD-10 - E78.00) well controlled on statins. will continue current regiment 04/27/2025 Mild intermittent asthmatic bronchitis with acute exacerbation (ICD-10 - J45.21) patient verbalized understanding of medication and directions for use 05/19/2025 Prediabetes (ICD-10 - R73.09) stable, noneed formedication at this time 05/19/2025 Annual physical exam (ICD-10 - Z00.00) Labs reviewed and discussed with patient 07/14/2025 Diverticulitis (ICD- 10 - K57.92) 06/01/2025 Meningioma (ICD-10 - D32.9) 05/15/2025 Lymphocytosis (ICD-1 0 - D72.820) 10/31/2024 Abnormal upper gastrointestinal barium series (ICD-10 - R93.3) went over the results of the tests is going to have endoscopy next 05/19/2025 Meningioma (ICD-10 - D32.9) pending diagnostic testing, order faxed to [facility] 08/29/2024 Thyroid nodule (ICD- 10 - E04.1) order faxed to [facility] dept 05/15/2025 Acquired hypothyroid ism (ICD-10 - E03.9) 05/19/2025 Pure hypercholesterolemia (ICD-10 - E78.00) stable, will continue current regiment 05/15/2025 Vitamin D deficiency (ICD-10 - E55.9) 05/19/2025 Essential hypertensi on (ICD-10 - I10) stable, will continue to monitor 05/15/2025 Prediabetes (ICD-10 - R73.09) 05/19/2025 Thyroid nodule (ICD- 10 - E04.1) stable, will continue current regiment 05/19/2025 Depression screening (ICD-10 - Z13.31) negative screen 06/01/2025 Other Order made and printed nd put into the future folder for . Plan Of Treatment Pending Test Test Name Order Date Electrocardiogram (EKG) 08/10/2016 Electrocardiogram (EKG) 08/23/2017 SENSE NERVE CONDUCTION TEST 02/20/2022 MRI BRAIN W&WO CONTRAST 05/19/2025 MRI LUMBAR SPINE NO CONTRAST 03/20/2023 XR CHEST 2 VIEW PA & LAT 10/25/2021 MAMMOGRAM DIGITAL UNILATERAL AALIYAH LT 01/2013 MAMMOGRAM DIGITAL SCREEN RIGHT UNI 04/21 US THYROID BIOPSY FNA GUIDE 08/02/2023 XR HIP RIGHT 4 OR MORE VIEWS 09/30/2021 Urinalysis 05/17/2021 Comprehensive Met. Panel 07/30/2025 Magnesium 07/30/2025 Lipase 07/30/2025 CT abdomen pelvis w con 01/15/2024 CT chest wo con 06/06/2021 MR head/brain wo/w con 06/01/2025 US biopsy thyroid 08/28/2023 US thyroid 08/18/2022 US thyroid 08/29/2024 US thyroid 05/09/2022 Future Test Test Name Order Date US THYROID 06/17/2021 Next Appt Details Provider Name:Slim salter, 11/17/2025 08:00:00 AM, [address] [place] [address], [address], [place], [place], [phone], Provider Name:Slim salter, 11/23/2025 09:00:00 AM, [address] [facility], [address], [place], [place], [phone], Provider Name:Slim Shepard gaetano, 05/13/2026 07:45:00 AM, [address] [facility], [address], [place], [place], [phone], Provider Name:Slim Shepard kaylar, 05/20/2026 09:30:00 AM, [address] [facility], [address], [place], [place], [phone], Insurance Providers Payer Name Payer Address Payer Phone Subscriber Number Group Number Insured Name Patient Relationship to Insured Coverage Start Date Coverage End Date [facility] [address] [place], [place] [phone] [id number] LeenaRosina jurado Self - patient is the insured MEDICARE NHIC [address] [place] [address] [id number] Rosina Stern Self - patient is the insured Medical (General) History Medical History History ICD Code frequent pvc colonoscopy 2008; colonoscop y 01/26/15 repeat 5 yrs (Dr. Prasad); had colonoscopy 02/26/[address] Prasad - repeat 5 yearsColonoscopy 07/17/24 repeat 5y Inclusion cyst
--- OUTSIDE RECORDS SUMMARY | 2025-07-30 22:12 | XMS_ITS | Patient Health Record ---
Author Organization [facility] Address [address] [place] [id number] Care Team Providers Care Production Control Expediter Name Role Phone Moreno Horacio Unavailable [phone] Reason For Referral No Information Plan Of Treatment No Information
--- OUTSIDE RECORDS SUMMARY | 2025-07-30 22:12 | XMS_ITS | Clinical Summary ---
Author Organization [facility] ity Address [id number] [place] [id number] Care Team Providers Care Advertising Sales Manager Name Role Phone Unavailable Primary Care [...]
[2025-07-31] MEDS: iohexoL 350 MG/ML 100 ML INFUS..BTL 85 ML IV (01:01)
[2025-07-31 01:12] VITALS: BP 146/68; PULSE 68; RESP 16; TEMP 36.9; O2SAT 98
[2025-07-31 01:40] LABS: Appearance Urine Clear; Glucose Urine UA Negative (Negative); PH 5.5 (5.0-9.0); Specific Gravity - Urine >= 1.030 (1.005-1.025)
--- NOTE | 2025-07-31 03:27 | PC.NURSE ---
pt stated she had no pain- refused any prn pain meds at this time.
--- NOTE | 2025-07-31 03:29 | PC.NURSE ---
pt currently has vanco infusing. She also has an order for D5/LR but this is not compatible with vanco. She is currently refusing another line. Provider made aware. OK to give fluids once vanco finishes infusing.
--- NOTE | 2025-07-31 04:36 | PC.NURSE ---
pt had about 15 min left of her vanco infusion- she stated she was feeling itchy in her head. No respiratory distress, vitals wnl. RN stopped infusion and informed ordering provider.
[2025-07-31] MEDS: Dextrose 5 % and Lactated Ring 1,000 ML 125 ML IVCONT ×3 (04:52→22:52)
[2025-07-31 07:03] VITALS: BP 149/75; PULSE 63; RESP 16; TEMP 36.7; O2SAT 97
--- NOTE | 2025-07-31 07:16 | PC.NURSE ---
Surgery in room at 0703am
--- NOTE | 2025-07-31 07:27 | PM.HPGS ---
History of Present Illness History of Present Illness Date of Service: 07/31/25 <Alexsander Wynn PA-C - Last Filed: 07/31/25 08:07> 07/31/25 <Lance Bronson MD - Last Filed: 07/31/25 08:48> Chief complaint: Acute Sigmoid Diverticulitis <Alexsander Wynn PA-C - Last Filed: 07/31/25 08:07> Narrative: Rosina Stern is a 70 year old female with a history of HLD, GERD, hypothyroidism, diverticulitis. Pateint reports she had a recent flare of diverticulitis, she follows GI with Dr Vargas who prescribed her augmentin. She initially was feeling better. Finished her abx last week. she began feeling similar lower left abdominal pain on sunday. states the pain was intermittent and very intense, sometiems a 10/10 with some associated decreased appetite and mild nausea and chills. No temp at home. She denies vomiting. Labs and imaging were obtained in the ED. There was mild leukocytosis, 12.0. CT of the abdomen showing acute diverticulitis with microperforation, small amount of free air in the pelvis with a small fluid collection. She was started on vanco and zosyn, she develops some itching without angioedema or respiratory compromise after the vanco, was given benadryl and her symptoms resolved. Currently pain is well controlled with medication, now more like a 2-3/10, continued decreased appetite. She reports her last bowel movement was yesterday, formed, no diarrhea, no bloody stools. She does note that recently she has noticed wetness around the anus, describes this a clear liquid, without odor. She denies and urinary symptoms, no pnuematuria, cloudy urine, dysuria. UA was negative in ED. surgical history is significant for 2 c sections. denies additional abdominal surgery. denies smoking. Endorses social alcohol use. Most recent colonoscopy was last year june 2024. <Alexsander Wynn PA-C - Last Filed: 07/31/25 08:07> [facility] Past Medical History Medical History: Medical History Hypothyroid GERD (gastroesophageal reflux disease) PVC (premature ventricular contraction) Elevated cholesterol Deviated septum Degeneration of spine Thyroid nodule Osteoarthritis <Alexsander Wynn PA-C - Last Filed: 07/31/25 08:07> Family History Family History: Family History Paternal Aunt Breast CA Father Colon cancer <Alexsander Wynn PA-C - Last Filed: 07/31/25 08:07> Surgical History Surgical History: Surgical History Hx of dilation and curettage History of esophagogastroduodenoscopy (EGD) History of nasal surgery Hx of tonsillectomy History of surgery H/O colonoscopy Tubal ligation status History of H/O shoulder surgery History of arthroscopy of both knees <Alexsander Wynn PA-C - Last Filed: 07/31/25 08:07> Social History Social History: Social History Household Members: Spouse Housing: House Are you a primary hiv/aids care nurse to a significant other at home: No Do you presently have visiting nurse or other home services: No Alcohol intake: current Alcohol intake frequency: holidays/special occasions only Patient Tobacco Use Status: Former Tobacco user Tobacco use type: Cigarette Years Smoked: 7 Smoked in Last 30 Days: No Use of substances other than those prescribed or required for medical reasons: No Have you been hit, kicked, punched, or otherwise hurt by someone within the past year? If so, by whom?: No Do you feel safe in your current relationship?: Yes Is there a partner from a previous relationship who is making you feel unsafe now?: No Are you made to feel afraid or neglected: No Advance Directives: Yes Advance Directives on File: Yes Advance Directives Date on File: 12/15/22 Do you have a plan to hurt others: No Plan Recently lost weight without trying: No Eating poorly because of decreased appetite: No Nutrition Risks: No Nutritional Risk Patient : No : No Poor oral hygiene: No Gender identity: Female <SHAWNEE Beach Last Filed: 07/31/25 08:07> Meds Allergies/Adverse reactions: Allergies Allergy/AdvReac Type Severity Reaction Status Date / Time No Known Allergies Allergy Verified 07/30/25 16:14 <Alexsander Wynn PA-C - Last Filed: 07/31/25 08:07> Active Medications: Current Medications Calcium Carbonate (Calcium Carbonate 750 Mg Tab.Chew) 750 mg PO Q4H PRN PRN Reason: Heartburn Heparin Sodium (Porcine) (Heparin Sodium,Porcine 5,000 Unit/Ml Vial) 5,000 unit SUBCUT Q12H OLIVIA Hydromorphone HCl (Hydromorphone Hcl 0.5 Mg/0.5 Ml Syringe) 0.5 mg IVPUSH Q3H PRN; Protocol PRN Reason: Pain, Severe (Pain Scale 7-10) Acetaminophen (Ofirmev) 1,000 mg in 100 mls @ 400 mls/hr IV Q6H PRN PRN Reason: Pain, Mild (Pain Scale 1-3) Dextrose/Lactated Ringer's (D5lr) 1,000 mls @ 125 mls/hr IVCONT .Q8H OLIVIA Last Admin: 07/31/25 04:52 Dose: 125 mls/hr Piperacillin Sod/Tazobactam (Sod 3.375 gm/ Sodium Chloride) 50 mls @ 100 mls/hr IV Q6H OLIVIA Magnesium Hydroxide (Milk Of Magnesia 30 Ml Oral.Susp) 30 ml PO DAILY PRN PRN Reason: Constipation Melatonin (Melatonin 3 Mg Tablet) 6 mg PO BEDTIME PRN PRN Reason: Insomnia Ondansetron HCl (Ondansetron Hcl 4 Mg/2 Ml Vial) 4 mg IVPUSH QID PRN PRN Reason: Nausea Oxycodone HCl (Oxycodone Hcl Immed Release 5 Mg Tablet) 5 mg PO Q6H PRN PRN Reason: Pain, Moderate(Pain Scale 4-6) Sodium Chloride (0.9 % Sodium Chloride Flush 3 Ml Syringe) 3 ml IVFLUSH QSHIFT OLIVIA Zolpidem Tartrate (Zolpidem Tartrate 5 Mg Tablet) 5 mg PO BEDTIME PRN PRN Reason: Insomnia <Alexsander Wynn PA-C - Last Filed: 07/31/25 08:07> Home medications: Home Medications ?Medication ?Instructions ?Recorded ?Confirmed ?Last Taken ?Type levothyroxine 100 mcg tablet 100 mcg PO DAILY@0600 11/10/20 07/31/25 12/15/22 History cholecalciferol (vitamin D3) 25 25 mcg PO DAILY 12/08/22 07/31/25 12/14/22 History mcg (1,000 unit) capsule (Vitamin D3) atorvastatin 40 mg tablet 40 mg PO DAILY 11/08/23 07/31/25 Unknown History albuterol sulfate 90 mcg/actuation 1 puff inhalation Q4H PRN 07/22/25 07/31/25 Unknown History aerosol inhaler Respiratory Distress <SHAWNEE Beach Last Filed: 07/31/25 08:07> Physical Exam Vital Signs: Vital Signs: Last Vital Signs Temp 98.1 F 07/31/25 07:03 Pulse 63 07/31/25 07:03 Resp 16 07/31/25 07:03 BP 149/75 H 07/31/25 07:03 Pulse Ox 97 07/31/25 07:03 O2 Del Method Room Air 07/31/25 07:03 BMI result Body Mass Index 39.2 <SHAWNEE Beach Last Filed: 07/31/25 08:07> Const: General: comfortable and no acute distress <SHAWNEE Beach Last Filed: 07/31/25 08:07> Orientation/consciousness: patient oriented x3 <Alexsander Wynn PA-C - Last Filed: 07/31/25 08:07> Resp: Effort & Inspection: normal respiratory effort and able to speak in complete sentences <Alexsander Wynn PA-C - Last Filed: 07/31/25 08:07> GI: Inspection: No distended <SHAWNEE Beach Last Filed: 07/31/25 08:07> Palpation (GI): Tenderness to palpation present (GI) (diffusely tender, focus in LLQ and suprapubic area) with no rebound tenderness <SHAWNEE Beach Last Filed: 07/31/25 08:07> Percussion: Yes normal to percussion <SHAWNEE Beach Last Filed: 07/31/25 08:07> Neuro: General: patient oriented x3 <SHAWNEE Beach Last Filed: 07/31/25 08:07> Results Results Labs: Short CBC 07/30/25 Range/Units 16:22 WBC 12.0 H (4.8-10.8) X10*3/uL Hgb 14.0 (12.0-16.0) g/dl Hct 41.8 (37.0-47.0) % Plt Count 210 (160-400) X10*3/uL BMP 07/30/25 16:22 Sodium 142 Potassium 3.6 Chloride 108 Carbon Dioxide 29 BUN 20 H Creatinine 0.93 Calcium 8.9 Liver Function 07/30/25 Range/Units 16:22 Total Bilirubin 0.6 (0.0-1.0) mg/dL AST 18 (5-31) U/L ALT 22 (0-31) U/L Alkaline Phosphatase 79 (39-117) U/L Albumin 4.1 (3.5-5.0) g/dL Urine 07/30/25 Range/Units 01:27 Urine Color Yellow Urine Appearance Clear Urine pH 5.5 (5.0-9.0) Ur Specific Lam[place] >= 1.030 H (1.005-1.025) Urine Protein Negative (Neg-Trace) mg/dL Urine Glucose (UA) Negative (Negative) mg/dL <Alexsander Wynn PA-C - Last Filed: 07/31/25 08:07> Assessment and Plan (1) Perforation of sigmoid colon due to diverticulitis: Status: Acute <Alexsander Wynn PA-C - Last Filed: 07/31/25 08:07> 70 year old female with a history of HLD, GERD, hypothyroidism, diverticulitis. She had a recent flare of diverticulitis and completed a course of augmentin last week which was prescribed by her GI provider, Dr Vargas. Her pain returned on sunday and became more severe with associated nausea and decreased appetite. Presented to the ED and had CT showing diverticulitis with a microperfortaion in the pelvis with small amounts of free fluid. It does not appear to be an abscess at this point. She was started on vanco and zosyn, started to have itching after initiation of vanco, was given benadryl which resolved her symptoms. Pain is well controlled with narcotics, currently feeling better at rest. She is still very tender to palpation throughout the abdomen, primarily in the LLQ and suprapubic area. no rebound tenderness. The abdomen is non distended. She appears stable at this point, mildy hypertensive. Not meeting sepsis criteria. No plan for emergent surgery at this time. We will continue with bowel rest, abx. Will monitor for deterioration. We discussed the posibility of IR drainage in the future if not resolving. Also discussed a colon resection down the road after this acute flare due to her recurrent episodes, states this is her 4th in the past year. continue IV zosyn clear liquid diet ambualtion as toelrated serial abd exams <Alexsander Wynn PA-C - Last Filed: 07/31/25 08:07> 70 year old female with a history of HLD, GERD, hypothyroidism, diverticulitis. She had a recent flare of diverticulitis and completed a course of augmentin last week which was prescribed by her GI provider, Dr Vargas. Her pain returned on sunday and became more severe with associated nausea and decreased appetite. Presented to the ED and had CT showing diverticulitis with a microperfortaion in the pelvis with small amounts of free fluid. It does not appear to be an abscess at this point. She was started on vanco and zosyn, started to have itching after initiation of vanco, was given benadryl which resolved her symptoms. Pain is well controlled with narcotics, currently feeling better at rest. She is still very tender to palpation throughout the abdomen, primarily in the LLQ and suprapubic area. no rebound tenderness. The abdomen is non distended. She appears stable at this point, mildy hypertensive. Not meeting sepsis criteria. No plan for emergent surgery at this time. We will continue with bowel rest, abx. Will monitor for deterioration. We discussed the posibility of IR drainage in the future if not resolving. Also discussed a colon resection down the road after this acute flare due to her recurrent episodes, states this is her 4th in the past year. continue IV zosyn clear liquid diet ambualtion as toelrated serial abd exams 70-year-old female patient with a 4th recurrence of sigmoid diverticulitis. This morning she feels somewhat improved but still has some discomfort in the left lower quadrant. Her last bowel movement was yesterday and was painful to pass. She also reports some clear discharge per rectum. She denies any bleeding. CT reviewed and reveals inflammation in the sigmoid colon with a small amount of free fluid without rim enhancement. Agree with the above assessment and plan. Continue Zosyn and monitor clinical examination. We discussed interval sigmoid resection once the current episode has resolved to prevent further episodes which almost certainly will occur. She expressed understanding and agrees with the plan. <Lance Bronson MD - Last Filed: 07/31/25 08:48> Quality Stroke Does the patient have a stroke diagnosis?: No <Lance Bronson MD - Last Filed: 07/31/25 08:48> VTE Prior VTE?: No <Lance Bronson MD - Last Filed: 07/31/25 08:48> VTE Risk Level:: Surgical - moderate <Alexsander Wynn PA-C - Last Filed: 07/31/25 08:07> VTE Device Contraindication: N/A - Device Ordered <Alexsander Wynn PA-C - Last Filed: 07/31/25 08:07> VTE Drug Contraindication: N/A - Med Ordered <Alexsander Wynn PA-C - Last Filed: 07/31/25 08:07> Procedures Date of Service Date of Service: 07/31/25 <Alexsander Wynn PA-C - Last Filed: 07/31/25 08:07> 07/31/25 <Lance Bronson MD - Last Filed: 07/31/25 08:48>
--- NOTE | 2025-07-31 07:31 | PHA.MEDREC ---
Pharmacy Consult ? Medication Reconciliation Pharmacy has completed the medication reconciliation.Med rec complete, spoke to patient and compared with pharmacy claim history.
[2025-07-31 07:43] VITALS: BMI 36.2
[2025-07-31 09:06] VITALS: BP 142/82; PULSE 52; RESP 18; TEMP 36.2; O2SAT 98
--- NOTE | 2025-07-31 11:25 | MHC.CM.PN ---
pt lives with is independent has a rode home dc plan home n/s
[2025-07-31] MEDS: 0.9 % Sodium Chloride Flush 3 ML SYRINGE IVFLUSH (15:17)
[2025-07-31 15:38] VITALS: BP 158/76; PULSE 59; RESP 18; TEMP 36.1; O2SAT 98
[2025-07-31 19:25] VITALS: BP 158/78; PULSE 61; RESP 18; TEMP 36.3; O2SAT 96
[2025-08-01 03:29] VITALS: BP 124/76; PULSE 56; RESP 18; TEMP 36.3; O2SAT 97
[2025-08-01 06:38] LABS: MANUAL DIFF FLAG NO
[2025-08-01 06:50] LABS: Hematocrit 35.7 % (37.0-47.0); Hemoglobin 11.7 g/dl (12.0-16.0); Imm Gran Abs Auto 0.02 X10*3/uL (0.00-0.03); Imm Gran Pct Auto 0.4 % (0.0-0.4); Lymphocytes Absolute Auto 1.6 X10*3/uL (1.2-4.9); Mean Corpuscular HGB Conc 32.8 g/dl (31.0-35.0); Mean Corpuscular Hemoglobin 30.6 pg (27.0-33.0); Mean Corpuscular Volume 93.5 fL (80.0-98.0); NRBC Abs Auto 0.000 X10*3/uL (0.0-0.012); NRBC Pct Auto 0.0 /100WBC (0.0-0.2); Platelet Count 165 X10*3/uL (160-400); Red Blood Count 3.82 X10*6/uL (4.20-5.50); White Blood Count 4.8 X10*3/uL (4.8-10.8)
[2025-08-01 07:00] LABS: Anion Gap 9 (12-20); Blood Urea Nitrogen 9 mg/dL (9-16); Calcium 8.3 mg/dL (8.4-10.2); Carbon Dioxide 27 mmol/L (22-29); Chloride 111 mmol/L (96-108); Creatinine Clr Calc Pharmacy 59.1; Estimated Glomerular Filt Rate 56; Potassium 4.2 mmol/L (3.3-5.1); Sodium 143 mmol/L (135-145)
[2025-08-01 08:00] VITALS: BP 189/81; PULSE 62; RESP 18; TEMP 36.2; O2SAT 98
[2025-08-01] MEDS: Dextrose 5 % and Lactated Ring 1,000 ML 125 ML IVCONT (08:16)
[2025-08-01] MEDS: 0.9 % Sodium Chloride Flush 3 ML SYRINGE IVFLUSH ×2 (08:40→20:48)
--- NOTE | 2025-08-01 09:34 | PM.PNGS ---
Subjective Subjective Date of Service: 08/02/25 Interval history: States she feels much better Much less pain No events overnight No nausea or vomiting Passing flatus As per nurse, blood pressure has been running high Physical Exam Vital Signs: Vital Signs: Last Vital Signs Temp 97.2 F 08/01/25 08:00 Pulse 62 08/01/25 08:00 Resp 18 08/01/25 08:00 BP 189/81 H 08/01/25 08:00 Pulse Ox 98 08/01/25 08:00 O2 Del Method Room Air 08/01/25 08:00 BMI result Body Mass Index 36.2 Const: Other: Looks well General: comfortable and no acute distress Resp: Effort & Inspection: normal respiratory effort Cardio: Rate: regular rate GI: Other: Minimal tenderness on the left lower quadrant Palpation (GI): Soft to palpation, not firm and no guarding Objective Data Active Medications Albuterol Sulfate (Albuterol Sulfate 90 Mcg 8 Gm Inhaler) 1 puff INHALE RQ6H PRN PRN Reason: Shortness of Breath Atorvastatin Calcium (Atorvastatin Calcium 40 Mg Tablet) 40 mg PO DAILY [facility] Last Admin: 08/01/25 08:33 Dose: 40 mg Documented By: DONTA Calcium Carbonate (Calcium Carbonate 750 Mg Tab.Chew) 750 mg PO Q4H PRN PRN Reason: Heartburn Heparin Sodium (Porcine) (Heparin Sodium,Porcine 5,000 Unit/Ml Vial) 5,000 unit SUBCUT Q12H [facility] Last Admin: 08/01/25 08:35 Dose: 5,000 unit Documented By: DONTA Hydromorphone HCl (Hydromorphone Hcl 0.5 Mg/0.5 Ml Syringe) 0.5 mg IVPUSH Q3H PRN; Protocol PRN Reason: Pain, Severe (Pain Scale 7-10) Acetaminophen (Ofirmev) 1,000 mg in 100 mls @ 400 mls/hr IV Q6H PRN PRN Reason: Pain, Mild (Pain Scale 1-3) Last Infusion: 07/31/25 09:50 Dose: Infused Documented By: CELESTINA Dextrose/Lactated Ringer's (D5lr) 1,000 mls @ 125 mls/hr IVCONT .Q8H [facility] Last Infusion: 08/01/25 08:16 Dose: 0 mls/hr Documented By: DONTA Piperacillin Sod/Tazobactam (Sod 3.375 gm/ Sodium Chloride) 50 mls @ 100 mls/hr IV Q6H [facility] Last Admin: 08/01/25 08:29 Dose: 100 mls/hr Documented By: DONTA Levothyroxine Sodium (Levothyroxine Sodium 100 Mcg Tablet) 100 mcg PO DAILY@0600 [facility] Last Admin: 08/01/25 05:03 Dose: 100 mcg Documented By: HUGO Magnesium Hydroxide (Milk Of Magnesia 30 Ml Oral.Susp) 30 ml PO DAILY PRN PRN Reason: Constipation Melatonin (Melatonin 3 Mg Tablet) 6 mg PO BEDTIME PRN PRN Reason: Insomnia Omeprazole (Omeprazole 20 Mg Capsule.Dr) 20 mg PO BID@0630,1630 [facility] Last Admin: 08/01/25 05:56 Dose: 20 mg Documented By: HUGO Ondansetron HCl (Ondansetron Hcl 4 Mg/2 Ml Vial) 4 mg IVPUSH QID PRN PRN Reason: Nausea Last Admin: 07/31/25 09:26 Dose: 4 mg Documented By: CELESTINA Oxycodone HCl (Oxycodone Hcl Immed Release 5 Mg Tablet) 5 mg PO Q6H PRN PRN Reason: Pain, Moderate(Pain Scale 4-6) Sodium Chloride (0.9 % Sodium Chloride Flush 3 Ml Syringe) 3 ml IVFLUSH QSHIFT [facility] Last Admin: 08/01/25 08:40 Dose: 3 ml Documented By: DONTA Vitamin D (Cholecalciferol (Vitamin D3) 25 Mcg Tablet) 25 mcg PO DAILY [facility] Last Admin: 08/01/25 08:33 Dose: 25 mcg Documented By: DONTA Zolpidem Tartrate (Zolpidem Tartrate 5 Mg Tablet) 5 mg PO BEDTIME PRN PRN Reason: Insomnia Labs 08/01/25 06:14 08/01/25 06:14 Labs: Laboratory Results - last 24 hr 08/01/25 06:14 MCV 93.5 MCH 30.6 MCHC 32.8 RDW 13.3 Plt Count 165 MPV 11.3 Immature Gran % (Auto) 0.4 Neut % (Auto) 50.3 Lymph % (Auto) 33.3 [place] % (Auto) 8.3 Eos % (Auto) 6.7 H Baso % (Auto) 1.0 Lymph # (Auto) 1.6 [place] # (Auto) 0.4 Eos # (Auto) 0.3 Baso # (Auto) 0.1 Abs Immat Gran (auto) 0.02 Absolute Neuts (auto) 2.4 Absolute Nucleated RBC 0.000 Nucleated RBC % (auto) 0.0 Anion Gap 9 L Estim Creat Clear Calc 59.1 Estimated GFR 56 Random Glucose 138 H Calcium 8.3 L D Microbiology Microbiology Results: Microbiology 07/30/25 22:17 Blood Culture - Preliminary Blood - Venous No growth after 24 hours. 07/30/25 22:13 Blood Culture - Preliminary Blood - Venous No growth after 24 hours. Procedures Date of Service Date of Service: 08/02/25 Progress Note: A&P Assessment and plan (1) Diverticulitis: Status: Acute Assessment and Plan: With microperforation Clinically much improved Continue IV antibiotics We will keep on clear liquids for now Abdomen is soft and benign Ambulate Consult hospitalist for elevated blood pressures Time Spent With Patient Time: Total time managing care of this patient today ____ minutes. Quality Stroke Does the patient have a stroke diagnosis?: No VTE Prior VTE?: No VTE Risk Level:: Surgical - moderate VTE Device Contraindication: N/A - Device Ordered VTE Drug Contraindication: N/A - Med Ordered
[2025-08-01 12:59] VITALS: BP 177/73; PULSE 59; RESP 18; TEMP 36.6; O2SAT 97
--- NOTE | 2025-08-01 14:55 | P.CONHOSP_ITS ---
History of Present Illness Data of Consult Service Date: 08/01/25 Primary Care Provider: Slim Hammond MD HPI 70-year-old woman admitted by general surgery. Patient was on 10 days of Augmentin but noted symptoms of nausea and chills had returned. She had no bloody stool or fever she was advised by her human resources records clerk to come to the ER. Patient was admitted by general surgery and found to have microperforation secondary to diverticulitis. Patient was placed on IV antibiotics and clear liquids. Stable vital signs and labs at this time. Review of Systems 2 Review of Systems: Denies any recent fever chills or decrease in appetite respiratory denies any shortness of breath coverage production cardiovascular is adjustment of any PND or edema gastrointestinal denies any dysphagia abdominal pain nausea vomiting or diarrhea genitourinary denies any dysuria frequency or hematuria musculoskeletal denies any joint pain or swelling neuropsych denies any weakness or seizures all other systems reviewed are negative [facility] Medical History Hypothyroid GERD (gastroesophageal reflux disease) PVC (premature ventricular contraction) Elevated cholesterol Deviated septum Degeneration of spine Thyroid nodule Osteoarthritis Family History Paternal Aunt Breast CA Father Colon cancer Surgical History Hx of dilation and curettage History of esophagogastroduodenoscopy (EGD) History of nasal surgery Hx of tonsillectomy History of surgery H/O colonoscopy Tubal ligation status History of H/O shoulder surgery History of arthroscopy of both knees Social History Household Members: Spouse Housing: House Are you a primary respiratory care technician to a significant other at home: No Do you presently have visiting nurse or other home services: No Alcohol intake: current Alcohol intake frequency: holidays/special occasions only Patient Tobacco Use Status: Former Tobacco user Tobacco use type: Cigarette Years Smoked: 7 Advance Directives Date on File: 12/15/22 service: No Gender identity: Female Meds Allergies Allergy/AdvReac Type Severity Reaction Status Date / Time No Known Allergies Allergy Verified 07/30/25 16:14 Active Medications: Current Medications Albuterol Sulfate (Albuterol Sulfate 90 Mcg 8 Gm Inhaler) 1 puff INHALE RQ6H PRN PRN Reason: Shortness of Breath Atorvastatin Calcium (Atorvastatin Calcium 40 Mg Tablet) 40 mg PO DAILY [facility] Last Admin: 08/01/25 08:33 Dose: 40 mg Calcium Carbonate (Calcium Carbonate 750 Mg Tab.Chew) 750 mg PO Q4H PRN PRN Reason: Heartburn Heparin Sodium (Porcine) (Heparin Sodium,Porcine 5,000 Unit/Ml Vial) 5,000 unit SUBCUT Q12H [facility] Last Admin: 08/01/25 08:35 Dose: 5,000 unit Hydromorphone HCl (Hydromorphone Hcl 0.5 Mg/0.5 Ml Syringe) 0.5 mg IVPUSH Q3H PRN; Protocol PRN Reason: Pain, Severe (Pain Scale 7-10) Acetaminophen (Ofirmev) 1,000 mg in 100 mls @ 400 mls/hr IV Q6H PRN PRN Reason: Pain, Mild (Pain Scale 1-3) Last Admin: 08/01/25 13:13 Dose: 400 mls/hr Dextrose/Lactated Ringer's (D5lr) 1,000 mls @ 60 mls/hr IVCONT .[id number] [facility] Last Admin: 08/01/25 12:16 Dose: Not Given Piperacillin Sod/Tazobactam (Sod 3.375 gm/ Sodium Chloride) 50 mls @ 100 mls/hr IV Q6H [facility] Last Infusion: 08/01/25 09:50 Dose: Infused Levothyroxine Sodium (Levothyroxine Sodium 100 Mcg Tablet) 100 mcg PO DAILY@0600 [facility] Last Admin: 08/01/25 05:03 Dose: 100 mcg Magnesium Hydroxide (Milk Of Magnesia 30 Ml Oral.Susp) 30 ml PO DAILY PRN PRN Reason: Constipation Melatonin (Melatonin 3 Mg Tablet) 6 mg PO BEDTIME PRN PRN Reason: Insomnia Omeprazole (Omeprazole 20 Mg Capsule.Dr) 20 mg PO BID@0630,1630 [facility] Last Admin: 08/01/25 05:56 Dose: 20 mg Ondansetron HCl (Ondansetron Hcl 4 Mg/2 Ml Vial) 4 mg IVPUSH QID PRN PRN Reason: Nausea Last Admin: 07/31/25 09:26 Dose: 4 mg Oxycodone HCl (Oxycodone Hcl Immed Release 5 Mg Tablet) 5 mg PO Q6H PRN PRN Reason: Pain, Moderate(Pain Scale 4-6) Sodium Chloride (0.9 % Sodium Chloride Flush 3 Ml Syringe) 3 ml IVFLUSH QSHIFT [facility] Last Admin: 08/01/25 08:40 Dose: 3 ml Vitamin D (Cholecalciferol (Vitamin D3) 25 Mcg Tablet) 25 mcg PO DAILY [facility] Last Admin: 08/01/25 08:33 Dose: 25 mcg Zolpidem Tartrate (Zolpidem Tartrate 5 Mg Tablet) 5 mg PO BEDTIME PRN PRN Reason: Insomnia Home Medications ?Medication ?Instructions ?Recorded ?Confirmed ?Last Taken ?Type levothyroxine 100 mcg tablet 100 mcg PO DAILY@0600 07/31/25 12/15/22 History cholecalciferol (vitamin D3) 25 25 mcg PO DAILY 07/31/25 12/14/22 History mcg (1,000 unit) capsule (Vitamin D3) atorvastatin 40 mg tablet 40 mg PO DAILY 11/08/2307/20 Unknown History albuterol sulfate 90 mcg/actuation 1 puff inhalation Q 4H PRN 07/22/25 07/31/25 Unknown History aerosol inhaler Respiratory Distress Physical Exam 2 Vital Signs and Narrative: Vital Signs: Last Vital Signs Temp 97.8 F 08/01/25 12:59 Pulse 59 08/01/25 12:59 Resp 18 08/01/25 12:59 BP 177/73 H 08/01/25 12:59 Pulse Ox 97 08/01/25 12:59 O2 Del Method Room Air 08/01/25 12:59 BMI result Body Mass Index 36.2 Appearing in no acute distress lung sounds are clear to auscultation heart regular rate rhythm, clear S1, S2 positive bowel sounds, abdomen is soft, nontender neuro patient is alert x3, no focal deficits Results Labs 08/01/25 06:14 08/01/25 06:14 Labs: Laboratory Results - last 24 hr 08/01/25 06:14 MCV 93.5 MCH 30.6 MCHC 32.8 RDW 13.3 Plt Count 165 MPV 11.3 Immature Gran % (Auto) 0.4 Neut % (Auto) 50.3 Lymph % (Auto) 33.3 [place] % (Auto) 8.3 Eos % (Auto) 6.7 H Baso % (Auto) 1.0 Lymph # (Auto) 1.6 [place] # (Auto) 0.4 Eos # (Auto) 0.3 Baso # (Auto) 0.1 Abs Immat Gran (auto) 0.02 Absolute Neuts (auto) 2.4 Absolute Nucleated RBC 0.000 Nucleated RBC % (auto) 0.0 Anion Gap 9 L Estim Creat Clear Calc 59.1 Estimated GFR 56 Random Glucose 138 H Calcium 8.3 L D Assessment and Plan Plan 70-year-old woman admitted by General surgery with diverticulitis and microperforation Acute sigmoid diverticulitis with small microperforation and small adjacent fluid collection Management as per surgical team Clear liquid diet and IV fluids Zosyn Pain management Asthma Continue inhalers as needed Hypothyroidism Continue levothyroxine Hyperlipidemia Continue statin GERD Continue PPI DVT prophylaxis with heparin Full code
--- NOTE | 2025-08-01 15:06 | HO.PM.IMCN ---
History of Present Illness Data of Consult Service Date: 08/01/25 Primary Care Provider: Slim Hammond MD HPI 70yo F with hypothyroidism, hyperlipidemia, esophagitis, and heartburn admitted to the General Surgery service for sigmoid diverticulitis with microperforations being managed with antibiotics; consult requested for elevated blood pressure. Pt states she has no history of HTN. Her BP is sometimes elevated when she rushes into the doctors' office, but then upon recheck it normalizes to the 120s-130s. She has been in a lot of pain, but has improved and is tolerating clear liquid diet. No history of coronary artery disease. No headache, chest pain, or dyspnea. Review of Systems Review of Systems: Yes all other systems are reviewed and are negative [facility] Medical History Hypothyroid GERD (gastroesophageal reflux disease) PVC (premature ventricular contraction) Elevated cholesterol Deviated septum Degeneration of spine Thyroid nodule Osteoarthritis Family History Paternal Aunt Breast CA Father Colon cancer Surgical History Hx of dilation and curettage History of esophagogastroduodenoscopy (EGD) History of nasal surgery Hx of tonsillectomy History of surgery H/O colonoscopy Tubal ligation status History of H/O shoulder surgery History of arthroscopy of both knees Social History Household Members: Spouse Housing: House Are you a primary customer care voice consultant to a significant other at home: No Do you presently have visiting nurse or other home services: No Alcohol intake: current Alcohol intake frequency: holidays/special occasions only Patient Tobacco Use Status: Former Tobacco user Tobacco use type: Cigarette Years Smoked: 7 Advance Directives Date on File: 12/15/22 service: No Gender identity: Female Meds Allergies Allergy/AdvReac Type Severity Reaction Status Date / Time No Known Allergies Allergy Verified 07/30/25 16:14 Active Medications: Current Medications Albuterol Sulfate (Albuterol Sulfate 90 Mcg 8 Gm Inhaler) 1 puff INHALE RQ6H PRN PRN Reason: Shortness of Breath Atorvastatin Calcium (Atorvastatin Calcium 40 Mg Tablet) 40 mg PO DAILY [facility] Last Admin: 08/01/25 08:33 Dose: 40 mg Calcium Carbonate (Calcium Carbonate 750 Mg Tab.Chew) 750 mg PO Q4H PRN PRN Reason: Heartburn Heparin Sodium (Porcine) (Heparin Sodium,Porcine 5,000 Unit/Ml Vial) 5,000 unit SUBCUT Q12H [facility] Last Admin: 08/01/25 08:35 Dose: 5,000 unit Hydromorphone HCl (Hydromorphone Hcl 0.5 Mg/0.5 Ml Syringe) 0.5 mg IVPUSH Q3H PRN; Protocol PRN Reason: Pain, Severe (Pain Scale 7-10) Acetaminophen (Ofirmev) 1,000 mg in 100 mls @ 400 mls/hr IV Q6H PRN PRN Reason: Pain, Mild (Pain Scale 1-3) Last Admin: 08/01/25 13:13 Dose: 400 mls/hr Dextrose/Lactated Ringer's (D5lr) 1,000 mls @ 60 mls/hr IVCONT .[id number] [facility] Last Admin: 08/01/25 12:16 Dose: Not Given Piperacillin Sod/Tazobactam (Sod 3.375 gm/ Sodium Chloride) 50 mls @ 100 mls/hr IV Q6H [facility] Last Infusion: 08/01/25 09:50 Dose: Infused Levothyroxine Sodium (Levothyroxine Sodium 100 Mcg Tablet) 100 mcg PO DAILY@0600 [facility] Last Admin: 08/01/25 05:03 Dose: 100 mcg Magnesium Hydroxide (Milk Of Magnesia 30 Ml Oral.Susp) 30 ml PO DAILY PRN PRN Reason: Constipation Melatonin (Melatonin 3 Mg Tablet) 6 mg PO BEDTIME PRN PRN Reason: Insomnia Omeprazole (Omeprazole 20 Mg Capsule.Dr) 20 mg PO BID@0630,1630 [facility] Last Admin: 08/01/25 05:56 Dose: 20 mg Ondansetron HCl (Ondansetron Hcl 4 Mg/2 Ml Vial) 4 mg IVPUSH QID PRN PRN Reason: Nausea Last Admin: 07/31/25 09:26 Dose: 4 mg Oxycodone HCl (Oxycodone Hcl Immed Release 5 Mg Tablet) 5 mg PO Q6H PRN PRN Reason: Pain, Moderate(Pain Scale 4-6) Sodium Chloride (0.9 % Sodium Chloride Flush 3 Ml Syringe) 3 ml IVFLUSH QSHIFT [facility] Last Admin: 08/01/25 08:40 Dose: 3 ml Vitamin D (Cholecalciferol (Vitamin D3) 25 Mcg Tablet) 25 mcg PO DAILY [facility] Last Admin: 08/01/25 08:33 Dose: 25 mcg Zolpidem Tartrate (Zolpidem Tartrate 5 Mg Tablet) 5 mg PO BEDTIME PRN PRN Reason: Insomnia Home Medications ?Medication ?Instructions ?Recorded ?Confirmed ?Last Taken ?Type levothyroxine 100 mcg tablet 100 mcg PO DAILY@0600 11/10/20 07/31/25 12/15/22 History cholecalciferol (vitamin D3) 25 25 mcg PO DAILY 12/08/22 07/31/25 12/14/22 History mcg (1,000 unit) capsule (Vitamin D3) atorvastatin 40 mg tablet 40 mg PO DAILY 11/08/23 07/31/25 Unknown History albuterol sulfate 90 mcg/actuation 1 puff inhalation Q4H PRN 07/22/25 07/31/25 Unknown History aerosol inhaler Respiratory Distress Physical Exam Vital Signs and Narrative: Vital Signs: Last Vital Signs Temp 97.8 F 08/01/25 12:59 Pulse 59 08/01/25 12:59 Resp 18 08/01/25 12:59 BP 177/73 H 08/01/25 12:59 Pulse Ox 97 08/01/25 12:59 O2 Del Method Room Air 08/01/25 12:59 BMI result Body Mass Index 36.2 Gen: in no acute distress HEENT: sclera anicteric, moist mucus membranes Neck: supple Lungs: clear to auscultation bilaterally Heart: regular rate and rhythm, no murmurs Abd: soft, lower left quadrant tenderness, non-distended Ext: no edema Skin: warm/well-perfused Neuro: alert and oriented x3, no focal findings Psych: appropriate affect Results Labs 08/01/25 06:14 08/01/25 06:14 Labs: Laboratory Results - last 24 hr 08/01/25 06:14 MCV 93.5 MCH 30.6 MCHC 32.8 RDW 13.3 Plt Count 165 MPV 11.3 Immature Gran % (Auto) 0.4 Neut % (Auto) 50.3 Lymph % (Auto) 33.3 [place] % (Auto) 8.3 Eos % (Auto) 6.7 H Baso % (Auto) 1.0 Lymph # (Auto) 1.6 [place] # (Auto) 0.4 Eos # (Auto) 0.3 Baso # (Auto) 0.1 Abs Immat Gran (auto) 0.02 Absolute Neuts (auto) 2.4 Absolute Nucleated RBC 0.000 Nucleated RBC % (auto) 0.0 Anion Gap 9 L Estim Creat Clear Calc 59.1 Estimated GFR 56 Random Glucose 138 H Calcium 8.3 L D Assessment and Plan (1) Elevated blood pressure reading: Status: Acute Plan 70yo F with hypothyroidism, hyperlipidemia, esophagitis, and heartburn admitted to the General Surgery service for sigmoid diverticulitis with microperforations being managed nonoperatively, consult requested for elevated blood pressure readings. 193/89 on admission, currently 177/73 and was 124/76 overnight. At this point, I would not treat her with antihypertensives unless she has sustained blood pressure readings over 180/100. She should follow up with her primary care doctor and consider monitoring her blood pressure at home. Thank you for this consultation. We are signing off the case at this time. Please communicate with us if any new medical questions arise.
[2025-08-01 15:57] VITALS: BP 172/79; PULSE 57; RESP 20; TEMP 36.4; O2SAT 98
[2025-08-01 19:56] VITALS: BP 150/70; PULSE 61; RESP 18; TEMP 36.5; O2SAT 99
[2025-08-02 03:47] VITALS: BP 172/79; PULSE 56; RESP 18; TEMP 36.3; O2SAT 98
[2025-08-02 07:52] VITALS: BP 196/92; PULSE 57; RESP 18; TEMP 36.1; O2SAT 99
[2025-08-02 08:07] VITALS: BP 114/58; PULSE 67; RESP 18; TEMP 36.6; O2SAT 96
[2025-08-02] MEDS: 0.9 % Sodium Chloride Flush 3 ML SYRINGE IVFLUSH ×3 (08:51→18:41)
--- NOTE | 2025-08-02 10:07 | PM.IMHP ---
History of Present Illness Date of Service: 08/02/25 [facility] Medical History Hypothyroid GERD (gastroesophageal reflux disease) PVC (premature ventricular contraction) Elevated cholesterol Deviated septum Degeneration of spine Thyroid nodule Osteoarthritis Family History Paternal Aunt Breast CA Father Colon cancer Surgical History Hx of dilation and curettage History of esophagogastroduodenoscopy (EGD) History of nasal surgery Hx of tonsillectomy History of surgery H/O colonoscopy Tubal ligation status History of H/O shoulder surgery History of arthroscopy of both knees Social History Household Members: Spouse Housing: House Are you a primary critical care rn to a significant other at home: No Do you presently have visiting nurse or other home services: No Alcohol intake: current Alcohol intake frequency: holidays/special occasions only Patient Tobacco Use Status: Former Tobacco user Tobacco use type: Cigarette Years Smoked: 7 Advance Directives Date on File: 12/15/22 service: No Gender identity: Female Meds Allergies Allergy/AdvReac Type Severity Reaction Status Date / Time No Known Allergies Allergy Verified 07/30/25 16:14 Active Medications: Current Medications Albuterol Sulfate (Albuterol Sulfate 90 Mcg 8 Gm Inhaler) 1 puff INHALE RQ6H PRN PRN Reason: Shortness of Breath Atorvastatin Calcium (Atorvastatin Calcium 40 Mg Tablet) 40 mg PO DAILY [facility] Last Admin: 08/02/25 08:57 Dose: 40 mg Calcium Carbonate (Calcium Carbonate 750 Mg Tab.Chew) 750 mg PO Q4H PRN PRN Reason: Heartburn Heparin Sodium (Porcine) (Heparin Sodium,Porcine 5,000 Unit/Ml Vial) 5,000 unit SUBCUT Q12H [facility] Last Admin: 08/02/25 08:59 Dose: 5,000 unit Hydromorphone HCl (Hydromorphone Hcl 0.5 Mg/0.5 Ml Syringe) 0.5 mg IVPUSH Q3H PRN; Protocol PRN Reason: Pain, Severe (Pain Scale 7-10) Acetaminophen (Ofirmev) 1,000 mg in 100 mls @ 400 mls/hr IV Q6H PRN PRN Reason: Pain, Mild (Pain Scale 1-3) Last Infusion: 08/02/25 09:00 Dose: Infused Piperacillin Sod/Tazobactam (Sod 3.375 gm/ Sodium Chloride) 50 mls @ 100 mls/hr IV Q6H [facility] Last Admin: 08/02/25 09:07 Dose: 100 mls/hr Levothyroxine Sodium (Levothyroxine Sodium 100 Mcg Tablet) 100 mcg PO DAILY@0600 [facility] Last Admin: 08/02/25 05:37 Dose: 100 mcg Magnesium Hydroxide (Milk Of Magnesia 30 Ml Oral.Susp) 30 ml PO DAILY PRN PRN Reason: Constipation Melatonin (Melatonin 3 Mg Tablet) 6 mg PO BEDTIME PRN PRN Reason: Insomnia Omeprazole (Omeprazole 20 Mg Capsule.Dr) 20 mg PO BID@0630,1630 [facility] Last Admin: 08/02/25 06:31 Dose: 20 mg Ondansetron HCl (Ondansetron Hcl 4 Mg/2 Ml Vial) 4 mg IVPUSH QID PRN PRN Reason: Nausea Last Admin: 07/31/25 09:26 Dose: 4 mg Oxycodone HCl (Oxycodone Hcl Immed Release 5 Mg Tablet) 5 mg PO Q6H PRN PRN Reason: Pain, Moderate(Pain Scale 4-6) Sodium Chloride (0.9 % Sodium Chloride Flush 3 Ml Syringe) 3 ml IVFLUSH QSHIFT [facility] Last Admin: 08/02/25 08:51 Dose: 3 ml Vitamin D (Cholecalciferol (Vitamin D3) 25 Mcg Tablet) 25 mcg PO DAILY [facility] Last Admin: 08/02/25 08:57 Dose: 25 mcg Zolpidem Tartrate (Zolpidem Tartrate 5 Mg Tablet) 5 mg PO BEDTIME PRN PRN Reason: Insomnia Home Medications ?Medication ?Instructions ?Recorded ?Confirmed ?Last Taken ?Type levothyroxine 100 mcg tablet 100 mcg PO DAILY@0600 11/10/20 07/31/25 12/15/22 History cholecalciferol (vitamin D3) 25 25 mcg PO DAILY 12/08/22 07/31/25 12/14/22 History mcg (1,000 unit) capsule (Vitamin D3) atorvastatin 40 mg tablet 40 mg PO DAILY 11/08/23 07/31/25 Unknown History albuterol sulfate 90 mcg/actuation 1 puff inhalation Q4H PRN 07/22/25 07/31/25 Unknown History aerosol inhaler Respiratory Distress Physical Exam Vital Signs and Narrative: Vital Signs: Last Vital Signs Temp 97.9 F 08/02/25 08:07 Pulse 67 08/02/25 08:07 Resp 18 08/02/25 08:07 BP 114/58 L 08/02/25 08:07 Pulse Ox 96 08/02/25 08:07 O2 Del Method Room Air 08/02/25 08:07 BMI result Body Mass Index 36.2 Results Labs 08/01/25 06:14 08/01/25 06:14 Quality Stroke Does the patient have a stroke diagnosis?: No VTE Prior VTE?: No VTE Risk Level:: Surgical - moderate VTE Device Contraindication: N/A - Device Ordered VTE Drug Contraindication: N/A - Med Ordered
--- NOTE | 2025-08-02 10:17 | PM.PNGS ---
Subjective Subjective Date of Service: 08/02/25 Interval history: States pain ?a little better? Does not have any appetite today No fever Clinically looks well She says she feels a little bloated Physical Exam Vital Signs: Vital Signs: Last Vital Signs Temp 97.9 F 08/02/25 08:07 Pulse 67 08/02/25 08:07 Resp 18 08/02/25 08:07 BP 114/58 L 08/02/25 08:07 Pulse Ox 96 08/02/25 08:07 O2 Del Method Room Air 08/02/25 08:07 BMI result Body Mass Index 36.2 Const: General: comfortable and no acute distress Resp: Effort & Inspection: normal respiratory effort Cardio: Rate: regular rate GI: Palpation (GI): Soft to palpation, not firm and Tenderness to palpation present (GI) (Minimal tenderness left lower quadrant) Objective Data Active Medications Albuterol Sulfate (Albuterol Sulfate 90 Mcg 8 Gm Inhaler) 1 puff INHALE RQ6H PRN PRN Reason: Shortness of Breath Atorvastatin Calcium (Atorvastatin Calcium 40 Mg Tablet) 40 mg PO DAILY [facility] Last Admin: 08/02/25 08:57 Dose: 40 mg Documented By: DONTA Calcium Carbonate (Calcium Carbonate 750 Mg Tab.Chew) 750 mg PO Q4H PRN PRN Reason: Heartburn Heparin Sodium (Porcine) (Heparin Sodium,Porcine 5,000 Unit/Ml Vial) 5,000 unit SUBCUT Q12H [facility] Last Admin: 08/02/25 08:59 Dose: 5,000 unit Documented By: DONTA Hydromorphone HCl (Hydromorphone Hcl 0.5 Mg/0.5 Ml Syringe) 0.5 mg IVPUSH Q3H PRN; Protocol PRN Reason: Pain, Severe (Pain Scale 7-10) Acetaminophen (Ofirmev) 1,000 mg in 100 mls @ 400 mls/hr IV Q6H PRN PRN Reason: Pain, Mild (Pain Scale 1-3) Last Infusion: 08/02/25 09:00 Dose: Infused Documented By: DONTA Piperacillin Sod/Tazobactam (Sod 3.375 gm/ Sodium Chloride) 50 mls @ 100 mls/hr IV Q6H [facility] Last Infusion: 08/02/25 09:40 Dose: Infused Documented By: DONTA Levothyroxine Sodium (Levothyroxine Sodium 100 Mcg Tablet) 100 mcg PO DAILY@0600 [facility] Last Admin: 08/02/25 05:37 Dose: 100 mcg Documented By: HUGO Magnesium Hydroxide (Milk Of Magnesia 30 Ml Oral.Susp) 30 ml PO DAILY PRN PRN Reason: Constipation Melatonin (Melatonin 3 Mg Tablet) 6 mg PO BEDTIME PRN PRN Reason: Insomnia Omeprazole (Omeprazole 20 Mg Capsule.Dr) 20 mg PO BID@0630,1630 [facility] Last Admin: 08/02/25 06:31 Dose: 20 mg Documented By: HUGO Ondansetron HCl (Ondansetron Hcl 4 Mg/2 Ml Vial) 4 mg IVPUSH QID PRN PRN Reason: Nausea Last Admin: 07/31/25 09:26 Dose: 4 mg Documented By: CELESTINA Oxycodone HCl (Oxycodone Hcl Immed Release 5 Mg Tablet) 5 mg PO Q6H PRN PRN Reason: Pain, Moderate(Pain Scale 4-6) Sodium Chloride (0.9 % Sodium Chloride Flush 3 Ml Syringe) 3 ml IVFLUSH QSHIFT [facility] Last Admin: 08/02/25 08:51 Dose: 3 ml Documented By: DONTA Vitamin D (Cholecalciferol (Vitamin D3) 25 Mcg Tablet) 25 mcg PO DAILY [facility] Last Admin: 08/02/25 08:57 Dose: 25 mcg Documented By: DONTA Zolpidem Tartrate (Zolpidem Tartrate 5 Mg Tablet) 5 mg PO BEDTIME PRN PRN Reason: Insomnia Labs 08/01/25 06:14 08/01/25 06:14 Microbiology Microbiology Results: Microbiology 07/30/25 22:17 Blood Culture - Preliminary Blood - Venous No growth after 48 hours. 07/30/25 22:13 Blood Culture - Preliminary Blood - Venous No growth after 48 hours. Procedures Date of Service Date of Service: 08/02/25 Progress Note: A&P Assessment and plan (1) Diverticulitis: Status: Acute Assessment and Plan: Clinically looks well Abdomen is soft and very benign No fever She is hesitant to advance diet We will re-evaluate later on to see if she is ready to to start full liquids Encouraged ambulation IV antibiotics Time Spent With Patient Time: Total time managing care of this patient today ____ minutes. Quality Stroke Does the patient have a stroke diagnosis?: No VTE Prior VTE?: No VTE Risk Level:: Surgical - moderate VTE Device Contraindication: N/A - Device Ordered VTE Drug Contraindication: N/A - Med Ordered
[2025-08-02] MEDS: Dextrose 5 % and Lactated Ring 1,000 ML 60 ML IVCONT (11:00)
--- NOTE | 2025-08-02 13:19 | PM.EVENT ---
Event Note Date of Service: 08/02/25 Event Note: Seen on early afternoon rounds Says she tolerated clear liquids well Feels better Diarrhea seems to have resolved She says she is ready to try full liquids today Abdomen is soft and benign Continue antibiotics Time Spent With Patient Time: Total time managing care of this patient today ____ minutes.
[2025-08-02 16:53] VITALS: BP 183/88; PULSE 61; RESP 18; TEMP 36.3; O2SAT 98
[2025-08-02 20:00] VITALS: BP 175/85; PULSE 54; RESP 18; TEMP 36.6; O2SAT 98
[2025-08-03 03:31] VITALS: BP 170/76; PULSE 60; RESP 18; TEMP 36.3; O2SAT 98
[2025-08-03] MEDS: Dextrose 5 % and Lactated Ring 1,000 ML 60 ML IVCONT (04:56)
--- NOTE | 2025-08-03 07:40 | PM.PNGS ---
Subjective Subjective Date of Service: 08/03/25 Interval history: doing well, feeling improved. mild nausea with diet. Has been tolerating full liquids, would like to try solids. denies fevers or chills. pain improving. she feels like she may be ready to go home if doing well with diet. Has been ambulating well. has passed some higher volume liquid stools, feels like more bowel movements are coming. Physical Exam Vital Signs: Vital Signs: Last Vital Signs Temp 97.4 F 08/03/25 03:31 Pulse 60 08/03/25 03:31 Resp 18 08/03/25 03:31 BP 170/76 H 08/03/25 03:31 Pulse Ox 98 08/03/25 03:31 O2 Del Method Room Air 08/03/25 03:31 BMI result Body Mass Index 36.2 Const: General: comfortable and no acute distress Orientation/consciousness: patient oriented x3 GI: Inspection: No distended Palpation (GI): Soft to palpation, Tenderness to palpation present (GI) (mild tenderness in LLQ) and no guarding Neuro: General: patient oriented x3 Objective Data Active Medications Albuterol Sulfate (Albuterol Sulfate 90 Mcg 8 Gm Inhaler) 1 puff INHALE RQ6H PRN PRN Reason: Shortness of Breath Atorvastatin Calcium (Atorvastatin Calcium 40 Mg Tablet) 40 mg PO DAILY [facility] Last Admin: 08/02/25 08:57 Dose: 40 mg Documented By: DONTA Calcium Carbonate (Calcium Carbonate 750 Mg Tab.Chew) 750 mg PO Q4H PRN PRN Reason: Heartburn Heparin Sodium (Porcine) (Heparin Sodium,Porcine 5,000 Unit/Ml Vial) 5,000 unit SUBCUT Q12H [facility] Last Admin: 08/02/25 20:56 Dose: 5,000 unit Documented By: AUSTIN Hydromorphone HCl (Hydromorphone Hcl 0.5 Mg/0.5 Ml Syringe) 0.5 mg IVPUSH Q3H PRN; Protocol PRN Reason: Pain, Severe (Pain Scale 7-10) Dextrose/Lactated Ringer's (D5lr) 1,000 mls @ 60 mls/hr IVCONT .[id number] [facility] Last Infusion: 08/03/25 06:20 Dose: 60 mls/hr Documented By: AUSTIN Piperacillin Sod/Tazobactam (Sod 3.375 gm/ Sodium Chloride) 50 mls @ 100 mls/hr IV Q6H [facility] Last Infusion: 08/03/25 06:15 Dose: Infused Documented By: AUSTIN Levothyroxine Sodium (Levothyroxine Sodium 100 Mcg Tablet) 100 mcg PO DAILY@0600 [facility] Last Admin: 08/03/25 05:48 Dose: 100 mcg Documented By: AUSTIN Magnesium Hydroxide (Milk Of Magnesia 30 Ml Oral.Susp) 30 ml PO DAILY PRN PRN Reason: Constipation Melatonin (Melatonin 3 Mg Tablet) 6 mg PO BEDTIME PRN PRN Reason: Insomnia Omeprazole (Omeprazole 20 Mg Capsule.Dr) 20 mg PO BID@0630,1630 [facility] Last Admin: 08/03/25 06:39 Dose: 20 mg Documented By: AUSTIN Ondansetron HCl (Ondansetron Hcl 4 Mg/2 Ml Vial) 4 mg IVPUSH QID PRN PRN Reason: Nausea Last Admin: 07/31/25 09:26 Dose: 4 mg Documented By: CELESTINA Oxycodone HCl (Oxycodone Hcl Immed Release 5 Mg Tablet) 5 mg PO Q6H PRN PRN Reason: Pain, Moderate(Pain Scale 4-6) Sodium Chloride (0.9 % Sodium Chloride Flush 3 Ml Syringe) 3 ml IVFLUSH QSHIFT [facility] Last Admin: 08/02/25 18:41 Dose: 3 ml Documented By: DONTA Vitamin D (Cholecalciferol (Vitamin D3) 25 Mcg Tablet) 25 mcg PO DAILY [facility] Last Admin: 08/02/25 08:57 Dose: 25 mcg Documented By: DONTA Zolpidem Tartrate (Zolpidem Tartrate 5 Mg Tablet) 5 mg PO BEDTIME PRN PRN Reason: Insomnia Labs 08/01/25 06:14 08/03/25 11:24 Procedures Date of Service Date of Service: 08/03/25 Progress Note: A&P Assessment and plan (1) Perforation of sigmoid colon due to diverticulitis: Status: Acute Plan 70 year old female admitted for acute diverticulitis with microperforation. We are continuing with conservative management with antibiotics. Overall she is doing well. Pain improving. minimal at rest. There is mild nausea with full liquid diet, but she feels ready to try solids. She is having frequent diarrhea, 5-6 times today. She does remain hypertensive, which is new for her, management per medicine consult, would avoid treating hypertension unless sustained blood pressures 180/100 otherwise follow up with primary care as outpatient. I did recommend she follow up with PCP regarding her elevated BP. On exam she appears well, mildly tender in the LLQ. If tolerating diet can likely DC with abx. we discussed the possibility of having an elective sigmoid resection due to frequent diverticulitis flare ups. she will follow up in the office to discuss further. C diff gene resulting positive. Toxins negative We will start fidaxomicin PO given her itching reaction to IV vanco in ED recheck lytes. advance to regular diet. continue abx ambulation as tolerated Will keep her overnight to initiate oral fidaxomicin, if tolerating without reaction Time Spent With Patient Time: Total time managing care of this patient today ____ minutes. Quality Stroke Does the patient have a stroke diagnosis?: No VTE Prior VTE?: No VTE Risk Level:: Surgical - moderate VTE Device Contraindication: N/A - Device Ordered VTE Drug Contraindication: N/A - Med Ordered
[2025-08-03 07:54] VITALS: PULSE 54; RESP 16; TEMP 36.1; O2SAT 98
[2025-08-03 08:56] VITALS: BP 164/78
[2025-08-03] MEDS: 0.9 % Sodium Chloride Flush 3 ML SYRINGE IVFLUSH ×2 (09:03→16:48)
[2025-08-03 09:41] LABS: CDiff Gene PCR POSITIVE (Negative)
[2025-08-03 10:18] LABS: CDIFF Internal ctrl Dots and bkg OK (V)
[2025-08-03 10:22] LABS: CDiff Toxin Negative (Negative)
--- NOTE | 2025-08-03 10:57 | PC.NURSE ---
GAYLA Wynn made aware pt BP continues to be elevated, pt asymptomatic at this time. no new orders
[2025-08-03 11:59] LABS: Anion Gap 13 (12-20); Blood Urea Nitrogen 6 mg/dL (9-16); Calcium 9.1 mg/dL (8.4-10.2); Carbon Dioxide 27 mmol/L (22-29); Chloride 109 mmol/L (96-108); Creatinine Clr Calc Pharmacy 59.7; Estimated Glomerular Filt Rate 57; Potassium 3.6 mmol/L (3.3-5.1); Sodium 145 mmol/L (135-145)
[2025-08-03 15:07] VITALS: BP 167/75; PULSE 67; RESP 16; TEMP 36.3; O2SAT 97
--- NOTE | 2025-08-03 16:12 | MHC.CM.PN ---
PT NOT MEDICALLY CLEARED, DCP REMAINS HOME VIA PRIVATE TRANSPORT
[2025-08-03 19:14] VITALS: BP 173/77; PULSE 62; RESP 18; TEMP 36.5; O2SAT 96
[2025-08-04] MEDS: 0.9 % Sodium Chloride Flush 3 ML SYRINGE IVFLUSH ×2 (00:13→08:09)
[2025-08-04 03:14] VITALS: BP 150/74; PULSE 54; RESP 18; TEMP 36.1; O2SAT 97
[2025-08-04 07:57] VITALS: BP 178/84; PULSE 50; RESP 18; TEMP 36; O2SAT 99
--- NOTE | 2025-08-04 09:27 | MHC.CM.PN ---
PT CLEARED TO DC HOME TODAY WITH NO SERVICES VIA PRIVATE TRANSPORT
[2025-08-04 09:57] VITALS: BP 167/75; PULSE 57; RESP 18; TEMP 36.4; O2SAT 98
--- NOTE | 2025-08-04 11:33 | P.PNGS_ITS ---
Subjective Subjective Date of Service: 08/04/25 Interval history: feeling improved today. continues to have some loose stools. pain improved. denies fevers or chills. feels ready to be discharged. tolerated the fidaxomicin. Physical Exam 2 Vital Signs: Vital Signs: Last Vital Signs Temp 97.6 F 08/04/25 09:57 Pulse 57 08/04/25 09:57 Resp 18 08/04/25 09:57 BP 167/75 H 08/04/25 09:57 Pulse Ox 98 08/04/25 09:57 O2 Del Method Room Air 08/04/25 09:57 BMI result Body Mass Index 36.2 Const: General: comfortable and no acute distress O rientation/consciousness: patient oriented x3 Resp: Effort & Inspection: normal respiratory effort and able to speak in complete sentences GI: Inspection: No distended Palpation (GI): Soft to palpation, not firm, Tenderness to palpation present (GI) (mild ) and no guarding Neuro: General: patient oriented x3 Objective Data Labs 08/01/25 06:14 08/03/25 11:24 Labs: Laboratory Results - last 24 hr 08/03/25 11:24 Hold Purple Top SEE NOTE Anion Gap 13 Estim Creat Clear Calc 59.7 Estimated GFR 57 Random Glucose 144 H Calcium 9.1 D Procedures Date of Service Date of Service: 08/04/25 Progress Note: A&P Assessment and plan (1) Perforation of sigmoid colon due to diverticulitis: Status: Acute Plan 70 year old female admitted for acute diverticulitis with microperforation. We are continuing with conservative management with antibiotics. Overall she is doing well. Pain improving. minimal at rest. Stools have been more formed, still loose but not liquid. She does remain hypertensive, which is new for her, management per medicine consult, would avoid treating hypertension unless sustained blood pressures 180/100 otherwise follow up with primary care as outpatient. I did recommend she follow up with PCP regarding her elevated BP. On exam she appears well, mildly tender in the LLQ. If tolerating diet can likely DC with abx. we discussed the possibility of having an elective sigmoid resection due to frequent diverticulitis flare ups. she will follow up in the office to discuss further. She felt ready to be discharged. We will send her home with 9 days of fidaxomicin to be taken b.i.d. Time Spent With Patient Time: Total time managing care of this patient today ____ minutes. Quality Stroke Does the patient have a stroke diagnosis?: No VTE Prior VTE?: No VTE Risk Level:: Surgical - moderate VTE Device Contraindication: N/A - Device Ordered VTE Drug Contraindication: N/A - Med Ordered
--- NOTE | 2025-08-04 12:04 | PM.DS ---
DS: Providers Provider Date of Service: 08/04/25 Date of admission: 07/31/25 01:52 Date of discharge: 08/04/25 Primary care physician: Slim Hammond MD Admitting clinician: Lance Bronson Attending physician on admission: Lance Bronson Consults: 08/01/25 12:48 Consult to Hospitalist Routine Comment: Consulting Provider: [facility] Reason For Exam: BP running, not previously on BP meds 08/03/25 15:58 Consult to Infectious Diseases Routine Consulting Provider: [facility] Reason for consultation: initiating treatment for cdiff, Pos gene, neg toxin, symptomatic Has provider been notified: Yes Attending physician on discharge: Lance Brosnon DS: Diagnosis Discharge Diagnosis (1) Perforation of sigmoid colon due to diverticulitis: Status: Acute DS: Summary Hospital Course Hospital Course: Admission HPI: 70 year old female with a history of HLD, GERD, hypothyroidism, diverticulitis. Pateint reports she had a recent flare of diverticulitis, she follows GI with Dr Vargas who prescribed her augmentin. She initially was feeling better. Finished her abx last week. she began feeling similar lower left abdominal pain on sunday. states the pain was intermittent and very intense, sometiems a 10/10 with some associated decreased appetite and mild nausea and chills. No temp at home. She denies vomiting. Labs and imaging were obtained in the ED. There was mild leukocytosis, 12.0. CT of the abdomen showing acute diverticulitis with microperforation, small amount of free air in the pelvis with a small fluid collection. She was started on vanco and zosyn, she develops some itching without angioedema or respiratory compromise after the vanco, was given benadryl and her symptoms resolved. Currently pain is well controlled with medication, now more like a 2-3/10, continued decreased appetite. She reports her last bowel movement was yesterday, formed, no diarrhea, no bloody stools. She does note that recently she has noticed wetness around the anus, describes this a clear liquid, without odor. She denies and urinary symptoms, no pnuematuria, cloudy urine, dysuria. UA was negative in ED. surgical history is significant for 2 c sections. denies additional abdominal surgery. denies smoking. Endorses social alcohol use. Most recent colonoscopy was last year june 2024. Hospital course: Patient was admitted for management of acute diverticulitis with microperforation. We proceeded with conservative management with bowel rest and IV antibiotics. On day 1 of admission patient feeling better less pain no nausea or vomiting passing flatus. She did have some elevated blood pressures, hospitalist were consulted, recommended no interventions unless blood pressures for sustained above 180/100 for multiple readings. On day 2 of admission patient felt a little better but did not have any appetite, felt bloated. Abdomen remains soft and benign. tolerating clear liquids. That day diet was advanced to full liquids. On day 3 feeling improved, some nausea with diet but has been otherwise tolerating full liquids. Now passing some frequent liquid stools. C diff panel was round, positive for gene, negative for toxin. Discussed this case with ID, who recommended that p.o. fidaxomicin would be appropriate given her positive gene and symptoms. Diet was advanced to regular diet. On day 4. Patient phalanx improved continued to have some loose stools. Her pain is improved felt ready to be discharge. She tolerated the fidaxomicin. Patient was discharged in stable condition. At the time of discharge her abdominal exam was soft and benign. She is to follow up as an outpatient to discuss possible resection due to recurrent diverticulitis Status at Discharge Functional status at discharge: independent ambulation Overall status at discharge: patient is progressing back to baseline Time Attestation Discharge Coordination Time (in mins): 30 Quality: Safe Use of Opioids Does Pt have an Active Cancer Diagnosis on the Problem List?: No Quality: Stroke Does the patient have a stroke diagnosis?: No Physical Exam Vital Signs: Vital Signs: Last Vital Signs Temp 97.6 F 08/04/25 09:57 Pulse 57 08/04/25 09:57 Resp 18 08/04/25 09:57 BP 167/75 H 08/04/25 09:57 Pulse Ox 98 08/04/25 09:57 O2 Del Method Room Air 08/04/25 09:57 BMI result Body Mass Index 36.2 Const: General: comfortable and no acute distress Orientation/consciousness: patient oriented x3 Resp: Effort & Inspection: normal respiratory effort and able to speak in complete sentences GI: Inspection: No distended Palpation (GI): Soft to palpation, not firm, Tenderness to palpation present (GI) (mild ) and no guarding Neuro: General: patient oriented x3 DS: Data Data Completed and Pending Labs on day of discharge: Preliminary micro results at discharge 07/30/25 22:17 Blood Culture - Preliminary Blood - Venous No growth after 48 hours. 07/30/25 22:13 Blood Culture - Preliminary Blood - Venous No growth after 48 hours. Discharge Plan Discharge Anticipated Discharge Date/Time: 08/04/25 07:46 Patient Disposition: Home, Self-Care Discharge Diagnosis: acute diverticulitis Referrals: Slim Hammond MD [Primary Care Provider, Medical] - 1 Week Discharge Medications: New vancomycin 125 mg capsule 125 mg PO QID 9 Days Qty: 36 0RF Continued omeprazole 20 mg capsule,delayed release(DR/EC) 20 mg PO BID Qty: 180 0RF cholecalciferol (vitamin D3) [Vitamin D3] 25 mcg (1,000 unit) Capsule 25 mcg PO DAILY levothyroxine 100 mcg tablet 100 mcg PO DAILY@0600 atorvastatin 40 mg tablet 40 mg PO DAILY albuterol sulfate 90 mcg/actuation HFA aerosol inhaler 1 puff inhalation Q4H PRN (Reason: Respiratory Distress) Discharge Orders: Discharge Order (Routine); Ordered 08/04/25 Ordered By: Alexsander Wynn Diet: Advance to usual diet Activity on Discharge: As tolerated Stand Alone Forms: Patient Portal Discharge page Print Language: Mongolian Activity Restrictions/Additional Instructions: You can use OTC ibuprofen or acetaminophen as needed for pain. Please take the full course of fidaxomicin, twice a day for the next 9 days You will follow up with Dr. Bronson in the office, you can call the office to schedule the appointment ) Care Plan Goals: return to baseline Health Concerns: recurrent diverticulitis Plan of Treatment: follow up in the office Assessment: doing well Patient Instructions: Fidaxomicin (By mouth) (Dificid) Discharge Date/Time: 08/04/25 09:41
== END 2025-08-04 09:41 | disposition home or self-care (01) | DRG 392 ==
LOC: HO.ED 07-31 01:44 → HO.EDOVER 07-31 03:14 → HO.S3 07-31 07:25
PROVIDERS: Physician Assistant Medical; Surgery; Admitting Provider Surgery; Emergency Provider Emergency Medicine; PCP Internal Medicine; Visit Provider Surgery
DX: K57.20 Diverticulitis of large intestine with perforation and abscess without bleeding (principal); A04.72 Enterocolitis due to Clostridium difficile, not specified as recurrent; E03.9 Hypothyroidism, unspecified; E78.5 Hyperlipidemia, unspecified; Z87.891 Personal history of nicotine dependence; Z79.890 Hormone replacement therapy; Z79.899 Other long term (current) drug therapy
CPT/HCPCS: 36415; 74177; 80048; 80053; 81003; 83605; 83690; 83735; 85025; 87040; 87324; 87493; 99285; J0131; J0696; J1200; J1644; J2270; J2405; J2543; J3374; Q9967

== ENCOUNTER → 2025-07-31 00:01 | Outpatient (BNV) | payer MEDICARE, SELFPAY | PROVIDERS: Emergency Provider Emergency Medicine; PCP Internal Medicine; Visit Provider Student in an Organized Health Care Education/Training Program | DX: K57.20 Diverticulitis of large intestine with perforation and abscess without bleeding (principal) | CPT/HCPCS: 74177 ==

== ENCOUNTER → 2025-07-31 01:52 | Outpatient (BNV) | payer MEDICARE, SELFPAY | PROVIDERS: Admitting Provider Surgery; Emergency Provider Emergency Medicine; PCP Internal Medicine; Visit Provider Family Medicine | DX: R03.0 Elevated blood-pressure reading, without diagnosis of hypertension (principal) | CPT/HCPCS: 99223 ==

== ENCOUNTER → 2025-07-31 01:52 | Outpatient (BNV) | payer MEDICARE, SELFPAY | PROVIDERS: Admitting Provider Surgery; Emergency Provider Emergency Medicine; PCP Internal Medicine; Visit Provider Surgery | DX: K57.20 Diverticulitis of large intestine with perforation and abscess without bleeding (principal) | CPT/HCPCS: 99223; 99232; 99238; 99499 ==

== ENCOUNTER 2025-09-02 12:57 | Outpatient (REF) | payer MEDICARE, SELFPAY ==
--- OUTSIDE RECORDS SUMMARY | 2025-07-14 11:30 | XMS_ITS ---
Author Organization Slim Hammond MD Address [address] [place] [phone] Care Team Providers Care Cane Flume Chute Operator Name Role Phone Slim Hammond Primary [...] Status W/U Status Risk Notes Problem Diverticulitis (10732533) Diverticulitis (K57.92) Active confirmed Vital Signs Blood pressure systolic 144 mm Hg 07/14/20 25 Blood pressure diastolic 80 mm Hg 025 Height 64 in 07/14/2025 Weight 202 lbs 07/14/2025 BMI 34.67 kg/m2 07/14/2025 weight is down 2 pounds [facility] 05-19-25 Encounters Encounter Location Date Provider Diagnosis Slim Hammond MD [address] [place] [phone] 07/14/2025 Slim Hammond Diverticulitis K57.9 2 Assessments Encounter Date Diagnosis (ICD Code) Assessment Notes Treatment Notes Treatment Clinical Notes Section Notes 07/14/2025 Diverticulitis (ICD-10 - K57.92) Plan Of Treatment Medication Medication Name Sig Start Date Stop Date Notes Amoxicillin-Pot Clavulanate 875-125 MG 1 tablet Orally every 12 hrs for 10 days 07/14/2025 Next Appt Details Provider Name:Slim salter, 09/04/2025 01:15:00 PM, [address] [place] [address], [address], [phone], Provider Name:Slim salter, 11/17/2025 08:00:00 AM, [address] [place] [address], [address], [phone], Provider Name:Slim salter, 11/23/2025 09:00:00 AM, [address] [place] [address], [phone], Provider Name:Slim Shepard ier, 05/13/2026 07:45:00 AM, [address], [address], [place], [place], [phone], Provider Name:Slim Shepard ier, 05/20/2026 09:30:00 AM, [address], [address], [place], [place], [phone], Progress Notes * Lakeisha PAZaDOB:1955 (70 yo F)Acc No.[id number]:07/14/2025 Progress Notes Patient: Shanon PURI Provider: Sunni Hamomnd MD :1955 A ge:70 Y S ex:Female Date:07/14/2025 Address:[address] [place], [place] [phone] Subjective: * Chief Complaints: * ? diverticulitis [...] MD Date: 0 07/14/2025 Generated for Rigo hayward/Ayala/Shannonsmitting on: 1 04:33 PM EDT History and Physical Notes * [...]
--- OUTSIDE RECORDS SUMMARY | 2025-07-30 04:30 | XMS_ITS ---
Author Organization Slim Hammond MD Address [address] [place] [phone] Care Team Providers Care Meal Temperer Name Role Phone Slim Hammond Primary Care Provider REASON FOR VISIT HDF Encounters Encounter Location Date Provider Diagnosis Slim Hammond MD 10 [facility] [address] [place] [phone] 07/30/2025 Slim Hammond Plan Of Treatment Next Appt Details Provider Name:Slim Shepard iegorge, 09/04/2025 01:15:00 PM, [address] [place] [address], [address], [phone], Provider Name:Slim salter, 11/17/2025 08:00:00 AM, [address] [place] [address], [address], [phone], Provider Name:Slim salter, 11/23/2025 09:00:00 AM, [address] [place] [address], [address], [phone], Provider Name:Slim Shepard ier, 05/13/2026 07:45:00 AM, [address], [address], [place], [phone], Provider Name:Slim Shepard ier, 05/20/2026 09:30:00 AM, [address], [address], [place], [phone], Progress Notes * BRANDILakeishaaDOB:1955 (70 yo F)Acc No.[id number]:07/30/2025 Progress Note Patient: Shanon PURI Provider: Sunni Hammond MD :1955 A ge:70 Y S ex:Female Date:07/30/2025 Address:[address] [place] [phone] Subjective: * Chief Complaints: * 1 . [...] 0 07/30/2025 Generated for Rigo hayward/Ayala/Brandiitting on: 04:33 PM EDT
--- OUTSIDE RECORDS SUMMARY | 2025-08-06 08:29 | XMS_ITS ---
Author Organization Slim Hammond MD Address [address] [place] [phone] Care Team Providers Care Reference Data Expert Name Role Phone Slim Hammond Primary Care Provider REASON FOR VISIT discharge Encounters Encounter Location Date Provider Diagnosis Slim Hammond MD 10 [facility] [address] [place] [phone] 08/06/2025 Slim Hammond Plan Of Treatment Next Appt Details Provider Name:Slim Shepard iegorge, 09/04/2025 01:15:00 PM, [address] [place] [address], [address], [phone], Provider Name:Slim salter, 11/17/2025 08:00:00 AM, [address] [place] [address], [phone], Provider Name:Slim salter, 11/23/2025 09:00:00 AM, [address] [place] [address], [address], [phone], Provider Name:Slim Shepard ier, 05/13/2026 07:45:00 AM, [address], [address], [place], [phone], Provider Name:Slim Shepard ier, 05/20/2026 09:30:00 AM, [address], [address], [place], [phone], Progress Notes * Isadora PAZB:1955 (70 yo F)Acc No.[id number]:08/06/2025 Patient: Denzel Shanon MACHADO :1955 A ge:70 Y S ex:Female Address:[address] [place] [phone] * true * Date: Generated for Rigo hayward/Ayala/Shannonsmitting on: 04:33 PM EDT
--- OUTSIDE RECORDS SUMMARY | 2025-08-13 07:30 | XMS_ITS ---
Author Organization Slim Hammond MD Address [address] [place] [phone] Care Team Providers Care Crop Supervisor Name Role Phone Slim Hammond Primary Care Provider [phone] Allergies Allergen (clinical drug ingredient) Drug/Non Drug [...] Location Date Provider Diagnosis Slim Hammond MD [address] [place] [address] [place] [phone] 08/13/2025 Slim Hammond C. difficile colitis A04.72 [...] Up: 2 Weeks, Reason: Provider Name:Slim Bullocknoe garzar, 09/04/2025 01:15:00 PM, [address] [place] [address], [address] [place] [address], [phone], Provider Name:Slim garzar, 11/17/2025 08:00:00 AM, [address] [place] [address], Suite [facility], [place], [place], [phone], Provider Name:Slim garzar, 11/23/2025 09:00:00 AM, [address] [place] [address], [place] [address], [place], [place], [phone], Provider Name:Slim garzar, 05/13/2026 07:45:00 AM, [address] [place] [address], [address] [place] [address], [phone], Provider Name:Slim Shepard kaylar, 05/20/2026 09:30:00 AM, [address] [place] [address], [address] [place] [address], [phone], Progress Notes * Lakeisha PAZaDOB:1955 (70 yo F)Acc No.[id number]:08/13/2025 Patient: Denzel CARTERLakeishaa Provider: Sunni Hammond MD :1955 A ge:70 Y S ex:Female Date:08/13/2025 Address:[address] [place], [place] [phone] Subjective: * Chief Complaints: * P H/TCM [...] 9 0662 FLU VACC PRSV FREE INC [id number] IMMUNIZATION ADMIN * Follow Up: 2 Weeks * * Sign off status: Completed true * Provider: Sunni Hammond MD Date: 0 08/13/2025 Generated for Rigo hayward/Ayala/Brandiitting on: 1 04:31 PM EDT History and Physical Notes * [...]
--- OUTSIDE RECORDS SUMMARY | 2025-09-01 07:45 | XMS_ITS ---
Author Organization Slim Hammond MD Address [address] [place] [phone] Care Team Providers Care Braille Teacher Name Role Phone Slim Hammond [facility] [...] Date Provider Diagnosis Slim Hammond MD [address] [place] [address] [id number] 09/01/2025 Slim Hammond Diverticulitis K57.9 2 Assessments [...] 3 Days, Reaso n: Provider Name:Slim salter, 09/04/2025 01:15:00 PM, [address] [place] [address], [address], [phone], Provider Name:Slim salter, 11/17/2025 08:00:00 AM, [address] [place] [address], [phone], Provider Name:Slim salter, 11/23/2025 09:00:00 AM, [address] [place] [address], [phone], Provider Name:Slim salter, 05/13/2026 07:45:00 AM, [address] [place] [address], [phone], Provider Name:Slim Shepard ier, 05/20/2026 09:30:00 AM, [address], [address], [place], [phone], Progress Notes * Lakeisha PAZaDOB:1955 (70 yo F)Acc No.[id number]:09/01/2025 Progress Notes Patient: Shanon PURI Provider: Sunni Hammond MD :1955 A ge:70 Y S ex:Female Date:09/01/2025 Address:[address] [place], [place] [id number] Subjective: * Chief Complaints: * 1 . 2 week f/u. * HPI: S ymptom(s): patient is a [...] D enies V omiting. * Medical History: F requent pvc, colonoscopy 2008; colonoscopy 01/26/15 repeat 5 yrs (Dr. Prsaad); had colonoscopy 02/26/[address] Prasad - repeat 5 yearsColonoscopy 07/17/24 repeat 5y, Inclusion cyst. * Medications: T aking Omeprazole 20 MG Capsule Delayed Release 1 capsule 1/2 to 1 hour before morning meal Orally Once a day , Taking Albuterol Sulfate HFA 108 (90 Base) MCG/ACT Aerosol Solution 1 puff as needed Inhalation every 4 hrs , Taking Vitamin D 1000 UNIT Tablet 1 tablet Orally Once a day , Taking Clobetasol Propionate 0.05 % Cream 1 APPLICATION EXTERNALLY TWICE A DAY 30 DAYS , Taking Levothyroxine Sodium 100 MCG Tablet TAKE 1 TABLET BY MOUTH IN THE MORNING ON AN EMPTY STOMACH ONCE A DAY FOR 90 DAYS , Taking Atorvastatin Calcium 40 MG Tablet TAKE 1 TABLET BY MOUTH EVERY DAY , Not- Taking/PRN Ondansetron 4 MG Tablet Disintegrating 1 tablet on the tongue and allow to dissolve Orally Once a day , Not-Taking/PRN Calcium 500 MG Tablet 1 tablet with meals Orally Twice a day , Not-Taking/PRN ProAir HFA 108 (90 Base) MCG/ACT Aerosol Solution 2 puffs as needed Inhalation every 6 hrs , Discontinued Vancomycin HCl 125 MG Capsule 1 capsule Orally Once a day , Discontinued Vancomycin HCl 125 MG Capsule 1 capsule Orally 4 times a day , Discontinued Amoxicillin-Pot Clavulanate 875-125 MG Tablet 1 tablet Orally every 12 hrs , Medication List reviewed and reconciled with the patient * Allergies: z pack: diarrhea, Vancomycin HCl: itching only iv. Objective: * Vitals: H t: 64, Wt: [...] - K57.92 (Primary) Plan: * Treatment: * Follow Up: 2 - 3 Days * * The named appointment provid er may or may not be the originator of this progress note, and it is not deemed complete until electronically signed by the appointment provider. Sign off status: Pending * Provider: Sunni Hammond MD Date: Generated for Rigo hayward/Ayala/Brandiitting on: 04:32 PM EDT History and Physical Notes * [...]
--- NOTE | ~2025-09-02 | CT_ITS ---
CLINICAL HISTORY: DIVERTICULITIS CT abdomen and pelvis with contrast Comparison: CT/SR - CT ABDOMEN PELVIS W IV CON - 07/31/25 00:50 EDT US/MS - US PELVIC AND TRANSVAGINAL - 11/20/24 10:47 EST Findings: No consolidation at the lung bases. Unremarkable gallbladder and bladder. Focal fat at the falciform ligament. Subcentimeter low attenuating lesion along the undersurface of the liver, unchanged. Subcentimeter low attenuating lesion in the right kidney. Fibroid uterus.e low attenuating lesion in the left adnexa measuring 2.5 cm could be an ovarian cyst, also present on the prior study. The other solid organs are unremarkable. Small hiatal hernia. No bowel wall thickening or dilation. A normal appendix is identified. Colonic diverticulosis. No inflamed diverticula or pericolonic stranding. No free air. No aneurysm. Severe calcified atherosclerotic disease. No lymphadenopathy. No ascites. No acute osseous abnormality. Impression: No acute findings. This document has been electronically signed by: Patricia Reinoso MD on 09/03/2025 18:29:23
[2025-09-02] MEDS: iohexoL 350 MG/ML 100 ML INFUS..BTL IV (15:22)
[2025-09-02] MEDS: Barium Sulfate Oral (Vanilla) 450 ML ORAL.SUSP 900 ML PO (15:23)
--- OUTSIDE RECORDS SUMMARY | 2025-09-02 16:32 | XMS_ITS | Patient Health Record ---
Author Organization Slim Hammond MD Address [address] [place], [place] [id number] Care Team Providers Care Help Desk Rep Name Role Phone Slim Hammond Primary Care Provider [phone] Allergies Allergen (clinical drug ingredient) Drug/Non Drug Allergy documented on EMR Reaction Allergy Type Onset Date Status vancomycin Vancomycin HCl itching only iv Drug Allergy Active azithromycin z pack (uncoded) diarrhea Allergy Active Results Component Value Reference Range Notes Liver Panel Reviewed date:10/23/2024 03:12:27 PM Interpretation: Performing Lab:[facility], [address] [phone] Notes/Report: Bilirubin Total 0.5 0.0-1.0 mg/dL Bilirubin Direct 0.2 0.0-0.5 mg/dL Aspartate Amino Transferase 22 5-31 U/L Alanine Aminotransferase 27 0-31 U/L Total Protein 6.5 6.5-8.0 g/dL Albumin Level 4.0 3.5-5.0 g/dL Alkaline Phosphatase 74 39-117 U/L Lipid Panel Reviewed date:10/23/2024 03:13:32 PM Interpretation: Performing Lab:[facility], [address] [phone] Notes/Report: Triglycerides 88 <150 mg/dL Desirable Triglyceride: [...] T4 Reviewed date:10/23/2024 03:29:08 PM Interpretation: Performing Lab:[facility], [address] [phone] Notes/Report: TSH reflex Free T4 0.83 0.32-4.0 uIU/mL Complete Blood Count Auto Di ff Reviewed date:05/15/2025 04:04:20 PM Interpretation: Performing Lab:[facility], [address] [phone] Notes/Report: White Blood Count 6.9 4.8-10.8 X10*3/uL [...] NRBC Abs Auto 0.000 0.0-0.012 X10*3/uL Comprehensive Manley. Panel Fa st Reviewed date:05/15/2025 04:07:36 PM Interpretation: Performing Lab:[facility], [address] [place] [phone] Notes/Report: Sodium 143 135-145 mmol/L Potassium 4.0 [...] Panel Reviewed date:05/15/2025 12:46:36 PM Interpretation: Performing Lab:[facility], [address] [place] [phone] Notes/Report: Triglycerides 128 <150 mg/dL Desirable Triglyceride: [...] Total Reviewed date:05/15/2025 12:40:19 PM Interpretation: Performing Lab:[facility], [address] [phone] Notes/Report: Vitamin D 25-OH Total 50.6 >30 ng/mL Health Based Reference Values* < 20 ng/mL Deficient 20-30 ng/mL Insufficient > 30 ng/mL Sufficient *Stephanei OUSNA. N Engl J Med. 2007;357:266-280 There is [...] T4 Reviewed date:05/15/2025 12:34:31 PM Interpretation: Performing Lab:[facility], [address] [phone] Notes/Report: TSH reflex Free T4 2.95 0.32-4.0 uIU/mL Microalbumin, Random Reviewed date:05/15/2025 12:48:47 PM Interpretation: Performing Lab:[facility], [address] [phone] Notes/Report: Creatinine Urine 97.55 Microalbumin Urine < 5.0 Microalbum/Creatinine Ratio Ur TNP <30 ug/mg cr Unable to calculate albumin/creatinine ratio due to low microalbumin or creatinine result. Hemoglobin A1c Reviewed date:05/15/2025 12:34:22 PM Interpretation: Performing Lab:[facility], [address] [phone] Notes/Report: Hemoglobin A1c % 5.9 <6.0 % [...] average glucose, using the formula of the U5C-Aqhlrkb Average Glucose study (ADAG), Diabetes Care, Vol.31,#8, Jun. 2007 UA ClnCatch+Micro w/rflx Cul t Reviewed date:05/15/2025 12:59:47 PM Interpretation: Performing Lab:[facility], [address] [phone] Notes/Report: Urine, Clean Catch Color Urine Yellow Appearance Urine Clear PH 6.0 5.0-9.0 Glucose Urine UA Negative Negative mg/dL Urine Blood Negative Negative Specific Conesus - Urine 1.015 1.005-1.025 Urine Protein Negative Neg-Trace mg/dL Urine Ketones Negative Negative mg/dL Nitrite Urine Negative Negative Leukocyte Esterase Urine Negative Negative RBC Urine 0-2 0-2 /HPF WBC Urine 0-5 0-5 /HPF Squamous Epithelial Cell Urine 0-2 0-2 /HPF Bacteria Urine None Seen None Seen Hyaline Casts Urine 0-2 0-2 /LPF US thyroid Reviewed date:11/07/2024 04:49:37 PM Interpretation: Performing Lab: Notes/Report: [address] [address] Ultrasound Report Signed Patient: Shanon Stern MR#: [id number] : 1955 Acct:[id number] Age/Sex: 69 / F ADM Date: 09/23/24 Loc: HO.US Attending Dr: Slim Hammond MD Ordering Physician: Slim Hammond MD Date of Service: 09/23/24 Procedure(s): US thyroid Accession Number(s): [id number] cc: Slim Hammond MD EXAMINATION: US THYROID [...] than or equal to 1 cm: 1. Librarian nodules are described as follows: 1. Location: [...] in OV> 11/05/24909 DD/ 4 TD/TT: 09/23/24829 Agent Telegrapher: [place] [address] Ultrasound Report Signed Patient: Lakeisha Stern MR#: [id number] : 1955 Acct:[id number] Age/Sex: 69 / F ADM Date: 09/23/24 Loc: HO.US Attending Dr: Slim Hammond MD Ordering Physician: Slim Hammond MD Date of Service: 09/23/24 Procedure(s): US thyroid Accession Number(s): [id number] cc: Slim Hammond MD EXAMINATION: US THYROID [...] than or equal to 1 cm: 1. Librarian nodul es are described as follows: 1. [...] in OV> 11/05/24909 DD/ 4 TD/TT: 09/23/24829 Agent Telegrapher: [place] barium swallow with air Reviewed date:10/31/2024 02:43:29 PM Interpretation:see back 10-31-2024 Performing Lab: Notes/Report: [address] [address] Fluoroscopy Report Signed Patient: Shanon Stern MR#: [id number] : 1955 Acct:[id number] Age/Sex: 69 / F ADM Date: 10/07/24 Loc: HO.XRAY Attending Dr: Joan Vargas MD Ordering Physician: Joan Vargas MD Date of Service: 10/07/24 Procedure(s): FL barium swallow with air Accession Number(s): [id number] cc: Slim Hammond MD; Joan Vargas MD [...] by: Chava Oconnor MD 10/08/2024 02:43 PM [facility] Dictated By: Calderon Campo Signed By: <Electronically signed by Calderon Campo in OV> 10/08/24 1443 <Electronically signed by Chava Oconnor MD in OV> 10/08/24 1446 DD/ 0841 TD/TT: 10/07/24 0914 Agent Telegrapher: [address] [address] Fluoroscopy Report Signed Patient: Lakeisha Stern MR#: [id number] : 1955 Acct:[id number] Age/Sex: 69 / F ADM Date: 10/07/24 Loc: HO.XRAY Attending Dr: Joan Vargas MD Ordering Physician: Joan Vargas MD Date of Service: 10/07/24 Procedure(s): FL bar ium swallow with air Accession Number(s): [id number] cc: Slim Hammond MD; Joan Vargas MD [...] by: Chava Oconnor MD 10/08/2024 02:43 PM [facility] Dictated By: Edison Campo Signed By: <Electron ically signed by Calderon Campo in OV> 10/08/24 1443 <Electronically sign ed by Chava Oconnor MD in OV> 10/08/24 1446 DD/ 0841 TD/TT: 10/07/24 0914 Agent Telegrapher: Edmar Bar Reviewed date:10/23/2024 12:51:02 PM Interpretation: Performing Lab:[facility], [address] [phone] Notes/Report: Edmar Bar See Note Specimen held untested for 24 hours; Call to request Chemistry testing. US pelvic and transvaginal Reviewed date:11/23/2024 06:29:37 PM Interpretation: Performing Lab: Notes/Report: [address] [address] Ultrasound Report Signed Patient: Shanon Stern MR#: [id number] : 1955 Acct:[id number] Age/Sex: 69 / F ADM Date: 11/20/24 Loc: HO.US Attending Dr: Lalo Mao MD Ordering Physician: Lalo Mao MD Date of Service: 11/20/24 Procedure(s): US pelvic and transvaginal Accession Number(s): [id number] cc: Slim Hammodn MD; Lalo Mao MD CLINICAL HISTORY: D25.9 [...] Antonio Poole MD in OV> 11/22/24805 DD/ 08 TD/TT: 11/22/24804 Agent Telegrapher: [place] [address] Ultrasound Report Signed Patient: Lakeisha Stern MR#: [id number] : 1955 Acct:[id number] Age/Sex: 69 / F ADM Date: 11/20/24 Loc: .US Attending Dr: Lalo Mao MD Ordering Physician: Lalo Mao MD Date of Service: 11/20/24 Procedure(s): US pel bin and transvaginal Accession Number(s): [id number] cc: Slim Hammond MD; Lalo Mao MD [...] Dictated By: Adams Poole MD Signed By: <Marlene rizvi signed by Antonio Poole MD in OV> 11/22/24805 DD/ 4 TD/TT: 11/22/24804 Agent Telegrapher: MM tomosynthesis screening B I Reviewed date:02/09/2025 05:25:03 PM Interpretation: Performing Lab: Notes/Report: [facility] [address] [place] [address] Mammography Report Signed Patient: Shanon Stern MR#: [id number] : 1955 Acct:[id number] Age/Sex: 69 / F ADM Date: 01/29/25 Loc: HO.MAMMO Attending Dr: Slim Hammond MD Ordering Physician: Slim Hammond MD Results: 2Be nign Findings Date of Service: 01/29/25 Follow Up: 1 Year From [facility] Mammogram Procedure(s): MM tomosynthesis screening BI Accession Number(s): [id number] cc: Slim Hammond MD EXAMINATION: MM SCREENING [...] 02/06/25 1543 DD/ 0914 TD/TT: 01/29/25 0944 Agent Telegrapher: [facility] [address] [place] [address] Mammography Report Signed Patient: Lakeisha Stern MR#: [id number] : 1955 Acct:[id number] Age/Sex: 69 / F ADM Date: 01/29/25 Loc: HO.MAMMO Attending Dr: Slim Hammond MD Ordering Physician: Slim Hammond MD Results: 2Be nign Findings Date of Service: Follow Up: 1 Year From [facility] Mammogram Procedure(s): MM tomosynthesis screening BI Accession Number(s): [id number] cc: Slim Hammond MD EXAMINATION: MM SCREENING [...] Ha DO in OV> 02/06/25 1543 DD/ TD/TT: 01/29/25943 Agent Telegrapher: Pathology Reviewed date:05/15/2025 03:55:30 PM Interpretation: Performing Lab:[facility], [address] [place] [phone] Notes/Report: ------ Name: Shanon Stern Age/Sex: 70/F : 1955 Unit#: [id number] Attend Dr: Joan Vargas MD Re05/14/25 Status : [facility] Location: [facility] Disch: ------ SPEC : [id number] RECD : 05/14/25-1141 STATUS: JONELLE GRIMALDO NUM: [id number] DAGMAR: 05/14/25-[address]: Joan Vargas MD ENTERED: 05/14/25- 56 [...] developed and their performance characteristics determined by [facility]. They have not been cleared or appr sujit by the U.S. Food and Drug Administration (FDA). However, the FDA has determined that such clearance or approval is not necessary. This laboratory is certified under the Clinical Laboratory Improvement Amendments of 1988 (CLIA) as qualified CONTINUED ON NEXT PAGE ------ Name: Shanon Stern Age/Sex: 70/F : 1955 Unit#: [id number] Attend Dr: Joan Vargas MD Re05/14/25 Status : [facility] Location: [facility] Disch: ------ SPEC : [id number] RECD : 05/14/25 STATUS: JONELLE GRIMALDO NUM: [id number] DAGMAR: 05/14/25-[address]: Joan Vargas MD ENTERED: 05/14/25 56 SP TYPE: Surgical OTHR DR: Slim Hammond MD ORDERED: HE Stain/6, Gross Micro L4/2 IHC S/NG Disclaimer (Continued) to perform high comp lexity clinical laboratory testing. Copies To: Slim Hammond MD [facility] [address] [id number] Joan Vargas MD [facility] [address] [place] [address] [email or web address] ------ Signed (signature on file) Branden Ramos MD 05/15/25 1454 ------ END OF REPORT Edmar Bar Reviewed date:05/15/2025 12:34:52 PM Interpretation: Performing Lab:[facility], [address] [place] [address], [place] [address] Notes/Report: Hold Gold See Note Specimen held untested for 24 hours; Call to request Chemistry testing. Complete Blood Count Auto Di ff Reviewed date:07/30/2025 04:40:59 PM Interpretation: Performing Lab:[facility], [address] [phone] Notes/Report: White Blood Count 12.0 4.8-10.8 X10*3/uL [...] NRBC Abs Auto 0.000 0.0-0.012 X10*3/uL Comprehensive Met. Panel Reviewed date:07/31/2025 12:50:47 PM Interpretation: Performing Lab:[facility], [address] [phone] Notes/Report: Sodium 142 135-145 mmol/L Potassium 3.6 [...] 3.5-5.0 g/dL Alkaline Phosphatase 79 39-117 U/L Lactic Acid Reviewed date:07/31/2025 12:33:14 PM Interpretation: Performing Lab:[address] [address] Notes/Report: Lactic Acid 1.1 0.5-2.0 mmol/L Magnesium Reviewed date:07/31/2025 12:33:32 PM Interpretation: Performing Lab:[facility], [address] [phone] Notes/Report: Magnesium 1.9 1.6-2.6 mg/dL Lipase Reviewed date:07/31/2025 12:32:58 PM Interpretation: Performing Lab:[address] [address] Notes/Report: Lipase 38 8-78 U/L UA CC w/rflx Micro + Cult Reviewed date:08/03/2025 11:38:27 AM Interpretation: Performing Lab:[address] [address] Notes/Report: Urine, Clean Catch Color Urine Yellow Appearance Urine Clear PH 5.5 5.0-9.0 Glucose Urine UA Negative Negative mg/dL Urine Blood Negative Negative Specific Conesus - Urine >= 1.030 1.005-1.025 Urine Protein Negative Neg-Trace mg/dL Urine Ketones Negative Negative mg/dL Nitrite Urine Negative Negative Leukocyte Esterase Urine Negative Negative Blood Culture (First) Reviewed date:08/05/2025 06:01:08 PM Interpretation: Performing Lab:[address] [address] Notes/Report: Blood Culture (First) No growth after 5 days. Blood Culture (Second) Reviewed date:08/05/2025 06:01:48 PM Interpretation: Performing Lab:[address] [address] Notes/Report: Blood Culture (Second) No growth after [address] abdomen pelvis w con Reviewed date:07/31/2025 12:32:09 PM Interpretation: Performing Lab: Notes/Report: [address] [address] [address] Scan Report Signed with Addenda Patient: Shanon Stern MR#: [id number] : 1955 Acct:[id number] Age/Sex: 70 / F ADM Date: 07/30/25 Loc: .ED Attending Dr: Ordering Physician: Barbara Venegas DO Date of Service: 07/31/25 Procedure(s): CT abdomen pelvis w IV con Accession Number(s): [id number] cc: Slim Hammond MD; Barbara Venegas DO Report Number: [id number]: Total DLP = 729.00 mGy-cm Reason for Exam: lower abd pain, cramping hx of diverticulitis ADDENDUM This document has been electronically signed by: Mary Agarwal MD on 07/31/2025 01:30:02 ADDENDUM: This report was discussed with Rocio SHUKLA on Jul 31, 2025 01:34:00 EDT. This document has been electronically signed by: Magalie Mays on 07/31/2025 01:35:06 Addendum Dictated By: Mary Agarwal MD Addendum Signed By: <Electronically signed by Mary Agarwal MD in OV> 07/31/25135 Addendum Cosigned By: DD/ /12/130 TD/TT: 07/31/2511/12/135 CLINICAL HISTORY: lower abd pain, cramping hx of diverticulitis CT abdomen and pelvis with contrast Comparison: None provided Findings: LIMITED CHEST: Lung bases are clear. LIVER: Small hypoattenuating lesions, too small to characterize however may represent cysts. BILIARY: No gallbladder wall thickening, radiopaque stone, or ductal dilatation. PANCREAS: No mass or ductal dilatation. SPLEEN: No splenomegaly. KIDNEYS: No hydronephrosis or radiopaque stone. Small hypoattenuating lesions, too small to characterize however may represent cysts. ADRENALS: No nodule. VASCULAR: No aneurysm. RETROPERITONEUM: No lymphadenopathy or mass. BOWEL/MESENTERY: Small hiatal hernia. Sigmoid diverticulosis with significant adjacent inflammatory stranding. There is a 1.7 cm fluid collection adjacent to the sigmoid colon without rim enhancement. There are small pockets of extraluminal gas, representing contained micro perforation. ABDOMINAL WALL: No mass or significant abnormality. URINARY BLADDER: No focal wall thickening. PELVIC NODES: No pelvic lymphadenopathy. PELVIC ORGANS: Uterine fibroids. BONES: No acute fracture. OTHER: Negative. IMPRESSION: Acute sigmoid diverticulitis with small contained micro perforation. Small adjacent fluid collection. Developing abscess is not excluded. This document has been electronically signed by: Mary Agarwal MD on 07/31/2025 01:30:02 Dictated By: Mary Agarwal MD Signed By: <Electronically signed by Mary Agrawal MD in OV> 07/31/25130 DD/ 9 TD/TT: 07/31/25129 Agent Telegrapher: [address] [address] [address] Scan Report Signed with Addenda Patient: Lakeisha Stern MR#: [id number] : 1955 Acct:[id number] Age/Sex: 70 / F ADM Date: 07/30/25 Loc: HO.ED Attending Dr: Ordering Physician: Barbara Venegas DO Date of Service: 07/31/25 Procedure(s): CT abd omen pelvis w IV con Accession Number(s): [id number] cc: Slim Hammond MD; Barbara Venegas DO Report Number: [id number]: Total DLP = 729.00 mGy-cm Reason for Exam: low er abd pain, cramping hx of diverticulitis ADDENDUM This document has be en electronically signed by: Mary Agarwal MD on 07/31/2025 01:30:02 ADDENDUM: This report was disc ussed with Rocio SHUKLA on Jul 31, 2025 01:34:00 EDT. This document has be en electronically signed by: Magalie Mays on 07/31/2025 01:35:06 Addendum Dictated By : Mary Agarwal MD Addendum Signed By: <Electronically signed by Mary Agarwal MD in OV> 07/31/25135 Addendum Cosigned By: DD/ /12/130 TD/TT: 07/31/2511/12/135 CLINICAL HISTORY: lo wer abd pain, cramping hx of diverticulitis CT abdomen and pelvi s with contrast Comparison: None provided Findings: LIMITED CHEST: Lung bases are clear. LIVER: Small hypoattenuating lesions, too small to characterize however may represent cysts. BILIARY: No gallblad santosh wall thickening, radiopaque stone, or ductal dilatation. PANCREAS: No mass or ductal dilatation. SPLEEN: No splenomegaly. KIDNEYS: No hydronep hrosis or radiopaque stone. Small hypoattenuating lesions, too small t o characterize however may represent cysts. ADRENALS: No nodule. VASCULAR: No aneurysm. RETROPERITONEUM: No lymphadenopathy or mass. BOWEL/MESENTERY: Sma ll hiatal hernia. Sigmoid diverticulosis with significant adjacent inflammatory stranding. There is a 1.7 cm fluid collection adjacent to the sigmoid colon without rim enhancement. There are small pockets of extraluminal gas, representing contained micro perforation. ABDOMINAL WALL: No m ass or significant abnormality. URINARY BLADDER: No focal wall thickening. PELVIC NODES: No pel bin lymphadenopathy. PELVIC ORGANS: Uteri ne fibroids. BONES: No acute fracture. OTHER: Negative. IMPRESSION: Acute sigmoid diverticulitis with small contained micro perforation. Small adjacent fluid colle ction. Developing abscess is not excluded. This document has be en electronically signed by: Mary Agarwal MD on 07/31/2025 01:30:02 Dictated By: Mary Agarwal MD Signed By: <Electronically signed by Mary Agarwal MD in OV> 07/31/25130 DD/ 9 TD/TT: 07/31/25129 Agent Telegrapher: Complete Blood Count Auto Di ff Reviewed date:08/02/2025 05:43:56 PM Interpretation: Performing Lab:[facility], [address] [phone] Notes/Report: White Blood Count 4.8 4.8-10.8 X10*3/uL Red Blood Count 3.82 4.20-5.50 X10*6/uL Hemoglobin 11.7 12.0-16.0 g/dl Hematocrit 35.7 37.0-47.0 % Mean Corpuscular Volume 93.5 80.0-98.0 fL Mean Corpuscular Hemoglobin 30.6 27.0-33.0 pg Mean Corpuscular HGB Conc 32.8 31.0-35.0 g/dl Red Cell Distribution Width 13.3 11.0-16.0 % Platelet Count 165 160-400 X10*3/uL Mean Platelet Volume 11.3 9.4-12.3 fL Neutrophils Percent Auto 50.3 45-73 % Imm Gran Pct Auto 0.4 0.0-0.4 % Lymphocytes Percent Auto 33.3 20-40 % Monocytes Percent Auto 8.3 2-11 % Eosinophils Percent Auto 6.7 0-4 % Basophils Percent Auto 1.0 0-2 % NRBC Pct Auto 0.0 0.0-0.2 /100WBC Neutrophils Absolute Auto 2.4 2.0-8.3 x10*3/uL Imm Gran Abs Auto 0.02 0.00-0.03 X10*3/uL Lymphocytes Absolute Auto 1.6 1.2-4.9 X10*3/uL Monocytes Absolute Auto 0.4 0.1-1.2 X10*3/uL Eosinophils Absolute Auto 0.3 0.0-0.4 X10*3/uL Basophils Absolute Auto 0.1 0.0-0.2 X10*3/uL NRBC Abs Auto 0.000 0.0-0.012 X10*3/uL Basic Metabolic Panel Reviewed date:08/02/2025 05:42:26 PM Interpretation: Performing Lab:[facility], [address] [address] Notes/Report: Sodium 143 135-145 mmol/L Potassium 4.2 3.3-5.1 mmol/L Chloride 111 96-108 mmol/L Carbon Dioxide 27 22-29 mmol/L Anion Gap 9 12-20 Blood Urea Nitrogen 9 9-16 mg/dL Creatinine 0.98 0.5-1.4 mg/dL Creatinine Clr Calc Pharmacy 59.1 Provided height and weight: 162.56 cm, 95.8 kg. eGFR (calculated from the MDRD study equation) and eCrCl (calculated from the Cockcroft-Gault equation) are based on different parameters and may not yield comparable results. If eCrCl result is absurd, please check patient's height/weight. Estimated Glomerular Filt Rate 56 Chronic Kidney Disease: Estimated GFR < 60 mL/min/1.73m2 Severe Kidney Disease: Estimated GFR < 15 mL/min/1.73m2 Glucose Random 138 60-115 mg/dL Calcium 8.3 8.4-10.2 mg/dL Hold Lav - Possible Hematolo gy Reviewed date:08/03/2025 11:37:20 AM Interpretation: Performing Lab:[facility], [address] [phone] Notes/Report: Hold Lav - Possible Hematology SEE NOTE Specimen will be held untested for 8 hours. Call Hematology if testing is desired. Basic Metabolic Panel Reviewed date:08/03/2025 12:15:20 PM Interpretation: Performing Lab:[facility], [address] [address] Notes/Report: Sodium 145 135-145 mmol/L Potassium 3.6 3.3-5.1 mmol/L Chloride 109 96-108 mmol/L Carbon Dioxide 27 22-29 mmol/L Anion Gap 13 12-20 Blood Urea Nitrogen 6 9-16 mg/dL Creatinine 0.97 0.5-1.4 mg/dL Creatinine Clr Calc Pharmacy 59.7 Provided height and weight: 162.56 cm, 95.8 kg. eGFR (calculated from the MDRD study equation) and eCrCl (calculated from the Cockcroft-Gault equation) are based on different parameters and may not yield comparable results. If eCrCl result is absurd, please check patient's height/weight. Estimated Glomerular Filt Rate 57 Chronic Kidney Disease: Estimated GFR < 60 mL/min/1.73m2 Severe Kidney Disease: Estimated GFR < 15 mL/min/1.73m2 Glucose Random 144 60-115 mg/dL Calcium 9.1 8.4-10.2 mg/dL CDiff Gene PCR Reviewed date:08/03/2025 11:35:57 AM Interpretation: Performing Lab:[address] [address] Notes/Report: CDiff Gene PCR POSITIVE Negative Additional C. difficile toxin testing to be performed. CDiff Toxin Reviewed date:08/03/2025 11:36:06 AM Interpretation: Performing Lab:[address] [address] Notes/Report: CDiff Toxin Negative Negative Results of CDIFF called to [facility] on 08/03/25 at 1021 by SONY. CDIFF Interpretation SEE NOTE Likely C. difficile colonization. Continue contact precautions. Reason For Referral No Information Medications Medication [...] 6 hrs for 30 days 04/23/2018 Not-Taking Immunizations Vaccine Route Administration Date Status Comme [...] High Dose IM Intramuscular 07/31/2024 Administer ed Influenza High Dose IM Intramuscular 08/13/2025 Administer ed Tetanus Unknown 06/09/2014 Pending Social [...] Problem Status W/U Status Risk Notes Problem 786045737 Acute diverticul itis (K57.92) Active confirmed Problem 100354526 Thyroid nodule (E04.1) Active confirm ed Problem 26549217 Lymphocytosis (D72.820) Active confirmed Problem Carpal tunnel syndrome (47768196) Carpal tunnel syndrome (G56.00) Active confirmed Problem 065137278 Tubular adenoma (D36.9) Active confirmed Problem 49867246 Vitamin D defici ency (E55.9) Active confirmed Problem Diverticulitis (17379576) Diverticulitis (K57.92) Active confirmed Problem 224932571 Lumbar disc dise ase (M51.9) Active confirmed Problem Essential hypertension (46425081) Essential hypertension (I10) Active confirmed Problem 696418768 Acquired hypothyroidism (E03.9) Active confirmed Problem 9963966 Prediabetes (R73.09) Active confirmed Problem 647777842 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) Active confirmed Problem 808408127 Menopause (Z78.0) Active confirmed Problem 75068343 Degeneration of cervical intervertebral disc (M50.30) Active confirmed Problem 555927542 Pure hypercholesterolemia (E78.00) Active confirmed Problem 347722851 Acute low back p ain without sciatica, unspecified back pain laterality (M54.5) Active confirmed Problem Bilateral carpal tunnel syndrome (311201460651551 01) Bilateral carpal tunnel syndrome (G56.03) Active confirmed Problem 697325721 BMI 34.0-34.9,ad ult (Z68.34) Active confirmed Problem 809570019 BMI 35.0-35.9,ad ult (Z68.35) Active confirmed Problem 016342360 Arthritis of kne e (M17.10) Active confirmed Problem 041903242 Meningioma (D32.9) Active confirmed Problem 030051321 Mild intermitten t asthmatic bronchitis with acute exacerbation (J45.21) Active confirmed Problem 12141409 Other and unspec 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.9) Active confirmed Problem 53020382 Other premature beats (I49.49) Active confirmed Problem 249838324 Osteoarthritis o f lumbar spine, unspecified spinal osteoarthritis complication status (M47.816) Active confirmed Problem 969208977 History of thyro id nodule (Z86.39) Active confirmed Problem 961061860 Acute diverticul itis of intestine (K57.92) Active confirmed Vital Signs Blood pressure diastolic 72 mm Hg 09/01/2025 Height 64 in 09/01/2025 Blood pressure systolic 156 mm Hg 09/01/2025 Weight 203 lbs 09/01/2025 BMI 34.84 kg/m2 09/01/2025 Encounters Encounter Location Date Provider Diagnosis Slim Hammond MD [address] [place] [address] [id number] 10/23/2024 Slim Hammond Pure hypercholestero lemia E78.00 and Acquired hypothyroidism E03.9 Slim Hammond MD [address] [id number] 05/15/2025 Slim Hammond Blood tests for rout ine general physical examination Z00.00 ; Lymphocytosis D72.820 ; Acquired hypothyroidism E03.9 ; Vitamin D deficiency E55.9 and Prediabetes R73.09 Slim Hammond MD [address] [place] [address] [id number] 09/01/2025 Slim Hammond Diverticulitis K57.9 2 Slim Hammond MD [address] [place] [address] [id number] 10/31/2024 Slim Hammond Acquired hypothyroid ism E03.9 ; Pure hypercholesterolemia E78.00 and Abnormal upper gastrointestinal barium series R93.3 Slim Hammond MD [address] [place] [address] [id number] 04/27/2025 Slim Hammond Mild intermittent asthmatic bronchitis with acute exacerbation J45.21 Slim Hammond MD [address] [place] [address] [id number] 05/19/2025 Slim Hammond Prediabetes R73.09 ; Annual physical exam Z00.00 ; Meningioma D32.9 ; Pure hypercholesterolemia E78.00 ; Essential hypertension I10 ; Thyroid nodule E04.1 and Depression screening Z13.31 Slim Hammond MD [address] [place] [address] [id number] 07/14/2025 Slim Hammond Diverticulitis K57.9 2 Slim Hammond MD [address] [place] [address] [id number] 08/13/2025 Slim Hammond C. difficile colitis A04.72 ; Diverticulitis K57.92 and Encounter for administration of vaccine Z23 Slim Hammond MD [address] [place] [address] [id number] 12/11/2024 Slim Hammond MD [address] [place] [address] [id number] 06/01/2025 Slim Hammond Meningioma D32.9 Slim Hammond MD [address] [place] [address] [id number] 06/02/2025 Slim Hammond MD [address] [place] [address] [id number] 07/14/2025 Slim Hammond MD [address] [place] [address] [id number] 08/06/2025 Slim Hammond Assessments Encounter Date Diagnosis (ICD Code) Assessment Notes Treatment Notes Treatment Clinical Notes Section Notes 10/23/2024 Pure hypercholesterolemia (ICD-10 - E78.00) 10/23/2024 Acquired hypothyroid ism (ICD-10 - E03.9) 05/15/[address] ine general physical examination (ICD-10 - Z00.00) 09/01/2025 Diverticulitis (ICD- 10 - K57.92) will try getting by without ab due the cdiff and if the pain gets worse to go to the er 10/31/2024 Acquired hypothyroid ism (ICD-10 - E03.9) [...] patient 07/14/2025 Diverticulitis (ICD- 10 - K57.92) 08/13/2025 C. difficile colitis (ICD-10 - A04.72) is on vancomicn and will add augmentin and stay on the vancomicin Total time spent on the date of the encounter is 35 minutes including both face to face time spent and time spent reviewing documentation, pertinent lab data, studies and counseling the patient. 08/13/2025 Diverticulitis (ICD- 10 - K57.92) 06/01/2025 Meningioma (ICD-10 - D32.9) 05/15/2025 Lymphocytosis (ICD-1 0 - D72.820) 10/31/2024 Abnormal upper gastrointestinal barium series (ICD-10 - R93.3) went over the results of the tests is going to have endoscopy next 05/19/2025 Meningioma (ICD-10 - D32.9) pending diagnostic testing, order faxed to Tony 08/13/2025 Encounter for administration of vaccine (ICD-10 - Z23) 05/15/2025 Acquired hypothyroid ism (ICD-10 - E03.9) [...] Test Test Name Order Date Electrocardiogram (EKG) 08/23/2017 Electrocardiogram (EKG) 08/10/2016 SENSE NERVE CONDUCTION TEST 02/20/2022 CT ABD & PELVIS WITH CONTRAST 09/01/2025 MRI BRAIN W&WO CONTRAST 05/19/2025 MRI LUMBAR [...] 06/01/2025 US biopsy thyroid 08/28/2023 US thyroid 05/09/2022 US thyroid 08/18/2022 US thyroid 08/29/2024 Future Test Test Name Order Date US THYROID 06/17/2021 Next Appt Details Provider Name:Slim Bullocknoe ier, 09/04/2025 01:15:00 PM, [address] [place] [address], Suite [facility], [place], [place], [phone], Provider Name:Slim Marc Devyn ier, 11/17/2025 08:00:00 AM, [address] [place] [address], [address] [place] [address], [phone], Provider Name:Slim Monico Devyn ier, 11/23/2025 09:00:00 AM, [address] [place] [address], [address] [place] [address], [phone], Provider Name:Slim Monico Bullocknoe ier, 05/13/2026 07:45:00 AM, [address] [place] [address], Suite [facility], [place], [place], [phone], Provider Name:Slim Shepard ier, 05/20/2026 09:30:00 AM, [address] [place] [address], [address], [phone], Insurance Providers Payer Name Payer Address Payer Phone Subscriber Number Group Number Insured Name Patient Relationship to Insured Coverage Start Date Coverage End Date [employer] [address] [place], [place] [id number] Shanon Stern Self - patient is the insured MEDICARE NHIC RAJ [address] [place] [id number] Shanon Stern Self - patient is the insured Medical (General) History Medical History History ICD Code frequent pvc colonoscopy 2008; colonoscop y 01/26/15 repeat 5 yrs (Dr. Prasad); had colonoscopy 02/26/[address] Prasad - repeat 5 yearsColonoscopy 07/17/24 repeat 5y Inclusion cyst
--- OUTSIDE RECORDS SUMMARY | 2025-09-02 16:33 | XMS_ITS | Patient Health Record ---
Author Organization [facility] Address [address] [place] [phone] Care Team Providers Care Body And Frame Technician Name Role Phone Moreno Horacio Unavailable [phone] Reason For Referral No Information Plan Of Treatment No Information
--- OUTSIDE RECORDS SUMMARY | 2025-09-02 16:34 | XMS_ITS | Clinical Summary ---
Author Organization [facility] ity Address [address] [place] [phone] Care Team Providers Care Electric Scoop Operator Name Role Phone Unavailable Primary Care Provider [...] 2004 Zoster Vaccines (1 of 2) 2004 Depression Screening 11/19/2024 COVID-19 Vaccine (1 - 2023-2 5 season) 2025 Influenza Vaccine (#1) 2025 RSV Immunization Adult [...]
== END 2025-09-02 12:58 | disposition home or self-care (01) ==
LOC: HO.CT 12:57
PROVIDERS: PCP Internal Medicine; Visit Provider Internal Medicine
DX: K57.92 Diverticulitis of intestine, part unspecified, without perforation or abscess without bleeding (principal)
CPT/HCPCS: 74177; Q9967

== ENCOUNTER → 2025-09-02 15:08 | Outpatient (BNV) | payer MEDICARE, SELFPAY | PROVIDERS: PCP Internal Medicine; Visit Provider Radiology Diagnostic Radiology | DX: K57.92 Diverticulitis of intestine, part unspecified, without perforation or abscess without bleeding (principal) | CPT/HCPCS: 74177 ==

== ENCOUNTER 2025-09-21 08:48 | Outpatient (AMB) | payer MEDICARE, SELFPAY ==
--- OUTSIDE RECORDS SUMMARY | 2025-05-19 08:00 | XMS_ITS ---
Author Organization Slim Hammond MD Address [address] [place] [phone] Care Team Providers Care Lime Filter Operator Name Role Phone Slim Hammond Primary Care Provider [phone] Allergies Allergen (clinical drug ingredient) Drug/Non Drug Allergy documented on EMR Reaction Allergy Type Onset Date Status azithromycin z pack (uncoded) diarrhea Allergy Active REASON FOR VISIT labs Medications Medication SIG (Take, Route, Frequency, Duration) Notes Start Date End Date Status Clobetasol Propionate 0.05 % 1 APPLICATION EXTERNALLY TWICE A DAY 30 DAYS for 30 Active Ondansetron 4 MG 1 tablet on the tong ue and allow to dissolve Orally Once a day for 30 day(s) Not-Taking Calcium 500 MG 1 tablet with meals Orally Twice a day for 30 day(s) Not-Taking ProAir HFA 108 (90 Base) MCG/ACT 2 puffs as needed Inhalation every 6 hrs for 30 days 04/23/2018 Not-Taking Atorvastatin Calcium 40 MG TAKE 1 TABLET BY MOUTH EVERY DAY Active Omeprazole 20 MG 1 capsule 1/2 to 1 h our before morning meal Orally Once a day for 30 day(s) Active Albuterol Sulfate HFA 108 (90 Base) MCG/ACT 1 puff as needed Inhalation every 4 hrs for 30 days 10/07/2021 Active Levothyroxine Sodium 100 MCG TAKE 1 TABLET BY MOUTH IN THE MORNING ON AN EMPTY STOMACH ONCE A DAY FOR 90 DAYS Active Vitamin D 1000 UNIT 1 tablet Orally Once a day Active Social History Tobacco Use: Social History Observation [...] Never (0 point) Points 1 Interpretation Negative Vital Signs Blood pressure systolic 132 mm Hg 05/19/20 25 Blood pressure diastolic 80 mm Hg 025 Height 64 in 05/19/2025 Weight 204 lbs 05/19/2025 BMI 35.01 kg/m2 05/19/2025 weight is up 6 pounds since 05-15-25 Encounters Encounter Location Date Provider Diagnosis Slim Hammond MD [address] [place] [address] [place] [phone] 05/19/2025 Slim Hammond Prediabetes R73.09 ; Annual physical exam Z00.00 ; Meningioma D32.9 ; Pure hypercholesterolemia E78.00 ; Essential hypertension I10 ; Thyroid nodule E04.1 and Depression screening Z13.31 Assessments Encounter Date Diagnosis (ICD Code) Assessment Notes Treatment Notes Treatment Clinical Notes Section Notes 05/19/2025 Prediabetes (ICD-10 - R73.09) stable, noneed formedication at this time 05/19/2025 Annual physical exam (ICD-10 - Z00.00) Labs reviewed and discussed with patient 05/19/2025 Meningioma (ICD-10 - D32.9) pending diagnostic testing, order faxed to [facility] 05/19/2025 Pure hypercholesterolemia (ICD-10 - E78.00) stable, will continue current regiment 05/19/2025 Essential hypertensi on (ICD-10 - I10) stable, will continue to monitor 05/19/2025 Thyroid nodule (ICD- 10 - E04.1) stable, will continue current regiment 05/19/2025 Depression screening (ICD-10 - Z13.31) negative screen Plan Of Treatment Medication Medication Name Sig Start Date Stop Date Notes Atorvastatin Calcium 40 MG TAKE 1 TABLET BY MOUTH EVERY DAY Levothyroxine Sodium 100 MCG TAKE 1 TABL ET BY MOUTH IN THE MORNING ON AN EMPTY STOMACH ONCE A DAY FOR 90 DAYS Treatment Notes Assessment Notes Prediabetes stable, noneed forme dication at this time Annual physical exam Labs reviewed and d iscussed with patient Meningioma pending diagnostic t esting, order faxed to [facility] Pure hypercholesterolemia stable, will c ontinue current regiment Essential hypertension stable, will cont inue to monitor Thyroid nodule stable, will continu e current regiment Depression screening negative screen Pending Test Test Name Order Date MRI BRAIN W&WO CONTRAST 05/19/2025 Next Appt Details Follow Up: 6 Months, Reason: Provider Name:Slim salter, 10/05/2025 09:15:00 AM, [address] [place] [address], [address], [phone], Provider Name:Slim salter, 11/17/2025 08:00:00 AM, [address] [place] [address], [address], [phone], Provider Name:Slim salter, 11/23/2025 09:00:00 AM, [address] [place] [address], [address], [phone], Provider Name:Slim salter, 05/13/2026 07:45:00 AM, [address] [place] [address], [address] [place], [phone], Provider Name:Slim salter, 05/20/2026 09:30:00 AM, [address] [place] [address], [address] [place], [phone], Progress Notes * Lakeisha PAZaDOB:1955 (70 yo F)Acc No.[id number]:05/19/2025 Progress Notes Patient: Shanon PURI Provider: Sunni Hammond MD :1955 A ge:70 Y S ex:Female Date:05/19/2025 Address:[address] [place], [place] [phone] Subjective: * Chief Complaints: * L abs * HPI: D epression Screening: PHQ-9 L ittle interest or pleasure in doing things N ot at all, F eeling down, depressed, or hopeless N ot at all, T rouble falling or staying asleep, or sleeping too much N ot at all, F eeling tired or having little energy N ot at all, P oor appetite or overeating N ot at all, F eeling bad about yourself or that you are a failure, or have let yourself or your family down N ot at all, T rouble concentrating on things, such as reading the newspaper or watching television N ot at all, M oving or speaking so slowly that other people could have noticed; or the opposite, being so fidgety or restless that you have been moving around a lot more than usual N ot at all, T houghts that you would be better off or of hurting yourself in some way N ot at all, T otal Score 0 . I nterpretation and Intervention D epression Screening Findings N egative, F ollow-Up for Depression : review of PHQ-9 found negative result, no follow-up needed. C ommunication Needs: Communication Needs D oes the patient have a hearing impairment N o, D oes the patient have a vision impairment? Y es, I f yes, what is the vision impairment? G lasses, D oes the patient have a cognition impairment? N o. F all Risk: History H ave you had any falls with injury in the past year? N o, H ave you had two or more falls in the past year? N o. S JOSÉ Questions: SDOH Questions I n the past year have you been worried about losing housing? N o, I n the past year have you or any family members you live with been unable to get any of the following when it was really needed? Check all that apply: N one. S ymptom(s): patient is a 70 yo female here for annual visit with review of recent labs and follow up of chronic issues h ere for yearly evaluation/ finally feeling well. cough has been better. * ROS: G eneral/Constitutional: Change in appetite d enies. C hills d enies. F ever d enies. O phthalmologic: Blurred vision d enies. D ischarge d enies. P ain d enies. E NT: Decreased hearing d enies. S ore throat d enies.?Swollen glands d enies. E ndocrine: Cold intolerance d enies. E xcessive thirst d enies. H eat intolerance d enies. W eight loss d enies. R espiratory: Cough d enies. S hortness of breath at rest d enies. S hortness of breath with exertion d enies. W heezing d enies. C ardiovascular: Chest pain at rest d enies. C hest pain with exertion?denies. I rregular heartbeat d enies. S hortness of breath d enies. ? G astrointestinal: Abdominal pain d enies. C hange in bowel habits d enies. D iarrhea d enies. N ausea d enies. R ectal bleeding d enies. V omiting d enies . G enitourinary: Blood in urine d enies. D ifficulty urinating d enies. F requent urination d enies. U rinary incontinence D enies. M usculoskeletal: Painful joints d enies. W eakness d enies. ? S kin: Patient complaining of s ome skin changes on scalp. D ry skin d enies. I tching d enies. D enies M ole(s), changes in moles, new moles or any lesions of concern. D enies P hotosensitivity. R carlos d enies. ? N eurologic: Dizziness d enies. F ainting d enies. H eadache?denies. * Medical History: * Surgical History: * Hospitalization/Major Diagno stic Procedure: * Family History: F ather: 64 yrs, liver cancer, colon cancer, diagnosed with Cancer. M other: alive 93 yrs, diagnosed with Hypertension. 1 son(s) , 1 daughter(s) - healthy. . Father- Colon cancer, Denies mental health/substance abuse family history, Denies mental health/substance abuse family history, No pertinent family medical history, Denies mental health/substance abuse family history. * Social History: T obacco Use: T obacco Use/Smoking P atient is a f ormer smoker, H ow long has it been since you last smoked? > 10 years, A dditional Findings: Tobacco Non-User F ormer smoker, currently using no form of tobacco. D rugs/Alcohol: A lcohol Screen D id you have a drink containing alcohol in the past year? Y es, H ow often did you have a drink containing alcohol in the past year? M onthly or less (1 point), H ow many drinks did you have on a typical day when you were drinking in the past year? 1 or 2 drinks (0 point), H ow often did you have 6 or more drinks on one occasion in the past year? N ever (0 point), P oints 1 , I nterpretation N egative. M iscellaneous: C affeine: yes, frequency:, 1-2 cups per day. Children: yes. Community involvements: yes. Exercise: no. Home smoke detector use: yes. Housing: owning. Living with: spouse. Marital status: . Occupation: works full-time. Pets: none. Travel outside of the [place]: yes, Cecily. * Medications: T akingOmeprazole 20 MG Capsule Delayed Release 1 capsule 1/2 to 1 hour before morning meal Orally Once a day Albuterol Sulfate HFA 108 (90 Base) MCG/ACT Aerosol Solution 1 puff as needed Inhalation every 4 hrs Vitamin D 1000 UNIT Tablet 1 tablet Orally Once a day Levothyroxine Sodium 100 MCG Tablet TAKE 1 TABLET BY MOUTH IN THE MORNING ON AN EMPTY STOMACH ONCE A DAY FOR 90 DAYS Atorvastatin Calcium 40 MG Tablet TAKE 1 TABLET BY MOUTH EVERY DAY Clobetasol Propionate 0.05 % Cream 1 APPLICATION EXTERNALLY TWICE A DAY 30 DAYS Taking Omeprazole 20 MG Capsule Delayed Release 1 capsule 1/2 to 1 hour before morning meal Orally Once a day Taking Albuterol Sulfate HFA 108 (90 Base) MCG/ACT Aerosol Solution 1 puff as needed Inhalation every 4 hrs Taking Vitamin D 1000 UNIT Tablet 1 tablet Orally Once a day Taking Levothyroxine Sodium 100 MCG Tablet TAKE 1 TABLET BY MOUTH IN THE MORNING ON AN EMPTY STOMACH ONCE A DAY FOR 90 DAYS Taking Atorvastatin Calcium 40 MG Tablet TAKE 1 TABLET BY MOUTH EVERY DAY Taking Clobetasol Propionate 0.05 % Cream 1 APPLICATION EXTERNALLY TWICE A DAY 30 DAYS Not-Taking/PRNOndansetron 4 MG Tablet Disintegrating 1 tablet on the tongue and allow to dissolve Orally Once a day Calcium 500 MG Tablet 1 tablet with meals Orally Twice a day ProAir HFA 108 (90 Base) MCG/ACT Aerosol Solution 2 puffs as needed Inhalation every 6 hrs Medication List reviewed and reconciled with the patientNot- Taking/PRN Ondansetron 4 MG Tablet Disintegrating 1 tablet on the tongue and allow to dissolve Orally Once a day Not-Taking/PRN Calcium 500 MG Tablet 1 tablet with meals Orally Twice a day Not-Taking/PRN ProAir HFA 108 (90 Base) MCG/ACT Aerosol Solution 2 puffs as needed Inhalation every 6 hrs Medication List reviewed and reconciled with the patient * Allergies: z pack: diarrheayes[Allergies Verified] Objective: * Vitals: H t: 64, Wt: 204, BMI:35.01, BP:132/80, Wt-k.53. weight is up 6 pounds since 05-15-25. * P ast Orders: L ab:Vitamin D 25-OH Total (Order Date - 05/15/2025) (Collection Date & Time - 05/15/2025 08:00 AM) Value Reference Range Vitamin D 25-OH Total 50.6 >30 - ng/mL L ab:TSH reflex Free T4 (Order Date - 05/15/2025) (Collection Date & Time - 05/15/2025 08:00 AM) Value Reference Range TSH reflex Free T4 2.95 0.32-4.0 - uIU/mL L ab:Microalbumin, Random (Order Date - 05/15/2025) (Collection Date & Time - 05/15/2025 08:00 AM) Value Reference Range Creatinine Urine 97.55 - mg/dL Microalbumin Urine < 5.0 - mg/L Microalbum Creatinine Ratio Ur TNP <30 - ug/ mg cr L ab:Hemoglobin A1c (Order Date - 05/15/2025) (Collection Date & Time - 05/15/2025 08:00 AM) Value Reference Range Hemoglobin A1c % 5.9 <6.0 - % Estimated Average Glucose 123 - mg/dL L ab:UA ClnCatch+Micro w/rflx Cult (Order Date - 05/15/2025) (Collection Date & Time - 05/15/2025 08:00 AM) Value Reference Range Color Urine Yellow - Appearance Urine Clear - PH 6.0 5.0-9.0 - Glucose Urine UA Negative Negative - mg/dL Urine Blood Negative Negative - Specific [place] - Urine 1.015 1.005-1.025 - Urine Protein Negative Neg-Trace - mg/dL Urine Ketones Negative Negative - mg/dL Nitrite Urine Negative Negative - Leukocyte Esterase Urine Negative Negative - RBC Urine 0-2 0-2 - /HPF WBC Urine 0-5 0-5 - /HPF Squamous Epithelial Cell Urine 0-2 0-2 - /HP F Bacteria Urine None Seen None Seen - Hyaline Casts Urine 0-2 0-2 - /LPF L ab:Lipid Panel (Order Date - 05/15/2025) (Collection Date & Time - 05/15/2025 08:00 AM) Value Reference Range Triglycerides 128 <150 - mg/dL Cholesterol 167 <200 - mg/dL LDL Cholesterol Calculated 98 <100 - mg/dL HDL Cholesterol 44 >40 - mg/dL L ab:Complete Blood Count Auto Diff (Order Date - 05/15/2025) (Collection Date & Time - 05/15/2025 08:00 AM) Value Reference Range White Blood Count 6.9 4.8-10.8 - X10*3/uL Red Blood Count 4.48 4.20-5.50 - X10*6/uL Hemoglobin 13.8 12.0-16.0 - g/dl Hematocrit 41.4 37.0-47.0 - % Mean Corpuscular Volume 92.4 80.0-98.0 - fL Mean Corpuscular Hemoglobin 30.8 27.0-33.0 - pg Mean Corpuscular HGB Conc 33.3 31.0-35.0 - g/ dl Red Cell Distribution Width 13.8 11.0-16.0 - % Platelet Count 194 160-400 - X10*3/uL Mean Platelet Volume 11.5 9.4-12.3 - fL Neutrophils Percent Auto 58.7 45-73 - % Imm Gran Pct Auto 0.3 0.0-0.4 - % Lymphocytes Percent Auto 27.0 20-40 - % Monocytes Percent Auto 8.6 2-11 - % Eosinophils Percent Auto 4.8 H 0-4 - % Basophils Percent Auto 0.6 0-2 - % NRBC Pct Auto 0.0 0.0-0.2 - /100WBC Neutrophils Absolute Auto 4.1 2.0-8.3 - x10* 3/uL Imm Gran Abs Auto 0.02 0.00-0.03 - X10*3/uL Lymphocytes Absolute Auto 1.9 1.2-4.9 - X10* 3/uL Monocytes Absolute Auto 0.6 0.1-1.2 - X10*3/ uL Eosinophils Absolute Auto 0.3 0.0-0.4 - X10* 3/uL Basophils Absolute Auto 0.0 0.0-0.2 - X10*3/ uL NRBC Abs Auto 0.000 0.0-0.012 - X10*3/uL L ab:Comprehensive [place]. Panel Fast (Order Date - 05/15/2025) (Collection Date & Time - 05/15/2025 08:00 AM) Value Reference Range Sodium 143 135-145 - mmol/L Bilirubin Total 0.7 0.0-1.0 - mg/dL Aspartate Amino Transferase 17 5-31 - U/L Alanine Aminotransferase 26 0-31 - U/L Total Protein 6.0 L 6.5-8.0 - g/dL Albumin Level 3.8 3.5-5.0 - g/dL Alkaline Phosphatase 70 39-117 - U/L Potassium 4.0 3.3-5.1 - mmol/L Chloride 108 96-108 - mmol/L Carbon Dioxide 27 22-29 - mmol/L Anion Gap 12 12-20 - Blood Urea Nitrogen 15 9-16 - mg/dL Creatinine 0.95 0.5-1.4 - mg/dL Estimated Glomerular Filt Rate 58 - Glucose Fasting 109 H 60-99 - mg/dL Calcium 8.7 8.4-10.2 - mg/dL * Examination: G eneral Examination: GENERAL APPEARANCE: w ell developed, well nourished, in no acute distress. HEAD: n ormocephalic, atraumatic. EYES: p upils equal, round, reactive to light and accommodation, sclera non-icteric. EARS: n ormal. ORAL CAVITY: m ucosa moist. THROAT: c lear. NECK/THYROID: n emmanuel supple, full range of motion, no cervical lymphadenopathy, no bruits. SKIN: w arm and dry, no suspicious lesions. HEART: r egular rate and rhythm, S1, S2 normal, no murmurs.? LUNGS: c lear to auscultation bilaterally. BREASTS: d one by billing representative. ABDOMEN: s oft, nontender, nondistended, bowel sounds present, normal, no organomegaly , no masses palpable. RECTAL EXAM: d one by billing representative. FEMALE GENITOURINARY: d one by billing representative. EXTREMITIES: n o clubbing, cyanosis, or edema. NEUROLOGIC: n onfocal, motor strength normal upper and lower extremities, sensory exam intact. Assessment: * Assessment: 1. A nnual physical exam - Z00.00 (Primary) 2 . P rediabetes - R73.09 ? 3 . M eningioma - D32.9 4 . P ure hypercholesterolemia - E78.00? 5. E ssential hypertension - I10 6 . T hyroid nodule - E04.1? 7. D epression screening - Z13.31 Plan: * Treatment: 2. P rediabetes Notes: stable, noneed formedication at this time 3. M eningioma I maging: MRI BRAIN W&WO CONTRAST Notes: pending diagnostic testing, order faxed to [facility] 4. P ure hypercholesterolemia Continue Atorvastatin Calcium Tablet, 40 MG, TAKE 1 TABLET BY MOUTH EVERY DAY. Notes: stable, will continue current regiment 5. E ssential hypertension Notes: stable, will continue to monitor 6. T hyroid nodule Continue Levothyroxine Sodium Tablet, 100 MCG, TAKE 1 TABLET BY MOUTH IN THE MORNING ON AN EMPTY STOMACH ONCE A DAY FOR 90 DAYS. Notes: stable, will continue current regiment 7. D epression screening Notes: negative screen * Procedure Codes: * Follow Up: 6 Months * * Sign off status: Completed true * Provider: Sunni Hammond MD Date: 0 05/19/2025 Generated for Rigo hayward/Ayala/eTransmitting on: 1 11/21/2024 09:26 AM EST History and Physical Notes * HPI (History of Present Illness) Category Sub-Category Detail Notes Category Not es Symptom(s) patient is a 70 yo female here for annual visit with review of recent labs and follow up of chronic issues here for yearly evaluation/ finally feeling well. cough has been better Depression Screening PHQ-9 Little inte rest or pleasure in doing things: Not at all Feeling down, depressed, or hopeless: No t at all Trouble falling or staying asleep, or sl eeping too much: Not at all Feeling tired or having little energy: N ot at all Poor appetite or overeating: Not at all Feeling bad about yourself o r that you are a failure, or have let yourself or your family down: Not at all Trouble concentrating on thi ngs, such as reading the newspaper or watching television: Not at all Moving or speaking so slowly that other people could have noticed; or the opposite, being so fidgety or restless that you have been moving around a lot more than usual: Not at all Thoughts that you would be b jan off or of hurting yourself in some way: Not at all Total Score: 0 Interpretation and Intervention Depression Derik graham Findings: Negative Follow-Up for Depression: : review of PH Q-9 found negative result, no follow-up needed SDOH Questions SDOH Questions In the past year have you been worried about losing housing?: No In the past year have you or any family members you live with been unable to get any of the following when it was really needed? Check all that apply:: None Fall Risk History Have you had any falls with injury i n the past year?: No Have you had two or more falls in the st year?: No Communication Needs Communication Needs Does the patient have a hearing impairment: No Does the patient have a vision impairmen t?: Yes If yes, what is the vision impairment?: Glasses Does the patient have a cognition impair ment?: No Examination Category Sub-Category Detail Notes Category Not es General Examination GENERAL APPEARANCE: well dev eloped, well nourished, in no acute distress HEAD: normocephalic, atrau matic EYES: pupils equal, round, reactive to light and accommodation, sclera non-icteric EARS: normal THROAT: clear NECK/THYROID: neck supple, full ra nge of motion, no cervical lymphadenopathy, no bruits HEART: regular rate and rhy thm, S1, S2 normal, no murmurs LUNGS: clear to auscultatio n bilaterally ABDOMEN: soft, nontender, non distended, bowel sounds present, normal, no organomegaly , no masses palpable NEUROLOGIC: nonfocal, motor stre ngth normal upper and lower extremities, sensory exam intact SKIN: warm and dry, no rory picious lesions EXTREMITIES: no clubbing, cyanosi s, or edema BREASTS: done by billing representative RECTAL EXAM: done by billing representative FEMALE GENITOURINARY: done by billing representative ORAL CAVITY: mucosa moist
--- OUTSIDE RECORDS SUMMARY | 2025-06-01 09:42 | XMS_ITS ---
Author Organization Slim Hammond MD Address [address] [place] [phone] Care Team Providers Care Consumer Affairs Director Name Role Phone Slim Hammond Primary Care Provider [phone] REASON FOR VISIT MRI Brain w and w/o contrast due Encounters Encounter Location Date Provider Diagnosis Slim Hammond MD [address] [place] [phone] 06/01/2025 Slim Hammond Meningioma D32.9 Assessments Encounter [...] Next Appt Details Provider Name:Slim Shepard ier, 10/05/2025 09:15:00 AM, [address], [address], [place], [phone], Provider Name:Slim Shepard kaylar, 11/17/2025 08:00:00 AM, [address], [address], [place], [phone], Provider Name:Slim Shepard ier, 11/23/2025 09:00:00 AM, [address], [address], [place], [phone], Provider Name:Slim Shepard ier, 05/13/2026 07:45:00 AM, [address], [address], [place], [phone], Provider Name:Slim Shepard kaylar, 05/20/2026 09:30:00 AM, [address], [address], [place], [phone], Progress Notes * Isdaora PAZB:1955 (70 yo F)Acc No.[id number]:06/01/2025 Patient: Shanon PURI :1955 A ge:70 Y S ex:Female Address:[address] [place] [phone] Subjective: * Chief Complaints: * M RI [...] Codes: * true * Date: Generated for Yoeli mainor/Aylaa/eTransmitting on: 11/21/2024 09:26 AM EST
--- OUTSIDE RECORDS SUMMARY | 2025-06-02 04:49 | XMS_ITS ---
Author Organization Slim Hammond MD Address [address] [place] [address] [phone] Care Team Providers Care Director Emergency Name Role Phone Slim Hammond Primary Care Provider [phone] Encounters Encounter Location Date Provider Diagnosis Slim Hammond MD 10 [facility] [address] [place] [address] [phone] 06/02/2025 Slim Hammond Plan Of Treatment Next Appt Details Provider Name:Slim salter, 10/05/2025 09:15:00 AM, [address] [place] [address], [address], [phone], Provider Name:Slim salter, 11/17/2025 08:00:00 AM, [address] [place] [address], [address], [phone], Provider Name:Slim salter, 11/23/2025 09:00:00 AM, [address] [place] [address], [address], [phone], Provider Name:Slim Shepard ier, 05/13/2026 07:45:00 AM, [address], [address], [place], [phone], Provider Name:Slim Shepard ier, 05/20/2026 09:30:00 AM, [address], [address], [place], [phone], Progress Notes * Isadora PAZB:1955 (70 yo F)Acc No.[id number]:06/02/2025 Patient: Denzel Shanon MACHADO :1955 A ge:70 Y S ex:Female Address:[address] [place] [phone] * true * Date: Generated for Rigo hayward/Ayala/Shannonsmitting on: 11/21/2024 09:26 AM EST
--- OUTSIDE RECORDS SUMMARY | 2025-07-14 05:45 | XMS_ITS ---
Author Organization Slim Hammond MD Address [address] [place] [address] [phone] Care Team Providers Care Counterintelligence/Humint Specialist Name Role Phone Slim Hammond Primary Care Provider REASON FOR VISIT ? diverticulitis Encounters Encounter Location Date Provider Diagnosis Slim Hammond MD 10 [facility] [address] [place] [address] [phone] 07/14/2025 Slim Hammond Plan Of Treatment Next Appt Details Provider Name:Slim Shepard ier, 10/05/2025 09:15:00 AM, [address] [place] [address], [address] [place] [address], [phone], Provider Name:Slim Shepard ier, 11/17/2025 08:00:00 AM, [address] [place] [address], [address], [phone], Provider Name:Slim Shepard iegorge, 11/23/2025 09:00:00 AM, [address] [place] [address], [address], [phone], Provider Name:Slim Shepard ier, 05/13/2026 07:45:00 AM, [address], [address], [place], [phone], Provider Name:Slim Shepard ier, 05/20/2026 09:30:00 AM, [address], [address], [place], [place], [phone], Progress Notes * Isadora PAZB:1955 (70 yo F)Acc No.[id number]:07/14/2025 Patient: Denzel Shanon MACHADO :1955 A ge:70 Y S ex:Female Address:[address] [place] [phone] * true * Date: Generated for Rigo hayward/Ayala/eTransmitting on: 11/21/2024 09:27 AM EST
--- OUTSIDE RECORDS SUMMARY | 2025-07-14 10:30 | XMS_ITS ---
Author Organization Slim Hammond MD Address [address] [place] [address] [phone] Care Team Providers Care Wall Worker Name Role Phone Slim Hammond Primary [...] Status W/U Status Risk Notes Problem Diverticulitis (85213046) Diverticulitis (K57.92) Active confirmed Vital Signs Blood pressure systolic 144 mm Hg 07/14/20 25 Blood pressure diastolic 80 mm Hg 025 Height 64 in 07/14/2025 Weight 202 lbs 07/14/2025 BMI 34.67 kg/m2 07/14/2025 weight is down 2 pounds [facility] [place] 05-19-25 Encounters Encounter Location Date Provider Diagnosis Slim Hammond MD [address] [place] [phone] 07/14/2025 Slim Hammond Diverticulitis K57.9 2 Assessments Encounter Date Diagnosis (ICD Code) Assessment Notes Treatment Notes Treatment Clinical Notes Section Notes 07/14/2025 Diverticulitis (ICD-10 - K57.92) Plan Of Treatment Medication Medication Name Sig Start Date Stop Date Notes Amoxicillin-Pot Clavulanate 875-125 MG 1 tablet Orally every 12 hrs for 10 days 07/14/2025 Next Appt Details Provider Name:Slim salter, 10/05/2025 09:15:00 AM, [address] [place] [address], [address], [phone], Provider Name:Slim salter, 11/17/2025 08:00:00 AM, [address] [place] [address], [address], [phone], Provider Name:Slim salter, 11/23/2025 09:00:00 AM, [address] [place] [address], [address], [phone], Provider Name:Slim Shepard ier, 05/13/2026 07:45:00 AM, [address], [place], [place], [phone], Provider Name:Slim Shepard ier, 05/20/2026 09:30:00 AM, [address], [place], [place], [phone], Progress Notes * Lakeisha PAZaDOB:1955 (70 yo F)Acc No.[id number]:07/14/2025 Progress Notes Patient: Shanon PURI Provider: Sunni Hammond MD :1955 A ge:70 Y S ex:Female Date:07/14/2025 Address:[address] [place], [place] [phone] Subjective: * Chief Complaints: * ? diverticulitis [...] Hammond MD Date: 0 07/14/2025 Generated for Yoeli mainor/Ayala/Shannonsmitting on: 11/21/2024 09:25 AM EST History and Physical Notes * [...]
--- OUTSIDE RECORDS SUMMARY | 2025-07-30 03:30 | XMS_ITS ---
Author Organization Slim Hammond MD Address [address] [place] [phone] Care Team Providers Care Boiler House Supervisor Name Role Phone Slim Hammond Primary Care Provider REASON FOR VISIT HDF Encounters Encounter Location Date Provider Diagnosis Slim Hammond MD 10 [facility] [address] [place] [phone] 07/30/2025 Slim Hammond Plan Of Treatment Next Appt Details Provider Name:Slim Shepard ier, 10/05/2025 09:15:00 AM, [address] [place] [address], [address], [phone], Provider Name:Slim salter, 11/17/2025 08:00:00 AM, [address] [place] [address], [address], [phone], Provider Name:Slim salter, 11/23/2025 09:00:00 AM, [address] [place] [address], [address], [phone], Provider Name:Slim Shepard ier, 05/13/2026 07:45:00 AM, [address], [address], [place], [phone], Provider Name:Slim Shepard ier, 05/20/2026 09:30:00 AM, [address], [address], [place], [phone], Progress Notes * BRANDILakeishaaDOB:1955 (70 yo F)Acc No.[id number]:07/30/2025 Progress Note Patient: Shanon PURI Provider: Sunni Hammond MD :1955 A ge:70 Y S ex:Female Date:07/30/2025 Address:[address] [place], [place] [phone] Subjective: * Chief Complaints: * 1 . [...] 0 07/30/2025 Generated for Rigo hayward/Ayala/Brandiitting on: 11/21/2024 09:25 AM EST
--- OUTSIDE RECORDS SUMMARY | 2025-08-06 07:29 | XMS_ITS ---
Author Organization Slim Hammond MD Address [address] [place] [phone] Care Team Providers Care Enrollment Services Vice President Name Role Phone Slim Hammond Primary Care Provider [phone] REASON FOR VISIT discharge Encounters Encounter Location Date Provider Diagnosis Slim Hammond MD [address] [facility] [address] [place] [phone] 08/06/2025 Slim Hammond Plan Of Treatment Next Appt Details Provider Name:Slim Shepard ier, 10/05/2025 09:15:00 AM, [address] [place] [address], [address], [phone], Provider Name:Slim salter, 11/17/2025 08:00:00 AM, [address] [place] [address], [address], [phone], Provider Name:Slim salter, 11/23/2025 09:00:00 AM, [address] [place] [address], [address], [phone], Provider Name:Slim Shepard ier, 05/13/2026 07:45:00 AM, [address], [address], [place], [phone], Provider Name:Slim Shepard ier, 05/20/2026 09:30:00 AM, [address], [address], [place], [phone], Progress Notes * Isadora PAZB:1955 (70 yo F)Acc No.[id number]:08/06/2025 Patient: Denzel Shanon MACHADO :1955 A ge:70 Y S ex:Female Address:[address] [place] [phone] * true * Date: Generated for Rigo hayward/Ayala/Shannonsmitting on: 11/21/2024 09:26 AM EST
--- OUTSIDE RECORDS SUMMARY | 2025-08-13 06:30 | XMS_ITS ---
Author Organization Slim Hammond MD Address [address] [place] [phone] Care Team Providers Care Applications Scientist Name Role Phone Slim Hammond Primary Care Provider Allergies Allergen (clinical drug ingredient) Drug/Non Drug Allergy documented on EMR Reaction Allergy Type Onset Date Status vancomycin Vancomycin HCl itching only iv Drug Allergy Active azithromycin z pack (uncoded) diarrhea Allergy Active REASON FOR VISIT PH/TCM Medications Medication SIG (Take, Route, Frequency, Duration) Notes Start Date End Date Status Atorvastatin Calcium 40 MG TAKE 1 TABLET BY MOUTH EVERY DAY Active ProAir HFA 108 (90 Base) MCG/ACT 2 puffs as needed Inhalation every 6 hrs for 30 days 04/23/2018 Not-Taking Calcium 500 MG 1 tablet with meals Orally Twice a day for 30 day(s) Not-Taking Ondansetron 4 MG 1 tablet on the tong ue and allow to dissolve Orally Once a day for 30 day(s) Not-Taking Albuterol Sulfate HFA 108 (90 Base) MCG/ACT 1 puff as needed Inhalation every 4 hrs for 30 days 10/07/2021 Active Omeprazole 20 MG 1 capsule 1/2 to 1 h our before morning meal Orally Once a day for 30 day(s) Active Levothyroxine Sodium 100 MCG TAKE 1 TABLET BY MOUTH IN THE MORNING ON AN EMPTY STOMACH ONCE A DAY FOR 90 DAYS Active Clobetasol Propionate 0.05 % 1 APPLICATION EXTERNALLY TWICE A DAY 30 DAYS for 30 Active Vitamin D 1000 UNIT 1 tablet Orally Once a day Active Amoxicillin-Pot Clavulanate 875-125 MG 1 tablet Orally every 12 hrs for 5 days 08/13/2025 Active Vancomycin HCl 125 MG 1 capsule Orally 4 times a day for 10 days 08/13/2025 Active Vancomycin HCl 125 MG 1 capsule Orally O nce a day Active Immunizations Vaccine Route Administration Date Status Comme nts Influenza High Dose IM Intramuscular 08/13/2025 Administer ed Vital Signs Blood pressure systolic 110 mm Hg 08/13/20 Blood pressure diastolic 70 mm Hg 025 Height 64 in 08/13/2025 Weight 202 lbs 08/13/2025 BMI 34.67 kg/m2 08/13/2025 Encounters Encounter Location Date Provider Diagnosis Slim Hammond MD [address] [place] [address] [place] [phone] 08/13/2025 Slim Hammond C. difficile colitis A04.72 ; Diverticulitis K57.92 and Encounter for administration of vaccine Z23 Assessments Encounter Date Diagnosis (ICD Code) Assessment Notes Treatment Notes Treatment Clinical Notes Section Notes 08/13/2025 C. difficile colitis (ICD-10 - A04.72) is on vancomicn and will add augmentin and stay on the vancomicin Total time spent on the date of the encounter is 35 minutes including both face to face time spent and time spent reviewing documentation, pertinent lab data, studies and counseling the patient. 08/13/2025 Diverticulitis (ICD-10 - K57.92) 08/13/2025 Encounter for administration of vaccine (ICD-10 - Z23) Plan Of Treatment Medication Medication Name Sig Start Date Stop Date Notes Amoxicillin-Pot Clavulanate 875-125 MG 1 tablet Orally every 12 hrs for 5 days 08/13/2025 Vancomycin HCl 125 MG 1 capsule Orally 4 times a day for 10 days 08/13/2025 Treatment Notes Assessment Notes C. difficile colitis is on vancomicn and will add augmentin and stay on the vancomicin Total time spent on the date of the encounter is 35 minutes including both face to face time spent and time spent reviewing documentation, pertinent lab data, studies and counseling the patient. Next Appt Details Follow Up: 2 Weeks, Reason: Provider Name:Slim Shepard kaylar, 10/05/2025 09:15:00 AM, [address] [place] [address], [address] [place] [address], [phone], Provider Name:Slim garzar, 11/17/2025 08:00:00 AM, [address] [place] [address], Suite [facility], [place], [place], [phone], Provider Name:Slimsarina garzar, 11/23/2025 09:00:00 AM, [address] [place] [address], Suite [facility], [place], [place], [phone], Provider Name:Slimsarina garzar, 05/13/2026 07:45:00 AM, [address] [place] [address], [address] [place] [address], [phone], Provider Name:Slim Shepard kaylar, 05/20/2026 09:30:00 AM, [address] [place] [address], [address] [place] [address], [phone], Progress Notes * Lakeisha PAZaDOB:1955 (70 yo F)Acc No.[id number]:08/13/2025 Patient: Denzel CARTERLakeishaa Provider: Sunni Hammond MD :1955 A ge:70 Y S ex:Female Date:08/13/2025 Address:[address] [place], [place] [phone] Subjective: * Chief Complaints: * P H/TCM * HPI: S ymptom(s): patient is a 70 yo female here for transitional care management visit following recent discharge from hospital. Discharge summary has been reviewed and medications reconcilled. had diverticulitis 4 times in one year. * ROS: G eneral/Constitutional: Denies C hills. Adams enies F atmadalyn. D enies F ever. D enies H eadache. R espiratory: Denies C ough. D enies S hortness of breath at rest. D enies S hortness of breath with exertion. G astrointestinal: Admits D iarrhea. A dmits N ausea. * Medical History: * Surgical History: * Hospitalization/Major Diagno stic Procedure: * Medications: T akingVancomycin HCl 125 MG Capsule 1 capsule Orally Once a day Omeprazole 20 MG Capsule Delayed Release 1 [...] 1 TABLET BY MOUTH EVERY DAY Taking Vancomycin HCl 125 MG Capsule 1 capsule Orally Once a day Taking Omeprazole 20 MG Capsule Delayed Release [...] puffs as needed Inhalation every 6 hrs Not-Taking/PRN Ondansetron 4 MG Tablet Disintegrating 1 tablet on the tongue and allow to dissolve Orally Once a day Not-Taking/PRN Calcium 500 MG Tablet 1 tablet with meals Orally Twice a day Not-Taking/PRN ProAir HFA 108 (90 Base) MCG/ACT Aerosol Solution 2 puffs as needed Inhalation every 6 hrs DiscontinuedAmoxicillin-Pot Clavulanate 875-125 MG Tablet 1 tablet Orally every 12 hrs Medication List reviewed and reconciled with the patientDiscontinued Amoxicillin-Pot Clavulanate 875-125 MG Tablet 1 tablet Orally every 12 hrs Medication List reviewed and reconciled with the patient * Allergies: z pack: diarrheaVancomycin HCl: itching only iv Objective: * Vitals: H t: 64, Wt: 202, BMI:34.67, BP:110/70, Wt-k.63. * Examination: G eneral Examination: GENERAL APPEARANCE: a lert, well hydrated, in no distress.? HEAD: n ormocephalic. SKIN: g ood turgor. HEART: r egular rate and rhythm, no murmurs, rubs, gallops.? LUNGS: n o wheezes, rales, rhonchi, good air movement, clear to auscultation bilaterally. ABDOMEN: w ith mild tenderness in the left lower quadrant.? Assessment: * Assessment: 1. C . difficile colitis - A04.72 (Primary) 2 . D iverticulitis - K57.92? 3. E ncounter for administration of vaccine - Z23 Plan: * Treatment: 2. D iverticulitis Start Amoxicillin-Pot Clavulanate Tablet, 875-125 MG, 1 tablet, Orally, every 12 hrs, 5 days, 10 Tablet. * Immunizations: Influenza High Dose : 0.5 mL (Dose No:1) (Route: Intramuscular) given by Marisa Torres , Office Staff on Left Deltoid * Procedure Codes: 9 0662 FLU VACC PRSV FREE INC [id number] IMMUNIZATION ADMIN * Follow Up: 2 Weeks * * Sign off status: Completed true * Provider: Sunni Hammond MD Date: 0 08/13/2025 Generated for Rigo hayward/Ayala/Brandiitting on: 11/21/2024 09:26 AM EST History and Physical Notes * HPI (History of Present Illness) Category Sub-Category Detail Notes Category Not es Symptom(s) patient is a 70 yo female here for transitional care management visit following recent discharge from hospital. Discharge summary has been reviewed and medications reconcilled. had diverticulitis 4 times in one year. Examination Category Sub-Category Detail Notes Category Not es General Examination GENERAL APPEARANCE: alert, w ell hydrated, in no distress HEAD: normocephalic HEART: regular rate and rhy thm, no murmurs, rubs, gallops LUNGS: no wheezes, rales, r honchi, good air movement, clear to auscultation bilaterally ABDOMEN: with mild tenderness in the left lower quadrant SKIN: good turgor
--- OUTSIDE RECORDS SUMMARY | 2025-09-01 06:45 | XMS_ITS ---
Author Organization Slim Hammond MD Address [address] [place] [phone] Care Team Providers Care Freelance Director Name Role Phone Slim Hammond Primary Care Provider [phone] Allergies Allergen (clinical drug ingredient) Drug/Non Drug [...] Location Date Provider Diagnosis Slim Hammond MD [address] [place] [phone] 09/01/2025 Slim Hammond Diverticulitis K57.9 2 Assessments [...] 3 Days, Reaso n: Provider Name:Slim salter, 10/05/2025 09:15:00 AM, [address] [place] [address], [address], [phone], Provider Name:Slim salter, 11/17/2025 08:00:00 AM, [address] [place] [address], [address], [phone], Provider Name:Slim salter, 11/23/2025 09:00:00 AM, [address] [place] [address], [phone], Provider Name:Slim salter, 05/13/2026 07:45:00 AM, [address] [place] [address], [phone], Provider Name:Slim Shepard ier, 05/20/2026 09:30:00 AM, [address], [address], [place], [place], [phone], Progress Notes * Lakeisha PAZaDOB:1955 (70 yo F)Acc No.[id number]:09/01/2025 Progress Notes Patient: Shanon PURI Provider: Sunni Hammond MD :1955 A ge:70 Y S ex:Female Date:09/01/2025 Address:[address] [place], [place] [phone] Subjective: * Chief Complaints: * 2 week [...] true * Provider: Sunni Hammond MD Date: Generated for [employer] mainor/Ayala/Megransmitting on: 11/21/2024 09:26 AM EST History and [...]
--- OUTSIDE RECORDS SUMMARY | 2025-09-04 08:15 | XMS_ITS ---
Author Organization Slim Hammond MD Address [address] [place] [phone] Care Team Providers Care Market Research Lead Name Role Phone Slim Hammond Primary Care Provider [phone] Allergies Allergen (clinical drug ingredient) Drug/Non Drug [...] W/U Status Risk Notes Problem Irritable bowel (07553462) Irritable bowel (K58.9) Active confirmed Vital Signs Blood pressure systolic 148 mm Hg 09/04/20 25 Blood pressure diastolic 76 mm Hg 025 Height 64 in 09/04/2025 Weight 203 lbs 09/04/2025 BMI 34.84 kg/m2 09/04/2025 Encounters Encounter Location Date Provider Diagnosis Slim Hammond MD [address] [place] [phone] 09/04/2025 Slim Hammond Irritable bowel K58.9 Assessments [...] Up: 4 Weeks, Reason: Provider Name:Slim salter, 10/05/2025 09:15:00 AM, [address] [place] [address], [address], [phone], Provider Name:Slim salter, 11/17/2025 08:00:00 AM, [address] [place] [address], [address], [phone], Provider Name:Slim salter, 11/23/2025 09:00:00 AM, [address], [address], [place], [place], [phone], Provider Name:Slim Shepard ier, 05/13/2026 07:45:00 AM, [address], [address], [place], [place], [phone], Provider Name:Slim Shepard ier, 05/20/2026 09:30:00 AM, [address], [address], [place], [phone], Progress Notes * Lakeisha PAZaDOB:1955 (70 yo F)Acc No.[id number]:09/04/2025 Patient: Shanon PURI Provider: Sunni Hammond MD :1955 A ge:70 Y S ex:Female Date:09/04/2025 Address:[address] [place], [place] [phone] Subjective: * Chief Complaints: * m ust see follow up after CT scab abd and pelvic * HPI: S ymptom(s): patient is a 70 yo female here for follow up of recent CT Scan/ ct negative at present. ovary cyst is followed by industrial editor. bm are better today/ still getting cramping [...] Sunni Hammond MD Date: Generated for Rigo hayward/Ayala/Shannonsmitting on: 11/21/2024 09:27 AM EST History and Physical Notes * HPI (History of Present Illness) Category Sub-Category Detail Notes Category Not es Symptom(s) patient is a 70 yo female here for follow up of recent CT Scan/ ct negative at present. ovary cyst is followed by industrial editor. bm are better today/ still getting cramping [...]
--- NOTE | 2025-09-21 08:52 | A.OFFVIS_ITS ---
Vital Signs 09/21/25 08:54 Height 5 ft 4 in Weight 205 lb BMI 35.2 BP 167/79 H Blood Pressure Location Rt brachial Position Sitting Pulse 69 Intake Visit Reasons: Diverticulitis Intake Note: Patient is seen in office for ER follow up visit, following for diverticulitis. Patient c/o: abdominal pain has improved. IBS under control. CT:09/03/25 Wireless Telegrapher Required: No Accompanied by: Self / Same As Patient Allergies vancomycin Allergy (Severe, Verified 09/21/25 08:57) Itching Medication List - Last Reconciled 09/21/25 by Lance Bronson MD albuterol sulfate 90 mcg/actuation 1 puff inhalation Q4H PRN atorvastatin 40 mg PO DAILY cholecalciferol (vitamin D3) (Vitamin D3) 25 mcg PO DAILY levothyroxine 100 mcg PO DAILY@0600 omeprazole 20 mg PO BID HPI Comments Details: 70-year-old female patient returning following a recent admission for sigmoid diverticulitis with microperforation. She has a prior history of hyperlipidemia, GERD, hypothyroidism, IBS and diverticulitis, followed by Dr. Vargas as an outpatient. She was admitted on 07/31/2025 with a mild leukocytosis of 12.[address] abdomen and pelvis which showed acute diverticulitis with microperforation and a small amount of free air in the pelvis with a small fluid collection. She was admitted to the surgical service and placed on IV antibiotics. She was subsequently discharged home on 08/04/2025 on oral antibiotics. She received an additional course of antibiotics subsequent to discharge due to increased pain thought to be possibly due to IBS. A repeat CAT scan showed resolution of the diverticulitis. She returns today for post hospitalization follow-up. General she feels much improved with normal appetite and normal bowels. She denies any pain in the left lower quadrant. [facility] Medical History Hypothyroid GERD (gastroesophageal reflux disease) PVC (premature ventricular contraction) Elevated cholesterol Deviated septum Degeneration of spine Thyroid nodule Osteoarthritis Surgical History Hx of dilation and curettage History of esophagogastroduodenoscopy (EGD) History of nasal surgery Hx of tonsillectomy History of surgery H/O colonoscopy Tubal ligation status History of H/O shoulder surgery History of arthroscopy of both knees Family History Paternal Aunt Breast CA Father Colon cancer Social History Household Members: Spouse Housing: House Are you a primary acute care occupational therapist to a significant other at home: No Do you presently have visiting nurse or other home services: No Alcohol intake: current Alcohol intake frequency: holidays/special occasions only Patient Tobacco Use Status: Former Tobacco user Tobacco use type: Cigarette Years Smoked: 7 Advance Directives Date on File: 12/15/22 service: No Gender identity: Female Female Reproductive History Menstrual Age of Menarche: 12 Review of Systems Const All systems reviewed & are unremarkable except as noted in HPI and below Physical Exam Vital Signs: Last Vital Signs Pulse 69 09/21/25 08:54 BP 167/79 H 09/21/25 08:54 BMI result Body Mass Index 35.2 Const General: cooperative and no acute distress Nutritional Appearance: well nourished Orientation/consciousness: patient oriented x3 Limitations: no limitations HEENT Head: Yes normocephalic and Yes atraumatic Ears: hearing grossly normal bilaterally Resp Effort & Inspection: normal respiratory effort, no audible wheezes, no cough and no respiratory distress Cardio Jugular venous distension: no JVD GI Inspection: Yes normal to inspection Palpation (GI): Soft to palpation, nontender, no guarding, not rigid and No hepatosplenomegaly present Percussion: Yes normal to percussion Auscultation: normal bowel sounds Skin Other: Warm, dry, no rash Neuro General: patient oriented x3 Extrem General: Yes no clubbing, cyanosis or edema Assessment & Plan Assessment & Plan (1) Diverticulosis of colon: Code(s): K57.30 - Diverticulosis of large intestine without perforation or abscess without bleeding Category: Medical Plan 70-year-old female patient presenting with a recent history of sigmoid diverticulitis with microperforation. She is now completely resolved and a repeat CT shows resolution of the previous inflammatory changes. We discussed elective hand assisted laparoscopic sigmoid colectomy as a possible option to prevent further episodes of diverticulitis. I reviewed the procedure, risks and alternatives. At this point she feels much improved and is comfortable holding off on surgery. I recommended she call should her symptoms return or if she decides to proceed with surgery. She expressed understanding and agrees with the plan. Coding Level of Care Code Est Pt Level 3 (40323) Diagnoses Diverticulosis of colon K57.30
[2025-09-21 08:54] VITALS: BP 167/79; PULSE 69; BMI 35.2
--- OUTSIDE RECORDS SUMMARY | 2025-09-21 09:25 | XMS_ITS | Patient Health Record ---
Author Organization Slim Hammond MD Address [address] [place], [place] [id number] Care Team Providers Care Information Systems Planner Name Role Phone Slim Hammond Primary Care Provider Allergies Allergen (clinical drug ingredient) Drug/Non Drug Allergy documented on EMR Reaction Allergy Type Onset Date Status vancomycin Vancomycin HCl itching only iv Drug Allergy Active azithromycin z pack (uncoded) diarrhea Allergy Active Results Component Value Reference Range Notes Liver Panel Reviewed date:10/23/2024 03:12:27 PM Interpretation: Performing Lab:[facility], [address] [place] [phone] Notes/Report: Bilirubin Total 0.5 0.0-1.0 mg/dL Bilirubin Direct 0.2 0.0-0.5 mg/dL Aspartate Amino Transferase 22 5-31 U/L Alanine Aminotransferase 27 0-31 U/L Total Protein 6.5 6.5-8.0 g/dL Albumin Level 4.0 3.5-5.0 g/dL Alkaline Phosphatase 74 39-117 U/L Lipid Panel Reviewed date:10/23/2024 03:13:32 PM Interpretation: Performing Lab:[facility], [address] [place] [phone] Notes/Report: Triglycerides 88 <150 mg/dL Desirable Triglyceride: [...] T4 Reviewed date:10/23/2024 03:29:08 PM Interpretation: Performing Lab:[facility], [address] [place] [phone] Notes/Report: TSH reflex Free T4 0.83 0.32-4.0 uIU/mL Complete Blood Count Auto Di ff Reviewed date:05/15/2025 04:04:20 PM Interpretation: Performing Lab:[facility], [address] [place] [phone] Notes/Report: White Blood Count 6.9 4.8-10.8 X10*3/uL [...] NRBC Abs Auto 0.000 0.0-0.012 X10*3/uL Comprehensive Susan. Panel Fa st Reviewed date:05/15/2025 04:07:36 PM Interpretation: Performing Lab:[facility], [address] [place] [phone] Notes/Report: Sodium 143 135-145 mmol/L Potassium 4.0 [...] Panel Reviewed date:05/15/2025 12:46:36 PM Interpretation: Performing Lab:[facility], [address] [place] [phone] Notes/Report: Triglycerides 128 <150 mg/dL Desirable Triglyceride: [...] Total Reviewed date:05/15/2025 12:40:19 PM Interpretation: Performing Lab:[facility], [address] [place] [phone] Notes/Report: Vitamin D 25-OH Total 50.6 >30 [...] T4 Reviewed date:05/15/2025 12:34:31 PM Interpretation: Performing Lab:[facility], [address] [place] [phone] Notes/Report: TSH reflex Free T4 2.95 0.32-4.0 uIU/mL Microalbumin, Random Reviewed date:05/15/2025 12:48:47 PM Interpretation: Performing Lab:[facility], [address] [place] [phone] Notes/Report: Creatinine Urine 97.55 Microalbumin Urine < 5.0 Microalbum/Creatinine Ratio Ur TNP <30 ug/mg cr Unable to calculate albumin/creatinine ratio due to low microalbumin or creatinine result. Hemoglobin A1c Reviewed date:05/15/2025 12:34:22 PM Interpretation: Performing Lab:[facility], [address] [place] [phone] Notes/Report: Hemoglobin A1c % 5.9 <6.0 % [...] average glucose, using the formula of the [id number]-[id number] Average Glucose study (ADAG), Diabetes Care, Vol.31,#8, Jun. 2007 UA ClnCatch+Micro w/rflx Cul t Reviewed date:05/15/2025 12:59:47 PM Interpretation: Performing Lab:[facility], [address] [place] [phone] Notes/Report: Urine, Clean Catch Color Urine Yellow Appearance Urine Clear PH 6.0 5.0-9.0 Glucose Urine UA Negative Negative mg/dL Urine Blood Negative Negative Specific [place] - Urine 1.015 1.005-1.025 Urine Protein Negative Neg-Trace mg/dL Urine Ketones Negative Negative mg/dL Nitrite Urine Negative Negative Leukocyte Esterase Urine Negative Negative RBC Urine 0-2 0-2 /HPF WBC Urine 0-5 0-5 /HPF Squamous Epithelial Cell Urine 0-2 0-2 /HPF Bacteria Urine None Seen None Seen Hyaline Casts Urine 0-2 0-2 /LPF US thyroid Reviewed date:11/07/2024 04:49:37 PM Interpretation: Performing Lab: Notes/Report: [address] [address] Ultrasound Report Signed Patient: Rosina Stern MR#: [id number] : 1955 Acct:[id number] Age/Sex: 69 / F ADM Date: 09/23/24 Loc: HO.US Attending Dr: Slim Hammond MD Ordering Physician: Slim Hammond MD Date of Service: 09/23/24 Procedure(s): US thyroid Accession Number(s): [id number] cc: Slim Hammond MD EXAMINATION: US THYROID [...] than or equal to 1 cm: 1. 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 Location: [...] in OV> 11/05/24909 DD/ 4 TD/TT: 09/23/24829 Speech Language Pathology Assistant: [place] [address] Ultrasound Report Signed Patient: Lakeisha Stern MR#: [id number] : 1955 Acct:[id number] Age/Sex: 69 / F ADM Date: 09/23/24 Loc: HO.US Attending Dr: Slim Hammond MD Ordering Physician: Slim Hammond MD Date of Service: 09/23/24 Procedure(s): US thyroid Accession Number(s): [id number] cc: Slim Hammond MD EXAMINATION: US THYROID [...] than or equal to 1 cm: 1. 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 [...] in OV> 11/05/24909 DD/ 4 TD/TT: 09/23/24829 Speech Language Pathology Assistant: FL barium swallow with air Reviewed date:10/31/2024 02:43:29 PM Interpretation:see back 10-31-2024 Performing Lab: Notes/Report: [address] [address] Fluoroscopy Report Signed Patient: Rosina Stern MR#: [id number] : 1955 Acct:[id number] Age/Sex: 69 / F ADM Date: 10/07/24 Loc: HO.XRAY Attending Dr: Joan Vargas MD Ordering Physician: Joan Vargas MD Date of Service: 10/07/24 Procedure(s): FL barium swallow with air Accession Number(s): [id number] cc: Slim Hammond MD; Joan Vargas MD [...] by: Chava Oconnor MD 10/08/2024 02:43 PM [facility] Dictated By: Calderon Campo Signed By: <Electronically signed by Calderon Campo in OV> 10/08/24 1443 <Electronically signed by Chava Oconnor MD in OV> 10/08/24 1446 DD/ 0841 TD/TT: 10/07/24 0914 Speech Language Pathology Assistant: [address] [address] Fluoroscopy Report Signed Patient: Lakeisha Stern MR#: [id number] : 1955 Acct:[id number] Age/Sex: 69 / F ADM Date: 10/07/24 Loc: HO.XRAY Attending Dr: Joan Vargas MD Ordering Physician: Joan Vargas MD Date of Service: 10/07/24 Procedure(s): FL bar ium swallow with air Accession Number(s): [id number] cc: Slim Hammond MD; Joan Vargas MD [...] Dr. Oconnor Electronically marta d by: Chava Oocnnor MD 10/08/2024 02:43 PM [facility] Dictated By: Edison Campo Signed By: <Electron ically signed by Calderon Campo in OV> 10/08/24 1443 <Electronically sign ed by Chava Oconnor MD in OV> 10/08/24 1446 DD/ 0841 TD/TT: 10/07/24 0914 Speech Language Pathology Assistant: Edmar Bar Reviewed date:10/23/2024 12:51:02 PM Interpretation: Performing Lab:[facility], [address] [place] [phone] Notes/Report: Edmar Bar See Note Specimen held untested for 24 hours; Call to request Chemistry testing. US pelvic and transvaginal Reviewed date:11/23/2024 06:29:37 PM Interpretation: Performing Lab: Notes/Report: [address] [address] Ultrasound Report Signed Patient: Rosina Stern MR#: [id number] : 1955 Acct:[id number] Age/Sex: 69 / F ADM Date: 11/20/24 Loc: HO.US Attending Dr: Lalo Mao MD Ordering Physician: Lalo Mao MD Date of Service: 11/20/24 Procedure(s): US pelvic and transvaginal Accession Number(s): [id number] cc: Slim Hammond MD; Lalo Mao MD [...] in OV> 11/22/24805 DD/ 08 TD/TT: 11/22/24804 Speech Language Pathology Assistant: [place] [address] Ultrasound Report Signed Patient: Lakeisha Stern MR#: [id number] : 1955 Acct:[id number] Age/Sex: 69 / F ADM Date: 11/20/24 Loc: .US Attending Dr: Lalo Mao MD Ordering Physician: Lalo Mao MD Date of Service: 11/20/24 Procedure(s): US pel bin and transvaginal Accession Number(s): [id number] cc: Slim Hammond MD; Lalo Mao MD [...] in OV> 11/22/24805 DD/ 4 TD/TT: 11/22/24804 Speech Language Pathology Assistant: MM tomosynthesis screening B I Reviewed date:02/09/2025 05:25:03 PM Interpretation: Performing Lab: Notes/Report: [facility] [address] [place] [address] Mammography Report Signed Patient: Rosina Stern MR#: [id number] : 1955 Acct:[id number] Age/Sex: 69 / F ADM Date: 01/29/25 Loc: HO.MAMMO Attending Dr: Slim Hammond MD Ordering Physician: Slim Hammond MD Results: 2Be nign Findings Date of Service: 01/29/25 Follow Up: 1 Year From [facility] Mammogram Procedure(s): MM tomosynthesis screening BI Accession Number(s): [id number] cc: Slim Hammond MD EXAMINATION: MM SCREENING [...] 02/06/25 1543 DD/ 0914 TD/TT: 01/29/25 0944 Speech Language Pathology Assistant: [facility] [address] [place] [address] Mammography Report Signed Patient: Lakeisha Stern MR#: [id number] : 1955 Acct:[id number] Age/Sex: 69 / F ADM Date: 01/29/25 Loc: HO.MAMMO Attending Dr: Slim Hammond MD Ordering Physician: Slim Hammond MD Results: 2Be nign Findings Date of Service: Follow Up: 1 Year From [facility] Mammogram Procedure(s): MM tomosynthesis screening BI Accession Number(s): [id number] cc: Slim Hammond MD EXAMINATION: MM SCREENING [...] in OV> 02/06/25 1543 DD/ TD/TT: 01/29/25943 Speech Language Pathology Assistant: Pathology Reviewed date:05/15/2025 03:55:30 PM Interpretation: Performing Lab:[facility], [address] [place] [phone] Notes/Report: ------ Name: Rosina Stern Age/Sex: 70/F : 1955 Unit#: [id number] Attend Dr: Joan Vargas MD Re05/14/25 Status : [facility] Location: [facility] Disch: ------ SPEC : [id number] RECD : 05/14/25-1141 STATUS: JONELLE GRIMALDO NUM: [id number] DAGMAR: 05/14/25-[address]: Joan Vargas MD [...] developed and their performance characteristics determined by [facility]. They have not been cleared or appr sujit by the U.S. Food and Drug Administration (FDA). However, the FDA has determined that such clearance or approval is not necessary. This laboratory is certified under the Clinical Laboratory Improvement Amendments of 1988 (CLIA) as qualified CONTINUED ON NEXT PAGE ------ Name: Rosina Stern Age/Sex: 70/F : 1955 Unit#: [id number] Attend Dr: Joan Vargas MD Re05/14/25 Status : [facility] Location: [facility] Disch: ------ SPEC : [id number] RECD : 05/14/25 STATUS: JONELLE GRIMALDO NUM: [id number] DAGMAR: 05/14/25-[address]: Joan Vargas MD ENTERED: 05/14/25 56 SP TYPE: Surgical OTHR DR: Slim Hammond MD ORDERED: HE Stain/6, Gross Micro L4/2 IHC S/NG Disclaimer (Continued) to perform high comp lexity clinical laboratory testing. Copies To: Slim Hammond MD [facility] [address] [phone] Joan Vargas MD [facility] [address] [place] [address] [email or web address] ------ Signed (signature on file) Branden Ramos MD 05/15/25 1454 ------ END OF REPORT Edmar Bar Reviewed date:05/15/2025 12:34:52 PM Interpretation: Performing Lab:[facility], [address] [place] [address], [place] [address] Notes/Report: Hold Gold See Note Specimen held untested for 24 hours; Call to request Chemistry testing. Complete Blood Count Auto Di ff Reviewed date:07/30/2025 04:40:59 PM Interpretation: Performing Lab:[facility], [address] [place] [phone] Notes/Report: White Blood Count 12.0 4.8-10.8 X10*3/uL [...] Panel Reviewed date:07/31/2025 12:50:47 PM Interpretation: Performing Lab:[facility], [address] [place] [phone] Notes/Report: Sodium 142 135-145 mmol/L Potassium 3.6 [...] Acid Reviewed date:07/31/2025 12:33:14 PM Interpretation: Performing Lab:[address] [address] Notes/Report: Lactic Acid 1.1 0.5-2.0 mmol/L Magnesium Reviewed date:07/31/2025 12:33:32 PM Interpretation: Performing Lab:[facility], [address] [place] [phone] Notes/Report: Magnesium 1.9 1.6-2.6 mg/dL Lipase Reviewed date:07/31/2025 12:32:58 PM Interpretation: Performing Lab:[address] [phone] Notes/Report: Lipase 38 8-78 U/L UA CC w/rflx Micro + Cult Reviewed date:08/03/2025 11:38:27 AM Interpretation: Performing Lab:[address] [address] Notes/Report: Urine, Clean Catch Color Urine Yellow Appearance Urine Clear PH 5.5 5.0-9.0 Glucose Urine UA Negative Negative mg/dL Urine Blood Negative Negative Specific [place] - Urine >= 1.030 1.005-1.025 Urine Protein Negative Neg-Trace mg/dL Urine Ketones Negative Negative mg/dL Nitrite Urine Negative Negative Leukocyte Esterase Urine Negative Negative Blood Culture (First) Reviewed date:08/05/2025 06:01:08 PM Interpretation: Performing Lab:[address] [address] Notes/Report: Blood Culture (First) No growth after 5 days. Blood Culture (Second) Reviewed date:08/05/2025 06:01:48 PM Interpretation: Performing Lab:[address] [address] Notes/Report: Blood Culture (Second) No growth after [address] abdomen pelvis w con Reviewed date:07/31/2025 12:32:09 PM Interpretation: Performing Lab: Notes/Report: [address] [address] [address] Scan Report Signed with Addenda Patient: Rosina Stern MR#: [id number] : 1955 Acct:[id number] Age/Sex: 70 / F ADM Date: 07/30/25 Loc: .ED Attending Dr: Ordering Physician: Barbara Venegas DO Date of Service: 07/31/25 Procedure(s): CT abdomen pelvis w IV con Accession Number(s): [id number] cc: Slim Hammond MD; Barbara Venegas DO Report Number: [id number]: Total DLP = 729.00 mGy-cm Reason for [...] in OV> 07/31/25130 DD/ 9 TD/TT: 07/31/25129 Speech Language Pathology Assistant: [address] [address] [address] Scan Report Signed with Addenda Patient: Lakeisha Stern MR#: [id number] : 1955 Acct:[id number] Age/Sex: 70 / F ADM Date: 07/30/25 Loc: HO.ED Attending Dr: Ordering Physician: Barbara Venegas DO Date of Service: 07/31/25 Procedure(s): CT abd omen pelvis w IV con Accession Number(s): [id number] cc: Slim Hammond MD; Barbara Venegas DO [...] in OV> 07/31/25130 DD/ 9 TD/TT: 07/31/25129 Speech Language Pathology Assistant: Complete Blood Count Auto Di ff Reviewed date:08/02/2025 05:43:56 PM Interpretation: Performing Lab:[facility], [address] [place] [phone] Notes/Report: White Blood Count 4.8 4.8-10.8 X10*3/uL [...] Panel Reviewed date:08/02/2025 05:42:26 PM Interpretation: Performing Lab:[facility], [address] [place] [phone] Notes/Report: Sodium 143 135-145 mmol/L Potassium 4.2 [...] gy Reviewed date:08/03/2025 11:37:20 AM Interpretation: Performing Lab:[facility], [address] [place] [phone] Notes/Report: Hold Lav - Possible Hematology SEE NOTE Specimen will be held untested for 8 hours. Call Hematology if testing is desired. Basic Metabolic Panel Reviewed date:08/03/2025 12:15:20 PM Interpretation: Performing Lab:[facility], [address] [place] [phone] Notes/Report: Sodium 145 135-145 mmol/L Potassium 3.6 [...] PCR Reviewed date:08/03/2025 11:35:57 AM Interpretation: Performing Lab:[facility], [address] [place] [phone] Notes/Report: CDiff Gene PCR POSITIVE Negative Additional C. difficile toxin testing to be performed. CDiff Toxin Reviewed date:08/03/2025 11:36:06 AM Interpretation: Performing Lab:[facility], [address] [place] [phone] Notes/Report: CDiff Toxin Negative Negative Results of CDIFF called to [facility] on 08/03/25 at 1021 by SONY. CDIFF Interpretation SEE NOTE Likely C. difficile colonization. Continue contact precautions. CT abdomen pelvis w con Reviewed date:09/04/2025 01:12:27 PM Interpretation: Performing Lab: Notes/Report: [address] [place] [address] CT Scan Report Signed Patient: Rosina Stern MR#: [id number] : 1955 Acct:[id number] Age/Sex: 70 / F ADM Date: 09/02/25 Loc: MIKO Attending Dr: Slim Hammond MD Ordering Physician: Slim Hammond MD Date of Service: 09/02/25 Procedure(s): CT abdomen pelvis w IV con Accession Number(s): [id number] cc: Slim Hammond MD Report Number: [id number]: Total DLP = 562.00 mGy-cm Reason for Exam: DIVERTICULITIS CLINICAL HISTORY: DIVERTICULITIS CT abdomen and pelvis with contrast Comparison: CT/SR - CT ABDOMEN PELVIS W IV CON - 07/31/25 00:50 EDT US/MD - US PELVIC AND TRANSVAGINAL - 11/20/24 10:47 EST Findings: No consolidation at the lung bases. Unremarkable gallbladder and bladder. Focal fat at the falciform ligament. Subcentimeter low attenuating lesion along the undersurface of the liver, unchanged. Subcentimeter low attenuating lesion in the right kidney. Fibroid uterus.e low attenuating lesion in the left adnexa measuring 2.5 cm could be an ovarian cyst, also present on the prior study. The other solid organs are unremarkable. Small hiatal hernia. No bowel wall thickening or dilation. A normal appendix is identified. Colonic diverticulosis. No inflamed diverticula or pericolonic stranding. No free air. No aneurysm. Severe calcified atherosclerotic disease. No lymphadenopathy. No ascites. No acute osseous abnormality. Impression: No acute findings. This document has been electronically signed by: Patricia Reinoso MD on 09/03/2025 18:29:23 Dictated By: Patricia Palencia MD Signed By: <Electronically signed by Patricia Palencia MD in OV> 09/03/251829 DD/ 28 TD/TT: 09/03/251828 Speech Language Pathology Assistant: [place] [address] CT Scan Report Signed Patient: Lakeisha Stern MR#: [id number] : 1955 Acct:[id number] Age/Sex: 70 / F ADM Date: 09/02/25 Loc: HO.CT Attending Dr: Slim Hammond MD Ordering Physician: Slim Hammond MD Date of Service: 09/02/25 Procedure(s): CT abd omen pelvis w IV con Accession Number(s): [id number] cc: Slim Hammond MD Report Number: [id number]: Total DLP = 562.00 mGy-cm Reason for Exam: DIVERTICULITIS CLINICAL HISTORY: DIVERTICULITIS CT abdomen and pelvi s with contrast Comparison: CT/SR - CT ABDOMEN PELVIS W IV CON - 07/31/25 00:50 EDT US/MD - US PELVIC AN D TRANSVAGINAL - 11/20/24 10:47 EST Findings: No consolidation at the lung bases. Unremarkable gallbla dder and bladder. Focal fat at the falciform ligament. Subcentimeter low attenuating lesion along the undersurface of the liver, unchanged. Subcentim eter low attenuating lesion in the right kidney. Fibroid uterus.e low attenuating lesion in the left adnexa measuring 2.5 cm could be an ovari an cyst, also present on the prior study. The other solid organs are unremarkable. Small hiatal hernia. No bowel wall thickening or dilation. A normal appendix is identifi ed. Colonic diverticulosis. No inflamed diverticula or pericolonic strandin g. No free air. No aneurysm. Severe calcified atherosclerotic disease. No lymphadenopathy. No ascites. No acute osseous abnormality. Impression: No acute findings. This document has be en electronically signed by: Patricia Reinoso MD on 09/03/2025 18:29:23 Dictated By: Patricia Palencia MD Signed By: <Electron ically signed by Patricia Palencia MD in OV> 09/03/250 DD/ 28 TD/TT: 09/03/251828 Speech Language Pathology Assistant: Reason For Referral No Information Medications Medication SIG (Take, Route, Frequency, Duration) Notes Start Date End Date Status ProAir HFA 108 (90 Base) MCG/ACT 2 puffs as needed Inhalation every 6 hrs for 30 days 04/23/2018 Not-Taking Omeprazole 20 MG 1 capsule 1/2 to 1 h our before morning meal Orally Once a day for 30 day(s) Active Ondansetron 4 MG 1 tablet on the tong ue and allow to dissolve Orally Once a day for 30 day(s) Not-Taking Atorvastatin Calcium 40 MG TAKE 1 TABLET BY MOUTH EVERY DAY Active Calcium 500 MG 1 tablet with meals Orally Twice a day for 30 day(s) Not-Taking Vitamin D 1000 UNIT 1 tablet Orally Once a day Active Albuterol Sulfate HFA 108 (90 Base) MCG/ACT 1 puff as needed Inhalation every 4 hrs for 30 days 10/07/2021 Active Hyoscyamine Sulfate 0.125 MG 1 tablet as needed Orally every 12 hours for 10 days 09/04/2025 Active Levothyroxine Sodium 100 MCG TAKE 1 TABLET BY MOUTH IN THE MORNING ON AN EMPTY STOMACH ONCE A DAY FOR 90 DAYS Active Clobetasol Propionate 0.05 % 1 APPLICATION EXTERNALLY TWICE A DAY 30 DAYS for 30 Active Immunizations Vaccine Route Administration Date Status [...] Problem Status W/U Status Risk Notes Problem 882497809 Acute diverticul itis (K57.92) Active confirmed Problem 843008152 Thyroid nodule (E04.1) Active confirm ed Problem 09126834 Lymphocytosis (D72.820) Active confirmed Problem Carpal tunnel syndrome (80849686) Carpal tunnel syndrome (G56.00) Active confirmed Problem 310294528 Tubular adenoma (D36.9) Active confirmed Problem 56780106 Vitamin D defici ency (E55.9) Active confirmed Problem Diverticulitis (65602092) Diverticulitis (K57.92) Active confirmed Problem 014356959 Lumbar disc dise ase (M51.9) Active confirmed Problem Essential hypertension (90048446) Essential hypertension (I10) Active confirmed Problem 825361628 Acquired hypothyroidism (E03.9) Active confirmed Problem 2280253 Prediabetes (R73.09) Active confirmed Problem 972935939 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) Active confirmed Problem 206224709 Menopause (Z78.0) Active confirmed Problem 46365797 Degeneration of cervical intervertebral disc (M50.30) Active confirmed Problem 011110105 Pure hypercholesterolemia (E78.00) Active confirmed Problem 607819957 Acute low back p ain without sciatica, unspecified back pain laterality (M54.5) Active confirmed Problem Bilateral carpal tunnel syndrome (673505928975152 01) Bilateral carpal tunnel syndrome (G56.03) Active confirmed Problem 377830667 BMI 34.0-34.9,ad ult (Z68.34) Active confirmed Problem 957640468 BMI 35.0-35.9,ad ult (Z68.35) Active confirmed Problem Irritable bowel (26838640) Irritable bowel (K58.9) Active confirmed Problem 742563534 Arthritis of kne e (M17.10) Active confirmed Problem 383876233 Meningioma (D32.9) Active confirmed Problem 251624401 Mild intermitten t asthmatic bronchitis with acute exacerbation (J45.21) Active confirmed Problem 49539721 Other and unspec 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.9) Active confirmed Problem 31246940 Other premature beats (I49.49) Active confirmed Problem 702571161 Osteoarthritis o f lumbar spine, unspecified spinal osteoarthritis complication status (M47.816) Active confirmed Problem 161428698 History of thyro id nodule (Z86.39) Active confirmed Problem 895172968 Acute diverticul itis of intestine (K57.92) Active confirmed Vital Signs Blood pressure diastolic 76 mm Hg 09/04/2025 Height 64 in 09/04/2025 Blood pressure systolic 148 mm Hg 09/04/2025 Weight 203 lbs 09/04/2025 BMI 34.84 kg/m2 09/04/2025 Encounters Encounter Location Date Provider Diagnosis Slim Hammond MD [address] [place] [id number] 10/23/2024 Slim Hammond Pure hypercholestero lemia E78.00 and Acquired hypothyroidism E03.9 Slim Hammond MD [address] [place] [id number] 05/15/2025 Slim Hammond Blood tests for rout ine general physical examination Z00.00 ; Lymphocytosis D72.820 ; Acquired hypothyroidism E03.9 ; Vitamin D deficiency E55.9 and Prediabetes R73.09 Slim Hammond MD [address] [place] [id number] 10/31/2024 Slim Hammond Acquired hypothyroid ism E03.9 ; Pure hypercholesterolemia E78.00 and Abnormal upper gastrointestinal barium series R93.3 Slim Hammond MD [address] [place] [id number] 04/27/2025 Slim Hammond Mild intermittent asthmatic bronchitis with acute exacerbation J45.21 Slim Hammond MD [address] [place] [id number] 05/19/2025 Slim Hammond Prediabetes R73.09 ; Annual physical exam Z00.00 ; Meningioma D32.9 ; Pure hypercholesterolemia E78.00 ; Essential hypertension I10 ; Thyroid nodule E04.1 and Depression screening Z13.31 Slim Hammond MD [address] [place] [address] [id number] 07/14/2025 Slim Hammond Diverticulitis K57.9 2 Slim Hammond MD [address] [place] [address] [id number] 08/13/2025 Slim Hammond C. difficile colitis A04.72 ; Diverticulitis K57.92 and Encounter for administration of vaccine Z23 Slim Hammond MD [address] [place] [address] [id number] 09/01/2025 Slim Hammond Diverticulitis K57.9 2 Slim Hammond MD [address] [place] [address] [id number] 09/04/2025 Slim Hammond Irritable bowel K58. 9 Slim Hammond MD [address] [place] [address] [id number] 12/11/2024 Slim Hammond MD [address] [place] [address] [id number] 06/01/2025 Slim Hammond Meningioma D32.9 Slim Hammond MD [address] [place] [address] [id number] 06/02/2025 Slim Hammond MD [address] [place] [address] [id number] 07/14/2025 Slim Hammond MD [address] [place] [address] [id number] 08/06/2025 Slim Hammond Assessments Encounter Date Diagnosis [...] patient. 08/13/2025 Diverticulitis (ICD- 10 - K57.92) 09/01/2025 Diverticulitis (ICD- 10 - K57.92) will try getting by without ab due the cdiff and if the pain gets worse to go to the er 09/04/2025 Irritable bowel (ICD -10 - K58.9) patient verbalized understanding of medication and directions for use 06/01/2025 Meningioma (ICD-10 - D32.9) 05/15/2025 Lymphocytosis [...] (EKG) 08/23/2017 SENSE NERVE CONDUCTION TEST 02/20/2022 CT ABD & PELVIS WITH CONTRAST 09/01/2025 MRI BRAIN W&WO CONTRAST 05/19/2025 MRI LUMBAR SPINE NO CONTRAST 03/20/2023 XR CHEST 2 VIEW PA & LAT 10/25/2021 MAMMOGRAM DIGITAL UNILATERAL AALIYAH LT 06/0 01/2013 MAMMOGRAM DIGITAL SCREEN RIGHT UNI 04/21 [...] THYROID 06/17/2021 Next Appt Details Provider Name:Slim garzar, 10/05/2025 09:15:00 AM, [address] [place] [address], [address], [phone], Provider Name:Slim Shepard ier, 11/17/2025 08:00:00 AM, [address] [place] [address], [address], [phone], Provider Name:lSim Shepard ier, 11/23/2025 09:00:00 AM, [address] [place] [address], [address], [phone], Provider Name:Slim Shepard ier, 05/13/2026 07:45:00 AM, [address] [place] [address], [address], [phone], Provider Name:Slim garzar, 05/20/2026 09:30:00 AM, [address] [place] [address], [address], [phone], Insurance Providers Payer Name Payer Address Payer Phone Subscriber Number Group Number Insured Name Patient Relationship to Insured Coverage Start Date Coverage End Date BLUE [employer]UE [facility] [address] [place], [place] [id number] [phone] [id number] Rosina Stern Self - patient is the insured [employer] [address] [place] [address] [id number] Rosina Stern Self - patient is the insured Medical (General) History Medical History History ICD Code frequent pvc colonoscopy 2008; colonoscop y 01/26/15 repeat 5 yrs (Dr. Prasad); had colonoscopy 02/26/[address] Prasad - repeat 5 yearsColonoscopy 07/17/24 repeat 5y Inclusion cyst
--- OUTSIDE RECORDS SUMMARY | 2025-09-21 09:26 | XMS_ITS | Data Portability ---
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 We v e discussed the many forms of [...] Knee arthritis - patellofemo ral PT 2021 [id number] Not available 06:53:29 Procedures None recorded. Surgeries None recorded. Imaging None recorded. Medication Orders diclofenac sodium 75 mg tablet,ivy yed release 2021 [facility]/Pharmacy #[id number], [address] [place], [address], 14:59:57 Patient TargetsNo targets recorded. Patient InstructionsNo instructions recorded. Reason for Referral Physical Therapist Referral for Bilateral osteoarthritis of knees Knee arthritis - patellofemoral PT Referring Physician: Kunal Gross, Orthopedic Surgery, Encounter Date: 09/15/2022 Procedures Surgical History Date Name Laterality Status Provider Name and Address Organization Details Recorded Time 9 Other completed Dannielle Freeman [place] - [facility] 09/15/2022 14:30:23 01/01/201 2 Orthopaedic Surgery completed Danniellemark Freeman [facility] [place] 09/15/2022 14:30:14 2 Orthopaedic Surgery completed Danniellemark Freeman [place] [facility] [place] 09/15/2022 14:30:38 Other completed Danniellemark Freeman [facility] [place] 09/15/2022 14:30:47 Other completed [facility] Pete [facility] [place] 09/15/2022 14:30:58 Imaging Results None recorded. Procedure [...] Address Organization Details Last Updated DateTime 09/15/2022 19244.84 g 35 kg/m2 162.56 cm Danniellemark Freeman [facility] [place] 09/15/2022 14:26:11 Social History Question Answer Notes LastModified by Organizat ion Details LastModified Time Tobacco Smoking Status Former Sm[facility] [place] 09/15/2022 14:28:02 What Is Your Level Of Caffeine Consumption? Moderate Information not available 09/15/2022 Have Any Other Tests Been Done For This Problem? MRI Information not available 09/15/2022 Is This Condition/proble m Affecting Your Ability To Exercise Or Perform Activities Of Daily Living? Yes Information not available 09/15/2022 How Much Tobacco [...] available 09/15 14:29:49 Medical History Condition Response Thyroid Disorder Y Gynecological HistoryNo gynecological history recorded. Obstetrics History GPAL:G 0 P 0 0 0 0 Past Encounters Encounter ID Performer Location Encounter Start Date Encounter Closed Date Diagnosis/Indication Diagnosis SNOMED-CT Code Diagnosis ICD10 Code Diagnosis IMO Codes Diagnosis Note [id number] KUNAL WAYNE MD [facility] Office [address] [place] [phone] 09/15/2022 13:37:19 09/15/2022 15:02:19 Bilateral osteoarthritis of knees [id number] 77895 M17.0 Health Concerns Section Related Observation LastModified by Organization Detai ls LastModified Time None Recorded Concern Status LastModified by Organization Details LastModified Time None Recorded Advance Directives Directive None Recorded Payers Insurance Date Sequence Insurance Name Policy Number Policy Bland Covered Member ID Bland Member ID Guarantor Name 09/08/2022 1 [place] [employer] Rosina Stern [id number] Rosina Stern 09/08/2022 1 [facility] ([place]) [id number] Rosina Chapin [id number] Rosina Stern 09/21/2022 1 [facility]: MEDICARE PPO BLUE (MEDICARE REPLACEMENT PPO) [id number] Rosina Leena [id number] Rosina Leena Notes Date Note Type Note Provider Name and Address Organization Details Recorded Time 09/15/2022 text/html Bilateral knee pain . The patient reports bilateral knee pain [...] physical therapy. She has been told in [place] that she has reasonably good looking knees. She is very frustrated with the knees both sides. She is presently taking no medications for the knees. She has had no recent injections in the knees. She has had no therapy for the knees. KUNAL WAYNE MD [address] [place] [address], [phone], [facility] [place] 09/15/2022 15:00:01 OBGyn Episode No OBEpisode recorded.
--- OUTSIDE RECORDS SUMMARY | 2025-09-21 09:26 | XMS_ITS | Clinical Summary ---
Author Organization [facility] ity Address [id number] [place] [phone] Care Team Providers Care Service Writer Advisor Name Role Phone Unavailable Primary Care Provider [...]
--- OUTSIDE RECORDS SUMMARY | 2025-09-21 09:27 | XMS_ITS | Patient Health Record ---
Author Organization [facility] Address [address] [place] [phone] Care Team Providers Care Glass Presser Name Role Phone Moreno Horacio Unavailable [phone] Reason For Referral No Information Plan Of Treatment No Information
== END 2025-09-21 09:12 | disposition home or self-care (01) ==
LOC: HO.HGS 08:49
PROVIDERS: PCP Internal Medicine; Visit Provider Surgery
DX: K57.30 Diverticulosis of large intestine without perforation or abscess without bleeding (principal)
CPT/HCPCS: 99213

== ENCOUNTER → 2025-09-21 | Outpatient (BNVA) | payer MEDICARE, SELFPAY | PROVIDERS: PCP Internal Medicine; Visit Provider Surgery | DX: K57.30 Diverticulosis of large intestine without perforation or abscess without bleeding (principal) | CPT/HCPCS: 99212 ==

== ENCOUNTER 2025-10-14 07:21 | Outpatient (AMB) | payer MEDICARE, SELFPAY ==
--- OUTSIDE RECORDS SUMMARY | 2025-06-01 09:42 | XMS_ITS ---
Author Organization Slim Hammond MD Address [address] [place] [phone] Care Team Providers Care Equipment Operator Wage Hand Name Role Phone Slim Hammond Primary Care Provider REASON FOR VISIT MRI Brain w and w/o contrast due Encounters Encounter Location Date Provider Diagnosis Slim Hammond MD [address] [place] [phone] 06/01/2025 Slim Hammond Meningioma D32.9 Assessments Encounter Date Diagnosis (ICD Code) Assessment Notes Treatment Notes Treatment Clinical Notes Section Notes 06/01/2025 Meningioma (ICD-10 - D32.9) 06/01/2025 Other Order made and printed nd put into the future folder for . Plan Of Treatment Treatment Notes Assessment Notes Other Order made and print ed nd put into the future folder for . Pending Test Test Name Order Date MR head/brain wo/w con 06/01/2025 Next Appt Details Provider Name:Slim Shepard ier, 11/17/2025 08:00:00 AM, [address], [address], [place], [phone], Provider Name:Slim Shepard ier, 11/23/2025 09:00:00 AM, [address], [address], [place], [place], [phone], Provider Name:Slim Shepard kaylar, 05/13/2026 07:45:00 AM, [address], [address], [place], [phone], Provider Name:Slim Shepard ier, 05/20/2026 09:30:00 AM, [address], [address], [place], [phone], Progress Notes * Lakeisha PAZaDOB:1955 (70 yo F)Acc No.[id number]:06/01/2025 Patient: Shanon PURI :1955 A ge:70 Y S ex:Female Address:[address] [place] [phone] Subjective: * Chief Complaints: * M RI Brain w and w/o contrast due * Medical History: * Surgical History: * Hospitalization/Major Diagno stic Procedure: * Medications: Objective: * Vitals: * Physical Examination: Assessment: * Assessment: 1. M eningioma - D32.9 Plan: * Treatment: 2. O thers Notes: Order made and printed nd put into the future folder for . * Procedure Codes: * true * Date: Generated for Printi mainor/Ayala/eTransmitting on: 12/14/2024 07:25 AM EST
--- OUTSIDE RECORDS SUMMARY | 2025-06-02 04:49 | XMS_ITS ---
Author Organization Slim Hammond MD Address [address] [place] [address] [phone] Care Team Providers Care Gas Main And Line Fitter Name Role Phone Slim Hammond Primary Care Provider Encounters Encounter Location Date Provider Diagnosis Slim Hammond MD 10 [facility] [address] [place] [address] [phone] 06/02/2025 Slim Hammond Plan Of Treatment Next Appt Details Provider Name:Slim salter, 11/17/2025 08:00:00 AM, [address] [place] [address], [address], [phone], Provider Name:Slim salter, 11/23/2025 09:00:00 AM, [address] [place] [address], [address], [phone], Provider Name:Slim salter, 05/13/2026 07:45:00 AM, [address] [place] [address], [address], [phone], Provider Name:Slim P Devyn kaylar, 05/20/2026 09:30:00 AM, [address], [address], [place], [phone], Progress Notes * Isadora PAZB:1955 (70 yo F)Acc No.[id number]:06/02/2025 Patient: Denzel Shanon MACHADO :1955 A ge:70 Y S ex:Female Address:[address] [place] [phone] * true * Date: Generated for Rigo hayward/Ayala/Brandiitting on: 12/14/2024 07:25 AM EST
--- OUTSIDE RECORDS SUMMARY | 2025-07-14 05:45 | XMS_ITS ---
Author Organization Slim Hammond MD Address [address] [place] [address] [phone] Care Team Providers Care Sales Contractor Name Role Phone Slim Hammond Primary Care Provider REASON FOR VISIT ? diverticulitis Encounters Encounter Location Date Provider Diagnosis Slim Hammond MD [address] [facility] [address] [place] [address] [phone] 07/14/2025 Slim Hammond Plan Of Treatment Next Appt Details Provider Name:Slim Shepard ier, 11/17/2025 08:00:00 AM, [address] [place] [address], [address] [place] [address], [phone], Provider Name:Slim Shepard iegorge, 11/23/2025 09:00:00 AM, [address] [place] [address], [address], [phone], Provider Name:Slim salter, 05/13/2026 07:45:00 AM, [address] [place] [address], [address], [phone], Provider Name:Slim Shepard gaetano, 05/20/2026 09:30:00 AM, [address], [address], [place], [phone], Progress Notes * Lakeisha PAZaDOB:1955 (70 yo F)Acc No.[id number]:07/14/2025 Patient: Denzel CARTER Shanon :1955 A ge:70 Y S ex:Female Address:[address] [place] [phone] * true * Date: Generated for Rigo hayward/Ayala/Brandiitting on: 12/14/2024 07:26 AM EST
--- OUTSIDE RECORDS SUMMARY | 2025-07-14 10:30 | XMS_ITS ---
Author Organization Slim Hammond MD Address [address] [place] [address] [phone] Care Team Providers Care Ux Architect Name Role Phone Slim Hammond Primary Care Provider [phone] Allergies Allergen (clinical drug ingredient) Drug/Non Drug Allergy documented on EMR Reaction Allergy Type Onset Date Status azithromycin z pack (uncoded) diarrhea Allergy Active REASON FOR VISIT ? diverticulitis x 9 days lower left groin pain and cramping Medications Medication SIG (Take, Route, Frequency, Duration) Notes Start Date End Date Status Atorvastatin Calcium 40 MG TAKE 1 TABLET BY MOUTH EVERY DAY Active Ondansetron 4 MG 1 tablet on the tong ue and allow to dissolve Orally Once a day for 30 day(s) Not-Taking Calcium 500 MG 1 tablet with meals Orally Twice a day for 30 day(s) Not-Taking ProAir HFA 108 (90 Base) MCG/ACT 2 puffs as needed Inhalation every 6 hrs for 30 days 04/23/2018 Not-Taking Amoxicillin-Pot Clavulanate 875-125 MG 1 tablet Orally every 12 hrs for 10 days 07/14/2025 Active Omeprazole 20 MG 1 capsule 1/2 to 1 h our before morning meal Orally Once a day for 30 day(s) Active Albuterol Sulfate HFA 108 (90 Base) MCG/ACT 1 puff as needed Inhalation every 4 hrs for 30 days 10/07/2021 Active Vitamin D 1000 UNIT 1 tablet Orally Once a day Active Clobetasol Propionate 0.05 % 1 APPLICATION EXTERNALLY TWICE A DAY 30 DAYS for 30 Active Levothyroxine Sodium 100 MCG TAKE 1 TABLET BY MOUTH IN THE MORNING ON AN EMPTY STOMACH ONCE A DAY FOR 90 DAYS Active Problems Problem Type SNOMED Code ICD Code Onset Dates Problem Status W/U Status Risk Notes Problem Diverticulitis (51378911) Diverticulitis (K57.92) Active confirmed Vital Signs Blood pressure systolic 144 mm Hg 07/14/20 25 Blood pressure diastolic 80 mm Hg 025 Height 64 in 07/14/2025 Weight 202 lbs 07/14/2025 BMI 34.67 kg/m2 07/14/2025 weight is down 2 pounds [facility] 05-19-25 Encounters Encounter Location Date Provider Diagnosis Slim Hammond MD [address] [place] [address] [phone] 07/14/2025 Slim Hammond Diverticulitis K57.9 2 Assessments Encounter Date Diagnosis (ICD Code) Assessment Notes Treatment Notes Treatment Clinical Notes Section Notes 07/14/2025 Diverticulitis (ICD-10 - K57.92) Plan Of Treatment Medication Medication Name Sig Start Date Stop Date Notes Amoxicillin-Pot Clavulanate 875-125 MG 1 tablet Orally every 12 hrs for 10 days 07/14/2025 Next Appt Details Provider Name:Slim salter, 11/17/2025 08:00:00 AM, [address] [place] [address], [address], [phone], Provider Name:Slim salter, 11/23/2025 09:00:00 AM, [address] [place] [address], [address], [phone], Provider Name:Slim salter, 05/13/2026 07:45:00 AM, [address] [place] [address], [address], [phone], Provider Name:Slim Shepard ier, 05/20/2026 09:30:00 AM, [address], [place], [place], [phone], Progress Notes * Lakeisha PAZaDOB:1955 (70 yo F)Acc No.[id number]:07/14/2025 Progress Notes Patient: Shanon PURI Provider: Sunni Hammond MD :1955 A ge:70 Y S ex:Female Date:07/14/2025 Address:[address] [place], [place] [phone] Subjective: * Chief Complaints: * ? diverticulitis x 9 days lower left groin pain and cramping * HPI: S ymptom(s): pt is 70 yo female here because she has some pain for one week. was severe this morning. having 3 or 4 bm/s per day. * ROS: G eneral/Constitutional: Denies C hills. D enies F atigue. D enies F ever. D enies H eadache. E NT: Denies S ore throat. R espiratory: Denies C ough. D enies S hortness of breath at rest. D enies S hortness of breath with exertion. G astrointestinal: Admits A bdominal pain. D enies B lood in stool.?Admits C hange in bowel habits. D enies C onstipation. A dmits D iarrhea.?Admits N ausea. D enies R ectal bleeding. D enies V omiting. * Medical History: * Surgical History: * Hospitalization/Major Diagno stic Procedure: * Medications: T akingOmeprazole 20 MG Capsule Delayed Release 1 capsule 1/2 to 1 hour before morning meal Orally Once a day Albuterol Sulfate HFA 108 (90 Base) MCG/ACT Aerosol Solution 1 puff as needed Inhalation every 4 hrs Vitamin D 1000 UNIT Tablet 1 tablet Orally Once a day Clobetasol Propionate 0.05 % Cream 1 APPLICATION EXTERNALLY TWICE A DAY 30 DAYS Levothyroxine Sodium 100 MCG Tablet TAKE 1 TABLET BY MOUTH IN THE MORNING ON AN EMPTY STOMACH ONCE A DAY FOR 90 DAYS Atorvastatin Calcium 40 MG Tablet TAKE 1 TABLET BY MOUTH EVERY DAY Taking Omeprazole 20 MG Capsule Delayed Release 1 capsule 1/2 to 1 hour before morning meal Orally Once a day Taking Albuterol Sulfate HFA 108 (90 Base) MCG/ACT Aerosol Solution 1 puff as needed Inhalation every 4 hrs Taking Vitamin D 1000 UNIT Tablet 1 tablet Orally Once a day Taking Clobetasol Propionate 0.05 % Cream 1 APPLICATION EXTERNALLY TWICE A DAY 30 DAYS Taking Levothyroxine Sodium 100 MCG Tablet TAKE 1 TABLET BY MOUTH IN THE MORNING ON AN EMPTY STOMACH ONCE A DAY FOR 90 DAYS Taking Atorvastatin Calcium 40 MG Tablet TAKE 1 TABLET BY MOUTH EVERY DAY Not-Taking/PRNOndansetron 4 MG Tablet Disintegrating 1 tablet [...] Objective: * Vitals: H t: 64, Wt: 202, BMI:34.67, BP:144/80, Wt-k.63. weight is down 2 pounds since 05-19-25. * Examination: G eneral Examination: GENERAL APPEARANCE: a lert, well hydrated, in no distress.? HEAD: n ormocephalic. SKIN: g ood turgor. HEART: n o murmurs, rubs, gallops, regular rate and rhythm.? LUNGS: n o wheezes, rales, rhonchi, good air movement, clear to auscultation bilaterally. ABDOMEN: a bnormal sott with no rebound and pain in left lower quadrant. Assessment: * Assessment: 1. D iverticulitis - K57.92 (Primary) Plan: * Treatment: * Procedure Codes: * * Sign off status: Completed true * Provider: Sunni Hammond MD Date: 0 07/14/2025 Generated for Rigo hayward/Ayala/Opal on: 12/14/2024 07:24 AM EST History and Physical Notes * HPI (History of Present Illness) Category Sub-Category Detail Notes Category Not es Symptom(s) pt is 70 yo fem amie here because she has some pain for one week. was severe this morning. having 3 or 4 bm/s per day Examination Category Sub-Category Detail Notes Category Not es General Examination GENERAL APPEARANCE: alert, w ell hydrated, in no distress HEAD: normocephalic HEART: no murmurs, rubs, ga llops, regular rate and rhythm LUNGS: no wheezes, rales, r honchi, good air movement, clear to auscultation bilaterally ABDOMEN: abnormal sott with n o rebound and pain in left lower quadrant SKIN: good turgor
--- OUTSIDE RECORDS SUMMARY | 2025-07-30 03:30 | XMS_ITS ---
Author Organization Slim Hammond MD Address [address] [place] [phone] Care Team Providers Care Claim Clinician Name Role Phone Slim Hammond Primary Care Provider REASON FOR VISIT HDF Encounters Encounter Location Date Provider Diagnosis Slim Hammond MD 10 [facility] [address] [place] [phone] 07/30/2025 Slim Hammond Plan Of Treatment Next Appt Details Provider Name:Slim Shepard ier, 11/17/2025 08:00:00 AM, [address] [place] [address], [address], [phone], Provider Name:Slim salter, 11/23/2025 09:00:00 AM, [address] [place] [address], [address], [phone], Provider Name:Slim salter, 05/13/2026 07:45:00 AM, [address] [place] [address], [address], [phone], Provider Name:Slim Shepard ier, 05/20/2026 09:30:00 AM, [address], [address], [place], [phone], Progress Notes * Lakeisha PAZaDOB:1955 (70 yo F)Acc No.[id number]:07/30/2025 Progress Note Patient: Shanon PURI Provider: Sunni Hammond MD :1955 A ge:70 Y S ex:Female Date:07/30/2025 Address:[address] [place], [place] [phone] Subjective: * Chief Complaints: * 1 . [...] 0 07/30/2025 Generated for Rigo hayward/Ayala/Brandiitting on: 12/14/2024 07:24 AM EST
--- OUTSIDE RECORDS SUMMARY | 2025-08-06 07:29 | XMS_ITS ---
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 Name Role Phone Slim Hammond Primary Care Provider [phone] REASON FOR VISIT discharge Encounters Encounter Location Date Provider Diagnosis Slim Hammond MD 10 [facility] [address] [place] [phone] 08/06/2025 Slim Hammond Plan Of Treatment Next Appt Details Provider Name:Slim Shepard ier, 11/17/2025 08:00:00 AM, [address] [place] [address], [address], [phone], Provider Name:Slim salter, 11/23/2025 09:00:00 AM, [address] [place] [address], [address], [phone], Provider Name:Slim salter, 05/13/2026 07:45:00 AM, [address] [place] [address], [address], [phone], Provider Name:Slim Shepard ier, 05/20/2026 09:30:00 AM, [address], [address], [place], [phone], Progress Notes * Lakeisha PAZaDOB:1955 (70 yo F)Acc No.[id number]:08/06/2025 Patient: Denzel ROBINSONLakeisha CUELLARa :1955 A ge:70 Y S ex:Female Address:[address] [place] [phone] * true * Date: Generated for Rigo hayward/Ayala/Shannonsmitting on: 12/14/2024 07:25 AM EST
--- OUTSIDE RECORDS SUMMARY | 2025-08-13 06:30 | XMS_ITS ---
Author Organization Slim Hammond MD Address [address] [place] [phone] Care Team Providers Care Direct Service Worker Name Role Phone Slim Hammond Primary Care Provider [phone] Allergies Allergen (clinical drug ingredient) Drug/Non Drug [...] Location Date Provider Diagnosis Slim Hammond MD [address] [place] [address] [place] [phone] 08/13/2025 Slim Hammond C. difficile colitis A04.72 [...] Follow Up: 2 Weeks, Reason: Provider Name:Slim Bullocknoe ier, 11/17/2025 08:00:00 AM, [address] [place] [address], [address] [place] [address], [phone], Provider Name:Slim P Devyn ier, 11/23/2025 09:00:00 AM, [address] [place] [address], Suite [facility], [place], [place], [phone], Provider Name:Slim Marc Devyn garzar, 05/13/2026 07:45:00 AM, [address] [place] [address], [place] [address], [place], [place], [phone], Provider Name:Slim Marc Devyn garzar, 05/20/2026 09:30:00 AM, [address] [place] [address], [place] [address], [place], [place], [phone], Progress Notes * Lakeisha PAZaDOB:1955 (70 yo F)Acc No.[id number]:08/13/2025 Patient: Shanon PURI Provider: Sunni Hammond MD :1955 A ge:70 Y S ex:Female Date:08/13/2025 Address:[address] [place] [phone] Subjective: * Chief Complaints: * P H/TCM [...] 9 0662 FLU VACC PRSV FREE INC [id number] IMMUNIZATION ADMIN * Follow Up: 2 Weeks * * Sign off status: Completed true * Provider: Sunni Hammond MD Date: 0 08/13/2025 Generated for Rigo hayward/Ayala/Shannonsmitting on: 12/14/2024 07:25 AM EST History and Physical Notes * [...]
--- OUTSIDE RECORDS SUMMARY | 2025-09-01 06:45 | XMS_ITS ---
Author Organization Slim Hammond MD Address [address] [place] [phone] Care Team Providers Care Rehabilitation Attendant Name Role Phone Slim Hammond Primary Care [...] Location Date Provider Diagnosis Slim Hammond MD [address] [place] [phone] 09/01/2025 Slim Hammond Diverticulitis K57.9 2 Assessments [...] 3 Days, Reaso n: Provider Name:Slim salter, 11/17/2025 08:00:00 AM, [address] [place] [address], [address], [phone], Provider Name:Slim salter, 11/23/2025 09:00:00 AM, [address] [place] [address], [address], [phone], Provider Name:Slim salter, 05/13/2026 07:45:00 AM, [address] [place] [address], [phone], Provider Name:Slim salter, 05/20/2026 09:30:00 AM, [address] [place] [address], [phone], Progress Notes * Lakeisha PAZaDOB:1955 (70 yo F)Acc No.[id number]:09/01/2025 Progress Notes Patient: Shanon PURI Provider: Sunni Hammond MD :1955 A ge:70 Y S ex:Female Date:09/01/2025 Address:[address] [place] [phone] Subjective: * Chief Complaints: * 2 week [...] Provider: Sunni Hammond MD Date: Generated for Printi ng/Ayala/eTransmitting on: 12/14/2024 07:25 AM EST History and [...]
--- OUTSIDE RECORDS SUMMARY | 2025-09-04 08:15 | XMS_ITS ---
Author Organization Slim Hammond MD Address [address] [place] [phone] Care Team Providers Care Handbag Operator Name Role Phone Slim Hammond Primary Care Provider Allergies Allergen (clinical drug ingredient) Drug/Non Drug Allergy documented on EMR Reaction Allergy Type Onset Date Status vancomycin Vancomycin HCl itching only iv Drug Allergy Active azithromycin z pack (uncoded) diarrhea Allergy Active REASON FOR VISIT must see follow up after CT scab abd and pelvic Medications Medication SIG (Take, Route, Frequency, Duration) Notes Start Date End Date Status Omeprazole 20 MG 1 capsule 1/2 to 1 h our before morning meal Orally Once a day for 30 day(s) Active Vitamin D 1000 UNIT 1 tablet Orally Once a day Active Albuterol Sulfate HFA 108 (90 Base) MCG/ACT 1 puff as needed Inhalation every 4 hrs for 30 days 10/07/2021 Active Hyoscyamine Sulfate 0.125 MG 1 tablet as needed Orally every 12 hours for 10 days 09/04/2025 Active Clobetasol Propionate 0.05 % 1 APPLICATION EXTERNALLY TWICE A DAY 30 DAYS for 30 Active ProAir HFA 108 (90 Base) MCG/ACT 2 puffs as needed Inhalation every 6 hrs for 30 days 04/23/2018 Not-Taking Ondansetron 4 MG 1 tablet on [...] Problem Status W/U Status Risk Notes Problem Irritable bowel (50706812) Irritable bowel (K58.9) Active confirmed Vital Signs Blood pressure systolic 148 mm Hg 09/04/20 25 Blood pressure diastolic 76 mm Hg 025 Height 64 in 09/04/2025 Weight 203 lbs 09/04/2025 BMI 34.84 kg/m2 09/04/2025 Encounters Encounter Location Date Provider Diagnosis Slim Hammond MD [address] [place] [address] [place] [id number] 09/04/2025 Slim Hammond Irritable bowel K58.9 Assessments Encounter Date Diagnosis (ICD Code) Assessment Notes Treatment Notes Treatment Clinical Notes Section Notes 09/04/2025 Irritable bowel (ICD-10 - K58.9) patient verbalized understanding of medication and directions for use Plan Of Treatment Medication Medication Name Sig Start Date Stop Date Notes Hyoscyamine Sulfate 0.125 MG 1 tablet as needed Orally every 12 hours for 10 days 09/04/2025 Treatment Notes Assessment Notes Irritable bowel patient verbalized u nderstanding of medication and directions for use Next Appt Details Follow Up: 4 Weeks, Reason: Provider Name:Slim salter, 11/17/2025 08:00:00 AM, [address] [place] [address], [address], [phone], Provider Name:Slim salter, 11/23/2025 09:00:00 AM, [address] [place] [address], [address], [phone], Provider Name:Slim salter, 05/13/2026 07:45:00 AM, [address], [address], [place], [place], [phone], Provider Name:Slim Shepard ier, 05/20/2026 09:30:00 AM, [address], [address], [place], [place], [phone], Progress Notes * Lakeisha PAZaDOB:1955 (70 yo F)Acc No.[id number]:09/04/2025 Patient: Shanon PURI Provider: Sunni Hammond MD :1955 A ge:70 Y S ex:Female Date:09/04/2025 Address:[address] [place], [place] [phone] Subjective: * Chief Complaints: * m ust see follow up after CT scab abd and pelvic * HPI: S ymptom(s): patient is a 70 yo female here for follow up of recent CT Scan/ ct negative at present. ovary cyst is followed by language specialist. bm are better today/ still getting cramping and pain all over abdomen. * ROS: G eneral/Constitutional: Denies C hills. D enies F atigue. D enies F ever. D enies H eadache. E NT: Denies S ore throat. R espiratory: Denies C ough. D enies S hortness of breath at rest. D enies S hortness of breath with exertion. G astrointestinal: Denies A bdominal pain, c /o cramping. D enies B lood in stool. D enies C onstipation. D enies D iarrhea. D enies H eartburn. D enies N ausea. * Medical History: * Surgical [...] Vitals: H t: 64, Wt: 203, BMI:34.84, BP:148/76, Wt-k.08. * Examination: G eneral Examination: GENERAL APPEARANCE: a lert, well hydrated, in no distress.? HEAD: n ormocephalic. SKIN: g ood turgor. HEART: n o murmurs, rubs, gallops. LUNGS: n o wheezes, rales, rhonchi, good air movement, clear to auscultation bilaterally. ABDOMEN: w ith minimal tenderness in lower abdomen. ? Assessment: * Assessment: 1. I rritable bowel - K58.9 (Primary) Plan: * Treatment: * Procedure Codes: * Follow Up: 4 Weeks * * Sign off status: Completed true * Provider: Sunni Hammond MD Date: Generated for Rigo hayward/Ayala/Brandiitting on: 12/14/2024 07:26 AM EST History and Physical Notes * HPI (History of Present Illness) Category Sub-Category Detail Notes Category Not es Symptom(s) patient is a 70 yo female here for follow up of recent CT Scan/ ct negative at present. ovary cyst is followed by language specialist. bm are better today/ still getting cramping and pain all over abdomen Examination Category Sub-Category Detail Notes Category Not es General Examination GENERAL APPEARANCE: alert, w ell hydrated, in no distress HEAD: normocephalic HEART: no murmurs, rubs, ga llops LUNGS: no wheezes, rales, r honchi, good air movement, clear to auscultation bilaterally ABDOMEN: with minimal tendern ess in lower abdomen SKIN: good turgor
--- OUTSIDE RECORDS SUMMARY | 2025-10-05 04:15 | XMS_ITS ---
Author Organization Slim Hammond MD Address [address] [place] [phone] Care Team Providers Care [place] Auditor Name Role Phone Slim Hamomnd Primary Care Provider Allergies Allergen (clinical drug ingredient) Drug/Non Drug Allergy documented on EMR Reaction Allergy Type Onset Date Status vancomycin Vancomycin HCl itching only iv Drug Allergy Active azithromycin z pack (uncoded) diarrhea Allergy Active REASON FOR VISIT 4 week, Thyroid US pushout until November Medications Medication SIG (Take, Route, Frequency, Duration) Notes Start Date End Date Status Ondansetron 4 MG 1 tablet on the tong ue and allow to dissolve Orally Once a day for 30 day(s) Not-Taking ProAir HFA 108 (90 Base) MCG/ACT 2 puffs as needed Inhalation every 6 hrs for 30 days 04/23/2018 Not-Taking Calcium 500 MG 1 tablet with meals Orally Twice a day for 30 day(s) Not-Taking Levothyroxine Sodium 100 MCG TAKE 1 TABLET BY MOUTH IN THE MORNING ON AN EMPTY STOMACH ONCE A DAY FOR 90 DAYS Active Hyoscyamine Sulfate 0.125 MG 1 tablet as needed Orally every 12 hours 09/04/2025 Active Atorvastatin Calcium 40 MG TAKE 1 [...] 10/07/2021 Active Clobetasol Propionate 0.05 % 1 APPLICATION EXTERNALLY TWICE A DAY 30 DAYS for 30 Active Vital Signs Blood pressure systolic 162 mm Hg 10/05/20 25 Blood pressure diastolic 90 mm Hg 025 Height 64 in 10/05/2025 Weight 204 lbs 10/05/2025 BMI 35.01 kg/m2 10/05/2025 Encounters Encounter Location Date Provider Diagnosis Slim Hammond MD [address] [place] [address] [address] [place], [place] [phone] 10/05/2025 Slim Hammond Acquired hypothyroidism E03.9 ; Essential hypertension I10 and Diverticulitis K57.92 Assessments Encounter Date Diagnosis (ICD Code) Assessment Notes Treatment Notes Treatment Clinical Notes Section Notes 10/05/2025 Acquired hypothyroidism (ICD-10 - E03.9) is going to have us in november, will continue current regiment 10/05/2025 Essential hypertension (ICD-10 - I10) doing well. will continue current regiment 10/05/2025 Diverticulitis (ICD-10 - K57.92) is going to have surgery, followed by Gen Surgery Plan Of Treatment Medication Medication Name Sig Start Date Stop Date Notes Levothyroxine Sodium 100 MCG TAKE 1 TABL ET BY MOUTH IN THE MORNING ON AN EMPTY STOMACH ONCE A DAY FOR 90 DAYS Hyoscyamine Sulfate 0.125 MG 1 tablet as needed Orally every 12 hours 09/04/2025 Treatment Notes Assessment Notes Acquired hypothyroidism is going to have us in november, will continue current regiment Essential hypertension doing well. will continue current regiment Diverticulitis is going to have babatunde wilcox, followed by Gen Surgery Next Appt Details Follow Up: 2 Months, Reason: Provider Name:Slim salter, 11/17/2025 08:00:00 AM, [address] [place] [address], [address], [place], [place], [phone], Provider Name:Slim Shepard ier, 11/23/2025 09:00:00 AM, [address], [address], [place], [phone], Provider Name:Slim Shepard ier, 05/13/2026 07:45:00 AM, [address], [address], [place], [phone], Provider Name:Slim Shepard ier, 05/20/2026 09:30:00 AM, [address], [address], [place], [place], [phone], Progress Notes * Lakeisha PAZaDOB:1955 (70 yo F)Acc No.[id number]:10/05/2025 Progress Notes Patient: Shanon PURI Provider: Sunni Hammond MD :1955 A ge:70 Y S ex:Female Date:10/05/2025 Address:[address] [place], [place] [phone] Subjective: * Chief Complaints: * 1 . 4 week. 2. Thyroid US pushout until November. * HPI: S ymptom(s): patient is a 70yo female here for 4 week follow up visit. hyoscyamine is helping with the abdominal pain. dr zepeda. * ROS: G eneral/Constitutional: Denies C hills. D enies F atigue. D enies F ever. D enies H eadache. E NT: Denies S ore throat. R espiratory: Denies C ough. D enies S hortness of breath at rest. D enies S hortness of breath with exertion. G astrointestinal: Denies A bdominal pain. D enies D iarrhea. D enies N ausea. * Medical History: F requent pvc, colonoscopy 2008; colonoscopy 01/26/15 repeat 5 yrs (Dr. Prasad); had [...] 1 TABLET BY MOUTH EVERY DAY , Taking Hyoscyamine Sulfate 0.125 MG Tablet 1 tablet as needed Orally every 12 hours , Not-Taking/PRN Ondansetron 4 MG Tablet Disintegrating 1 tablet on the tongue and allow to dissolve Orally Once a day , Not-Taking/PRN Calcium 500 MG Tablet 1 tablet with meals Orally Twice a day , Not-Taking/PRN ProAir HFA 108 (90 Base) MCG/ACT Aerosol Solution 2 puffs as needed Inhalation every 6 hrs , Medication List reviewed and reconciled with the patient * Allergies: z pack: diarrhea, Vancomycin HCl: itching only iv. Objective: * Vitals: H t: 64, Wt: 204, BMI:35.01, BP:162/90, Repeat BP:144/86, Wt-k.53. * Examination: G eneral Examination: GENERAL APPEARANCE: w ell developed, well nourished. HEAD: n ormocephalic. SKIN: g ood turgor. HEART: r egular rate and rhythm. LUNGS: n o wheezes, rales, rhonchi, good air movement, clear to auscultation bilaterally. ABDOMEN: n o hepatosplenomegaly, soft, nontender, nondistended. Assessment: * Assessment: 1. A cquired hypothyroidism - E03.9 (Primary) 2 . E ssential hypertension - I10 3 . D iverticulitis - K57.92 Plan: * Treatment: 2. E ssential hypertension Notes: doing well. will continue current regiment 3. D iverticulitis Continue Hyoscyamine Sulfate Tablet, 0.125 MG, 1 tablet as needed, Orally, every 12 hours. ? Notes: is going to have surgery, followed by Gen Surgery * Follow Up: 2 Months * * The named appointment provid er may or may not be the originator of this progress note, and it is not deemed complete until electronically signed by the appointment provider. Sign off status: Pending * Provider: Sunni Hammond MD Date: 12/05/2024 Generated for Rigo hayward/Ayala/Opal on: 12/14/2024 07:25 AM EST History and Physical Notes * HPI (History of Present Illness) Category Sub-Category Detail Notes Category Not es Symptom(s) patient is a 70 yo female here for 4 week follow up visit. hyoscyamine is helping with the abdominal pain. dr zepeda Examination Category Sub-Category Detail Notes Category Not es General Examination GENERAL APPEARANCE: well developed , well nourished HEAD: normocephalic HEART: regular rate and rhy thm LUNGS: no wheezes, rales, r honchi, good air movement, clear to auscultation bilaterally ABDOMEN: no hepatosplenomegal y, soft, nontender, nondistended SKIN: good turgor
--- OUTSIDE RECORDS SUMMARY | 2025-10-14 07:25 | XMS_ITS | Patient Health Record ---
Author Organization Slim Hammond MD Address [address] [place], [place] [id number] Care Team Providers Care Splitting Machine Tender Name Role Phone Slim Hammond Primary Care Provider Allergies Allergen (clinical drug ingredient) Drug/Non Drug Allergy documented on EMR Reaction Allergy Type Onset Date Status vancomycin Vancomycin HCl itching only iv Drug Allergy Active azithromycin z pack (uncoded) diarrhea Allergy Active Results Component Value Reference Range Notes Liver Panel Reviewed date:10/23/2024 03:12:27 PM Interpretation: Performing Lab:[facility], [address] [place] [phone] Notes/Report: Bilirubin Total 0.5 0.0-1.0 mg/dL Bilirubin Direct 0.2 0.0-0.5 mg/dL Aspartate Amino Transferase 22 5-31 U/L Alanine Aminotransferase 27 0-31 U/L Total Protein 6.5 6.5-8.0 g/dL Albumin Level 4.0 3.5-5.0 g/dL Alkaline Phosphatase 74 39-117 U/L Lipid Panel Reviewed date:10/23/2024 03:13:32 PM Interpretation: Performing Lab:[facility], [address] [place] [phone] Notes/Report: Triglycerides 88 <150 mg/dL Desirable Triglyceride: [...] T4 Reviewed date:10/23/2024 03:29:08 PM Interpretation: Performing Lab:[facility], [address] [place] [address] Notes/Report: TSH reflex Free T4 0.83 0.32-4.0 uIU/mL Complete Blood Count Auto Di ff Reviewed date:05/15/2025 04:04:20 PM Interpretation: Performing Lab:[facility], [address] [place] [address] Notes/Report: White Blood Count 6.9 4.8-10.8 X10*3/uL [...] NRBC Abs Auto 0.000 0.0-0.012 X10*3/uL Comprehensive [place]. Panel Fa st Reviewed date:05/15/2025 04:07:36 PM Interpretation: Performing Lab:[facility], [address] [place] [address] Notes/Report: Sodium 143 135-145 mmol/L Potassium 4.0 [...] Panel Reviewed date:05/15/2025 12:46:36 PM Interpretation: Performing Lab:[facility], [address] [place] [address] Notes/Report: Triglycerides 128 <150 mg/dL Desirable Triglyceride: [...] Total Reviewed date:05/15/2025 12:40:19 PM Interpretation: Performing Lab:[facility], [address] [place] [address] Notes/Report: Vitamin D 25-OH Total 50.6 >30 [...] T4 Reviewed date:05/15/2025 12:34:31 PM Interpretation: Performing Lab:[facility], [address] [place] [address] Notes/Report: TSH reflex Free T4 2.95 0.32-4.0 uIU/mL Microalbumin, Random Reviewed date:05/15/2025 12:48:47 PM Interpretation: Performing Lab:[facility], [address] [place] [address] Notes/Report: Creatinine Urine 97.55 Microalbumin Urine < 5.0 Microalbum/Creatinine Ratio Ur TNP <30 ug/mg cr Unable to calculate albumin/creatinine ratio due to low microalbumin or creatinine result. Hemoglobin A1c Reviewed date:05/15/2025 12:34:22 PM Interpretation: Performing Lab:[facility], [address] [place] [phone] Notes/Report: Hemoglobin A1c % 5.9 <6.0 % [...] average glucose, using the formula of the K4G-Ppbmopp Average Glucose study (ADAG), Diabetes Care, Vol.31,#8, Jun. 2007 UA ClnCatch+Micro w/rflx Cul t Reviewed date:05/15/2025 12:59:47 PM Interpretation: Performing Lab:[facility], [address] [place] [address] Notes/Report: Urine, Clean Catch Color Urine Yellow Appearance Urine Clear PH 6.0 5.0-9.0 Glucose Urine UA Negative Negative mg/dL Urine Blood Negative Negative Specific Morrow - Urine 1.015 1.005-1.025 Urine Protein Negative Neg-Trace mg/dL Urine Ketones Negative Negative mg/dL Nitrite Urine Negative Negative Leukocyte Esterase Urine Negative Negative RBC Urine 0-2 0-2 /HPF WBC Urine 0-5 0-5 /HPF Squamous Epithelial Cell Urine 0-2 0-2 /HPF Bacteria Urine None Seen None Seen Hyaline Casts Urine 0-2 0-2 /LPF Hold Gold Reviewed date:10/23/2024 12:51:02 PM Interpretation: Performing Lab:[facility], [address] [place] [phone] Notes/Report: Edmar Bar See Note Specimen held untested for 24 hours; Call to request Chemistry testing. US pelvic and transvaginal Reviewed date:11/23/2024 06:29:37 PM Interpretation: Performing Lab: Notes/Report: [address] [address] Ultrasound Report Signed Patient: Rosina Stern MR#: [id number] : 1955 Acct:[id number] Age/Sex: 69 / F ADM Date: 11/20/24 Loc: HO.US Attending Dr: Lalo Mao MD Ordering Physician: Lalo Mao MD Date of Service: 11/20/24 Procedure(s): US pelvic and transvaginal Accession Number(s): [id number] cc: Slim Hammond MD; Lalo Mao MD [...] in OV> 11/22/24805 DD/ 4 TD/TT: 11/22/24804 Prosthodontist/Educator: [address] [address] Ultrasound Report Signed Patient: Lakeisha Stern MR#: [id number] : 1955 Acct:[id number] Age/Sex: 69 / F ADM Date: 11/20/24 Loc: HO.US Attending Dr: Lalo Mao MD Ordering Physician: Lalo Mao MD Date of Service: 11/20/24 Procedure(s): US pel bin and transvaginal Accession Number(s): [id number] cc: Slim Hammond MD; Lalo Mao MD [...] by Antonio Poole MD in OV> 11/22/24 0806 DD/ 08 TD/TT: 11/22/24 08 Prosthodontist/Educator: SAUL tomosynthesis screening B I Reviewed date:02/09/2025 05:25:03 PM Interpretation: Performing Lab: Notes/Report: [facility] [address] [place] [address] Mammography Report Signed Patient: Rosina Stern MR#: [id number] : 1955 Acct:[id number] Age/Sex: 69 / F ADM Date: 01/29/25 Loc: HO.MAMMO Attending Dr: Slim Hammond MD Ordering Physician: Slim Hammond MD Results: 2Be nign Findings Date of Service: 01/29/25 Follow Up: 1 Year From Orig inal Mammogram Procedure(s): MM tomosynthesis screening BI Accession Number(s): [id number] cc: Slim Hammond MD EXAMINATION: MM SCREENING [...] 02/06/25 1543 DD/ 0914 TD/TT: 01/29/25 0944 Prosthodontist/Educator: [facility] [address] [place], [place] [phone] Mammography Report Signed Patient: Lakeisha Stern MR#: [id number] : 1955 Acct:[id number] Age/Sex: 69 / F ADM Date: 01/29/25 Loc: HOSabaMAMMO Attending Dr: Slim Hammond MD Ordering Physician: Slim Hammond MD Results: 2Be nathan Findings Date of Service: Follow Up: 1 Year From Orig inal Mammogram Procedure(s): MM tomosynthesis screening BI Accession Number(s): [id number] cc: Slim Hammond MD EXAMINATION: MM SCREENING [...] By: Laureen Ha DO Signed By: <Marlene icaluis signed by Laureen Ha DO in OV> 02/06/25 1543 DD/ TD/TT: 01/29/2544 Prosthodontist/Educator: Pathology Reviewed date:05/15/2025 03:55:30 PM Interpretation: Performing Lab:[facility], [address] [place] [phone] Notes/Report: ------ Name: Rosina Stern Age/Sex: 70/F : 1955 Unit#: [id number] Attend Dr: Joan Vargas MD Re05/14/25 Statu s: [facility] Location: [facility] Disch: ------ SPEC : [id number] RECD : 05/14/25 STATUS: JNOELLE GRIMALDO NUM: [id number] DAGMAR: 05/14/[address] [facility] [address]: Joan Vargas MD ENTERED: 05/14/25 [...] Hiatal hernia Microscopic Description A, B. Microscopic sections reviewed. Material Received A. Lower esophagus bx's [...] developed and their performance characteristics determined by [facility]. They have not been cleared or appr sujit by the U.S. Food and Drug Administration (FDA). However, the FDA has determined that such clearance or approval is not necessary. This laboratory is certified under the Clinical Laboratory Improvement Amendments of 1988 (CLIA) as qualified CONTINUED ON NEXT PAGE ------ Name: Rosina Stern Age/Sex: 70/F : 1955 Unit#: [id number] Attend Dr: Joan Vargas MD Re05/14/25 Status : [facility] Location: [facility] Disch: ------ SPEC : [id number] RECD : 05/14/251141 STATUS: JONELLE WALLACEIvette NUM: [id number] DAGMAR: 05/14/[address] [facility] [address]: Joan Vargas MD ENTERED: 05/14/25 56 SP TYPE: Surgical OTHR DR: Slim Hammond MD ORDERED: HE Stain/6, Gross Micro L4/2 IHC S/NG Disclaimer (Continued) to perform high comp lexity clinical laboratory testing. Copies To: Slim Hammond MD [facility] [address] [place] [phone] Joan Vargas MD [facility] [address] [place], [place] [phone] [email or web address] ------ Signed (signature on file) Branden Ramos MD 05/15/25 1454 ------ END OF REPORT Edmar Bar Reviewed date:05/15/2025 12:34:52 PM Interpretation: Performing Lab:[facility], [address] [place] [phone] Notes/Report: Edmar Bar See Note Specimen held untested for 24 hours; Call to request Chemistry testing. Complete Blood Count Auto Di ff Reviewed date:07/30/2025 04:40:59 PM Interpretation: Performing Lab:[facility], [address] [place] [address] Notes/Report: White Blood Count 12.0 4.8-10.8 X10*3/uL [...] Panel Reviewed date:07/31/2025 12:50:47 PM Interpretation: Performing Lab:[facility], [address] [place] [phone] Notes/Report: Sodium 142 135-145 mmol/L Potassium 3.6 [...] Acid Reviewed date:07/31/2025 12:33:14 PM Interpretation: Performing Lab:[facility], [address] [place] [address] Notes/Report: Lactic Acid 1.1 0.5-2.0 mmol/L Magnesium Reviewed date:07/31/2025 12:33:32 PM Interpretation: Performing Lab:[facility], [address] [place] [phone] Notes/Report: Magnesium 1.9 1.6-2.6 mg/dL Lipase Reviewed date:07/31/2025 12:32:58 PM Interpretation: Performing Lab:[facility], [address] [place] [address] Notes/Report: Lipase 38 8-78 U/L UA CC w/rflx Micro + Cult Reviewed date:08/03/2025 11:38:27 AM Interpretation: Performing Lab:[facility], [address] [place] [address] Notes/Report: Urine, Clean Catch Color Urine Yellow Appearance Urine Clear PH 5.5 5.0-9.0 Glucose Urine UA Negative Negative mg/dL Urine Blood Negative Negative Specific [place] - Urine >= 1.030 1.005-1.025 Urine Protein Negative Neg-Trace mg/dL Urine Ketones Negative Negative mg/dL Nitrite Urine Negative Negative Leukocyte Esterase Urine Negative Negative Blood Culture (First) Reviewed date:08/05/2025 06:01:08 PM Interpretation: Performing Lab:[facility], [address] [place] [address] Notes/Report: Blood Culture (First) No growth after 5 days. Blood Culture (Second) Reviewed date:08/05/2025 06:01:48 PM Interpretation: Performing Lab:[facility], [address] [place] [address] Notes/Report: Blood Culture (Second) No growth after [address] abdomen pelvis w con Reviewed date:07/31/2025 12:32:09 PM Interpretation: Performing Lab: Notes/Report: [address] [place] [address] CT Scan Report Signed with Syed Patient: Rosina Stern MR#: [id number] : 1955 Acct:[id number] Age/Sex: 70 / F ADM Date: 07/30/25 Loc: HO.ED Attending Dr: Ordering Physician: Barbara Venegas DO Date of Service: 07/31/25 Procedure(s): CT abdomen pelvis w IV con Accession Number(s): [id number] cc: Slim Hammond MD; Barbara Venegas DO Report Number: [id number]: Total DLP = 729.00 mGy-cm Reason for [...] Agarwal MD on 07/31/2025 01:30:02 Dictated By: aMry Agarwal MD Signed By: <Electronically signed by Mary Agarawl MD in OV> 07/31/25130 DD/ 9 TD/TT: 07/31/25129 Prosthodontist/Educator: [place] [address] CT Scan Report Signed with Addenda Patient: Lakeisha Stern MR#: [id number] : 1955 Acct:[id number] Age/Sex: 70 / F ADM Date: 07/30/25 Loc: .ED Attending Dr: Ordering Physician: Barbara Venegas DO Date of Service: 07/31/25 Procedure(s): CT abd omen pelvis w IV con Accession Number(s): [id number] cc: Slim Hammond MD; Barbara Venegas DO [...] in OV> 07/31/25130 DD/ 9 TD/TT: 07/31/25129 Prosthodontist/Educator: Complete Blood Count Auto Di ff Reviewed date:08/02/2025 05:43:56 PM Interpretation: Performing Lab:[facility], [address] [place] [address] Notes/Report: White Blood Count 4.8 4.8-10.8 X10*3/uL [...] Panel Reviewed date:08/02/2025 05:42:26 PM Interpretation: Performing Lab:[facility], [address] [place] [address] Notes/Report: Sodium 143 135-145 mmol/L Potassium 4.2 [...] gy Reviewed date:08/03/2025 11:37:20 AM Interpretation: Performing Lab:[address] [address] Notes/Report: Hold Lav - Possible Hematology SEE NOTE Specimen will be held untested for 8 hours. Call Hematology if testing is desired. Basic Metabolic Panel Reviewed date:08/03/2025 12:15:20 PM Interpretation: Performing Lab:[facility], [address] [place] [address] Notes/Report: Sodium 145 135-145 mmol/L Potassium 3.6 [...] PCR Reviewed date:08/03/2025 11:35:57 AM Interpretation: Performing Lab:[facility], [address] [place] [address] Notes/Report: CDiff Gene PCR POSITIVE Negative Additional C. difficile toxin testing to be performed. CDiff Toxin Reviewed date:08/03/2025 11:36:06 AM Interpretation: Performing Lab:[facility], [address] [place] [address] Notes/Report: CDiff Toxin Negative Negative Results of CDIFF called to [facility] on 08/03/25 at 1021 by SONY. CDIFF Interpretation SEE NOTE Likely C. difficile colonization. Continue contact precautions. CT abdomen pelvis w con Reviewed date:09/04/2025 01:12:27 PM Interpretation: Performing Lab: Notes/Report: [address] [address] [address] Scan Report Signed Patient: Rosina Stern MR#: [id number] : 1955 Acct:[id number] Age/Sex: 70 / F ADM Date: 09/02/25 Loc: HO.CT Attending Dr: Slim Hammond MD Ordering Physician: Slim Hammond MD Date of Service: 09/02/25 Procedure(s): CT abdomen pelvis w IV con Accession Number(s): [id number] cc: Slim Hammond MD Report Number: [id number]: Total DLP = 562.00 mGy-cm Reason for Exam: DIVERTICULITIS CLINICAL HISTORY: DIVERTICULITIS CT abdomen and pelvis with contrast Comparison: CT/SR - CT ABDOMEN PELVIS W IV CON - 07/31/25 00:50 EDT US/ME - US PELVIC AND TRANSVAGINAL - 11/20/24 [...] in OV> 09/03/251829 DD/ 28 TD/TT: 09/03/251828 Prosthodontist/Educator: [address] [address] [address] Scan Report Signed Patient: Lakeisha Stern MR#: [id number] : 1955 Acct:[id number] Age/Sex: 70 / F ADM Date: 09/02/25 Loc: HO.CT Attending Dr: Slim Hammond MD Ordering Physician: Slim Hammond MD Date of Service: 09/02/25 Procedure(s): CT abd omen pelvis w IV con Accession Number(s): [id number] cc: Slim Hammond MD Report Number: [id number]: Total DLP = 562.00 mGy-cm Reason for Exam: DIVERTICULITIS CLINICAL HISTORY: DIVERTICULITIS CT abdomen and pelvi s with contrast Comparison: CT/SR - CT ABDOMEN PELVIS W IV CON - 07/31/25 00:50 EDT US/ME - US PELVIC AN D TRANSVAGINAL - [...] Dictated By: Patricia Palencia MD Signed By: <Marlene rizvi signed by Patricia Palencia MD in OV> 09/03/251829 DD/ 28 TD/TT: 09/03/251828 Prosthodontist/Educator: Reason For Referral No Information Medications Medication [...] Twice a day for 30 day(s) Not-Taking Omeprazole 20 MG 1 capsule 1/2 [...] needed Orally every 12 hours 09/04/2025 Active Clobetasol Propionate 0.05 % 1 [...] Problem Status W/U Status Risk Notes Problem 475592462 Acute diverticul itis (K57.92) Active confirmed Problem 544143041 Thyroid nodule (E04.1) Active confirm ed Problem 57461670 Lymphocytosis (D72.820) Active confirmed Problem Carpal tunnel syndrome (10749852) Carpal tunnel syndrome (G56.00) Active confirmed Problem 973694228 Tubular adenoma (D36.9) Active confirmed Problem 19893908 Vitamin D defici ency (E55.9) Active confirmed Problem Diverticulitis (09939214) Diverticulitis (K57.92) Active confirmed Problem 806395497 Lumbar disc dise ase (M51.9) Active confirmed Problem Essential hypertension (48217274) Essential hypertension (I10) Active confirmed Problem 932317249 Acquired hypothyroidism (E03.9) Active confirmed Problem 5051362 Prediabetes (R73.09) Active confirmed Problem 849823426 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) Active confirmed Problem 744234294 Menopause (Z78.0) Active confirmed Problem 90269777 Degeneration of cervical intervertebral disc (M50.30) Active confirmed Problem 118888606 Pure hypercholesterolemia (E78.00) Active confirmed Problem 710009844 Acute low back p ain without sciatica, unspecified back pain laterality (M54.5) Active confirmed Problem Bilateral carpal tunnel syndrome (952540098275580 01) Bilateral carpal tunnel syndrome (G56.03) Active confirmed Problem 765358361 BMI 34.0-34.9,ad ult (Z68.34) Active confirmed Problem 837393733 BMI 35.0-35.9,ad ult (Z68.35) Active confirmed Problem Irritable bowel (77605850) Irritable bowel (K58.9) Active confirmed Problem 279663855 Arthritis of kne e (M17.10) Active confirmed Problem 695601689 Meningioma (D32.9) Active confirmed Problem 109857453 Mild intermitten t asthmatic bronchitis with acute exacerbation (J45.21) Active confirmed Problem 85763327 Other and unspec 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.9) Active confirmed Problem 58985133 Other premature beats (I49.49) Active confirmed Problem 665092267 Osteoarthritis o f lumbar spine, unspecified spinal osteoarthritis complication status (M47.816) Active confirmed Problem 679546302 History of thyro id nodule (Z86.39) Active confirmed Problem 294812006 Acute diverticul itis of intestine (K57.92) Active confirmed Vital Signs Blood pressure diastolic 90 mm Hg 10/05/2025 Height 64 in 10/05/2025 Blood pressure systolic 162 mm Hg 10/05/2025 Weight 204 lbs 10/05/2025 BMI 35.01 kg/m2 10/05/2025 Encounters Encounter Location Date Provider Diagnosis Slim Hammond MD [address] [place] [id number] 10/23/2024 Slim Hammond Pure hypercholestero lemia E78.00 and Acquired hypothyroidism E03.9 Slim Hammond MD [address] [place] [address] Drive [address] [place] [id number] 05/15/2025 Slim Hammond Blood tests for rout ine general physical examination Z00.00 ; Lymphocytosis D72.820 ; Acquired hypothyroidism E03.9 ; Vitamin D deficiency E55.9 and Prediabetes R73.09 Slim Hammond MD [address] [place] [address] Drive [address] [place] [id number] 10/05/2025 Slim Hammond Acquired hypothyroid ism E03.9 ; Essential hypertension I10 and Diverticulitis K57.92 Slim Hammond MD [address] [place] [id number] 10/31/2024 Slim Hammond Acquired hypothyroid ism E03.9 ; Pure hypercholesterolemia E78.00 and Abnormal upper gastrointestinal barium series R93.3 Slim Hammond MD [address] [place] [id number] 04/27/2025 Slim Hammond Mild intermittent asthmatic bronchitis with acute exacerbation J45.21 Slim Hammond MD [address] [place] [id number] 05/19/2025 Slim Hammond Prediabetes R73.09 ; Annual physical exam Z00.00 ; Meningioma D32.9 ; Pure hypercholesterolemia E78.00 ; Essential hypertension I10 ; Thyroid nodule E04.1 and Depression screening Z13.31 Slim Hammond MD [address] [place] [id number] 07/14/2025 Slim Hammond Diverticulitis K57.9 2 Slim Hammond MD [address] [place] [id number] 08/13/2025 Slim Hammond C. difficile colitis A04.72 ; Diverticulitis K57.92 and Encounter for administration of vaccine Z23 Slim Hammond MD [address] [place] [id number] 09/01/2025 Slim Hammond Diverticulitis K57.9 2 Slim Hammond MD [address] [place] [id number] 09/04/2025 Slim Hammond Irritable bowel K58. 9 Slim Hammond MD [address] [place] [id number] 12/11/2024 Slim Hammond MD [address] [place] [id number] 06/01/2025 Slim Hammond Meningioma D32.9 Slim Hammond MD [address] [place] [id number] 06/02/2025 Slim Hammond MD [address] [place], [place] [id number] 07/14/2025 Slim Hammond MD [address] [place] [id number] 08/06/2025 Slim Hammond Assessments Encounter Date Diagnosis (ICD Code) Assessment Notes Treatment Notes Treatment Clinical Notes Section Notes 10/23/2024 Pure hypercholesterolemia (ICD-10 - E78.00) 10/23/2024 Acquired hypothyroid ism (ICD-10 - E03.9) 05/15/[address] ine general physical examination (ICD-10 - Z00.00) 10/05/2025 Acquired hypothyroid ism (ICD-10 - E03.9) is going to have us in november, will continue current regiment 10/31/2024 Acquired hypothyroid ism (ICD-10 - E03.9) [...] D32.9) 05/15/2025 Lymphocytosis (ICD-1 0 - D72.820) 10/05/2025 Essential hypertensi on (ICD-10 - I10) doing well. will continue current regiment 10/31/2024 Abnormal upper gastrointestinal barium series (ICD-10 - R93.3) went over the results of the tests is going to have endoscopy next 05/19/2025 Meningioma (ICD-10 - D32.9) pending diagnostic testing, order faxed to Tony 08/13/2025 Encounter for administration of vaccine (ICD-10 - Z23) 05/15/2025 Acquired hypothyroid ism (ICD-10 - E03.9) 10/05/2025 Diverticulitis (ICD- 10 - K57.92) is going to have surgery, followed by Gen Surgery 05/19/2025 Pure hypercholesterolemia (ICD-10 - E78.00) stable, [...] Provider Name:Slim Shepard ier, 11/17/2025 08:00:00 AM, [address] [place] [address], [address], [place], [place], [id number], Provider Name:Slim Shepard ier, 11/23/2025 09:00:00 AM, [address] [place] [address], [address], [place], [place], [phone], Provider Name:Slim Shepard ier, 05/13/2026 07:45:00 AM, [address] [place] [address], [address], [place], [place], [phone], Provider Name:Slim Shepard ier, 05/20/2026 09:30:00 AM, [address] [place] [address], [address], [place], [place], [phone], Insurance Providers Payer Name Payer Address Payer Phone Subscriber Number Group Number Insured Name Patient Relationship to Insured Coverage Start Date Coverage End Date [facility] [address] [place], [place] [id number] [phone] [id number] Rosina Stern Self - patient is the insured MEDICARE NHIC [address] [place] [address] [id number] Rosina Stern Self - patient is the insured Medical (General) History Medical History History ICD Code frequent pvc colonoscopy 2008; colonoscop y 01/26/15 repeat 5 yrs (Dr. Prasad); had colonoscopy 02/26/[address] Prasad - repeat 5 yearsColonoscopy 07/17/24 repeat 5y Inclusion cyst
--- OUTSIDE RECORDS SUMMARY | 2025-10-14 07:25 | XMS_ITS | Clinical Summary ---
Author Organization [facility] ity Address [address] [place] [phone] Care Team Providers Care Certified Pharmacy Tech Name Role Phone Unavailable Primary Care Provider [...] Depression Screening 11/19/2024 COVID-19 Vaccine (1 - 2024-2 6 season) 2025 Influenza Vaccine (#1) 2025 RSV [...]
--- OUTSIDE RECORDS SUMMARY | 2025-10-14 07:26 | XMS_ITS | Patient Health Record ---
Author Organization [facility] Address [address] [place] [phone] Care Team Providers Care Bagging Machine Operator Name Role Phone Moreno Horacio Unavailable [phone] Reason For Referral No Information Plan Of Treatment No Information
--- NOTE | 2025-10-14 07:27 | A.OFFVIS_ITS ---
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 No complaints. Last Pap/HPV was few years ago no history of abnormal Pap smear asked years Last Mammogram was BI-RADS 2 in 02/10 Last Colonoscopy was in 07/12, the recommendation was to repeat in 5 years Last DEXA scan was in 07/12 Last ultrasound showed myoma in 12/13 [facility] Medical History Hypothyroid GERD (gastroesophageal reflux disease) PVC (premature ventricular contraction) Elevated cholesterol Deviated septum Degeneration of spine Thyroid nodule Osteoarthritis Surgical History Hx of dilation and curettage History of esophagogastroduodenoscopy (EGD) History of nasal surgery Hx of tonsillectomy History of surgery H/O colonoscopy Tubal ligation status History of H/O shoulder surgery History of arthroscopy of both knees Family History Paternal Aunt Breast CA Father Colon cancer Social History Household Members: Spouse Housing: House Are you a primary care trainer to a significant other at home: No Do you presently have visiting nurse or other home services: No Alcohol intake: current Alcohol intake frequency: holidays/special occasions only Patient Tobacco Use Status: Former Tobacco user Tobacco use type: Cigarette Years Smoked: 7 Advance Directives Date on File: 12/15/22 service: No Gender identity: Female Female Reproductive History Menstrual Age of Menarche: 12 Date of Mammogram: 01/29/25 Review of Systems Const All systems reviewed & are unremarkable except as noted in HPI and below Card Reports as per HPI Resp Reports as per HPI GI Reports as per HPI and Reports no additional complaints Reports as per HPI Physical Exam Vital Signs: Last Vital Signs BP 122/72 10/14/25 07:30 BMI result Body Mass Index 34.3 Const General: cooperative, healthy appearing and comfortable Chest Chest palpation & inspection: normal inspection of the chest and normal palpation of entire chest wall Breast/axilla inspection: normal inspection of the breasts and normal inspection of the axillae Breast/axilla palpation: normal palpation of the breasts, normal palpation of the axillae and no axillary lymphadenopathy Resp Effort & Inspection: normal respiratory effort Auscultation: clear to auscultation bilaterally Percussion: percussion normal Cardio Palpation: normal PMI Rate: regular rate Rhythm: regular rhythm Heart sounds: no murmurs and no rubs Peripheral pulses: Peripheral pulses 2+ throughout GI Inspection: Yes normal to inspection Palpation (GI): Soft to palpation, nontender, no guarding, not rigid and No hepatosplenomegaly present Percussion: Yes normal to percussion Auscultation: normal bowel sounds Rectal Exam - Female: deferred General: Yes bladder normal to palpation External Female Exam: No lesion Speculum Exam - Vagina: normal appearance of the vagina, normal palpation, normal vaginal discharge and not erythematous Speculum Exam - Cervix: normal appearance of the cervix and normal palpation Bimanual exam- vagina & uterus: normal bimanual exam, normal palpation, uterine size normal, bladder normal to palpation, consistency normal and normal palpation Bimanual Exam- Adnexa, other: normal adnexae, no masses and no tenderness Assessment & Plan Assessment & Plan (1) Well woman exam: Code(s): Z01.419 - Encounter for gynecological examination (general) (routine) without abnormal findings Category: Medical Plan: Co testing not indicated since the patient 's age is above 65 with no history of abnormal Pap smears last 25 years, adequately screen for the last 10 years with no history of immunosuppression. Counseled the patient about the recommended dietary allowance of 1200 mg of Calcium & 800 IU of vitamin D. Instructions given the patient is schedule next screening Mammogram . The patient was instructed to perform monthly self-breast exams and to schedule an annual exam in a year; All questions answered and the patient verbalized understanding. (2) Uterine myoma: Code(s): D25.9 - Leiomyoma of uterus, unspecified Category: Medical Plan: Pelvic ultrasound ordered, instructions given the patient to schedule ultrasound follow-up appointment in 6 weeks Coding Level of Care Code Est Pt Prev Care >65y(22910) Diagnoses Well woman exam Z01.419 Uterine myoma D25.9
[2025-10-14 07:30] VITALS: BP 122/72; BMI 34.3
== END 2025-10-14 08:08 | disposition home or self-care (01) ==
LOC: HO.HWS 07:21
PROVIDERS: PCP Internal Medicine; Visit Provider Obstetrics & Gynecology
DX: Z01.419 Encounter for gynecological examination (general) (routine) without abnormal findings (principal); D25.9 Leiomyoma of uterus, unspecified
CPT/HCPCS: 99397; 99459

== ENCOUNTER → 2025-10-14 07:21 | Outpatient (BNVA) | payer MEDICARE, SELFPAY | PROVIDERS: PCP Internal Medicine; Visit Provider Obstetrics & Gynecology | DX: Z01.419 Encounter for gynecological examination (general) (routine) without abnormal findings (principal); D25.9 Leiomyoma of uterus, unspecified; Z98.51 Tubal ligation status | CPT/HCPCS: 99397 ==

== ENCOUNTER 2025-11-17 10:52 | Outpatient (REF) | payer MEDICARE, SELFPAY ==
--- OUTSIDE RECORDS SUMMARY | 2025-06-02 04:49 | XMS_ITS ---
Author Organization Slim Hammond MD Address [address] [place] [address] [phone] Care Team Providers Care Help Desk Intern Name Role Phone Slim Hammond Primary Care Provider [phone] Encounters Encounter Location Date Provider Diagnosis Slim Hammond MD 10 [facility] [address] [place] [address] [phone] 06/02/2025 Slim Hammond Plan Of Treatment Next Appt Details Provider Name:Slim salter, 11/23/2025 09:00:00 AM, [address] [place] [address], [address], [phone], Provider Name:Slim salter, 05/13/2026 07:45:00 AM, [address] [place] [address], [address], [phone], Provider Name:Slim salter, 05/20/2026 09:30:00 AM, [address] [place] [address], [address], [phone], Progress Notes * Isadora PAZB:1955 (70 yo F)Acc No.[id number]:06/02/2025 Patient: Shanon PURI :1955 A ge:70 Y S ex:Female Address:[address] [place] [phone] * true * Date: Generated for Rigo hayward/Ayala/eTransmitting on: 02:44 PM EST
--- OUTSIDE RECORDS SUMMARY | 2025-07-14 05:45 | XMS_ITS ---
Author Organization Slim Hammond MD Address [address] [place] [address] [phone] Care Team Providers Care Hog Worker Name Role Phone Slim Hammond Primary Care Provider REASON FOR VISIT ? diverticulitis Encounters Encounter Location Date Provider Diagnosis Slim Hammond MD [address] [facility] [place] [address] [phone] 07/14/2025 Slim Hammond Plan Of Treatment Next Appt Details Provider Name:Slim Shepard iegorge, 11/23/2025 09:00:00 AM, [address] [place] [address], [address] [place] [address], [phone], Provider Name:Slim salter, 05/13/2026 07:45:00 AM, [address] [place] [address], [address], [phone], Provider Name:Slim salter, 05/20/2026 09:30:00 AM, [address] [place] [address], [address], [phone], Progress Notes * Lakeisha PAZaDOB:1955 (70 yo F)Acc No.[id number]:07/14/2025 Patient: Shanon PURI :1955 A ge:70 Y S ex:Female Address:[address] [place] [phone] * true * Date: Generated for Rigo hayward/Ayala/Megransmitting on: 02:45 PM EST
--- OUTSIDE RECORDS SUMMARY | 2025-07-14 10:30 | XMS_ITS ---
Author Organization Slim Hammond MD Address [address] [place] [address] [phone] Care Team Providers Care Aircraft Electronics Technical Officer Name Role Phone Slim Hammond Primary [...] Status W/U Status Risk Notes Problem Diverticulitis (05394583) Diverticulitis (K57.92) Active confirmed Vital Signs Blood pressure systolic 144 mm Hg 07/14/20 25 Blood pressure diastolic 80 mm Hg 025 Height 64 in 07/14/2025 Weight 202 lbs 07/14/2025 BMI 34.67 kg/m2 07/14/2025 weight is down 2 pounds [facility] 05-19-25 Encounters Encounter Location Date Provider Diagnosis Slim Hammond MD [address] [place] [address] [phone] 07/14/2025 Slim Hammond Diverticulitis K57.9 2 Assessments Encounter Date Diagnosis (ICD Code) Assessment Notes Treatment Notes Treatment Clinical Notes Section Notes 07/14/2025 Diverticulitis (ICD-10 - K57.92) Plan Of Treatment Medication Medication Name Sig Start Date Stop Date Notes Amoxicillin-Pot Clavulanate 875-125 MG 1 tablet Orally every 12 hrs for 10 days 07/14/2025 Next Appt Details Provider Name:Slim salter, 11/23/2025 09:00:00 AM, [address] [place] [address], [address], [phone], Provider Name:Slim salter, 05/13/2026 07:45:00 AM, [address] [place] [address], [address], [phone], Provider Name:Slim salter, 05/20/2026 09:30:00 AM, [address] [place] [address], [address], [phone], Progress Notes * Lakeisha PAZaDOB:1955 (70 yo F)Acc No.[id number]:07/14/2025 Progress Notes Patient: Shanon PURI Provider: Sunni Hmamond MD :1955 A ge:70 Y S ex:Female Date:07/14/2025 Address:[address] [place], [place] [phone] Subjective: * Chief Complaints: * ? diverticulitis [...] MD Date: 0 07/14/2025 Generated for Rigo hayward/Ayala/eTransmitting on: 1 02:43 PM EST History and Physical Notes * HPI [...]
--- OUTSIDE RECORDS SUMMARY | 2025-07-30 03:30 | XMS_ITS ---
Author Organization Slim Hammond MD Address [address] [place] [phone] Care Team Providers Care Him Assistant Name Role Phone Slim Hammond Primary Care Provider REASON FOR VISIT HDF Encounters Encounter Location Date Provider Diagnosis Slim Hammond MD 10 [facility] [address] [place] [phone] 07/30/2025 Slim Hammond Plan Of Treatment Next Appt Details Provider Name:Slim salter, 11/23/2025 09:00:00 AM, [address] [place] [address], [address], [phone], Provider Name:Slim salter, 05/13/2026 07:45:00 AM, [address] [place] [address], [address], [phone], Provider Name:Slim salter, 05/20/2026 09:30:00 AM, [address] [place] [address], [address], [phone], Progress Notes * Lakeisha PAZaDOB:1955 (70 yo F)Acc No.[id number]:07/30/2025 Progress Note Patient: Shanon PURI Provider: Sunni Hammond MD :1955 A ge:70 Y S ex:Female Date:07/30/2025 Address:[address] [place], [place] [phone] Subjective: * Chief Complaints: * 1 . HDF. * Medical History: Objective: * Vitals: Assessment: Plan: * Treatment: * * The named appointment provid er may or may not be the originator of this progress note, and it is not deemed complete until electronically signed by the appointment provider. Sign off status: Pending * Provider: Sunni Hammond MD Date: 0 07/30/2025 Generated for Rigo hayward/Ayala/Brandiitting on: 02:44 PM EST
--- OUTSIDE RECORDS SUMMARY | 2025-08-06 07:29 | XMS_ITS ---
Author Organization Slim Hammond MD Address [address] [place] [phone] Care Team Providers Care Industrial Engineering Professor Name Role Phone Slim Hammond Primary Care Provider [phone] REASON FOR VISIT discharge Encounters Encounter Location Date Provider Diagnosis Slim Hammond MD 10 [facility] [address] [place] [phone] 08/06/2025 Slim Hammond Plan Of Treatment Next Appt Details Provider Name:Slim salter, 11/23/2025 09:00:00 AM, [address] [place] [address], [address], [phone], Provider Name:Slim salter, 05/13/2026 07:45:00 AM, [address] [place] [address], [address], [phone], Provider Name:Slim salter, 05/20/2026 09:30:00 AM, [address] [place] [address], [address], [phone], Progress Notes * Isadora PAZB:1955 (70 yo F)Acc No.[id number]:08/06/2025 Patient: Shanon PURI :1955 A ge:70 Y S ex:Female Address:[address] [place] [phone] * true * Date: Generated for Rigo hayward/Ayala/Megransmitting on: 02:44 PM EST
--- OUTSIDE RECORDS SUMMARY | 2025-08-13 06:30 | XMS_ITS ---
Author Organization Slim Hammond MD Address [address] [place] [phone] Care Team Providers Care Group Segment Consultant Name Role Phone Slim Hammond Primary Care [...] Location Date Provider Diagnosis Slim Hammond MD [address] [place] [address] [place] [phone] 08/13/2025 Slim Hammond C. difficile colitis A04.72 [...] 2 Weeks, Reason: Provider Name:Slim Shepard kaylar, 11/23/2025 09:00:00 AM, [address] [place] [address], Suite [facility], [place], [place], [phone], Provider Name:Slim Shepard kaylar, 05/13/2026 07:45:00 AM, [address] [place] [address], Suite [facility], [place], [place], [phone], Provider Name:Slim Shepard kaylar, 05/20/2026 09:30:00 AM, [address] [place] [address], Suite [facility], [place], [place], [phone], Progress Notes * Lakeisha PAZaDOB:1955 (70 yo F)Acc No.[id number]:08/13/2025 Patient: Lakeisha PURIa Provider: Sunni Hammodn MD :1955 A ge:70 Y S ex:Female Date:08/13/2025 Address:[address] [place] [phone] Subjective: * Chief Complaints: * P H/TCM [...] 9 0662 FLU VACC PRSV FREE INC [id number] IMMUNIZATION ADMIN * Follow Up: 2 Weeks * * Sign off status: Completed true * Provider: Sunni Hammond MD Date: 0 08/13/2025 Generated for Rigo hayward/Ayala/Brandiitting on: 1 02:44 PM EST History and Physical Notes * [...]
--- OUTSIDE RECORDS SUMMARY | 2025-09-01 06:45 | XMS_ITS ---
Author Organization Slim Hammond MD Address [address] [place] [phone] Care Team Providers Care Serger Name Role Phone Slim Hammond Primary Care Provider Allergies Allergen (clinical drug ingredient) Drug/Non Drug Allergy documented on EMR Reaction Allergy Type Onset Date Status vancomycin Vancomycin HCl itching only iv Drug Allergy Active azithromycin z pack (uncoded) diarrhea Allergy Active REASON FOR VISIT 2 week f/u Medications Medication SIG (Take, Route, Frequency, Duration) Notes Start Date End Date Status Ondansetron 4 MG 1 tablet on the tong ue and allow to dissolve Orally Once a day for 30 day(s) Not-Taking Calcium 500 MG 1 tablet with meals Orally Twice a day for 30 day(s) Not-Taking ProAir HFA 108 (90 Base) MCG/ACT 2 puffs as needed Inhalation every 6 hrs for 30 days 04/23/2018 Not-Taking Clobetasol Propionate 0.05 % 1 APPLICATION EXTERNALLY TWICE A DAY 30 DAYS for 30 Active Levothyroxine Sodium 100 MCG TAKE 1 TABLET BY MOUTH IN THE MORNING ON AN EMPTY STOMACH ONCE A DAY FOR 90 DAYS Active Atorvastatin Calcium 40 MG TAKE 1 TABLET BY MOUTH EVERY DAY Active Albuterol Sulfate HFA 108 (90 Base) MCG/ACT 1 puff as needed Inhalation every 4 hrs for 30 days 10/07/2021 Active Vitamin D 1000 UNIT 1 tablet Orally Once a day Active Omeprazole 20 MG 1 capsule 1/2 to 1 h our before morning meal Orally Once a day for 30 day(s) Active Vital Signs Blood pressure systolic 156 mm Hg 09/01/20 25 Blood pressure diastolic 72 mm Hg 025 Height 64 in 09/01/2025 Weight 203 lbs 09/01/2025 BMI 34.84 kg/m2 09/01/2025 Encounters Encounter Location Date Provider Diagnosis Slim Hammond MD [address] [place] [phone] 09/01/2025 Slim Hammond Diverticulitis K57.9 2 Assessments Encounter Date Diagnosis (ICD Code) Assessment Notes Treatment Notes Treatment Clinical Notes Section Notes 09/01/2025 Diverticulitis (ICD-10 - K57.92) will try getting by without ab due the cdiff and if the pain gets worse to go to the er Plan Of Treatment Treatment Notes Assessment Notes Diverticulitis will try getting by without ab due the cdiff and if the pain gets worse to go to the er Pending Test Test Name Order Date CT ABD & PELVIS WITH CONTRAST 09/01/2025 Next Appt Details Follow Up: 2 - 3 Days, Reaso n: Provider Name:Slim salter, 11/23/2025 09:00:00 AM, [address] [place] [address], [address], [phone], Provider Name:Slim salter, 05/13/2026 07:45:00 AM, [address] [place] [address], [address], [phone], Provider Name:Slim salter, 05/20/2026 09:30:00 AM, [address] [place] [address], [address], [phone], Progress Notes * Tatum PAZ:1955 (70 yo F)Acc No.[id number]:09/01/2025 Progress Notes Patient: Shanon PURI Provider: Sunni Hammond MD :1955 A ge:70 Y S ex:Female Date:09/01/2025 Address:[address] [place] [address], [phone] Subjective: * Chief Complaints: * 2 week f/u * HPI: S ymptom(s): patient is a 70 yo female here for 2 week follow up visit/ pain started again today. . appt with surgeon in 2 weeks. * ROS: G eneral/Constitutional: Denies C hills. D enies F atigue. D enies F ever. D enies H eadache. E NT: Denies S ore throat. R espiratory: Denies C ough. D enies S hortness of breath at rest. D enies S hortness of breath with exertion. G astrointestinal: Admits A bdominal pain. D enies B lood in stool.?Denies C onstipation. D enies D ecreased appetite. A dmits D iarrhea. D enies H eartburn. A dmits N ausea. D enies R ectal bleeding. [...] puffs as needed Inhalation every 6 hrs DiscontinuedVancomycin HCl 125 MG Capsule 1 capsule Orally Once a day Vancomycin HCl 125 MG Capsule 1 capsule Orally 4 times a day Amoxicillin-Pot Clavulanate 875-125 MG Tablet 1 tablet Orally every 12 hrs Medication List reviewed and reconciled with the patientDiscontinued Vancomycin HCl 125 MG Capsule 1 capsule Orally Once a day Discontinued Vancomycin HCl 125 MG Capsule 1 capsule Orally 4 times a day Discontinued Amoxicillin-Pot Clavulanate 875-125 MG Tablet 1 tablet Orally every 12 hrs Medication List reviewed and reconciled with the patient * Allergies: z pack: diarrheaVancomycin HCl: itching only ivyes[Allergies Verified] Objective: * Vitals: H t: 64, Wt: 203, BMI:34.84, BP:156/72, Wt-k.08. * Examination: G eneral Examination: GENERAL APPEARANCE: w ell developed, well nourished. SKIN: g ood turgor. HEART: r egular rate and rhythm, no murmurs, rubs, gallops.? LUNGS: n o wheezes, rales, rhonchi, good air movement, clear to auscultation bilaterally. ABDOMEN: a bnormal with minimal tenderness in both lower quadrants.. Assessment: * Assessment: 1. D iverticulitis - K57.92 (Primary) Plan: * Treatment: * Procedure Codes: * Follow Up: 2 - 3 Days * * Sign off status: Completed true * Provider: Sunni Hammond MD Date: 1 Generated for Rigo hayward/Ayala/Brandiitting on: 02:44 PM EST History and Physical Notes * HPI (History of Present Illness) Category Sub-Category Detail Notes Category Not es Symptom(s) patient is a 70 yo female here for 2 week follow up visit/ pain started again today. . appt with surgeon in 2 weeks. Examination Category Sub-Category Detail Notes Category Not es General Examination GENERAL APPEARANCE: well developed , well nourished HEART: regular rate and rhy thm, no murmurs, rubs, gallops LUNGS: no wheezes, rales, r honchi, good air movement, clear to auscultation bilaterally ABDOMEN: abnormal with minima l tenderness in both lower quadrants. SKIN: good turgor
--- OUTSIDE RECORDS SUMMARY | 2025-09-04 08:15 | XMS_ITS ---
Author Organization Slim Hammond MD Address [address] [place] [phone] Care Team Providers Care Hims Manager Name Role Phone Slim Hammond Primary [...] W/U Status Risk Notes Problem Irritable bowel (57253912) Irritable bowel (K58.9) Active confirmed Vital Signs Blood pressure systolic 148 mm Hg 09/04/20 25 Blood pressure diastolic 76 mm Hg 025 Height 64 in 09/04/2025 Weight 203 lbs 09/04/2025 BMI 34.84 kg/m2 09/04/2025 Encounters Encounter Location Date Provider Diagnosis Slim Hammond MD [address] [place] [address] [place] [phone] 09/04/2025 Slim Hammond Irritable bowel K58.9 Assessments [...] Up: 4 Weeks, Reason: Provider Name:Slim salter, 11/23/2025 09:00:00 AM, [address] [place] [address], [address], [phone], Provider Name:Slim salter, 05/13/2026 07:45:00 AM, [address] [place] [address], [address], [phone], Provider Name:Slim salter, 05/20/2026 09:30:00 AM, [address], [address], [place], [place], [phone], Progress Notes * Lakeisha PAZaDOB:1955 (70 yo F)Acc No.[id number]:09/04/2025 Patient: Shanon PURI Provider: Sunni Hammond MD :1955 A ge:70 Y S ex:Female Date:09/04/2025 Address:[address] [place] [address], [phone] Subjective: * Chief Complaints: * m ust see follow up after CT scab abd and pelvic * HPI: S ymptom(s): patient is a 70 yo female here for follow up of recent CT Scan/ ct negative at present. ovary cyst is followed by sole cementer. bm are better today/ still getting cramping [...] MD Date: Generated for Rigo hayward/Ayala/Brandiitting on: 02:45 PM EST History and Physical Notes * HPI (History of Present Illness) Category Sub-Category Detail Notes Category Not es Symptom(s) patient is a 70 yo female here for follow up of recent CT Scan/ ct negative at present. ovary cyst is followed by sole cementer. bm are better today/ still getting cramping [...]
--- OUTSIDE RECORDS SUMMARY | 2025-10-05 04:15 | XMS_ITS ---
Author Organization Slim Hammond MD Address [address] [place] [phone] Care Team Providers Care Industrial Controller Name Role Phone Slim Hammond Primary Care Provider [phone] Allergies Allergen (clinical drug ingredient) Drug/Non Drug [...] Location Date Provider Diagnosis Slim Hammond MD [address] [place] [address] [address] [place], [place] [phone] 10/05/2025 Slim Hammond Acquired hypothyroidism E03.9 ; [...] Up: 2 Months, Reason: Provider Name:Slim salter, 11/23/2025 09:00:00 AM, [address] [place] [address], [address], [place], [place], [phone], Provider Name:Slim Shepard ier, 05/13/2026 07:45:00 AM, [address], [address], [place], [place], [phone], Provider Name:Slim Shepard ier, 05/20/2026 09:30:00 AM, [address], [address], [place], [place], [phone], Progress Notes * Lakeisha PAZaDOB:1955 (70 yo F)Acc No.[id number]:10/05/2025 Progress Notes Patient: Shanon PURI Provider: Sunni Hammond MD :1955 A ge:70 Y S ex:Female Date:10/05/2025 Address:[address] [place], [place] [phone] Subjective: * Chief Complaints: * 4 weekThyroid US pushout until November * HPI: S ymptom(s): patient is a [...] TAKE 1 TABLET BY MOUTH EVERY DAY Hyoscyamine Sulfate 0.125 MG Tablet 1 tablet as needed Orally every 12 hours Taking Omeprazole 20 MG Capsule Delayed Release [...] 1 TABLET BY MOUTH EVERY DAY Taking Hyoscyamine Sulfate 0.125 MG Tablet 1 tablet as needed Orally every 12 hours Not-Taking/PRNOndansetron 4 MG Tablet Disintegrating 1 tablet [...] have surgery, followed by Gen Surgery * Procedure Codes: * Follow Up: 2 Months * * Sign off status: Completed true * Provider: Sunni Hammond MD Date: 1 12/05/2024 Generated for iRgo hayward/Ayala/Opal on: 02:45 PM EST History and Physical [...]
--- OUTSIDE RECORDS SUMMARY | 2025-11-17 03:00 | XMS_ITS ---
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 Lipid Panel with Reflex Reviewed date:11/17/2025 02:23:12 PM Interpretation: Performing Lab:[address] [id number] Notes/Report: Triglycerides 126 <150 mg/dL Desirable Triglyceride: less than 150 mg/dL Borderline High Triglyceride 150-199 mg/dL High Triglyceride: 200-499 mg/dL Very High Triglyceride: greater than or equal to 5OO mg/dL Cholesterol 158 <200 mg/dL Desirable Cholesterol: less than 200 mg/dL Borderline High Cholesterol: 200-239 mg/dL High Cholesterol: greater than 239 mg/dL LDL Cholesterol Calculated 91 <100 mg/dL Desirable LDL: less than 100 mg/dL Near Optimal/Above Optimal LDL: 110-129 mg/dL Borderline High LDL: 130-159 mg/dL High LDL: 160-189 mg/dL Very High LDL: greater than or equal to 190 mg/dL HDL Cholesterol 42 >40 mg/dL Desirable HDL: greater than 40 mg/dL Note: This HDL assay may give artificially low results in patients with liver disease. Hemoglobin A1c Reviewed date:11/17/2025 12:41:11 PM Interpretation: Performing Lab:[facility], [address] [place] [id number] Notes/Report: Hemoglobin A1c % 5.8 <6.0 % [...] average glucose, using the formula of the [id number] Average Glucose study (ADAG), Diabetes Care, Vol.31,#8, Jun. 2007 REASON FOR VISIT fasting lipids Encounters Encounter Location Date Provider Diagnosis Slim Hammond MD [address] [place] [address] [place] [phone] 11/17/2025 Slim Hammond Pure hypercholestero lemia E78.00 and Prediabetes R73.09 Assessments Encounter Date Diagnosis (ICD Code) Assessment Notes Treatment Notes Treatment Clinical Notes Section Notes 11/17/2025 Pure hypercholesterolemia (ICD-10 - E78.00) 11/17/2025 Prediabetes (ICD-10 - R73.09) Plan Of Treatment Pending Test Test Name Order Date Lipid Panel 11/17/2025 Next Appt Details Provider Name:Slim salter, 11/23/2025 09:00:00 AM, [address] [place] [address], [address], [place], [place], [phone], Provider Name:Slim salter, 05/13/2026 07:45:00 AM, [address], [address], [place], [place], [phone], Provider Name:Slim Shepard ier, 05/20/2026 09:30:00 AM, [address], [address], [place], [place], [phone], Progress Notes * Lakeisha PAZaDOB:1955 (70 yo F)Acc No.[id number]:11/17/2025 Progress Note Patient: Shanon PURI Provider: Sunni Hammond MD :1955 A ge:70 Y S ex:Female Date:11/17/2025 Address:[address] [place], [place] [phone] Subjective: * Chief Complaints: * 1 . Fasting lipids. * Medical History: Objective: * Vitals: Assessment: * Assessment: 1. P ure hypercholesterolemia - E78.00 (Primary) 2 . P rediabetes - R73.09? Plan: * Treatment: 2. P rediabetes L AB: Lipid Panel L AB: Glucose Fasting (Collection Date & Time - 11/17/2025 08:00 AM) L AB: Lipid Panel with Reflex (Collection Date & Time - 11/17/2025 08:00 AM) L AB: Hemoglobin A1c (Collection Date & Time - 11/17/2025 08:00 AM) * Procedure Codes: 3 6415 VENIPUNCT, ROUTINE* * * The named appointment provid er may or may not be the originator of this progress note, and it is not deemed complete until electronically signed by the appointment provider. Sign off status: Pending * Provider: uSnni Hammond MD Date: Generated for Rigo hayward/Ayala/Brandiitting on: 02:43 PM EST
[2025-11-17 11:40] LABS: Cholesterol 158 mg/dL (<200); HDL Cholesterol 42 mg/dL (>40); Triglycerides 126 mg/dL (<150)
[2025-11-17 13:29] LABS: Reflex LDLD? No
--- OUTSIDE RECORDS SUMMARY | 2025-11-17 14:44 | XMS_ITS | Clinical Summary ---
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
--- OUTSIDE RECORDS SUMMARY | 2025-11-17 14:44 | XMS_ITS | Patient Health Record ---
Author Organization Slim Hammond MD Address [address] [place], [place] [address] Care Team Providers Care Health Science Specialist Name Role Phone Slim Hammond Primary Care Provider Allergies Allergen (clinical drug ingredient) Drug/Non Drug Allergy documented on EMR Reaction Allergy Type Onset Date Status vancomycin Vancomycin HCl itching only iv Drug Allergy Active azithromycin z pack (uncoded) diarrhea Allergy Active Results Component Value Reference Range Notes Complete Blood Count Auto Di ff Reviewed date:05/15/2025 04:04:20 PM Interpretation: Performing Lab:[facility], [address] [place] [phone] Notes/Report: White Blood Count 6.9 4.8-10.8 X10*3/uL [...] NRBC Abs Auto 0.000 0.0-0.012 X10*3/uL Comprehensive Lenore. Panel Fa st Reviewed date:05/15/2025 04:07:36 PM Interpretation: Performing Lab:[facility], [address] [place] [phone] Notes/Report: Sodium 143 135-145 mmol/L Potassium 4.0 [...] Panel Reviewed date:05/15/2025 12:46:36 PM Interpretation: Performing Lab:[facility], [address] [place] [phone] Notes/Report: Triglycerides 128 <150 mg/dL Desirable Triglyceride: [...] Total Reviewed date:05/15/2025 12:40:19 PM Interpretation: Performing Lab:[facility], [address] [place] [phone] Notes/Report: Vitamin D 25-OH Total 50.6 >30 [...] T4 Reviewed date:05/15/2025 12:34:31 PM Interpretation: Performing Lab:[address] [address] Notes/Report: TSH reflex Free T4 2.95 0.32-4.0 uIU/mL Microalbumin, Random Reviewed date:05/15/2025 12:48:47 PM Interpretation: Performing Lab:[facility], [address] [place] [phone] Notes/Report: Creatinine Urine 97.55 Microalbumin Urine < 5.0 Microalbum/Creatinine Ratio Ur TNP <30 ug/mg cr Unable to calculate albumin/creatinine ratio due to low microalbumin or creatinine result. Hemoglobin A1c Reviewed date:05/15/2025 12:34:22 PM Interpretation: Performing Lab:[facility], [address] [place] [phone] Notes/Report: Hemoglobin A1c % 5.9 <6.0 % [...] average glucose, using the formula of the Z1J-Yrgwxyn Average Glucose study (ADAG), Diabetes Care, Vol.31,#8, Jun. 2007 UA ClnCatch+Micro w/rflx Cul t Reviewed date:05/15/2025 12:59:47 PM Interpretation: Performing Lab:[facility], [address] [place] [phone] Notes/Report: Urine, Clean Catch Color Urine Yellow Appearance Urine Clear PH 6.0 5.0-9.0 Glucose Urine UA Negative Negative mg/dL Urine Blood Negative Negative Specific [place] - Urine 1.015 1.005-1.025 Urine Protein Negative Neg-Trace mg/dL Urine Ketones Negative Negative mg/dL Nitrite Urine Negative Negative Leukocyte Esterase Urine Negative Negative RBC Urine 0-2 0-2 /HPF WBC Urine 0-5 0-5 /HPF Squamous Epithelial Cell Urine 0-2 0-2 /HPF Bacteria Urine None Seen None Seen Hyaline Casts Urine 0-2 0-2 /LPF Glucose Fasting Reviewed date:11/17/2025 02:23:52 PM Interpretation: Performing Lab:[address] [address] Notes/Report: Glucose Fasting 112 60-99 mg/dL A fasting glucose from 100-125 mg/dl is considered impaired (pre-diabetes). Lipid Panel with Reflex Reviewed date:11/17/2025 02:23:12 PM Interpretation: Performing Lab:[facility], [address] [place] [phone] Notes/Report: Triglycerides 126 <150 mg/dL Desirable Triglyceride: [...] A1c Reviewed date:11/17/2025 12:41:11 PM Interpretation: Performing Lab:[address] [phone] Notes/Report: Hemoglobin A1c % 5.8 <6.0 % [...] average glucose, using the formula of the F5V-Foeizam Average Glucose study (ADAG), Diabetes Care, Vol.31,#8, Jun. 2007 US pelvic and transvaginal Reviewed date:11/23/2024 06:29:37 PM Interpretation: Performing Lab: Notes/Report: [address] [address] Ultrasound Report Signed Patient: Rosina Stern MR#: [id number] : 1955 Acct:[id number] Age/Sex: 69 / F ADM Date: 11/20/24 Loc: HO.US Attending Dr: Lalo Mao MD Ordering Physician: Lalo Mao MD Date of Service: 11/20/24 Procedure(s): US pelvic and transvaginal Accession Number(s): [id number] cc: Slim Hammond MD; Lalo Mao MD [...] in OV> 11/22/24805 DD/ 4 TD/TT: 11/22/24804 Shipyard Painter: [address] [address] Ultrasound Report Signed Patient: Lakeisha Stern MR#: [id number] : 1955 Acct:[id number] Age/Sex: 69 / F ADM Date: 11/20/24 Loc: HO.US Attending Dr: Lalo Mao MD Ordering Physician: Lalo Mao MD Date of Service: 11/20/24 Procedure(s): US pel bin and transvaginal Accession Number(s): [id number] cc: Slim Hammond MD; Lalo Mao MD [...] document has be en electronically signed by: Anotnio Poole MD on 11/22/2024 08:05:24 Dictated By: Adams Poole MD Signed By: <Marlene rizvi signed by Antonio Poole MD in OV> 11/22/24 0806 DD/ 0805 TD/TT: 11/22/24 0805 Shipyard Painter: MM tomosynthesis screening B I Reviewed date:02/09/2025 05:25:03 PM Interpretation: Performing Lab: Notes/Report: [facility] [address] [place], [place] [address] Mammography Report Signed Patient: Rosina Stern MR#: [id number] : 1955 Acct:[id number] Age/Sex: 69 / F ADM Date: 01/29/25 Loc: HO.MAMMO Attending Dr: Slim Hammond MD Ordering Physician: Slim Hammond MD Results: 2Be nign Findings Date of Service: 01/29/25 Follow Up: 1 Year From Orig inal Mammogram Procedure(s): MM tomosynthesis screening BI Accession Number(s): [id number] cc: Slim Hammond MD EXAMINATION: MM SCREENING [...] 02/06/25 1543 DD/ 0914 TD/TT: 01/29/25 0944 Shipyard Painter: [facility] [address] [place] [address] Mammography Report Signed Patient: Lakeisha Stern MR#: [id number] : 1955 Acct:[id number] Age/Sex: 69 / F ADM Date: 01/29/25 Loc: HO.MAMMO Attending Dr: Slim Hammond MD Ordering Physician: Slim Hammond MD Results: 2Be nign Findings Date of Service: Follow Up: 1 Year From Orig inal Mammogram Procedure(s): MM tomosynthesis screening BI Accession Number(s): [id number] cc: Slim Hammond MD EXAMINATION: MM SCREENING [...] Dictated By: Laureen Ha DO Signed By: <Electron [email or web address] signed by Laureen Ha DO in OV> 02/06/25 1543 DD/ 0914 TD/TT: 01/29/25 0944 Shipyard Painter: Pathology Reviewed date:05/15/2025 03:55:30 PM Interpretation: Performing Lab:[facility], [address] [place] [phone] Notes/Report: ------ Name: Rosina Stern Age/Sex: 70/F : 1955 Unit#: [id number] Attend Dr: Joan Vargas MD Re05/14/25 Status : [facility] Location: HO.SSS Disch: ------ SPEC : [id number] RECD : 05/14/25 STATUS: JONELLE GRIMALDO NUM: [id number] DAGMAR: 05/14/[address]: Joan Vargas MD ENTERED: 05/14/25 [...] developed and their performance characteristics determined by [facility]. They have not been cleared or appr sujit by the U.S. Food and Drug Administration (FDA). However, the FDA has determined that such clearance or approval is not necessary. This laboratory is certified under the Clinical Laboratory Improvement Amendments of 1988 (CLIA) as qualified CONTINUED ON NEXT PAGE ------ Name: Rosina Stern Age/Sex: 70/F : 1955 Unit#: [id number] Attend Dr: Joan Vargas MD Re05/14/25 Status : [facility] Location: [facility] Disch: ------ SPEC : [id number] RECD : 05/14/25 STATUS: JONELLE GRIMALDO NUM: [id number] DAGMAR: 05/14/25 [facility] DR: Joan Vargas MD ENTERED: 05/14/25 56 SP TYPE: Surgical OTHR DR: Slim Hammond MD ORDERED: HE Stain/6, Gross Micro L4/2 IHC S/NG Disclaimer (Continued) to perform high comp lexity clinical laboratory testing. Copies To: Slim Hammond MD [facility] [address] [place] [address] Joan Vargas MD [facility] [address] [place] [address] [email or web address] ------ Signed (signature on file) Branden Ramos MD 05/15/25 1454 ------ END OF REPORT Edmar Bar Reviewed date:05/15/2025 12:34:52 PM Interpretation: Performing Lab:[facility], [address] [place] [phone] Notes/Report: Edmar Bar See Note Specimen held untested for 24 hours; Call to request Chemistry testing. Complete Blood Count Auto Di ff Reviewed date:07/30/2025 04:40:59 PM Interpretation: Performing Lab:[facility], [address] [place] [phone] Notes/Report: White Blood Count 12.0 4.8-10.8 X10*3/uL [...] Panel Reviewed date:07/31/2025 12:50:47 PM Interpretation: Performing Lab:[facility], [address] [place] [phone] Notes/Report: Sodium 142 135-145 mmol/L Potassium 3.6 [...] Acid Reviewed date:07/31/2025 12:33:14 PM Interpretation: Performing Lab:[facility], [address] [place] [phone] Notes/Report: Lactic Acid 1.1 0.5-2.0 mmol/L Magnesium Reviewed date:07/31/2025 12:33:32 PM Interpretation: Performing Lab:[facility], [address] [place] [phone] Notes/Report: Magnesium 1.9 1.6-2.6 mg/dL Lipase Reviewed date:07/31/2025 12:32:58 PM Interpretation: Performing Lab:[facility], [address] [place] [phone] Notes/Report: Lipase 38 8-78 U/L UA CC w/rflx Micro + Cult Reviewed date:08/03/2025 11:38:27 AM Interpretation: Performing Lab:[facility], [address] [place] [phone] Notes/Report: Urine, Clean Catch Color Urine Yellow Appearance Urine Clear PH 5.5 5.0-9.0 Glucose Urine UA Negative Negative mg/dL Urine Blood Negative Negative Specific [place] - Urine >= 1.030 1.005-1.025 Urine Protein Negative Neg-Trace mg/dL Urine Ketones Negative Negative mg/dL Nitrite Urine Negative Negative Leukocyte Esterase Urine Negative Negative Blood Culture (First) Reviewed date:08/05/2025 06:01:08 PM Interpretation: Performing Lab:[facility], [address] [place] [phone] Notes/Report: Blood Culture (First) No growth after 5 days. Blood Culture (Second) Reviewed date:08/05/2025 06:01:48 PM Interpretation: Performing Lab:[facility], [address] [place] [phone] Notes/Report: Blood Culture (Second) No growth after [address] abdomen pelvis w con Reviewed date:07/31/2025 12:32:09 PM Interpretation: Performing Lab: Notes/Report: [address] [address] [address] Scan Report Signed with Syed Patient: Rosina Stern MR#: [id number] : 1955 Acct:[id number] Age/Sex: 70 / F ADM Date: 07/30/25 Loc: HO.ED Attending Dr: Ordering Physician: Barbara Venegas DO Date of Service: 07/31/25 Procedure(s): CT abdomen pelvis w IV con Accession Number(s): [id number] cc: Slmi Hammond MD; Barbara Venegas DO Report Number: [id number]: Total DLP = 729.00 mGy-cm Reason for [...] in OV> 07/31/25130 DD/ 9 TD/TT: 07/31/25129 Shipyard Painter: [place] [address] [address] Scan Report Signed with Addenda Patient: Lakeisha Stern MR#: [id number] : 1955 Acct:[id number] Age/Sex: 70 / F ADM Date: 07/30/25 Loc: .ED Attending Dr: Ordering Physician: Barbara Venegas DO Date of Service: 07/31/25 Procedure(s): CT abd omen pelvis w IV con Accession Number(s): [id number] cc: Slim Hammond MD; Barbara Venegas DO [...] Dictated By: Mary Agarwal MD Signed By: <Electron icaluis signed by Mary Agarwal MD in OV> 07/31/25130 DD/ 9 TD/TT: 07/31/25129 Shipyard Painter: Complete Blood Count Auto Di ff Reviewed date:08/02/2025 05:43:56 PM Interpretation: Performing Lab:[facility], [address] [place] [phone] Notes/Report: White Blood Count 4.8 4.8-10.8 X10*3/uL [...] Panel Reviewed date:08/02/2025 05:42:26 PM Interpretation: Performing Lab:[facility], [address] [place] [phone] Notes/Report: Sodium 143 135-145 mmol/L Potassium 4.2 [...] gy Reviewed date:08/03/2025 11:37:20 AM Interpretation: Performing Lab:[facility], [address] [place] [phone] Notes/Report: Hold Lav - Possible Hematology SEE NOTE Specimen will be held untested for 8 hours. Call Hematology if testing is desired. Basic Metabolic Panel Reviewed date:08/03/2025 12:15:20 PM Interpretation: Performing Lab:[facility], [address] [place] [phone] Notes/Report: Sodium 145 135-145 mmol/L Potassium 3.6 [...] PCR Reviewed date:08/03/2025 11:35:57 AM Interpretation: Performing Lab:[facility], [address] [place] [phone] Notes/Report: CDiff Gene PCR POSITIVE Negative Additional C. difficile toxin testing to be performed. CDiff Toxin Reviewed date:08/03/2025 11:36:06 AM Interpretation: Performing Lab:[facility], [address] [place] [phone] Notes/Report: CDiff Toxin Negative Negative Results of CDIFF called to [facility] on 08/03/25 at 1021 by SONY. CDIFF Interpretation SEE NOTE Likely C. difficile colonization. Continue contact precautions. CT abdomen pelvis w con Reviewed date:09/04/2025 01:12:27 PM Interpretation: Performing Lab: Notes/Report: [address] [address] [address] Scan Report Signed Patient: Rosina Stern MR#: [id number] : 1955 Acct:[id number] Age/Sex: 70 / F ADM Date: 09/02/25 Loc: HO.CT Attending Dr: Slim Hammond MD Ordering Physician: Slim Hammond MD Date of Service: 09/02/25 Procedure(s): CT abdomen pelvis w IV con Accession Number(s): [id number] cc: Slim Hammond MD Report Number: [id number]: Total DLP = 562.00 mGy-cm Reason for Exam: DIVERTICULITIS CLINICAL HISTORY: DIVERTICULITIS CT abdomen and pelvis with contrast Comparison: CT/SR - CT ABDOMEN PELVIS W IV CON - 07/31/25 00:50 EDT US/NC - US PELVIC AND TRANSVAGINAL - 11/20/24 [...] in OV> 09/03/251829 DD/ 28 TD/TT: 09/03/251828 Shipyard Painter: [address] [address] [address] Scan Report Signed Patient: Lakeisha Stern MR#: [id number] : 1955 Acct:[id number] Age/Sex: 70 / F ADM Date: 09/02/25 Loc: HO.CT Attending Dr: Slim Hammond MD Ordering Physician: Slim Hammond MD Date of Service: 09/02/25 Procedure(s): CT abd omen pelvis w IV con Accession Number(s): [id number] cc: Slim Hammond MD Report Number: [id number]: Total DLP = 562.00 mGy-cm Reason for Exam: DIVERTICULITIS CLINICAL HISTORY: DIVERTICULITIS CT abdomen and pelvi s with contrast Comparison: CT/SR - CT ABDOMEN PELVIS W IV CON - 07/31/25 00:50 EDT US/NC - US PELVIC AN D TRANSVAGINAL - [...] in OV> 09/03/251829 DD/ 28 TD/TT: 09/03/251828 Shipyard Painter: Edmar Bar Reviewed date:11/17/2025 11:06:58 AM Interpretation: Performing Lab:[facility], [address] [place] [phone] Notes/Report: Hold Gold See Note Specimen held untested for 24 hours; Call to request Chemistry testing. Reason For Referral No Information Medications Medication [...] Problem Status W/U Status Risk Notes Problem 782153732 Acute diverticul itis (K57.92) Active confirmed Problem 841864871 Thyroid nodule (E04.1) Active confirm ed Problem 97840828 Lymphocytosis (D72.820) Active confirmed Problem Carpal tunnel syndrome (76222144) Carpal tunnel syndrome (G56.00) Active confirmed Problem 958155658 Tubular adenoma (D36.9) Active confirmed Problem 12932209 Vitamin D defici ency (E55.9) Active confirmed Problem Diverticulitis (33461532) Diverticulitis (K57.92) Active confirmed Problem 296229134 Lumbar disc dise ase (M51.9) Active confirmed Problem Essential hypertension (18494892) Essential hypertension (I10) Active confirmed Problem 419048947 Acquired hypothyroidism (E03.9) Active confirmed Problem 1596808 Prediabetes (R73.09) Active confirmed Problem 237132599 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) Active confirmed Problem 401472618 Menopause (Z78.0) Active confirmed Problem 19643762 Degeneration of cervical intervertebral disc (M50.30) Active confirmed Problem 512779447 Pure hypercholesterolemia (E78.00) Active confirmed Problem 478958036 Acute low back p ain without sciatica, unspecified back pain laterality (M54.5) Active confirmed Problem Bilateral carpal tunnel syndrome (324858406016949 01) Bilateral carpal tunnel syndrome (G56.03) Active confirmed Problem 627693224 BMI 34.0-34.9,ad ult (Z68.34) Active confirmed Problem 086602069 BMI 35.0-35.9,ad ult (Z68.35) Active confirmed Problem Irritable bowel (79482508) Irritable bowel (K58.9) Active confirmed Problem 881710606 Arthritis of kne e (M17.10) Active confirmed Problem 185775671 Meningioma (D32.9) Active confirmed Problem 102368224 Mild intermitten t asthmatic bronchitis with acute exacerbation (J45.21) Active confirmed Problem 61336667 Other and unspec 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.9) Active confirmed Problem 65703821 Other premature beats (I49.49) Active confirmed Problem 415313731 Osteoarthritis o f lumbar spine, unspecified spinal osteoarthritis complication status (M47.816) Active confirmed Problem 449497030 History of thyro id nodule (Z86.39) Active confirmed Problem 115391905 Acute diverticul itis of intestine (K57.92) Active confirmed Vital Signs Blood pressure diastolic 90 mm Hg 10/05/2025 Height 64 in 10/05/2025 Blood pressure systolic 162 mm Hg 10/05/2025 Weight 204 lbs 10/05/2025 BMI 35.01 kg/m2 10/05/2025 Encounters Encounter Location Date Provider Diagnosis Slim Hammond MD [address] [place] [address] [address] [place] [id number] 05/15/2025 Slim Hammond Blood tests for rout ine general physical examination Z00.00 ; Lymphocytosis D72.820 ; Acquired hypothyroidism E03.9 ; Vitamin D deficiency E55.9 and Prediabetes R73.09 Slim Hammond MD [address] [place] [address] [address] [place] [id number] 11/17/2025 Slim Hammond Pure hypercholestero lemia E78.00 and Prediabetes R73.09 Slim Hammond MD [address] [place] [id number] 04/27/2025 Slim Hammond Mild intermittent asthmatic bronchitis with acute exacerbation J45.21 Slim Hammond MD [address] [place] [id number] 05/19/2025 Slim Hammond Prediabetes R73.09 ; Annual physical exam Z00.00 ; Meningioma D32.9 ; Pure hypercholesterolemia E78.00 ; Essential hypertension I10 ; Thyroid nodule E04.1 and Depression screening Z13.31 Slim Hammond MD [address] [place] [id number] 07/14/2025 Slim Hammond Diverticulitis K57.9 2 Slim Hammond MD [address] [place] [id number] 08/13/2025 Slim Hammond C. difficile colitis A04.72 ; Diverticulitis K57.92 and Encounter for administration of vaccine Z23 Slim Hammond MD [address] [place] [id number] 09/01/2025 Slim Hammond Diverticulitis K57.9 2 Slim Hammond MD [address] [place] [id number] 09/04/2025 Slim Hammond Irritable bowel K58. 9 Slim Hammond MD [address] [place] [id number] 10/05/2025 Slim Hammond Acquired hypothyroid ism E03.9 ; Essential hypertension I10 and Diverticulitis K57.92 Slim Hammond MD [address] [place] [id number] 12/11/2024 Slim Hammond MD [address] [place] [id number] 06/01/2025 Slim Hammond Meningioma D32.9 Slim Hammond MD [address] [place] [address] [id number] 06/02/2025 Slim Hammond MD [address] [place] [id number] 07/14/2025 Slim Hammond MD [address] [place], [place] [id number] 08/06/2025 Slim Hammond Assessments Encounter Date Diagnosis (ICD Code) Assessment Notes Treatment Notes Treatment Clinical Notes Section Notes 05/15/2025 Blood tests for rout ine general physical examination (ICD-10 - Z00.00) 11/17/2025 Pure hypercholesterolemia (ICD-10 - E78.00) 04/27/2025 Mild intermittent asthmatic bronchitis with acute [...] understanding of medication and directions for use 10/05/2025 Acquired hypothyroid ism (ICD-10 - E03.9) is going to have us in november, will continue current regiment 06/01/2025 Meningioma (ICD-10 - D32.9) 05/15/2025 Lymphocytosis (ICD-1 0 - D72.820) 11/17/2025 Prediabetes (ICD-10 - R73.09) 05/19/2025 Meningioma (ICD-10 - D32.9) pending diagnostic testing, order faxed to Tony 08/13/2025 Encounter for administration of vaccine (ICD-10 - Z23) 10/05/2025 Essential hypertensi on (ICD-10 - I10) doing well. will continue current regiment 05/15/2025 Acquired hypothyroid ism (ICD-10 - E03.9) 05/19/2025 Pure hypercholesterolemia (ICD-10 - E78.00) stable, will continue current regiment 10/05/2025 Diverticulitis (ICD- 10 - K57.92) is going to have surgery, followed by Gen Surgery 05/15/2025 Vitamin D deficiency (ICD-10 - E55.9) [...] LAT 10/25/2021 MAMMOGRAM DIGITAL UNILATERAL AALIYAH LT 06/01/2013 MAMMOGRAM DIGITAL SCREEN RIGHT UNI 04/21 US THYROID BIOPSY FNA GUIDE 08/02/2023 XR HIP RIGHT 4 OR MORE VIEWS 09/30/2021 Urinalysis 05/17/2021 Lipid Panel 11/17/2025 CT abdomen pelvis w con 01/15/2024 CT chest wo con 06/06/2021 MR head/brain wo/w con 06/01/2025 US biopsy thyroid 08/28/2023 US thyroid 08/29/2024 US thyroid 05/09/2022 US thyroid 08/18/2022 Future Test Test Name Order Date US THYROID 06/17/2021 Next Appt Details Provider Name:Slim salter, 11/23/2025 09:00:00 AM, [address], [address], [place], [place], [id number], Provider Name:Slim Marc Devyn salter, 05/13/2026 07:45:00 AM, [address] [facility], [address], [place], [place], [id number], Provider Name:Slim Shepard kaylar, 05/20/2026 09:30:00 AM, [address] [place] [address], [address], [place], [place], [id number], Insurance Providers Payer Name Payer Address Payer Phone Subscriber Number Group Number Insured Name Patient Relationship to Insured Coverage Start Date Coverage End Date [employer] [facility] [address] [place], [place] [id number] [phone] [id number] BrandiLakeishaa Self - patient is the insured MEDICARE NHIC [address] [place] [address] [id number] Rosina Stern Self - patient is the insured Medical (General) History Medical History History ICD Code frequent pvc colonoscopy 2008; colonoscop y 01/26/15 repeat 5 yrs (Dr. Prasad); had colonoscopy 02/26/[address] Prasad - repeat 5 yearsColonoscopy 07/17/24 repeat 5y Inclusion cyst
--- OUTSIDE RECORDS SUMMARY | 2025-11-17 14:45 | XMS_ITS | Patient Health Record ---
Author Organization [facility] Address [address] [place] [address] Care Team Providers Care Plastics Worker Name Role Phone Horacio Moreno Unavailable [phone] Reason For Referral No Information Plan Of Treatment No Information
--- OUTSIDE RECORDS SUMMARY | 2025-11-17 14:45 | XMS_ITS | Clinical Summary ---
Author Organization [facility] Address [address] [place] [address] Care Team Providers Care Forest Management Professor Name Role Phone Unavailable Primary Care Provider Unavailabl e Social History Tobacco Use Types Packs/Day Years Used Date Smoking Tobacco: Never Assessed Comments Unknown Sex and Gender Information Value Date Recorded Sex Assigned at Not on file Legal Sex Female 8:06 PM EDT Gender Identity Not on file Sexual Orientation Not on file Plan of Treatment Not on file
--- OUTSIDE RECORDS SUMMARY | 2025-11-17 14:45 | XMS_ITS | Patient Health Record ---
Author Organization [facility] Address [address] [place] [address] Care Team Providers Care Ror Engineer Name Role Phone NICOLASA MOY MD Primary Care Provider Trey McmillanMIGNON [phone] Reason For Referral No Information Medications Medication SIG (Take, Route, Frequency, Duration) Notes Start Date End Date Status Atorvastatin Calcium 20 MG Tablet 1 tab(s) orally once a day (at bedtime) Active Clotrimazole 1 % Cream 1 german applied topically prn Active Levothyroxine Sodium 50 MCG Tablet 2tab(s) orally once a day Active Golytely - POWDER FOR RECONSTITUTION 240 ML ORALLY EVERY 15 MINUTES; Duration: 16 DOSE(S) NAME ONLY Conversion from Multum Review and pick correct strength-formulati on from V I O options. If intended option is not shown, discontinue and re-order from Quick Search. 01/09/2019 Active Vitamin D 25 MCG (1000 UT) Tablet 1 tab(s) orally once a day Active Social History Tobacco Use: Social History Observation Description Date Details (start date - stop date) Former Smoker NA - NA Social History Tobacco Use: Social Info Question Answer Notes Smoking Are you a: former smoker When did you stop Smoking ? 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 asbestos exposure: no Past year's travels: None alcohol use: yes 2-4 drinks a wee k drug use: no marijuana, quit in 1983 Hobbies/Exercise habits: reading , crocheting, gardening Coffee/Tea/Soda: yes Soda - Merigold only Marital Status experience no Problems Problem Type SNOMED Code ICD Code Onset Dates Problem Status W/U Status Risk Notes Problem Benign neoplasm of colon (59483500) H/o colon adenoma (211.3) Active confirmed Problem Family history of malignant neoplasm of gastrointestinal tract (069679991) FAMILY HX-GI MALIGNANCY (V16.0) Active confirmed Problem History of polyp of colon (situation) (036423475) History of colonic polyps (Z86.010) Active confirmed Plan Of Treatment No Information Insurance Providers Payer Name Payer Address Payer Phone Subscriber Number Group Number Insured Name Patient Relationship to Insured Coverage Start Date Coverage End Date [employer] [address] [place] [address] [phone] [id number] SHANON PAZ Self - patient is the insured Medical (General) History Medical History History ICD Code Colonoscopy 10/08/2002 - Int hem. Path: Fragements of a tubular adenoma in the Proximal ascending colon. Hyperplastic colonic mucosa at 10cm. Barium swallow 2004 - [facility] Colonoscopy 03/02/2006 - Mil d sig tics. Int hem. Path: Tubular adenoma at 50cm Colonoscopy 09/15/2009 - Mild sig tics. Sm int hem. Arthritis hypercholesterolemia osteoarthritis thyroid disease Colonoscopy 01/26/2015 - DIv erticulosis in the sigmoid colon & L colon. Path: Tubular adenoma in the R colon Colonoscopy 02/26/19 8mm poly p in the ascending colon and in the descending colon otherwise normal 5 years recall Path: colonic mucosa without pathologic change, no adenoma present (deeper levels examined) Surgical History Surgery Date(Month/Year) Arthroscopic knee surgery 04/2012 Arthroscopic shoulder surgery 12/2011 Part of coccyx removed 1995 tonsillectomy 1984 Deviated septum 1985 C-Sections 1979 & 1983 Hospitalization History Reason Date(Month/Year) As above
== END 2025-11-17 10:53 | disposition home or self-care (01) ==
LOC: HO.LNP 10:52
PROVIDERS: Visit Provider Internal Medicine
DX: R73.03 Prediabetes (principal); E78.00 Pure hypercholesterolemia, unspecified
CPT/HCPCS: 80061; 82947; 83036